=== PATIENT | female | born 1990 | race Caucasian/White ===

== ENCOUNTER → 2019-04-09 | Outpatient (REF) | payer OTHER ==
[~2019-04-09] MED LIST: VITA1CAP25 PO
== END ==
LOC: M SFHCLERA 13:52
PROVIDERS: ATTEND Physician Assistant
DX: L08.9 Local infection of the skin and subcutaneous tissue, unspecified (principal)
CPT/HCPCS: 87070; 87255; G0463

== ENCOUNTER → 2021-08-04 | Outpatient (REF) | LOC: M LAB REF 09:34 | DX: Z36.89 Encounter for other specified antenatal screening (principal) ==

== ENCOUNTER → 2021-08-12 | Outpatient (REF) | LOC: M LAB REF 21:16 | DX: O28.1 Abnormal biochemical finding on antenatal screening of mother (principal) ==

== ENCOUNTER 2021-08-23 18:55 | Inpatient (IN) | payer OTHER ==
[~2021-08-23] VITALS: Ht 154.9 cm; Wt 85.7 kg
[2021-08-23 19:14] VITALS: BP 143/83
[2021-08-23] MEDS ORDERED: MAKE250I IM (19:18)
[2021-08-23 20:13] VITALS: BP 121/79
[2021-08-23 20:30] LABS: HEMATOCRIT 32.9 % (36.0-47.0); HEMOGLOBIN 10.4 g/dl (12.0-15.5); MEAN CORPUSCULAR HGB CONC 31.6 g/dl (32.0-36.5); MEAN CORPUSCULAR VOLUME 82.3 fl (80.0-96.0); PLATELET COUNT, AUTOMATED 291 10^3/uL (150-450); WHITE BLOOD COUNT 15.5 10^3/uL (4.0-10.0)
[2021-08-23] MEDS ORDERED: FAMOTIDINE 20 MG TAB PO ONE (20:30)
[2021-08-23] MEDS: LR 1,000 ML IV SCH (20:40)
--- NOTE | 2021-08-23 20:45 | HPEPDOC ---
Obstetrical History & Physical General Date of Admission History of Present Illness Pt is a 31yo at 35w1d EGA who presents to L&D for rule out labor. She has a history of deliveries in G2 and G3, has been on genesis injections in this . Pt was seen and evaluated in [facility] over the last several days for regular contractions. On sequential evaluations, she was found to be 4cm and did not progress. She was given a course of rescue beta on and Wednesday and discharged home after a dose of procardia. However, pt states that her contractions came back at around 3pm and have persisted so she presented here for evaluation. Chief Complaint: Contractions, pre-term Information Provided By: Patient Age: 31 : 5 Term: 1 Pre-term: 2 Abortions: 1 Livin Care Care: Good Care Dating EGA at Admission: 35 Antepartum Course Diagnos(e)s 1. Threatened labor 2. History of 3. IVF Past Medical History Past Obstetrical History : Past Obstetrical History: Multigravida Type of Delivery: Spontaneous Vaginal Del. HOME CARE CONSULTANT History: No pertinent history Past Medical History Surgical History: Other (tubal ligation) Social History Marital Status: Psychosocial History: No pertinent psych hx * Smoker: non-smoker Alcohol: Denies Drugs: denies Allergies Coded Allergies: No Known Allergies (Unverified , 01/10/19) Medications Miscellaneous Medications Hydroxyprogesterone Caproate (Genesis) 250 Mg/1 Ml Vial, 250 MG IM Physical Examination Physical Examination GENERAL: Alert and oriented times three. BREAST: . ABDOMEN: Gravid and non-tender to touch. FETUS: Is vertex (VTX) HEART RATE: Regular rate and rhythm. LUNGS: Clear to auscultation (CTA). EXTREMITIES: No edema. No clonus. Vital Signs/I&O Vital Signs Date Time Temp Pulse Resp B/P (MAP) Pulse Ox O2 Delivery O2 Flow Rate FiO2 08/23/21 19:14 98.1 114 18 143/83 (103) 97 Room Air Laboratory Data 24H LABS Laboratory Tests 2 08/23/21 20:10: CBC/BMP Pertinent Laboratoy Data Blood Type: A+ RBC Antibody Screen: Negative HIV: Negative Hepatitis B: Negative Hepatitis C: Unknown Rapid Plasma Reagin: Nonreactive Rubella: Immune Chlamydia/Gonorrhea: Negative Group B Streptococcus: Unknown Vaginal Examination Dilation: 4 cm Effacement: 70% Station: -3 Cervical Consistency: Medium Cervical Position: Posterior Assessment Heart Rate (FHR): 160 Variability: Decreased Accelerations: None Decelerations: Prolonged (Prolonged decel in triage, relieved with maternal position changes ) Tocometer Contractions: Yes Frequency: irregular Assessment/Plan Assessment 31-year-old (G)5 para (P)1213 at 35w1d weeks. Presents to Labor and Delivery (L&D) with irregular contractions. Prolonged decel in triage. Plan Admit for prolonged monitoring due to prolonged decel Non-reactive NST, will hydrate w/ IVF Diet: regular diet, transition to clear liquids if pt goes into active labor Group B Streptococcus (GBS) unknown, pt states that she had it collected at [facility]. Labs and intravenous (IV) per unit protocol. Lactated Ringers (LR): Bolus 1000 mL, then at 125 mL/hr. JOSSELYN LOCKETT MD Aug 23, 2021 20:45
[2021-08-23 21:11] VITALS: BP 124/70
[2021-08-23] MEDS ORDERED: ONDANSETRON 4MG/2ML VIAL IV PRN (21:20)
[2021-08-23] MEDS ORDERED: METHYLERGONOVINE MALEATE 0.2 MG/ML VIAL (J2210) IM PRN (21:35)
[2021-08-23] MEDS ORDERED: LR 1,000 ML IV SCH (21:35)
[2021-08-23] MEDS ORDERED: PANTOPRAZOLE 40MG VIAL (C9113 PER 1) IV ONE (21:35)
[2021-08-23] MEDS ORDERED: CALCIUM CARBONATE 500 MG CHEW U/D PO PRN (21:35)
[2021-08-23] MEDS ORDERED: CARBOPROST TROMETHAMINE 250 MCG/ML AMP IM PRN (21:35)
[2021-08-23] MEDS ORDERED: TRANEXAMIC ACID INJection 1,000 MG in NS 100 ML IV PRN (21:35)
--- OUTSIDE RECORDS SUMMARY | 2021-08-23 21:58 | CCD | Continuity of Care Document ---
Author Author Jennifer STARKEY DO Organization Unknown Address [address] [place] [address] Phone [phone] Problems Description No Information Available Social History Type Date Description Comments Sex Unknown Tobacco Use Start: Unknown Never Smoked Cigarettes Tobacco Use Start: Unknown Never Smoked Cigars Tobacco Use Start: Unknown Never Smoked A Pipe Tobacco Use Start: Unknown Never Used Smokeless Tobacco ETOH Use Denies alcohol use Tobacco Use Start: Unknown Patient has never smoked Recreational Drug Use Denies Drug Use Exercise Type/Frequency Exercises regularly Tattoo/Piercing Pierced ears TITA: 09/26/2021 Estimated Date of Delivery Based on Final TITA Allergies and adverse reactions Active Allergies Criticality Reaction | Severity Comments Date NKDA Unable to assess criticality 01/31/2021 NKFA Unable to assess criticality 03/28/2021 Medications Active Medications SIG Qnty Indications Ordering Provide r Date Glucometer Device 1 glucomet er 1units Jerome Stewart M.D. 05/20/2021 Glucose Meter Test Strips Advanced Strips test four times a day dx: gestational diabetes. 120units Jerome Stewart M.D. 05/20/2021 Lancets Ultra Thin 30G Thin 30G Mi sc use 4x daily 100units Jerome Stewart M.D. 05/20/20 21 Alcohol Swabs 70% Pads wipe before doing finger stick 200units Jerome Stewart M.D. 05/20/20 21 Aspirin 81 Low Dose 81mg Chewtabs 1 tab by mouth every day as directed( please start at 16wks) 30units Jerome Stewart M.D. 04/25/2021 [place] 250mg/ml Oil injection intramuscular weekly 250mg 10ml Aury Calhoun. 03/28/2021 Tablets 1 by donald th every day Unknown Medications Administered in Office Medication SIG Qnty Indications Ordering Provider Date Hydroxyprogesterone Caproate 250MG/1ML Injection Issac Starkey, DO 1 Hydroxyprogesterone Caproate 250MG/1ML Injection Issac Starkey, DO Hydroxyprogesterone Caproate 250MG/1ML Injection Jerome Stewart M.D. 07/04 Hydroxyprogesterone Caproate 250MG/1ML Injection Jerome Stewart M.D. 07/03 Hydroxyprogesterone Caproate 250MG/1ML Injection Jerome Stewart M.D. 07/02 Hydroxyprogesterone Caproate 250MG/1ML Injection Issac Starkey, DO Hydroxyprogesterone Caproate 250MG/1ML Injection Jerome Stewart M.D. 12/2020 Hydroxyprogesterone Caproate 250MG/1ML Injection Jerome Stewart M.D. 06/02 Hydroxyprogesterone Caproate 250MG/1ML Injection Jerome Stewart M.D. 06/01 Hydroxyprogesterone Caproate 250MG/1ML Injection Issac Starkey, DO Hydroxyprogesterone Caproate 250MG/1ML Injection Jerome Stewart M.D. 04/2021 Hydroxyprogesterone Caproate 250MG/1ML Injection Jerome Stewart M.D. 05/03 Hydroxyprogesterone Caproate 250MG/1ML Injection Jerome Stewart M.D. 05/01 Hydroxyprogesterone Caproate 250MG/1ML Injection Jerome Stewart M.D. 12/2020 Hydroxyprogesterone Caproate 250MG/1ML Injection Jerome Stewart M.D. 04/02 Immunizations CPT Code Status Date Vaccine Lot # [id number] Given 08/13/2021 Tdap (Boostrix/Adacel) Vacc[place] ne 224cg Vital Signs Date Vital Result Comment 08/20/2021 9:49am BP Systolic 102 mmHg BP Diastolic 70 mmHg Heart Rate 104 /min Body Temperature 98.6 F Respiratory Rate 16 /min O2 % BldC Oximetry 96 % Weight 185.25 lb Weight 84.029 kg Height 61 inches 5'1" BMI (Body Mass Index) 35.0 kg/m2 BSA (Body Surface Area) 1.83 m2 08/13/2021 1:16pm BP Systolic 116 mmHg BP Diastolic 80 mmHg Heart Rate 111 /min O2 % BldC Oximetry 97 % Weight 187.38 lb Weight 84.993 kg Height 61 inches 5'1" BMI (Body Mass Index) 35.4 kg/m2 BSA (Body Surface Area) 1.84 m2 Results Test Acquired Date Facility Test Result H/L Range Note Urinalysis 08/12/2021 [facility] Urinalysis (SEE NOTE) 1, 2 Source R Color yellow Normal: Yellow Clarity clear Normal: Clear Spec [place] 1.020 1.001 - 1.030 pH 6 5 - 9 Glucose NORM Normal: Negative Bilirubin NEG Normal: Negative Ketone NEG Normal: Negative Protein NEG Normal: Negative Nitrite NEG Normal: Negative Blood NEG Normal: Negative Leuk Est NEG Normal: Negative Urobilinogen NOR less than 1.0 mg/dL Microscopic Not Indicate Cuture Urine 08/12/2021 [facility] Culture Urine (SEE NOTE) 3 Laboratory test finding 08/12/2021 [facility] Fibronectin POSITIVE 4 Laboratory test finding 08/04/2021 [facility] Culture GBS Vaginal (SEE NOTE) 5, 6 Laboratory test finding 08/04/2021 [facility] l Fibronectin (SEE NOTE) 7 Laboratory test finding 08/04/2021 [facility] Culture Urine (SEE NOTE) 8, 9 CBC No Diff 07/04/2021 [facility] CBC No Diff (SEE NOTE) 10, 11 WBC 10.1 10^3/uL 4.2 - 11.0 RBC 3.79 10^6/uL Low 4.20 - 5.40 Hemoglobin 10.7 g/dL Low 12.0 - 16.0 Hematocrit 32.6 % Low 37.0 - 47.0 MCV 86.0 fL 81.0 - 101 MCH 28.2 pg 27.0 - 34.0 MCHC 32.8 g/dL 31.0 - 36.0 RDW 13.3 % 11.5 - 14.5 Platelets 258 10^3/uL 150 - 450 MPV 9.4 fL 7.4 - 10.4 BB Type & Screen 03/01/2021 [facility] Abo Group A 12 RH Type POSITIVE AB Screen NEGATIVE Normal: Negative 13 Laboratory test finding 03/01/2021 [facility] Vitamin D 1, 25-Dihydroxy 116.0 pg/mL High 19.9-79.3 Comprehensive Metabolic Panel 03/01/2021 [facility] Comprehensive Metabo (SEE NOTE) 14 Sodium 138 mEq/L 134 - 153 Potassium 3.9 mEq/L 3.6 - 5.0 Chloride 105 mEq/L 98 - 107 Co2 24 mEq/L 22 - 30 Glucose 103 mg/dL High 70 - 99 BUN 11 mg/dL 7 - 21 Creatinine 0.7 mg/dL 0.7 - 1.5 BUN/Creat 16 8 - 27 Total Protein 6.6 g/dL 6.3 - 8.2 Albumin 3.8 g/dL Low 3.9 - 5.0 Globulin 2.8 GM/DL 2.4 - 3.2 A/G Ratio 1.4 0.8 - 2.0 Calcium 9.4 mg/dL 8.4 - 10.2 Total Bili <0.7 mg/dL 0.2 - 1.3 Alkaline Phos 40 U/L 38 - 126 Sgot/Ast 9 U/L 5 - 40 SGPT/Alt 8 U/L 7 - 56 Anion Gap 9.0 mmol/L 8.0 - 16.0 Age 31 yrs Non-Aa GFR >60 mL/min Afr Amer GFR >60 mL/min 15 HIV Panel 03/01/2021 [facility] HIV Screen 4thGeneration wRfx Non Reactive Non Reacti ve Cuture Urine 03/01/2021 [facility] Culture Urine (SEE NOTE) 16 Urinalysis 03/01/2021 [facility] Urinalysis (SEE NOTE) 17 Source R Color yellow Normal: Yellow Clarity clear Normal: Clear Spec [place] 1.025 1.001 - 1.030 pH 6 5 - 9 Glucose NORM Normal: Negative Bilirubin NEG Normal: Negative Ketone NEG Normal: Negative Protein 15 Normal: Negative Nitrite NEG Normal: Negative Blood 150 Abnormal Normal: Negative Leuk Est 100 Abnormal Normal: Negative Urobilinogen NOR less than 1.0 mg/dL Microscopic See Below WBC 1 - 3 Normal: None Seen Epithelial MODERATE Abnormal Normal: None Seen Bacteria 1+ SMALL Normal: None Seen CBC W/Automated Diff 03/01/2021 [facility] CBC W/Automated Diff (SEE NOTE) 18 WBC 8.7 10^3/uL 4.2 - 11.0 RBC 4.41 10^6/uL 4.20 - 5.40 Hemoglobin 13.1 g/dL 12.0 - 16.0 Hematocrit 38.0 % 37.0 - 47.0 MCV 86.2 fL 81.0 - 101 MCH 29.7 pg 27.0 - 34.0 MCHC 34.5 g/dL 31.0 - 36.0 RDW 12.2 % 11.5 - 14.5 Platelets 247 10^3/uL 150 - 450 MPV 9.5 fL 7.4 - 10.4 Neut 73.5 % 37.0 - 80.0 Lymph 21.2 % Low 25.0 - 40.0 [place] 4.0 % 3.0 - 8.0 Eos 0.8 % 0.0 - 7.0 Baso 0.2 % 0.0 - 2.5 %Ig 0.3 % High 0.0 - 0.0 %NRBC 0.0 % 0.0 - 0.0 #Neut 6.35 10^3/uL 2.00 - 6.90 #Lymph 1.83 10^3/uL 0.60 - 3.40 #[place] 0.35 10^3/uL 0.00 - 0.90 #Eos 0.07 10^3/uL 0.00 - 0.70 #Baso 0.02 10^3/uL 0.00 - 0.20 #Ig 0.03 10^3/uL 0.00 - 0.10 #NRBC 0.00 10^3/uL 0.00 - 0.00 Manual Diff NOT INDICATED RBC Morph NOT INDICATED . Panel WWW 03/01/2021 [facility] Hepatitis B Surf Antigen NONREACTIVE Normal:Non React carlitos Rubella Igg Qual 66.860 IU/mL 19 Syphilis NON-REACTIVE Normal:Non Reactive Vitamin D (25-Hydroxy) 28 NG/ML 20 T4 - Free 1.17 ng/dL 0.93 - 1.70 TSH Highly Sensitive 1.29 uIU/mL 0.47 - 5.01 T3 Free 3.4 pg/mL 2.0-4.4 T4 10.5 g/dL 4.5 - 12.5 Thyroid Peroxidase (Tpo) AB <9 IU/mL 0-34 [id number] Plus Core+Ess+Sca 02/28/2021 Patients Ch oice Z#Other Observations <pending> Chlamydia GC/Trich 02/28/2021 [facility] Source: Genital 21 Chlamydia by Jerilyn Negative Negative Gonococcus by Jerilyn Negative Negative Trich vag by Jerilyn Negative Negative 1 {SOURCE: Random Void~NURSE COLLECTED? N 2 URINALYSIS 3 _CULTURE URINE_ ^$564415 ^^749917 $$991359 ^^254492 $$123074 $$957983 $$000340 $$303448 $$830363 $$946345 $$096147 $$319740 $$506310 $$781329 $$659120 $$469654 $$595311 $$641022 $$729395 $$553021 $$196697 $$483385 $$006589 $$507698 $$241456 $$326038 $$038026 ^^122262 $$949634 $$483739 $$254404 -- Continued on next page -- Patient: ESTEFANY Mims Order: [id number] Page 2 Culture: CULTURE URINE Status: Final $$[id number] $$[id number] REPORTED DATE/TIME: 08/15/2021 08:08 Culture: CULTURE URINE Status: Final Urine Culture,Comprehensive: P1 Mixed urogenital keith 25,000-50,000 colony forming units per m L P1 Test performed by: Zhanna ABRAHAM #: [id number] [address] [facility] [phone] [facility] [phone] Television Engineering Teacher : Zaki Taylor MD NPI #: Farmworker Rice : 08/15/21.1432.XMT.SENT REF 4 TEST DONE IN [facility] FIBRONECTIN Any specimen that is cloudy, thick, mucoid, pink, or bloody may cause an invalid or false positive result. 5 CULTURE GBS VAGINAL 6 _B-STREP GROUP B CULTURE_ ^$623763 ^^085721 $$762738 $$[id number] REPORTED DATE/TIME: 08/09/2021 06:06 Culture: CULTURE GBS VAGINAL Status: Final Strep Gp B Culture: P1 Negative Reference Range: Negative Centers for Disease Control and Prevention (CDC) and [place] [employer] of Obstetricians and Gynecologists (ACOG) guidelines for prevention of group B streptococcal (GBS) disease specify co-collection of a vaginal and rectal swab specimen to maximize sensitivity of GBS detection. Per the CDC and ACOG, swabbing both the lower vagina and rectum substantially increases the yield of detection compared with sampling the vagina alone. Penicillin G, ampicillin, or cefazolin are indicated for intrapartum prophylaxis of GBS colonization. Reflex susceptibility testing should be performed prior to use of clindamycin only on GBS isolates from penicillin-allergic women who are considered a high risk for anaphylaxis. Treatment with vancomycin without additional testing is warranted if resistance to clindamycin is noted. P1 Test performed by: Zhanna Mckeon CLIA #: [id number] [address] [facility] [id number] [facility] [address] -- Continued on next page -- Patient: ESTEFANY Mims Order: [id number] Page 2 Culture: CULTURE GBS VAGINAL Status: Final Television Engineering Teacher : Zaki Taylor MD NPI #: Farmworker Rice : 08/09/21.1904.XMT.SENT REF 7 [place] [address] CLIA # [id number] SEE SCANNED REPORT FIBRONECTIN Any specimen that is cloudy, thick, mucoid, pink, or bloody may cause an invalid or false positive result. 8 {SPECIMEN TYPE: RANDOM 9 _CULTURE URINE_ ^$544363 ^^331676 $$466605 ^^856176 $$057259 $$949204 $$046588 $$807025 $$395158 $$840106 $$122854 $$163568 $$731843 $$777823 $$897662 $$721322 $$251488 $$650282 $$377265 $$213948 $$099663 $$074521 $$378265 $$679081 $$737067 $$664941 $$666800 ^^993845 $$814166 $$738555 $$770768 -- Continued on next page -- Patient: ESTEFANY Mims Order: [id number] Page 2 Culture: CULTURE URINE Status: Final $$293076 $$[id number] REPORTED DATE/TIME: 08/06/2021 04:06 Culture: CULTURE URINE Status: Final Urine Culture,Comprehensive: P1 Mixed urogenital keith 25,000-50,000 colony forming units per m L P1 Test performed by: [facility] CLIA #: [id number] [address] [place] [id number] [facility] [address] Television Engineering Teacher : Zaki Taylor MD NPI #: Farmworker Rice : 08/06/21.0701.XMT.SENT REF 10 .~.~Z34.82 11 COMPLETE BLOOD COUNT 12 .~.~<DG1.3.1>Z34.81</DG1.3.1><DG1.3.1>Z34.81</DG1.3.1><DG1.3.1>Z34.81</DG1.3.1>< DG1. {SOURCE: R~.~.~<DG1.3.1>Z34.81</DG1.3.1><DG1.3.1>Z34.81< /DG1.3.1><DG1.3.1>Z34.81</DG1.3.1><DG1. .~.~<DG1.3.1>Z34.81</DG1.3.1><DG1.3.1>Z34.81</DG1.3.1><DG1.3.1>Z34.81</DG1.3.1>< DG1. .~.~<DG1.3.1>Z 34.81</DG1.3.1><DG1.3.1>Z34.81</DG1.3.1><DG1.3.1>Z34.81</DG1.3.1><DG1. .~.~<DG1.3.1>Z34.81</DG1.3.1><DG1.3.1>Z34.81</DG1.3.1><DG1.3.1>Z34.8 1</DG1.3.1><DG1. .~.~<DG1.3.1>Z34.81</DG1.3.1><DG1.3.1>Z34.81</DG1.3.1><DG1.3.1>Z34.81</DG1.3.1>< DG1. .~.~<DG1.3.1>Z34.81</DG1.3.1><DG1.3.1 >Z34.81</DG1.3.1><DG1.3.1>Z34.81</DG1.3.1><DG1. .~.~<DG1.3.1>Z34.81</DG1.3.1><DG1.3.1>Z34.81</DG1.3.1><DG1.3.1>Z34.81</DG1.3.1>< DG1. .~.~&l t;DG1.3.1>Z34.81</DG1.3.1><DG1.3.1>Z34.81</DG1.3.1><DG1.3.1>Z34.81</DG1.3.1><DG1 . Is patient fasting? N~.~.~<DG1.3.1>Z34.81</DG1.3.1><DG1.3.1>Z34.8 1</DG1.3.1><DG1.3.1>Z34.81</DG1 .~.~<DG1.3.1>Z34.81</DG1.3.1><DG1.3.1>Z34.81</DG1.3.1><DG1.3.1>Z34.81</DG1.3.1>< DG1. .~.~<DG1.3.1>Z34.81</D G1.3.1><DG1.3.1>Z34.81</DG1.3.1><DG1.3.1>Z34.81</DG1.3.1><DG1. Reason for Exam: R~.~.~<DG1.3.1>Z34.81</DG1.3.1><DG1.3.1>Z34.81</DG1.3.1><DG1.3.1>Z34.81</DG1.3. .~.~<DG1.3.1>Z34.81</DG1.3.1><DG1.3.1>Z34.81</DG1.3.1><DG1.3.1>Z34.81</DG1.3.1>< DG1. {SPECIMEN TYPE: R~.~.~<DG1.3.1>Z34.81</DG1.3.1 ><DG1.3.1>Z34.81</DG1.3.1><DG1.3.1>Z34.81</DG1.3.1 .~.~<DG1.3.1>Z34.81</DG1.3.1><DG1.3.1>Z34.81</DG1.3.1><DG1.3.1>Z34.81</DG1.3.1>< DG1. .~. ~<DG1.3.1>Z34.81</DG1.3.1><DG1.3.1>Z34.81</DG1.3.1><DG1.3.1>Z34.81</DG1.3.1><DG1 . .~.~<DG1.3.1>Z34.81</DG1.3.1><DG1.3.1>Z34.81</DG1.3.1>&lt ;DG1.3.1>Z34.81</DG1.3.1><DG1. .~.~<DG1.3.1>Z34.81</DG1.3.1><DG1.3.1>Z34.81</DG1.3.1><DG1.3.1>Z34.81</DG1.3.1>< DG1. .~.~<DG1.3.1>Z34.81</DG1.3 .1><DG1.3.1>Z34.81</DG1.3.1><DG1.3.1>Z34.81</DG1.3.1><DG1. .~.~<DG1.3.1>Z34.81</DG1.3.1><DG1.3.1>Z34.81</DG1.3.1><DG1.3.1>Z34.81</DG1.3.1>< DG1. 13 { ABO/RH REENTER A POSITIVE { AB SCREEN RE-ENTER NEGATIVE 14 COMPREHENSIVE METABOLIC PANE L 15 Male GFR Interprentation 20-49 yrs >60 mL/min Normal 50-59 yrs >56 mL/min Normal 60-69 yrs >49 mL/min Normal 70-79yrs >42 mL/min Normal 80 and above >35 mL/min Normal Female GFR Interpretation 20-39 yrs >60 mL/min Normal 40-49 yrs >58 mL/min Normal 50-59 yrs >51 mL/min Normal 60-69 yrs >45 mL/min Normal 70-79 yrs >39 mL/min Normal 80 and above >32 mL/min Normal 16 _CULTURE URINE_ ^$518497 ^^271753 $$206076 ^^247917 $$465477 $$973916 $$732133 $$156956 $$823770 $$769028 $$285025 $$265340 $$110222 $$464750 $$851345 $$204677 $$275455 $$805813 $$841314 $$602395 $$426249 $$911277 $$035058 $$917948 $$811369 $$089365 $$313171 ^^046606 $$653999 $$278075 $$654586 -- Continued on next page -- Patient: ESTEFANY Mims Order: [id number] Page 2 Culture: CULTURE URINE Status: Final $$[id number] $$[id number] REPORTED DATE/TIME: 03/05/2021 10:07 Culture: CULTURE URINE Status: Final Urine Culture,Comprehensive: P1 Mixed urogenital keith 10,000-25,000 colony forming units per m L P1 Test performed by: [facility] #: [id number] [address] [place] [phone] [facility] [phone] Television Engineering Teacher : Zaki Taylor MD NPI #: Farmworker Rice : 03/05/21.1157.XMT.SENT REF 17 URINALYSIS 18 COMPLETE BLOOD COUNT 19 REACTIVE \\BLDo\\Rubella Immunity Interpretation\\BLDx\\ Non-reactive: <10 IU/mL Reactive: greater than or equal to 10 IU/mL A reactive result is presumptive evidence of immunity to Rubella, except when acute infection is suspected. 20 VITAMIN-D(25HYDROXY) Deficiency: <=20 ng/ml Insufficiency: 21-29 ng/ml Preferred level: => 30 ng/ml 21 {SOURCE: Genital Procedures Date Code Description Status 07/31/2021 0960518 Antepartum F/U visit Completed 07/16/2021 1031390 Antepartum F/U visit Completed 06/17/2021 [id number] Antepartum F/U visit Completed 05/20/2021 [id number] Antepartum F/U visit Completed 02/28/2021 [id number] Antepartum F/U visit Completed Medical Devices Description No Information Available Encounters Description No Information Available Assessments Date Code Description Provider 07/31/2021 Z34.83 Encounter for superv ision of other normal , third trimester Jerome Stewart M.D. 07/16/2021 Z34.83 Encounter for superv ision of other normal , third trimester Jerome Stewart M.D. 06/17/2021 Z34.82 Encounter for superv ision of other normal , second trimester Jerome Stewart M.D. 05/30/2021 O09.813 Supervision of pregn karthik resulting from assisted reproductive technology, third trimester Jeorme Stewart M.D. 05/20/2021 Z34.82 Encounter for superv ision of other normal , second trimester Jerome Stewart M.D. 02/28/2021 Z34.83 Encounter for superv ision of other normal , third trimester WWW Intake / Nurse Schedule Plan of Treatment Future Appointment(s):* 08/27/2021 1:45 pm - Issac Starkey DO at [facility] Functional Status Description No Information Available Mental Status Description No Information Available Referrals Refer to Dr Reason for Referral Status Appt [facility] HX PRE TERM LABOR Scheduled 04/01 [address] [place] [address] [phone] [facility] Nutrition Services NUTRITION CONSULT Sent 03/[address] [place] [address] [phone]
--- OUTSIDE RECORDS SUMMARY | 2021-08-23 21:58 | CCD | Continuity of Care Document ---
Author Author Jennifer STARKEY DO Organization Unknown Address [address] [place] [address] Phone [phone] Problems Description No Information Available Social History [...] at 16wks) 30units Jerome Stewart M.D. 04/25/2021 [place] 250mg/ml Oil injection intramuscular weekly 250mg [...] CPT Code Status Date Vaccine Lot # [id number] Given 08/13/2021 Tdap (Boostrix/Adacel) Vacci ne 224cg Vital Signs Date Vital Result Comment 08/13/2021 1:16pm BP Systolic 116 mmHg BP Diastolic 80 mmHg Heart Rate 111 /min O2 % BldC Oximetry 97 % Weight 187.38 lb Weight 84.993 kg Height 61 inches 5'1" BMI (Body Mass Index) 35.4 kg/m2 BSA (Body Surface Area) 1.84 m2 08/07/2021 10:32am BP Systolic 116 mmHg BP Diastolic 72 mmHg Heart Rate 103 /min O2 % BldC Oximetry 98 % Weight 187.00 lb Weight 84.823 kg Height 61 inches 5'1" BMI (Body Mass Index) 35.3 kg/m2 BSA (Body Surface Area) 1.84 m2 Results Test Acquired Date Facility Test Result H/L Range Note Urinalysis 08/12/2021 [facility] Urinalysis (SEE NOTE) 1, 2 Source R Color yellow Normal: Yellow Clarity clear Normal: Clear Spec [place] 1.020 1.001 - 1.030 pH 6 5 - 9 Glucose NORM Normal: Negative Bilirubin NEG Normal: Negative Ketone NEG Normal: Negative Protein NEG Normal: Negative Nitrite NEG Normal: Negative Blood NEG Normal: Negative Leuk Est NEG Normal: Negative Urobilinogen NOR less than 1.0 mg/dL Microscopic Not Indicate Cuture Urine 08/12/2021 [facility] Culture Urine (SEE NOTE) 3 Laboratory test finding 08/12/2021 [facility] l Fibronectin POSITIVE 4 Laboratory test finding 08/04/2021 [facility] Culture GBS Vaginal (SEE NOTE) 5, 6 Laboratory test finding 08/04/2021 [facility] l Fibronectin (SEE NOTE) 7 Laboratory test finding 08/04/2021 [facility] Culture Urine (SEE NOTE) 8, 9 CBC No Diff 07/04/2021 [facility] CBC No Diff (SEE NOTE) 10, [...] - 10.4 BB Type & Screen 03/01/2021 [facility] Abo Group A 12 RH Type POSITIVE AB Screen NEGATIVE Normal: Negative 13 Laboratory test finding 03/01/2021 [facility] Vitamin D 1, 25-Dihydroxy 116.0 pg/mL High 19.9-79.3 Comprehensive Metabolic Panel 03/01/2021 [facility] ospital Comprehensive Metabo (SEE NOTE) [...] GFR >60 mL/min 15 HIV Panel 03/01/2021 [facility] HIV Screen 4thGeneration wRfx Non Reactive Non Reacti ve Cuture Urine 03/01/2021 [facility] Culture Urine (SEE NOTE) 16 Urinalysis 03/01/2021 [facility] Urinalysis (SEE NOTE) 17 Source R Color yellow Normal: Yellow Clarity clear Normal: Clear Spec [place] 1.025 1.001 - 1.030 pH 6 5 [...] Normal: None Seen CBC W/Automated Diff 03/01/2021 [facility] CBC W/Automated Diff (SEE NOTE) 18 [...] Lymph 21.2 % Low 25.0 - 40.0 [place] 4.0 % 3.0 - 8.0 Eos 0.8 % 0.0 - 7.0 Baso 0.2 % 0.0 - 2.5 %Ig 0.3 % High 0.0 - 0.0 %NRBC 0.0 % 0.0 - 0.0 #Neut 6.35 10^3/uL 2.00 - 6.90 #Lymph 1.83 10^3/uL 0.60 - 3.40 #[place] 0.35 10^3/uL 0.00 - 0.90 #Eos 0.07 10^3/uL 0.00 - 0.70 #Baso 0.02 10^3/uL 0.00 - 0.20 #Ig 0.03 10^3/uL 0.00 - 0.10 #NRBC 0.00 10^3/uL 0.00 - 0.00 Manual Diff NOT INDICATED RBC Morph NOT INDICATED . Panel WWW 03/01/2021 [facility] Hepatitis B Surf Antigen NONREACTIVE Normal:Non React carlitos Rubella Igg Qual 66.860 IU/mL 19 Syphilis NON-REACTIVE Normal:Non Reactive Vitamin D (25-Hydroxy) 28 NG/ML 20 T4 - Free 1.17 ng/dL 0.93 - 1.70 TSH Highly Sensitive 1.29 uIU/mL 0.47 - 5.01 T3 Free 3.4 pg/mL 2.0-4.4 T4 10.5 g/dL 4.5 - 12.5 Thyroid Peroxidase (Tpo) AB <9 IU/mL 0-34 [id number] Plus Core+Ess+Sca 02/28/2021 Patients Ch oice Z#Other Observations <pending> Chlamydia GC/Trich 02/28/2021 [facility] Source: Genital 21 Chlamydia by Jerilyn Negative Negative Gonococcus by Jerilyn Negative Negative Trich vag by Jerilyn Negative Negative 1 {SOURCE: Random Void~NURSE COLLECTED? N 2 URINALYSIS 3 _CULTURE URINE_ ^$963118 ^^287805 $$436426 ^^188753 $$858399 $$891727 $$320244 $$231499 $$088918 $$517910 $$358828 $$649803 $$411625 $$141826 $$148848 $$455847 $$266769 $$131696 $$460974 $$855900 $$140867 $$924232 $$244333 $$782020 $$910108 $$064897 $$923658 ^^275177 $$145028 $$560022 $$946121 -- Continued on next page -- Patient: ESTEFANY Mims Order: [id number] Page 2 Culture: CULTURE URINE Status: Final $$[id number] $$[id number] REPORTED DATE/TIME: 08/15/2021 08:08 Culture: CULTURE URINE Status: Final Urine Culture,Comprehensive: P1 Mixed urogenital keith 25,000-50,000 colony forming units per m L P1 Test performed by: Zhanna ABRAHAM #: [id number] [address] [place] [address] [id number] [facility] [address] Quality Systems Engineer : Zaki Taylor MD NPI #: Wafer Polishing Lead Worker : 08/15/21.1432.XMT.SENT REF 4 TEST DONE IN [facility] FIBRONECTIN Any specimen that is cloudy, thick, mucoid, pink, or bloody may cause an invalid or false positive result. 5 CULTURE GBS VAGINAL 6 _B-STREP GROUP B CULTURE_ ^$066675 ^^703936 $$207659 $$233904 REPORTED DATE/TIME: 08/09/2021 06:06 Culture: CULTURE GBS VAGINAL Status: Final Strep Gp B Culture: P1 Negative Reference Range: Negative Centers for Disease Control and Prevention (CDC) and [place] [employer] Obstetricians [employer] Gynecologists (ACOG) guidelines [...] Test performed by: Zhanna Mckeon CLIA #: [id number] [address] [facility] [id number] [facility] [address] -- Continued on next page -- Patient: ESTEFANY Mims Order: [id number] Page 2 Culture: CULTURE GBS VAGINAL Status: Final Quality Systems Engineer : Zaki Taylor MD NPI #: Wafer Polishing Lead Worker : 08/09/21.1904.XMT.SENT REF 7 [place] [address] CLIA # [id number] SEE SCANNED REPORT FIBRONECTIN Any specimen that is cloudy, thick, mucoid, pink, or bloody may cause an invalid or false positive result. 8 {SPECIMEN TYPE: RANDOM 9 _CULTURE URINE_ ^$956164 ^^838784 $$425383 ^^778003 $$308643 $$887452 $$007642 $$007498 $$546746 $$012756 $$820089 $$078277 $$606242 $$144672 $$768592 $$492504 $$551053 $$528797 $$200732 $$110612 $$086628 $$324897 $$904515 $$302296 $$409129 $$252172 $$361745 ^^887451 $$120220 $$260153 $$463932 -- Continued on next page -- Patient: ESTEFANY Mims Order: [id number] Page 2 Culture: CULTURE URINE Status: Final $$[id number] $$[id number] REPORTED DATE/TIME: 08/06/2021 04:06 Culture: CULTURE URINE Status: Final Urine Culture,Comprehensive: P1 Mixed urogenital keith 25,000-50,000 colony forming units per m L P1 Test performed by: [facility] [place] #: [id number] [address] [place] [address] [id number] [facility] [address] Quality Systems Engineer : Zaki Taylor MD NPI #: Wafer Polishing Lead Worker : 08/06/210701.XMT.SENT REF 10 .~.~Z34.82 11 COMPLETE BLOOD COUNT [...] above >32 mL/min Normal 16 _CULTURE URINE_ ^$969580 ^^670814 $$728570 ^^004914 $$584966 $$333533 $$573545 $$850033 $$738051 $$652000 $$335797 $$084336 $$807934 $$394984 $$210369 $$400547 $$794343 $$906704 $$897863 $$063903 $$854297 $$124744 $$539634 $$809082 $$969636 $$266015 $$900053 ^^338528 $$100561 $$110824 $$012236 -- Continued on next page -- Patient: ESTEFANY Mims Order: [id number] Page 2 Culture: CULTURE URINE Status: Final $$[id number] $$[id number] REPORTED DATE/TIME: 03/05/2021 10:07 Culture: CULTURE URINE Status: Final Urine Culture,Comprehensive: P1 Mixed urogenital keith 10,000-25,000 colony forming units per m L P1 Test performed by: [facility] Linda MARBELLA #: [id number] [address] [place] [address] Avenue [id number] [facility] [address] Quality Systems Engineer : Zaki Taylor MD NPI #: Wafer Polishing Lead Worker : 03/05/21.1157.XMT.SENT REF 17 URINALYSIS 18 COMPLETE BLOOD COUNT 19 REACTIVE \\BLDo\\Rubella Immunity Interpretation\\BLDx\\ Non-reactive: <10 IU/mL Reactive: greater than or equal to 10 IU/mL A reactive result is presumptive evidence of immunity to Rubella, except when acute infection is suspected. 20 VITAMIN-D(25HYDROXY) Deficiency: <=20 ng/ml Insufficiency: 21-29 ng/ml Preferred level: => 30 ng/ml 21 {SOURCE: Genital Procedures Date Code Description Status 07/31/2021 8908111 Antepartum F/U visit Completed 07/16/2021 3480164 Antepartum F/U visit Completed 06/17/2021 8084393 Antepartum F/U visit Completed 05/20/2021 1092955 Antepartum F/U visit Completed 02/28/2021 0516361 Antepartum F/U visit Completed Medical Devices Description [...] resulting from assisted reproductive technology, third trimester Jerome Stewart M.D. 05/20/2021 Z34.82 Encounter for superv ision of other normal , second trimester Jerome Stewart M.D. 02/28/2021 Z34.83 Encounter for superv ision of other normal , third trimester WWW Intake / Nurse Schedule Plan of Treatment Future Appointment(s):* 08/27/2021 1:45 pm - Issac Starkey DO at [facility] * 08/20/2021 9:45 am - Issac Starkey DO at [facility] Functional Status Description No Information Available Mental Status Description No Information Available Referrals Refer to Reason for Referral Status Appt [facility] HX PRE TERM LABOR Scheduled 04/01 [address] [place] [address] [phone] [facility] Nutrition Services NUTRITION CONSULT Sent 03/[address] [place] [address] [phone]
--- OUTSIDE RECORDS SUMMARY | 2021-08-23 21:59 | CCD | Continuity of Care Document ---
Author Author Jennifer STARKEY DO Organization Unknown Address [address] [place] [address] Phone [phone] Problems Description No Information Available Social History [...] at 16wks) 30units [place] Stewart M.D. 04/25/2021 [place] 250mg/ml Oil injection intramuscular weekly 250mg 10ml [...] CPT Code Status Date Vaccine Lot # [id number] Given 08/13/2021 Tdap (Boostrix/Adacel) Vacci ne 224cg [...] Test Result H/L Range Note Urinalysis 08/12/2021 [facility] Urinalysis (SEE NOTE) 1, 2 Source R Color yellow Normal: Yellow Clarity clear Normal: Clear Spec [place] 1.020 1.001 - 1.030 pH 6 5 - 9 Glucose NORM Normal: Negative Bilirubin NEG Normal: Negative Ketone NEG Normal: Negative Protein NEG Normal: Negative Nitrite NEG Normal: Negative Blood NEG Normal: Negative Leuk Est NEG Normal: Negative Urobilinogen NOR less than 1.0 mg/dL Microscopic Not Indicate Laboratory test finding 08[facility]12[facility] Fibronectin POSITIVE 3 Laboratory test finding 08/04/2021 [facility] Culture GBS Vaginal (SEE NOTE) 4, 5 Laboratory test finding 08/04/[facility] Fibronectin (SEE NOTE) 6 Laboratory test finding 08/04/[facility] Culture Urine (SEE NOTE) 7, 8 CBC No Diff 07/04/2021 [facility] CBC No Diff (SEE NOTE) 9, 10 WBC 10.1 10^3/uL 4.2 - 11.0 RBC [...] - 10.4 BB Type & Screen 03/01/2021 [facility] Abo Group A 11 RH Type POSITIVE AB Screen NEGATIVE Normal: Negative 12 Laboratory test finding 03/01/2021 [facility] Vitamin D 1, 25-Dihydroxy 116.0 pg/mL High 19.9-79.3 Comprehensive Metabolic Panel 03/01/2021 [facility] ospital Comprehensive Metabo (SEE NOTE) 13 Sodium 138 mEq/L 134 - 153 Potassium [...] >60 mL/min Afr Amer GFR >60 mL/min 14 HIV Panel 03/01/2021 [facility] HIV Screen 4thGeneration wRfx Non Reactive Non Reacti ve Cuture Urine 03/01/2021 [facility] Culture Urine (SEE NOTE) 15 Urinalysis 03/01/2021 [facility] Urinalysis (SEE NOTE) 16 Source R Color yellow Normal: Yellow Clarity clear Normal: Clear Spec [place] 1.025 1.001 - 1.030 pH 6 5 [...] Normal: None Seen CBC W/Automated Diff 03/01/2021 [facility] CBC W/Automated Diff (SEE NOTE) 17 WBC 8.7 10^3/uL 4.2 - 11.0 RBC [...] Lymph 21.2 % Low 25.0 - 40.0 [place] 4.0 % 3.0 - 8.0 Eos 0.8 % 0.0 - 7.0 Baso 0.2 % 0.0 - 2.5 %Ig 0.3 % High 0.0 - 0.0 %NRBC 0.0 % 0.0 - 0.0 #Neut 6.35 10^3/uL 2.00 - 6.90 #Lymph 1.83 10^3/uL 0.60 - 3.40 #[place] 0.35 10^3/uL 0.00 - 0.90 #Eos 0.07 10^3/uL 0.00 - 0.70 #Baso 0.02 10^3/uL 0.00 - 0.20 #Ig 0.03 10^3/uL 0.00 - 0.10 #NRBC 0.00 10^3/uL 0.00 - 0.00 Manual Diff NOT INDICATED RBC Morph NOT INDICATED . Panel WWW 03/01/2021 [facility] Hepatitis B Surf Antigen NONREACTIVE Normal:Non React carlitos Rubella Igg Qual 66.860 IU/mL 18 Syphilis NON-REACTIVE Normal:Non Reactive Vitamin D (25-Hydroxy) 28 NG/ML 19 T4 - Free 1.17 ng/dL 0.93 - 1.70 TSH Highly Sensitive 1.29 uIU/mL 0.47 - 5.01 T3 Free 3.4 pg/mL 2.0-4.4 T4 10.5 g/dL 4.5 - 12.5 Thyroid Peroxidase (Tpo) AB <9 IU/mL 0-34 Syydxjsm34 Plus Core+Ess+Sca 02/28/2021 Patients Ch oice Z#Other Observations <pending> Chlamydia GC/Trich 02/28/2021 [facility] Source: Genital 20 Chlamydia by Jerilyn Negative Negative Gonococcus by Jerilyn Negative Negative Trich vag by Jerilyn Negative Negative 1 {SOURCE: Random Void~NURSE COLLECTED? N 2 URINALYSIS 3 TEST DONE IN [facility] FIBRONECTIN Any specimen that is cloudy, thick, mucoid, pink, or bloody may cause an invalid or false positive result. 4 CULTURE GBS VAGINAL 5 _B-STREP GROUP B CULTURE_ ^$988688 ^^782062 $$777917 $$[id number] REPORTED DATE/TIME: 08/09/2021 06:06 Culture: CULTURE GBS VAGINAL Status: Final Strep Gp B Culture: P1 Negative Reference Range: Negative Centers for Disease Control and Prevention (CDC) and [place] [employer] of Obstetricians and Gynecologists (ACOG) guidelines [...] clindamycin is noted. P1 Test performed by: [facility] Linda ROSAIA #: [id number] [address] [place] [address] Avenue [id number] [facility] [address] -- Continued on next page -- Patient: ESTEFANY Mims Order: [id number] Page 2 Culture: CULTURE GBS VAGINAL Status: Final Salesperson [employer] : Zaki Taylor MD NPI #: Supervisor Wet Pour : 08/09/21.1904.XMT.SENT REF 6 TEST PERFORMED AT [facility] [address] [place] [address] CLIA # [id number] SEE SCANNED REPORT FIBRONECTIN Any specimen that is cloudy, thick, mucoid, pink, or bloody may cause an invalid or false positive result. 7 {SPECIMEN TYPE: RANDOM 8 _CULTURE URINE_ ^$058286 ^^693346 $$181365 ^^676084 $$256960 $$130084 $$174004 $$976550 $$489228 $$271642 $$869734 $$147557 $$698429 $$265842 $$539133 $$557306 $$918155 $$576441 $$901037 $$547872 $$353069 $$358793 $$492665 $$188970 $$662869 $$040916 $$505129 ^^835126 $$108216 $$414463 $$263096 -- Continued on next page -- Patient: ESTEFANY Mims Order: [id number] Page 2 Culture: CULTURE URINE Status: Final $$[id number] $$[id number] REPORTED DATE/TIME: 08/06/2021 04:06 Culture: CULTURE URINE Status: Final Urine Culture,Comprehensive: P1 Mixed urogenital keith 25,000-50,000 colony forming units per m L P1 [facility]: [facility] CLIA #: [id number] [address] [place] [address] [id number] [facility] [address] Salesperson [employer] : Zaki Taylor MD NPI #: Supervisor Wet Pour : 08/06/21.0701.XMT.SENT REF 9 .~.~Z34.82 10 COMPLETE BLOOD COUNT 11 .~.~<DG1.3.1>Z34.81</DG1.3.1><DG1.3.1>Z34.81</DG1.3.1><DG1.3.1>Z34.81</DG1.3.1>< DG1. {SOURCE: R~.~.~<DG1.3.1>Z34.81</DG1.3.1><DG1.3.1>Z34.81< /DG1.3.1><DG1.3.1>Z34.81</DG1.3.1><DG1. .~.~<DG1.3.1>Z34.81</DG1.3.1><DG1.3.1>Z34.81</DG1.3.1><DG1.3.1>Z34.81</DG1.3.1>< DG1. .~.~<DG1.3.1>Z 34.81</DG1.3.1><DG1.3.1>Z34.81</DG1.3.1><DG1.3.1>Z34.81</DG1.3.1><DG1. .~.~<DG1.3.1>Z34.81</DG1.3.1><DG1.3.1>Z34.81</DG1.3.1><DG1.3.1>Z34.8 1</DG1.3.1><DG1. .~.~<DG1.3.1>Z34.81</DG1.3.1><DG1.3.1>Z34.81</DG1.3.1><DG1.3.1>Z34.81</DG1.3.1>< DG1. .~.~<DG1.3.1>Z34.81</DG1.3.1><DG1.3.1 >Z34.81</DG1.3.1><DG1.3.1>Z34.81</DG1.3.1><DG1. .~.~<DG1.3.1>Z34.81</DG1.3.1><DG1.3.1>Z34.81</DG1.3.1><DG1.3.1>Z34.81</DG1.3.1>< DG1. .~.~&l t;DG1.3.1>Z34.81</DG1.3.1><DG1.3.1>Z34.81</DG1.3.1><DG1.3.1>Z34.81</DG1.3.1><DG1 . Is patient fasting? N~.~.~<DG1.3.1>Z34.81</DG1.3.1><DG1.3.1>Z34.8 1</DG1.3.1><DG1.3.1>Z34.81</DG1 .~.~<DG1.3.1>Z34.81</DG1.3.1><DG1.3.1>Z34.81</DG1.3.1><DG1.3.1>Z34.81</DG1.3.1>< DG1. .~.~<DG1.3.1>Z34.81</D G1.3.1><DG1.3.1>Z34.81</DG1.3.1><DG1.3.1>Z34.81</DG1.3.1><DG1. Reason for Exam: R~.~.~<DG1.3.1>Z34.81</DG1.3.1><DG1.3.1>Z34.81</DG1.3.1><DG1.3.1>Z34.81</DG1.3. .~.~<DG1.3.1>Z34.81</DG1.3.1><DG1.3.1>Z34.81</DG1.3.1><DG1.3.1>Z34.81</DG1.3.1>< DG1. {SPECIMEN TYPE: R~.~.~<DG1.3.1>Z34.81</DG1.3.1 ><DG1.3.1>Z34.81</DG1.3.1><DG1.3.1>Z34.81</DG1.3.1 .~.~<DG1.3.1>Z34.81</DG1.3.1><DG1.3.1>Z34.81</DG1.3.1><DG1.3.1>Z34.81</DG1.3.1>< DG1. .~. ~<DG1.3.1>Z34.81</DG1.3.1><DG1.3.1>Z34.81</DG1.3.1><DG1.3.1>Z34.81</DG1.3.1><DG1 . .~.~<DG1.3.1>Z34.81</DG1.3.1><DG1.3.1>Z34.81</DG1.3.1>&lt ;DG1.3.1>Z34.81</DG1.3.1><DG1. .~.~<DG1.3.1>Z34.81</DG1.3.1><DG1.3.1>Z34.81</DG1.3.1><DG1.3.1>Z34.81</DG1.3.1>< DG1. .~.~<DG1.3.1>Z34.81</DG1.3 .1><DG1.3.1>Z34.81</DG1.3.1><DG1.3.1>Z34.81</DG1.3.1><DG1. .~.~<DG1.3.1>Z34.81</DG1.3.1><DG1.3.1>Z34.81</DG1.3.1><DG1.3.1>Z34.81</DG1.3.1>< DG1. 12 { ABO/RH REENTER A POSITIVE { AB SCREEN RE-ENTER NEGATIVE 13 COMPREHENSIVE METABOLIC PANE L 14 Male GFR Interprentation 20-49 yrs >60 mL/min Normal 50-59 yrs >56 mL/min Normal 60-69 yrs >49 mL/min Normal 70-79yrs >42 mL/min Normal 80 and above >35 mL/min Normal Female GFR Interpretation 20-39 yrs >60 mL/min Normal 40-49 yrs >58 mL/min Normal 50-59 yrs >51 mL/min Normal 60-69 yrs >45 mL/min Normal 70-79 yrs >39 mL/min Normal 80 and above >32 mL/min Normal 15 _CULTURE URINE_ ^$777945 ^^571637 $$017614 ^^611030 $$979933 $$100412 $$818065 $$166728 $$218399 $$589280 $$241992 $$161023 $$456110 $$233941 $$313463 $$162235 $$302179 $$196972 $$305916 $$869880 $$856840 $$587884 $$253980 $$516370 $$151204 $$255471 $$342138 ^^086771 $$345419 $$932974 $$121700 -- Continued on next page -- Patient: ESTEFANY Mims Order: [id number] Page 2 Culture: CULTURE URINE Status: Final $$[id number] $$[id number] REPORTED DATE/TIME: 03/05/2021 10:07 Culture: CULTURE URINE Status: Final Urine Culture,Comprehensive: P1 Mixed urogenital keith 10,000-25,000 colony forming units per m L P1 [facility]: [facility] CLIA #: [id number] [address] [phone] [facility] [address] Salesperson [employer] : Zaki Taylor MD NPI #: Supervisor Wet Pour : 03/05/21.1157.XMT.SENT REF 16 URINALYSIS 17 COMPLETE BLOOD COUNT 18 REACTIVE \\BLDo\\Rubella Immunity Interpretation\\BLDx\\ Non-reactive: <10 IU/mL Reactive: greater than or equal to 10 IU/mL A reactive result is presumptive evidence of immunity to Rubella, except when acute infection is suspected. 19 VITAMIN-D(25HYDROXY) Deficiency: <=20 ng/ml Insufficiency: 21-29 ng/ml Preferred level: => 30 ng/ml 20 {SOURCE: Genital Procedures Date Code Description Status 07/31/2021 [id number] Antepartum F/U visit Completed 07/16/2021 7071312 Antepartum F/U visit Completed 06/17/2021 5169269 Antepartum F/U visit Completed 05/20/2021 5599916 Antepartum F/U visit Completed 02/28/2021 5496149 Antepartum F/U visit Completed Medical Devices Description [...] Refer to Reason for Referral Status Appt Date [facility] HX PRE TERM LABOR Scheduled 04/01 [address] [place], [place] [id number] [phone] [facility] Nutrition Services NUTRITION CONSULT Sent 03/[address] [place] [address] [phone]
--- OUTSIDE RECORDS SUMMARY | 2021-08-23 21:59 | CCD | Continuity of Care Document ---
Author Author Jennifer GARCIA M.D. Organization Unknown Address [address] [place] [address] Phone [phone] Problems Description No Information Available Social History [...] Date of Delivery Based on Final TITA Allergies, Adverse Reactions, Alerts Active Allergies Criticality Reaction | Severity Comments Date NKDA Unable to assess criticality 01/31/2021 NKFA Unable to assess criticality 03/28/2021 Medications Active Medications SIG Qnty Indications Ordering Provide r Date Glucometer Device 1 glucomet er 1units Jerome Garcia M.D. 05/20/2021 Glucose Meter Test Strips Advanced Strips test four times a day dx: gestational diabetes. 120units Jerome Garcia M.D. 05/20/2021 Lancets Ultra Thin 30G Thin 30G Mi sc use 4x daily 100units Jerome Garcia M.D. 05/20/20 21 Alcohol Swabs 70% Pads wipe before doing finger stick 200units Jerome Garcia M.D. 05/20/20 21 Aspirin 81 Low Dose 81mg Chewtabs 1 tab by mouth every day as directed( please start at 16wks) 30units Jerome Garcia M.D. 04/25/2021 Tanya 250mg/ml Oil injection intramuscular weekly 250mg 10ml Aury Calhoun 03/28/2021 Tablets 1 by donald th every day Unknown Medications Administered in Office Medication SIG Qnty Indications Ordering Provider Date Hydroxyprogesterone Caproate 250MG/1ML Injection Jerome Garcia M.D. 07/02 Hydroxyprogesterone Caproate 250MG/1ML Injection Issac Starkey, DO Hydroxyprogesterone Caproate 250MG/1ML Injection Jerome Garcia M.D. 12/2020 Hydroxyprogesterone Caproate 250MG/1ML Injection Jerome Garcia M.D. 06/02 Hydroxyprogesterone Caproate 250MG/1ML Injection Jerome Garcia M.D. 06/01 Hydroxyprogesterone Caproate 250MG/1ML Injection Issac Starkey, DO Hydroxyprogesterone Caproate 250MG/1ML Injection Jerome Garcia M.D. 04/2021 Hydroxyprogesterone Caproate 250MG/1ML Injection Jerome Garcia M.D. 05/03 Hydroxyprogesterone Caproate 250MG/1ML Injection Jerome Garcia M.D. 05/01 Hydroxyprogesterone Caproate 250MG/1ML Injection Jerome Garcia M.D. 12/2020 Hydroxyprogesterone Caproate 250MG/1ML Injection Jerome Garcia M.D. 04/02 Immunizations Description No Information Available Vital Signs Date Vital Result Comment 07/16/2021 11:06am BP Systolic 124 mmHg BP Diastolic 86 mmHg Heart Rate 103 /min Body Temperature 98.4 F Weight 186.00 lb Weight 84.370 kg Height 61 inches 5'1" BMI (Body Mass Index) 35.1 kg/m2 BSA (Body Surface Area) 1.83 m2 07/14/2021 11:01am BP Systolic 116 mmHg BP Diastolic 66 mmHg Heart Rate 86 /min Body Temperature 98.2 F Respiratory Rate 18 /min O2 % BldC Oximetry 96 % Weight 184.25 lb Weight 83.576 kg Height 61 inches 5'1" BMI (Body Mass Index) 34.8 kg/m2 BSA (Body Surface Area) 1.82 m2 Results Test Acquired Date Facility Test Result H/L Range Note CBC No Diff 07/04/2021 [facility] CBC No Diff (SEE NOTE) 1, 2 WBC 10.1 10^3/uL 4.2 - 11.0 RBC 3.79 10^6/uL Low 4.20 - 5.40 Hemoglobin 10.7 g/dL Low 12.0 - 16.0 Hematocrit 32.6 % Low 37.0 - 47.0 MCV 86.0 fL 81.0 - 101 MCH 28.2 pg 27.0 - 34.0 MCHC 32.8 g/dL 31.0 - 36.0 RDW 13.3 % 11.5 - 14.5 Platelets 258 10^3/uL 150 - 450 MPV 9.4 fL 7.4 - 10.4 . Panel WWW 03/01/2021 [facility] Hepatitis B Surf Antigen NONREACTIVE Normal:Non React carlitos 3 Rubella Igg Qual 66.860 IU/mL 4 Syphilis NON-REACTIVE Normal:Non Reactive Vitamin D (25-Hydroxy) 28 NG/ML 5 T4 - Free 1.17 ng/dL 0.93 - 1.70 TSH Highly Sensitive 1.29 uIU/mL 0.47 - 5.01 T3 Free 3.4 pg/mL 2.0-4.4 T4 10.5 g/dL 4.5 - 12.5 Thyroid Peroxidase (Tpo) AB <9 IU/mL 0-34 CBC W/Automated Diff 03/01/2021 [facility] CBC W/Automated Diff (SEE NOTE) 6 WBC 8.7 10^3/uL 4.2 - 11.0 RBC [...] Lymph 21.2 % Low 25.0 - 40.0 [place] 4.0 % 3.0 - 8.0 Eos 0.8 % 0.0 - 7.0 Baso 0.2 % 0.0 - 2.5 %Ig 0.3 % High 0.0 - 0.0 %NRBC 0.0 % 0.0 - 0.0 #Neut 6.35 10^3/uL 2.00 - 6.90 #Lymph 1.83 10^3/uL 0.60 - 3.40 #[place] 0.35 10^3/uL 0.00 - 0.90 #Eos 0.07 10^3/uL 0.00 - 0.70 #Baso 0.02 10^3/uL 0.00 - 0.20 #Ig 0.03 10^3/uL 0.00 - 0.10 #NRBC 0.00 10^3/uL 0.00 - 0.00 Manual Diff NOT INDICATED RBC Morph NOT INDICATED BB Type & Screen 03/01/2021 [facility] Abo Group A RH Type POSITIVE AB Screen NEGATIVE Normal: Negative 7 Urinalysis 03/01/2021 [facility] Urinalysis (SEE NOTE) 8 Source R Color yellow Normal: Yellow Clarity clear Normal: Clear Spec [place] 1.025 1.001 - 1.030 pH 6 5 [...] Seen Bacteria 1+ SMALL Normal: None Seen Cuture Urine 03/01/2021 [facility] Culture Urine (SEE NOTE) 9 HIV Panel 03/01/2021 [facility] HIV Screen 4thGeneration wRfx Non Reactive Non Reacti ve Comprehensive Metabolic Panel 03/01/2021 [facility] ospital Comprehensive Metabo (SEE NOTE) 10 Sodium 138 mEq/L 134 - 153 Potassium [...] >60 mL/min Afr Amer GFR >60 mL/min 11 Laboratory test finding 03/01/2021 [facility] Vitamin D 1, 25-Dihydroxy 116.0 pg/mL High 19.9-79.3 [id number] Plus Core+Ess+Sca 02/28/2021 Patients Ch oice Z#Other Observations <pending> Chlamydia GC/Trich 02/28/2021 [facility] Source: Genital 12 Chlamydia by Jerilyn Negative Negative Gonococcus by Jerilyn Negative Negative Trich vag by Jerilyn Negative Negative 1 .~.~Z34.82 2 COMPLETE BLOOD COUNT 3 .~.~<DG1.3.1>Z34.81</DG1.3.1><DG1.3.1>Z34.81</DG1.3.1><DG1.3.1>Z34.81</DG1.3.1>< DG1. {SOURCE: R~.~.~<DG1.3.1>Z34.81</DG1.3.1><DG1.3.1>Z34.81< /DG1.3.1><DG1.3.1>Z34.81</DG1.3.1><DG1. .~.~<DG1.3.1>Z34.81</DG1.3.1><DG1.3.1>Z34.81</DG1.3.1><DG1.3.1>Z34.81</DG1.3.1>< DG1. .~.~<DG1.3.1>Z 34.81</DG1.3.1><DG1.3.1>Z34.81</DG1.3.1><DG1.3.1>Z34.81</DG1.3.1><DG1. .~.~<DG1.3.1>Z34.81</DG1.3.1><DG1.3.1>Z34.81</DG1.3.1><DG1.3.1>Z34.8 1</DG1.3.1><DG1. .~.~<DG1.3.1>Z34.81</DG1.3.1><DG1.3.1>Z34.81</DG1.3.1><DG1.3.1>Z34.81</DG1.3.1>< DG1. .~.~<DG1.3.1>Z34.81</DG1.3.1><DG1.3.1 >Z34.81</DG1.3.1><DG1.3.1>Z34.81</DG1.3.1><DG1. .~.~<DG1.3.1>Z34.81</DG1.3.1><DG1.3.1>Z34.81</DG1.3.1><DG1.3.1>Z34.81</DG1.3.1>< DG1. .~.~&l t;DG1.3.1>Z34.81</DG1.3.1><DG1.3.1>Z34.81</DG1.3.1><DG1.3.1>Z34.81</DG1.3.1><DG1 . Is patient fasting? N~.~.~<DG1.3.1>Z34.81</DG1.3.1><DG1.3.1>Z34.8 1</DG1.3.1><DG1.3.1>Z34.81</DG1 .~.~<DG1.3.1>Z34.81</DG1.3.1><DG1.3.1>Z34.81</DG1.3.1><DG1.3.1>Z34.81</DG1.3.1>< DG1. .~.~<DG1.3.1>Z34.81</D G1.3.1><DG1.3.1>Z34.81</DG1.3.1><DG1.3.1>Z34.81</DG1.3.1><DG1. Reason for Exam: R~.~.~<DG1.3.1>Z34.81</DG1.3.1><DG1.3.1>Z34.81</DG1.3.1><DG1.3.1>Z34.81</DG1.3. .~.~<DG1.3.1>Z34.81</DG1.3.1><DG1.3.1>Z34.81</DG1.3.1><DG1.3.1>Z34.81</DG1.3.1>< DG1. {SPECIMEN TYPE: R~.~.~<DG1.3.1>Z34.81</DG1.3.1 ><DG1.3.1>Z34.81</DG1.3.1><DG1.3.1>Z34.81</DG1.3.1 .~.~<DG1.3.1>Z34.81</DG1.3.1><DG1.3.1>Z34.81</DG1.3.1><DG1.3.1>Z34.81</DG1.3.1>< DG1. .~. ~<DG1.3.1>Z34.81</DG1.3.1><DG1.3.1>Z34.81</DG1.3.1><DG1.3.1>Z34.81</DG1.3.1><DG1 . .~.~<DG1.3.1>Z34.81</DG1.3.1><DG1.3.1>Z34.81</DG1.3.1>&lt ;DG1.3.1>Z34.81</DG1.3.1><DG1. .~.~<DG1.3.1>Z34.81</DG1.3.1><DG1.3.1>Z34.81</DG1.3.1><DG1.3.1>Z34.81</DG1.3.1>< DG1. .~.~<DG1.3.1>Z34.81</DG1.3 .1><DG1.3.1>Z34.81</DG1.3.1><DG1.3.1>Z34.81</DG1.3.1><DG1. .~.~<DG1.3.1>Z34.81</DG1.3.1><DG1.3.1>Z34.81</DG1.3.1><DG1.3.1>Z34.81</DG1.3.1>< DG1. 4 REACTIVE \\BLDo\\Rubella Immunity Interpretation\\BLDx\\ Non-reactive: <10 IU/mL Reactive: greater than or equal to 10 IU/mL A reactive result is presumptive evidence of immunity to Rubella, except when acute infection is suspected. 5 VITAMIN-D(25HYDROXY) Deficiency: <=20 ng/ml Insufficiency: 21-29 ng/ml Preferred level: => 30 ng/ml 6 COMPLETE BLOOD COUNT 7 { ABO/RH REENTER A POSITIVE { AB SCREEN RE-ENTER NEGATIVE 8 URINALYSIS 9 _CULTURE URINE_ ^$763146 ^^400673 $$164766 ^^617006 $$008693 $$578501 $$362148 $$790489 $$817062 $$706059 $$587026 $$775853 $$500985 $$676336 $$951736 $$478917 $$655551 $$166644 $$714299 $$201895 $$296543 $$364392 $$117739 $$483665 $$177695 $$999805 $$776739 ^^659254 $$272404 $$177249 $$583027 -- Continued on next page -- Patient: ESTEFANY Mims Order: [id number] Page 2 Culture: CULTURE URINE Status: Final $$[id number] $$[id number] REPORTED DATE/TIME: 03/05/2021 10:07 Culture: CULTURE URINE Status: Final Urine Culture,Comprehensive: P1 Mixed urogenital keith 10,000-25,000 colony forming units per m L P1 Test performed by: [facility] #: [id number] [address] [place] [address] [phone] [facility] [address] Pulp Refiner Operator : Zaki Taylor MD NPI #: Kiln Burner : 03/05/21.1157.XMT.SENT REF 10 COMPREHENSIVE METABOLIC PANE L 11 Male GFR Interprentation 20-49 yrs >60 mL/min Normal 50-59 yrs >56 mL/min Normal 60-69 yrs >49 mL/min Normal 70-79yrs >42 mL/min Normal 80 and above >35 mL/min Normal Female GFR Interpretation 20-39 yrs >60 mL/min Normal 40-49 yrs >58 mL/min Normal 50-59 yrs >51 mL/min Normal 60-69 yrs >45 mL/min Normal 70-79 yrs >39 mL/min Normal 80 and above >32 mL/min Normal 12 {SOURCE: Genital Procedures Date Code Description Status 07/16/2021 [id number] Antepartum F/U visit Completed 06/17/2021 [id number] Antepartum F/U visit Completed 05/20/2021 5555051 Antepartum F/U visit Completed 02/28/2021 [id number] Antepartum F/U visit Completed Medical Devices Description No Information Available Encounters Description No Information Available Assessments Date Code Description Provider 07/16/2021 Z34.83 Encounter for superv ision of other normal , third trimester Jerome Garcia M.D. 06/17/2021 Z34.82 Encounter for superv ision of other normal , second trimester Jerome Garcia M.D. 05/30/2021 O09.813 Supervision of pregn karthik resulting from assisted reproductive technology, third trimester Jerome Garcia M.D. 05/20/2021 Z34.82 Encounter for superv ision of other normal , second trimester Jerome Garcia M.D. 02/28/2021 Z34.83 Encounter for superv ision of other normal , third trimester WWW Intake / Nurse Schedule Plan of Treatment Future Appointment(s):* 07/30/2021 10:45 am - Jerome Garcia M.D. [facility] * 07/24/2021 2:00 pm - Jerome Garcia M.D. at [facility] Functional Status Description No Information Available Mental Status Description No Information Available Referrals Refer to Reason for Referral Status Appt Date [facility] HX PRE TERM LABOR Scheduled 04/[address] [place] [address] [phone] [facility] Nutrition Services NUTRITION CONSULT Sent 03/[address] [place] [address] [phone]
--- OUTSIDE RECORDS SUMMARY | 2021-08-23 21:59 | CCD | Continuity of Care Document ---
Author Author Jennifer STARKEY DO Organization Unknown Address [address] [place] [address] Phone [phone] Problems Description No Information Available Social History [...] at 16wks) 30units Jerome Stewart M.D. 04/25/2021 Tanya 250mg/ml Oil injection intramuscular weekly 250mg 10ml Aury Calhoun 03/28/2021 Tablets 1 by donald th every day Unknown Medications Administered in Office Medication SIG Qnty Indications Ordering Provider Date Hydroxyprogesterone Caproate 250MG/1ML Injection Issac Starkey, Hydroxyprogesterone Caproate 250MG/1ML Injection Jerome Stewart M.D. 07/04 Hydroxyprogesterone Caproate 250MG/1ML Injection Jerome Stewart M.D. 07/03 Hydroxyprogesterone Caproate 250MG/1ML Injection Jerome Stewart M.D. 07/02 Hydroxyprogesterone Caproate 250MG/1ML Injection Issac Starkey, Hydroxyprogesterone Caproate 250MG/1ML Injection Jerome Stewart M.D. 12/2020 Hydroxyprogesterone Caproate 250MG/1ML Injection Jerome Stewart M.D. 06/02 Hydroxyprogesterone Caproate 250MG/1ML Injection Jerome Stewart M.D. 06/01 Hydroxyprogesterone Caproate 250MG/1ML Injection Issac Starkey, Hydroxyprogesterone Caproate 250MG/1ML Injection Jerome Stewart M.D. 04/2021 Hydroxyprogesterone Caproate 250MG/1ML Injection Jerome Stewart M.D. 05/03 Hydroxyprogesterone Caproate 250MG/1ML Injection Jerome Stewart M.D. 05/01 Hydroxyprogesterone Caproate 250MG/1ML Injection Jerome Stewart M.D. 12/2020 Hydroxyprogesterone Caproate 250MG/1ML Injection Jerome Stewart M.D. 04/02 Immunizations Description No Information Available Vital Signs Date Vital Result Comment 08/07/2021 10:32am BP Systolic 116 mmHg BP Diastolic 72 mmHg Heart Rate 103 /min O2 % BldC Oximetry 98 % Weight 187.00 lb Weight 84.823 kg Height 61 inches 5'1" BMI (Body Mass Index) 35.3 kg/m2 BSA (Body Surface Area) 1.84 m2 07/31/2021 2:30pm BP Systolic 120 mmHg BP Diastolic 76 mmHg Heart Rate 100 /min O2 % BldC Oximetry 100 % Weight 186.38 lb Weight 84.540 kg Height 61 inches 5'1" BMI (Body Mass Index) 35.2 kg/m2 BSA (Body Surface Area) 1.83 m2 Results Test Acquired Date Facility Test Result H/L Range Note Laboratory test finding 08/04/2021 [facility] l Fibronectin (SEE NOTE) 1 Laboratory test finding 08/04/2021 [facility] l Culture Urine (SEE NOTE) 2, 3 CBC No Diff 07/04/2021 [facility] CBC No Diff (SEE NOTE) 4, 5 WBC 10.1 10^3/uL 4.2 - 11.0 RBC [...] 7.4 - 10.4 . Panel WWW 03/01/2021 [facility] Hepatitis B Surf Antigen NONREACTIVE Normal:Non React carlitos 6 Rubella Igg Qual 66.860 IU/mL 7 Syphilis NON-REACTIVE Normal:Non Reactive Vitamin D (25-Hydroxy) 28 NG/ML 8 T4 - Free 1.17 ng/dL 0.93 - 1.70 TSH Highly Sensitive 1.29 uIU/mL 0.47 - 5.01 T3 Free 3.4 pg/mL 2.0-4.4 T4 10.5 g/dL 4.5 - 12.5 Thyroid Peroxidase (Tpo) AB <9 IU/mL 0-34 CBC W/Automated Diff 03/01/2021 [facility] CBC W/Automated Diff (SEE NOTE) 9 WBC 8.7 10^3/uL 4.2 - 11.0 RBC [...] Lymph 21.2 % Low 25.0 - 40.0 [place] 4.0 % 3.0 - 8.0 Eos 0.8 % 0.0 - 7.0 Baso 0.2 % 0.0 - 2.5 %Ig 0.3 % High 0.0 - 0.0 %NRBC 0.0 % 0.0 - 0.0 #Neut 6.35 10^3/uL 2.00 - 6.90 #Lymph 1.83 10^3/uL 0.60 - 3.40 #[place] 0.35 10^3/uL 0.00 - 0.90 #Eos 0.07 10^3/uL 0.00 - 0.70 #Baso 0.02 10^3/uL 0.00 - 0.20 #Ig 0.03 10^3/uL 0.00 - 0.10 #NRBC 0.00 10^3/uL 0.00 - 0.00 Manual Diff NOT INDICATED RBC Morph NOT INDICATED BB Type & Screen 03/01/2021 [facility] Abo Group A RH Type POSITIVE AB Screen NEGATIVE Normal: Negative 10 Urinalysis 03/01/2021 [facility] Urinalysis (SEE NOTE) 11 Source R Color yellow Normal: Yellow Clarity clear Normal: Clear Spec [place] 1.025 1.001 - 1.030 pH 6 5 [...] SMALL Normal: None Seen Cuture Urine 03/01/2021 [facility] Culture Urine (SEE NOTE) 12 HIV Panel 03/01/2021 [facility] HIV Screen 4thGeneration wRfx Non Reactive Non Reacti ve Comprehensive Metabolic Panel 03/01/2021 [facility] ospital Comprehensive Metabo (SEE NOTE) 13 [...] mL/min Afr Amer GFR >60 mL/min 14 Laboratory test finding 03/01/2021 [facility] l Vitamin D 1, 25-Dihydroxy 116.0 pg/mL High 19.9-79.3 [id number] Plus Core+Ess+Sca 02/28/2021 Patients Ch oice Z#Other Observations <pending> Chlamydia GC/Trich 02/28/2021 [facility] Source: Genital 15 Chlamydia by Jerilyn Negative Negative Gonococcus by Jerilyn Negative Negative Trich vag by Jerilyn Negative Negative 1 [place] [address] CLIA # [id number] SEE SCANNED REPORT FIBRONECTIN Any specimen that is cloudy, thick, mucoid, pink, or bloody may cause an invalid or false positive result. 2 {SPECIMEN TYPE: RANDOM 3 _CULTURE URINE_ ^$087533 ^^857064 $$164741 ^^100698 $$512088 $$537996 $$708975 $$289274 $$788181 $$663684 $$551295 $$824332 $$708595 $$822077 $$290179 $$363866 $$729645 $$529817 $$108033 $$174998 $$076654 $$795589 $$163945 $$139248 $$599286 $$927605 $$231700 ^^580909 $$888337 $$089416 $$120681 -- Continued on next page -- Patient: ESTEFANY Mims Order: [id number] Page 2 Culture: CULTURE URINE Status: Final $$[id number] $$[id number] REPORTED DATE/TIME: 08/06/2021 04:06 Culture: CULTURE URINE Status: Final Urine Culture,Comprehensive: P1 Mixed urogenital keith 25,000-50,000 colony forming units per m L P1 Test performed by: [facility] #: [id number] [address] [place] [address] [phone] [facility] [address] Hospital Superintendent : Zaki Taylor MD NPI #: Pretzel Twisting Machine Operator : 08/06/21.0701.XMT.SENT REF 4 .~.~Z34.82 5 COMPLETE BLOOD COUNT 6 .~.~<DG1.3.1>Z34.81</DG1.3.1><DG1.3.1>Z34.81</DG1.3.1><DG1.3.1>Z34.81</DG1.3.1>< DG1. {SOURCE: R~.~.~<DG1.3.1>Z34.81</DG1.3.1><DG1.3.1>Z34.81< /DG1.3.1><DG1.3.1>Z34.81</DG1.3.1><DG1. .~.~<DG1.3.1>Z34.81</DG1.3.1><DG1.3.1>Z34.81</DG1.3.1><DG1.3.1>Z34.81</DG1.3.1>< DG1. .~.~<DG1.3.1>Z 34.81</DG1.3.1><DG1.3.1>Z34.81</DG1.3.1><DG1.3.1>Z34.81</DG1.3.1><DG1. .~.~<DG1.3.1>Z34.81</DG1.3.1><DG1.3.1>Z34.81</DG1.3.1><DG1.3.1>Z34.8 1</DG1.3.1><DG1. .~.~<DG1.3.1>Z34.81</DG1.3.1><DG1.3.1>Z34.81</DG1.3.1><DG1.3.1>Z34.81</DG1.3.1>< DG1. .~.~<DG1.3.1>Z34.81</DG1.3.1><DG1.3.1 >Z34.81</DG1.3.1><DG1.3.1>Z34.81</DG1.3.1><DG1. .~.~<DG1.3.1>Z34.81</DG1.3.1><DG1.3.1>Z34.81</DG1.3.1><DG1.3.1>Z34.81</DG1.3.1>< DG1. .~.~&l t;DG1.3.1>Z34.81</DG1.3.1><DG1.3.1>Z34.81</DG1.3.1><DG1.3.1>Z34.81</DG1.3.1><DG1 . Is patient fasting? N~.~.~<DG1.3.1>Z34.81</DG1.3.1><DG1.3.1>Z34.8 1</DG1.3.1><DG1.3.1>Z34.81</DG1 .~.~<DG1.3.1>Z34.81</DG1.3.1><DG1.3.1>Z34.81</DG1.3.1><DG1.3.1>Z34.81</DG1.3.1>< DG1. .~.~<DG1.3.1>Z34.81</D G1.3.1><DG1.3.1>Z34.81</DG1.3.1><DG1.3.1>Z34.81</DG1.3.1><DG1. Reason for Exam: R~.~.~<DG1.3.1>Z34.81</DG1.3.1><DG1.3.1>Z34.81</DG1.3.1><DG1.3.1>Z34.81</DG1.3. .~.~<DG1.3.1>Z34.81</DG1.3.1><DG1.3.1>Z34.81</DG1.3.1><DG1.3.1>Z34.81</DG1.3.1>< DG1. {SPECIMEN TYPE: R~.~.~<DG1.3.1>Z34.81</DG1.3.1 ><DG1.3.1>Z34.81</DG1.3.1><DG1.3.1>Z34.81</DG1.3.1 .~.~<DG1.3.1>Z34.81</DG1.3.1><DG1.3.1>Z34.81</DG1.3.1><DG1.3.1>Z34.81</DG1.3.1>< DG1. .~. ~<DG1.3.1>Z34.81</DG1.3.1><DG1.3.1>Z34.81</DG1.3.1><DG1.3.1>Z34.81</DG1.3.1><DG1 . .~.~<DG1.3.1>Z34.81</DG1.3.1><DG1.3.1>Z34.81</DG1.3.1>&lt ;DG1.3.1>Z34.81</DG1.3.1><DG1. .~.~<DG1.3.1>Z34.81</DG1.3.1><DG1.3.1>Z34.81</DG1.3.1><DG1.3.1>Z34.81</DG1.3.1>< DG1. .~.~<DG1.3.1>Z34.81</DG1.3 .1><DG1.3.1>Z34.81</DG1.3.1><DG1.3.1>Z34.81</DG1.3.1><DG1. .~.~<DG1.3.1>Z34.81</DG1.3.1><DG1.3.1>Z34.81</DG1.3.1><DG1.3.1>Z34.81</DG1.3.1>< DG1. 7 REACTIVE \\BLDo\\Rubella Immunity Interpretation\\BLDx\\ Non-reactive: <10 IU/mL Reactive: greater than or equal to 10 IU/mL A reactive result is presumptive evidence of immunity to Rubella, except when acute infection is suspected. 8 VITAMIN-D(25HYDROXY) Deficiency: <=20 ng/ml Insufficiency: 21-29 ng/ml Preferred level: => 30 ng/ml 9 COMPLETE BLOOD COUNT 10 { ABO/RH REENTER A POSITIVE { AB SCREEN RE-ENTER NEGATIVE 11 URINALYSIS 12 _CULTURE URINE_ ^$646985 ^^661766 $$965443 ^^815591 $$654235 $$387415 $$059969 $$837276 $$471128 $$100441 $$235950 $$056594 $$581291 $$380000 $$168184 $$457541 $$311924 $$640108 $$462856 $$152205 $$931312 $$107492 $$626198 $$284957 $$678090 $$414031 $$447685 ^^402756 $$830878 $$454073 $$598376 -- Continued on next page -- Patient: ESTEFANY Mims Order: [id number] Page 2 Culture: CULTURE URINE Status: Final $$[id number] $$[id number] REPORTED DATE/TIME: 03/05/2021 10:07 Culture: CULTURE URINE Status: Final Urine Culture,Comprehensive: P1 Mixed urogenital keith 10,000-25,000 colony forming units per m L P1 Test performed by: [facility] #: [id number] [address] [place] [address] [phone] [facility] [address] Hospital Superintendent : Zaki Taylor MD NPI #: Pretzel Twisting Machine Operator : 03/05/21.1157.XMT.SENT REF 13 COMPREHENSIVE METABOLIC PANE L 14 Male [...] 80 and above >32 mL/min Normal 15 {SOURCE: Genital Procedures Date Code Description Status 07/31/2021 [id number] Antepartum F/U visit Completed 07/16/2021 [id number] Antepartum F/U visit Completed 06/17/2021 8699731 Antepartum F/U visit Completed 05/20/2021 [id number] Antepartum F/U visit Completed 02/28/2021 [id number] Antepartum F/U visit Completed Medical Devices Description [...] Nurse Schedule Plan of Treatment Future Appointment(s):* 08/13/2021 1:15 pm - Issac Starkey DO at [facility] Functional Status Description No Information Available Mental Status Description No Information Available Referrals Refer to Reason for Referral Status Appt [facility] HX PRE TERM LABOR Scheduled 04/01 [address] [place] [address] [phone] [facility] Nutrition Services NUTRITION CONSULT Sent 03/[address] [place] [address] [phone]
--- OUTSIDE RECORDS SUMMARY | 2021-08-23 21:59 | CCD | Continuity of Care Document ---
Author Author Jennifer GARCIA M.D. Organization Unknown Address [address] [place] [address] Phone [phone] Problems Description No Information Available Social History [...] H/L Range Note CBC No Diff 07/04/2021 [facility] CBC No Diff (SEE NOTE) 1, [...] 7.4 - 10.4 . Panel WWW 03/01/2021 [facility] Hepatitis B Surf Antigen NONREACTIVE Normal:Non [...] <9 IU/mL 0-34 CBC W/Automated Diff 03/01/2021 [facility] CBC W/Automated Diff (SEE NOTE) 6 [...] Lymph 21.2 % Low 25.0 - 40.0 [place] 4.0 % 3.0 - 8.0 Eos 0.8 % 0.0 - 7.0 Baso 0.2 % 0.0 - 2.5 %Ig 0.3 % High 0.0 - 0.0 %NRBC 0.0 % 0.0 - 0.0 #Neut 6.35 10^3/uL 2.00 - 6.90 #Lymph 1.83 10^3/uL 0.60 - 3.40 #[place] 0.35 10^3/uL 0.00 - 0.90 #Eos 0.07 10^3/uL 0.00 - 0.70 #Baso 0.02 10^3/uL 0.00 - 0.20 #Ig 0.03 10^3/uL 0.00 - 0.10 #NRBC 0.00 10^3/uL 0.00 - 0.00 Manual Diff NOT INDICATED RBC Morph NOT INDICATED BB Type & Screen 03/01/2021 [facility] Abo Group A RH Type POSITIVE AB Screen NEGATIVE Normal: Negative 7 Urinalysis 03/01/2021 [facility] Urinalysis (SEE NOTE) 8 Source R Color yellow Normal: Yellow Clarity clear Normal: Clear Spec [place] 1.025 1.001 - 1.030 pH 6 5 [...] SMALL Normal: None Seen Cuture Urine 03/01/2021 [facility] Culture Urine (SEE NOTE) 9 HIV Panel 03/01/2021 [facility] HIV Screen 4thGeneration wRfx Non Reactive Non Reacti ve Comprehensive Metabolic Panel 03/01/2021 [facility] ospital Comprehensive Metabo (SEE NOTE) 10 [...] >60 mL/min 11 Laboratory test finding 03/01/2021 [facility] Vitamin D 1, 25-Dihydroxy 116.0 pg/mL High 19.9-79.3 Zscoezge33 Plus Core+Ess+Sca 02/28/2021 Patients Ch oice Z#Other Observations <pending> Chlamydia GC/Trich 02/28/2021 [facility] Source: Genital 12 Chlamydia by Jerilyn [...] RE-ENTER NEGATIVE 8 URINALYSIS 9 _CULTURE URINE_ ^$[id number] ^^[id number] $$496153 ^^324861 $$392089 $$820793 $$956353 $$463443 $$527945 $$408195 $$711348 $$722396 $$752908 $$912650 $$249228 $$932163 $$552174 $$786069 $$370990 $$441450 $$193549 $$735866 $$765565 $$462218 $$784892 $$251769 $$747169 ^^724710 $$617009 $$475343 $$070398 -- Continued on next page -- Patient: ESTEFANY Mims Order: [id number] Page 2 Culture: CULTURE URINE Status: Final $$[id number] $$[id number] REPORTED DATE/TIME: 03/05/2021 10:07 Culture: CULTURE URINE Status: Final Urine Culture,Comprehensive: P1 Mixed urogenital keith 10,000-25,000 colony forming units per m L P1 Test performed by: [facility] #: [id number] [address] [place] [address] [phone] [facility] [phone] Customer Service Advocate : Zaki Taylor MD NPI #: Roller Engraver : 03/05/21.1157.[id number].[email or web address] REF 10 COMPREHENSIVE METABOLIC PANE [...] Genital Procedures Date Code Description Status 07/16/2021 [id number] Antepartum F/U visit Completed 06/17/2021 [id number] Antepartum F/U visit Completed 05/20/2021 [id number] Antepartum F/U visit Completed 02/28/2021 [id number] Antepartum F/U visit Completed Medical Devices Description [...] Jerome Garcia M.D. at [facility] Functional Status Description No Information Available Mental Status Description No Information Available Referrals Refer to Dr Reason for Referral Status Appt Date [facility] HX PRE TERM LABOR Scheduled 04/01 [address] [place] [address] [phone] [facility] Nutrition Services NUTRITION CONSULT Sent 03/[address] [place] [phone]
--- OUTSIDE RECORDS SUMMARY | 2021-08-23 21:59 | CCD | Continuity of Care Document ---
Author Author Jennifer STARKEY DO Organization Unknown Address [address] [place] [address] Phone [phone] Problems Description No Information Available Social History [...] H/L Range Note Laboratory test finding 08/04/2021 [facility] Fibronectin (SEE NOTE) 1 Laboratory test finding 08/04/2021 [facility] Culture Urine (SEE NOTE) 2, 3 CBC No Diff 07/04/2021 [facility] CBC No Diff (SEE NOTE) 4, 5 [...] 7.4 - 10.4 . Panel WWW 03/01/2021 [facility] Hepatitis B Surf Antigen NONREACTIVE Normal:Non React carlitos 6 Rubella Igg Qual 66.860 IU/mL 7 Syphilis NON-REACTIVE Normal:Non Reactive Vitamin D (25-Hydroxy) 28 NG/ML 8 T4 - Free 1.17 ng/dL 0.93 - 1.70 TSH Highly Sensitive 1.29 uIU/mL 0.47 - 5.01 T3 Free 3.4 pg/mL 2.0-4.4 T4 10.5 g/dL 4.5 - 12.5 Thyroid Peroxidase (Tpo) AB <9 IU/mL 0-34 CBC W/Automated Diff 03/01/2021 [facility] CBC W/Automated Diff (SEE NOTE) 9 WBC [...] Lymph 21.2 % Low 25.0 - 40.0 [place] 4.0 % 3.0 - 8.0 Eos 0.8 % 0.0 - 7.0 Baso 0.2 % 0.0 - 2.5 %Ig 0.3 % High 0.0 - 0.0 %NRBC 0.0 % 0.0 - 0.0 #Neut 6.35 10^3/uL 2.00 - 6.90 #Lymph 1.83 10^3/uL 0.60 - 3.40 #[place] 0.35 10^3/uL 0.00 - 0.90 #Eos 0.07 10^3/uL 0.00 - 0.70 #Baso 0.02 10^3/uL 0.00 - 0.20 #Ig 0.03 10^3/uL 0.00 - 0.10 #NRBC 0.00 10^3/uL 0.00 - 0.00 Manual Diff NOT INDICATED RBC Morph NOT INDICATED BB Type & Screen 03/01/2021 [facility] Abo Group A RH Type POSITIVE AB Screen NEGATIVE Normal: Negative 10 Urinalysis 03/01/2021 [facility] Urinalysis (SEE NOTE) 11 Source R Color yellow Normal: Yellow Clarity clear Normal: Clear Spec [place] 1.025 1.001 - 1.030 pH 6 5 [...] SMALL Normal: None Seen Cuture Urine 03/01/2021 [facility] Culture Urine (SEE NOTE) 12 HIV Panel 03/01/2021 [facility] HIV Screen 4thGeneration wRfx Non Reactive Non Reacti ve Comprehensive Metabolic Panel 03/01/2021 [facility] ospital Comprehensive Metabo (SEE NOTE) 13 [...] >60 mL/min 14 Laboratory test finding 03/01/2021 [facility] l Vitamin D 1, 25-Dihydroxy 116.0 pg/mL High 19.9-79.3 [id number] Plus Core+Ess+Sca 02/28/2021 Patients Ch oice Z#Other Observations <pending> Chlamydia GC/Trich 02/28/2021 [facility] Source: Genital 15 Chlamydia by Jerilyn Negative Negative Gonococcus by Jerilyn Negative Negative Trich vag by Jerilyn Negative Negative 1 [place] [address] CLIA # [id number] SEE SCANNED REPORT FIBRONECTIN Any specimen that is cloudy, thick, mucoid, pink, or bloody may cause an invalid or false positive result. 2 {SPECIMEN TYPE: RANDOM 3 _CULTURE URINE_ ^$149795 ^^272588 $$114482 ^^494617 $$932341 $$799362 $$564271 $$728818 $$439845 $$470487 $$493681 $$065770 $$903054 $$486579 $$821021 $$557126 $$988944 $$663229 $$663616 $$464782 $$187965 $$562878 $$502895 $$457472 $$618277 $$573856 $$541331 ^^478322 $$231004 $$429693 $$819516 -- Continued on next page -- Patient: ESTEFANY Mmis Order: [id number] Page 2 Culture: CULTURE URINE Status: Final $$[id number] $$[id number] REPORTED DATE/TIME: 08/06/2021 04:06 Culture: CULTURE URINE Status: Final Urine Culture,Comprehensive: P1 Mixed urogenital keith 25,000-50,000 colony forming units per m L P1 Test performed by: [facility] #: [id number] [address] [place] [address] [phone] [facility] [address] Warehouse Selector : Zaki Taylor MD NPI #: Television Anchor : 08/06/21.0701.XMT.SENT REF 4 .~.~Z34.82 5 COMPLETE [...] RE-ENTER NEGATIVE 11 URINALYSIS 12 _CULTURE URINE_ ^$614123 ^^227085 $$783936 ^^854558 $$319705 $$987423 $$275476 $$965422 $$521455 $$290771 $$116229 $$287682 $$208326 $$662898 $$465231 $$801277 $$777153 $$886449 $$342548 $$077305 $$895306 $$158265 $$001771 $$759857 $$518718 $$673626 $$185547 ^^925719 $$254226 $$326912 $$314925 -- Continued on next page -- Patient: ESTEFANY Mims Order: [id number] Page 2 Culture: CULTURE URINE Status: Final $$002565 $$[id number] REPORTED DATE/TIME: 03/05/2021 10:07 Culture: CULTURE URINE Status: Final Urine Culture,Comprehensive: P1 Mixed urogenital keith 10,000-25,000 colony forming units per m L P1 Test performed by: [facility] #: [id number] [address] [place] [address] [phone] [facility] [address] Warehouse Selector : Zaki Taylor MD NPI #: Television Anchor : 03/05/21.1157.XMT.SENT REF 13 COMPREHENSIVE METABOLIC PANE [...] Genital Procedures Date Code Description Status 07/31/2021 [id number] Antepartum F/U visit Completed 07/16/2021 3845009 Antepartum F/U visit Completed 06/17/2021 7442921 Antepartum F/U visit Completed 05/20/2021 3971852 Antepartum F/U visit Completed 02/28/2021 [id number] Antepartum F/U visit Completed Medical Devices Description [...] Refer to Reason for Referral Status Appt [facility] HX PRE TERM LABOR Scheduled 04/01 [address] [place] [address] [phone] [facility] Nutrition Services NUTRITION CONSULT Sent 03/[address] [place] [address] [phone]
--- OUTSIDE RECORDS SUMMARY | 2021-08-23 21:59 | CCD | Continuity of Care Document ---
Author Author Jennifer STARKEY DO Organization Unknown Address [address] [place] [address] Phone [phone] Problems Description No Information Available Social History [...] at 16wks) 30units Jerome Stewart M.D. 04/25/2021 [place] 250mg/ml Oil injection intramuscular weekly 250mg 10ml [...] CPT Code Status Date Vaccine Lot # [id number] Given 08/13/2021 Tdap (Boostrix/Adacel) Vacci ne 224cg [...] Test Result H/L Range Note Urinalysis 08/12/2021 [facility] Urinalysis (SEE NOTE) 1, 2 Source R Color yellow Normal: Yellow Clarity clear Normal: Clear Spec [place] 1.020 1.001 - 1.030 pH 6 5 - 9 Glucose NORM Normal: Negative Bilirubin NEG Normal: Negative Ketone NEG Normal: Negative Protein NEG Normal: Negative Nitrite NEG Normal: Negative Blood NEG Normal: Negative Leuk Est NEG Normal: Negative Urobilinogen NOR less than 1.0 mg/dL Microscopic Not Indicate Laboratory test finding 08[facility]12/[facility] Fibronectin POSITIVE 3 Laboratory test finding 08/04/2021 [facility] Culture GBS Vaginal (SEE NOTE) 4, 5 Laboratory test finding 08/04/2021 [facility] Fibronectin (SEE NOTE) 6 Laboratory test finding 08/04/20[facility] Culture Urine (SEE NOTE) 7, 8 CBC No Diff 07/04/2021 [facility] CBC No Diff (SEE NOTE) 9, 10 [...] - 10.4 BB Type & Screen 03/01/2021 [facility] Abo Group A 11 RH Type POSITIVE AB Screen NEGATIVE Normal: Negative 12 Laboratory test finding 03/01/2021 [facility] Vitamin D 1, 25-Dihydroxy 116.0 pg/mL High 19.9-79.3 Comprehensive Metabolic Panel 03/01/2021 [facility] ospital Comprehensive Metabo (SEE NOTE) 13 [...] GFR >60 mL/min 14 HIV Panel 03/01/2021 [facility] HIV Screen 4thGeneration wRfx Non Reactive Non Reacti ve Cuture Urine 03/01/2021 [facility] Culture Urine (SEE NOTE) 15 Urinalysis 03/01/2021 [facility] Urinalysis (SEE NOTE) 16 Source R Color yellow Normal: Yellow Clarity clear Normal: Clear Spec [place] 1.025 1.001 - 1.030 pH 6 5 [...] Normal: None Seen CBC W/Automated Diff 03/01/2021 [facility] CBC W/Automated Diff (SEE NOTE) 17 WBC [...] Lymph 21.2 % Low 25.0 - 40.0 [place] 4.0 % 3.0 - 8.0 Eos 0.8 % 0.0 - 7.0 Baso 0.2 % 0.0 - 2.5 %Ig 0.3 % High 0.0 - 0.0 %NRBC 0.0 % 0.0 - 0.0 #Neut 6.35 10^3/uL 2.00 - 6.90 #Lymph 1.83 10^3/uL 0.60 - 3.40 #[place] 0.35 10^3/uL 0.00 - 0.90 #Eos 0.07 10^3/uL 0.00 - 0.70 #Baso 0.02 10^3/uL 0.00 - 0.20 #Ig 0.03 10^3/uL 0.00 - 0.10 #NRBC 0.00 10^3/uL 0.00 - 0.00 Manual Diff NOT INDICATED RBC Morph NOT INDICATED . Panel WWW 03/01/2021 [facility] Hepatitis B Surf Antigen NONREACTIVE Normal:Non React carlitos Rubella Igg Qual 66.860 IU/mL 18 Syphilis NON-REACTIVE Normal:Non Reactive Vitamin D (25-Hydroxy) 28 NG/ML 19 T4 - Free 1.17 ng/dL 0.93 - 1.70 TSH Highly Sensitive 1.29 uIU/mL 0.47 - 5.01 T3 Free 3.4 pg/mL 2.0-4.4 T4 10.5 g/dL 4.5 - 12.5 Thyroid Peroxidase (Tpo) AB <9 IU/mL 0-34 [id number] Plus Core+Ess+Sca 02/28/2021 Patients Ch oice Z#Other Observations <pending> Chlamydia GC/Trich 02/28/2021 [facility] Source: Genital 20 Chlamydia by Jerilyn Negative Negative Gonococcus by Jerilyn Negative Negative Trich vag by Jerilyn Negative Negative 1 {SOURCE: Random Void~NURSE COLLECTED? N 2 URINALYSIS 3 TEST DONE IN [facility] FIBRONECTIN Any specimen that is cloudy, thick, mucoid, pink, or bloody may cause an invalid or false positive result. 4 CULTURE GBS VAGINAL 5 _B-STREP GROUP B CULTURE_ ^$071116 ^^487990 $$955722 $$638576 REPORTED DATE/TIME: 08/09/2021 06:06 Culture: CULTURE GBS VAGINAL Status: Final Strep Gp B Culture: P1 Negative Reference Range: Negative Centers for Disease Control and Prevention (CDC) and [place] [employer] Gynec[employer] (ACOG) guidelines [...] clindamycin is noted. P1 Test performed by: [facility] ROSAIA #: [id number] [address] [place] [address] Avenue [phone] [facility] [address] -- Continued on next page -- Patient: ESTEFANY Mims Order: [id number] Page 2 Culture: CULTURE GBS VAGINAL Status: Final Chief Of Safety And Protection : Zaki Taylor MD NPI #: Steam Train Driver : 08/09/21.1904.XMT.SENT REF 6 TEST PERFORMED AT [facility] [address] [place] [address] CLIA # [id number] SEE SCANNED REPORT FIBRONECTIN Any specimen that is cloudy, thick, mucoid, pink, or bloody may cause an invalid or false positive result. 7 {SPECIMEN TYPE: RANDOM 8 _CULTURE URINE_ ^$995035 ^^686306 $$580199 ^^736420 $$151329 $$763585 $$445205 $$886162 $$960342 $$883498 $$413232 $$014195 $$180870 $$389684 $$556702 $$003181 $$698743 $$738269 $$874350 $$573293 $$471729 $$780556 $$097982 $$457621 $$466042 $$391952 $$179506 ^^334379 $$099540 $$863441 $$717207 -- Continued on next page -- Patient: ESTEFANY Mims Order: [id number] Page 2 Culture: CULTURE URINE Status: Final $$[id number] $$[id number] REPORTED DATE/TIME: 08/06/2021 04:06 Culture: CULTURE URINE Status: Final Urine Culture,Comprehensive: P1 Mixed urogenital keith 25,000-50,000 colony forming units per m L P1 [facility] CLIA #: [id number] [address] [place] [address] [phone] [facility] [address] Chief Of Safety And Protection : Zaki Taylor MD NPI #: Steam Train Driver : 08/06/21.0701.XMT.SENT REF 9 .~.~Z34.82 10 COMPLETE [...] above >32 mL/min Normal 15 _CULTURE URINE_ ^$886975 ^^830873 $$632835 ^^412354 $$553397 $$382483 $$207545 $$469477 $$946056 $$637595 $$379039 $$146876 $$059149 $$689517 $$003970 $$109569 $$177071 $$178502 $$975733 $$810822 $$579530 $$416106 $$451886 $$524186 $$283170 $$053119 $$879759 ^^787282 $$032592 $$167421 $$562335 -- Continued on next page -- Patient: ESTEFANY Mims Order: [id number] Page 2 Culture: CULTURE URINE Status: Final $$003212 $$[id number] REPORTED DATE/TIME: 03/05/2021 10:07 Culture: CULTURE URINE Status: Final Urine Culture,Comprehensive: P1 Mixed urogenital keith 10,000-25,000 colony forming units per m L P1 [facility] CLIA #: [id number] [address] [phone] [facility] [address] Chief Of Safety And Protection : Zaki Taylor MD NPI #: Steam Train Driver : 03/05/21.1157.XMT.SENT REF 16 URINALYSIS 17 COMPLETE BLOOD COUNT 18 REACTIVE \\BLDo\\Rubella Immunity Interpretation\\BLDx\\ Non-reactive: <10 IU/mL Reactive: greater than or equal to 10 IU/mL A reactive result is presumptive evidence of immunity to Rubella, except when acute infection is suspected. 19 VITAMIN-D(25HYDROXY) Deficiency: <=20 ng/ml Insufficiency: 21-29 ng/ml Preferred level: => 30 ng/ml 20 {SOURCE: Genital Procedures Date Code Description Status 07/31/2021 [id number] Antepartum F/U visit Completed 07/16/2021 8072416 Antepartum F/U visit Completed 06/17/2021 [id number] Antepartum F/U visit Completed 05/20/2021 8939721 Antepartum F/U visit Completed 02/28/2021 [id number] Antepartum F/U visit Completed Medical Devices Description [...] to Reason for Referral Status Appt Date [facility] HX PRE TERM LABOR Scheduled 04/01 [address] [place], [place] [id number] [phone] [facility] Nutrition Services NUTRITION CONSULT Sent 03/[address] [place] [phone]
--- OUTSIDE RECORDS SUMMARY | 2021-08-23 21:59 | CCD | Continuity of Care Document ---
Author Author Jennifer GARCIA M.D. Organization Unknown Address [address] [place] [address] Phone [phone] Problems Description No Information Available Social History [...] Oil injection intramuscular weekly 250mg 10ml Aury Clahoun 03/28/2021 Tablets 1 by donald th every day Unknown Medications Administered in Office Medication SIG Qnty Indications Ordering Provider Date Hydroxyprogesterone Caproate 250MG/1ML Injection Jerome Garcia M.D. 07/04 Hydroxyprogesterone Caproate 250MG/1ML Injection Jerome Garcia M.D. 07/03 Hydroxyprogesterone Caproate 250MG/1ML Injection Jerome Garcia M.D. 07/02 Hydroxyprogesterone Caproate 250MG/1ML Injection Issac Starkey, Hydroxyprogesterone Caproate 250MG/1ML Injection Jerome Garcia M.D. 12/2020 Hydroxyprogesterone Caproate 250MG/1ML Injection Jerome Garcia M.D. 06/02 Hydroxyprogesterone Caproate 250MG/1ML Injection Jerome Garcia M.D. 06/01 Hydroxyprogesterone Caproate 250MG/1ML Injection Issac Starkey, Hydroxyprogesterone Caproate 250MG/1ML Injection Jerome Garcia M.D. 04/2021 Hydroxyprogesterone Caproate 250MG/1ML Injection Jerome Garcia M.D. 05/03 Hydroxyprogesterone Caproate 250MG/1ML Injection Jerome Garcia M.D. 05/01 Hydroxyprogesterone Caproate 250MG/1ML Injection Jerome Garcia M.D. 12/2020 Hydroxyprogesterone Caproate 250MG/1ML Injection Jerome Garcia M.D. 04/02 Immunizations Description No Information Available Vital Signs Date Vital Result Comment 07/31/2021 2:30pm BP Systolic 120 mmHg BP Diastolic 76 mmHg Heart Rate 100 /min O2 % BldC Oximetry 100 % Weight 186.38 lb Weight 84.540 kg Height 61 inches 5'1" BMI (Body Mass Index) 35.2 kg/m2 BSA (Body Surface Area) 1.83 m2 07/24/2021 2:09pm BP Systolic 104 mmHg BP Diastolic 60 mmHg Heart Rate 100 /min Body Temperature 97.1 F Weight 184.00 lb Weight 83.462 kg Height 61 inches 5'1" BMI (Body Mass Index) 34.8 kg/m2 BSA (Body Surface Area) 1.82 m2 Results Test Acquired Date Facility Test Result H/L Range Note CBC No Diff 07/04/2021 [facility] CBC No Diff (SEE NOTE) 1, [...] 7.4 - 10.4 . Panel WWW 03/01/2021 [facility] Hepatitis B Surf Antigen NONREACTIVE Normal:Non [...] <9 IU/mL 0-34 CBC W/Automated Diff 03/01/2021 [facility] CBC W/Automated Diff (SEE NOTE) 6 [...] Lymph 21.2 % Low 25.0 - 40.0 [place] 4.0 % 3.0 - 8.0 Eos 0.8 % 0.0 - 7.0 Baso 0.2 % 0.0 - 2.5 %Ig 0.3 % High 0.0 - 0.0 %NRBC 0.0 % 0.0 - 0.0 #Neut 6.35 10^3/uL 2.00 - 6.90 #Lymph 1.83 10^3/uL 0.60 - 3.40 #[place] 0.35 10^3/uL 0.00 - 0.90 #Eos 0.07 10^3/uL 0.00 - 0.70 #Baso 0.02 10^3/uL 0.00 - 0.20 #Ig 0.03 10^3/uL 0.00 - 0.10 #NRBC 0.00 10^3/uL 0.00 - 0.00 Manual Diff NOT INDICATED RBC Morph NOT INDICATED BB Type & Screen 03/01/2021 [facility] Abo Group A RH Type POSITIVE AB Screen NEGATIVE Normal: Negative 7 Urinalysis 03/01/2021 [facility] Urinalysis (SEE NOTE) 8 Source R Color yellow Normal: Yellow Clarity clear Normal: Clear Spec [place] 1.025 1.001 - 1.030 pH 6 5 [...] SMALL Normal: None Seen Cuture Urine 03/01/2021 [facility] Culture Urine (SEE NOTE) 9 HIV Panel 03/01/2021 [facility] HIV Screen 4thGeneration wRfx Non Reactive Non Reacti ve Comprehensive Metabolic Panel 03/01/2021 [facility] ospital Comprehensive Metabo (SEE NOTE) 10 Sodium [...] >60 mL/min 11 Laboratory test finding 03/01/2021 [facility] Vitamin D 1, 25-Dihydroxy 116.0 pg/mL High 19.9-79.3 [id number] Plus Core+Ess+Sca 02/28/2021 Patients Ch oice Z#Other Observations <pending> Chlamydia GC/Trich 02/28/2021 [facility] Source: Genital 12 Chlamydia by Jerilyn [...] RE-ENTER NEGATIVE 8 URINALYSIS 9 _CULTURE URINE_ ^$886505 ^^024417 $$617355 ^^274095 $$602263 $$068450 $$333363 $$807888 $$220066 $$306868 $$394367 $$743342 $$937363 $$232015 $$530812 $$046101 $$498671 $$424538 $$039153 $$599618 $$990470 $$486591 $$069439 $$936773 $$812342 $$431453 $$387562 ^^661158 $$794923 $$960699 $$051825 -- Continued on next page -- Patient: ESTEFANY Mims Order: [id number] Page 2 Culture: CULTURE URINE Status: Final $$[id number] $$[id number] REPORTED DATE/TIME: 03/05/2021 10:07 Culture: CULTURE URINE Status: Final Urine Culture,Comprehensive: P1 Mixed urogenital keith 10,000-25,000 colony forming units per m L P1 Test performed by: [facility] #: [id number] [address] [place] [address] [phone] [facility] [id number] Liaison Inspection Laboratory Assistant : Zaki Taylor MD NPI #: Stem Lead Former : 03/05/21.1157.XMT.SENT REF 10 COMPREHENSIVE METABOLIC PANE [...] Genital Procedures Date Code Description Status 07/31/2021 [id number] Antepartum F/U visit Completed 07/16/2021 0885946 Antepartum F/U visit Completed 06/17/2021 3778451 Antepartum F/U visit Completed 05/20/2021 7537708 Antepartum F/U visit Completed 02/28/2021 3366671 Antepartum F/U visit Completed Medical Devices Description No Information Available Encounters Description No Information Available Assessments Date Code Description Provider 07/31/2021 Z34.83 Encounter for superv ision of other normal , third trimester Jerome Garcia M.D. 07/16/2021 Z34.83 Encounter for superv ision [...] DO at [facility] * 08/07/2021 10:30 am - Issac Starkey DO at [facility] Functional Status Description No Information Available Mental Status Description No Information Available Referrals Refer to Dr Reason for Referral Status Appt [facility] HX PRE TERM LABOR Scheduled 04/01 [address] [place], [place] [id number] [phone] [facility] Nutrition Services NUTRITION CONSULT Sent 03/[address] [place] [address] [phone]
--- OUTSIDE RECORDS SUMMARY | 2021-08-23 21:59 | CCD | Continuity of Care Document ---
Author Author Jennifer STARKEY DO Organization Unknown Address [address] [place] [address] Phone [phone] Problems Description No Information Available Social History [...] at 16wks) 30units Jerome Stewart M.D. 04/25/2021 [place] 250mg/ml Oil injection intramuscular weekly 250mg 10ml [...] CPT Code Status Date Vaccine Lot # [id number] Given 08/13/2021 Tdap (Boostrix/Adacel) Vacci ne 224cg [...] Test Result H/L Range Note Urinalysis 08/12/2021 [facility] Urinalysis (SEE NOTE) 1, 2 Source R Color yellow Normal: Yellow Clarity clear Normal: Clear Spec [place] 1.020 1.001 - 1.030 pH 6 5 - 9 Glucose NORM Normal: Negative Bilirubin NEG Normal: Negative Ketone NEG Normal: Negative Protein NEG Normal: Negative Nitrite NEG Normal: Negative Blood NEG Normal: Negative Leuk Est NEG Normal: Negative Urobilinogen NOR less than 1.0 mg/dL Microscopic Not Indicate Laboratory test finding [facility] Fibronectin POSITIVE 3 Laboratory test finding 08/04/2021 [facility] Culture GBS Vaginal (SEE NOTE) 4, 5 Laboratory test finding 08/04/2021 [facility] Fibronectin (SEE NOTE) 6 Laboratory test finding 08/04/20[facility] Culture Urine (SEE NOTE) 7, 8 CBC No Diff 07/04/2021 [facility] CBC No Diff (SEE NOTE) 9, [...] - 10.4 BB Type & Screen 03/01/2021 [facility] Abo Group A 11 RH Type POSITIVE AB Screen NEGATIVE Normal: Negative 12 Laboratory test finding 03/01/2021 [facility] Vitamin D 1, 25-Dihydroxy 116.0 pg/mL High 19.9-79.3 Comprehensive Metabolic Panel 03/01/2021 [facility] ospital Comprehensive Metabo (SEE NOTE) 13 [...] GFR >60 mL/min 14 HIV Panel 03/01/2021 [facility] HIV Screen 4thGeneration wRfx Non Reactive Non Reacti ve Cuture Urine 03/01/2021 [facility] Culture Urine (SEE NOTE) 15 Urinalysis 03/01/2021 [facility] Urinalysis (SEE NOTE) 16 Source R Color yellow Normal: Yellow Clarity clear Normal: Clear Spec [place] 1.025 1.001 - 1.030 pH 6 5 [...] Normal: None Seen CBC W/Automated Diff 03/01/2021 [facility] CBC W/Automated Diff (SEE NOTE) 17 [...] Lymph 21.2 % Low 25.0 - 40.0 [place] 4.0 % 3.0 - 8.0 Eos 0.8 % 0.0 - 7.0 Baso 0.2 % 0.0 - 2.5 %Ig 0.3 % High 0.0 - 0.0 %NRBC 0.0 % 0.0 - 0.0 #Neut 6.35 10^3/uL 2.00 - 6.90 #Lymph 1.83 10^3/uL 0.60 - 3.40 #[place] 0.35 10^3/uL 0.00 - 0.90 #Eos 0.07 10^3/uL 0.00 - 0.70 #Baso 0.02 10^3/uL 0.00 - 0.20 #Ig 0.03 10^3/uL 0.00 - 0.10 #NRBC 0.00 10^3/uL 0.00 - 0.00 Manual Diff NOT INDICATED RBC Morph NOT INDICATED . Panel WWW 03/01/2021 [facility] Hepatitis B Surf Antigen NONREACTIVE Normal:Non React carlitos Rubella Igg Qual 66.860 IU/mL 18 Syphilis NON-REACTIVE Normal:Non Reactive Vitamin D (25-Hydroxy) 28 NG/ML 19 T4 - Free 1.17 ng/dL 0.93 - 1.70 TSH Highly Sensitive 1.29 uIU/mL 0.47 - 5.01 T3 Free 3.4 pg/mL 2.0-4.4 T4 10.5 g/dL 4.5 - 12.5 Thyroid Peroxidase (Tpo) AB <9 IU/mL 0-34 [id number] Plus Core+Ess+Sca 02/28/2021 Patients Ch oice Z#Other Observations <pending> Chlamydia GC/Trich 02/28/2021 [facility] Source: Genital 20 Chlamydia by Jerilyn Negative Negative Gonococcus by Jerilyn Negative Negative Trich vag by Jerilyn Negative Negative 1 {SOURCE: Random Void~NURSE COLLECTED? N 2 URINALYSIS 3 TEST DONE IN [facility] FIBRONECTIN Any specimen that is cloudy, thick, mucoid, pink, or bloody may cause an invalid or false positive result. 4 CULTURE GBS VAGINAL 5 _B-STREP GROUP B CULTURE_ ^$799739 ^^428646 $$[id number] $$[id number] REPORTED DATE/TIME: 08/09/2021 06:06 Culture: CULTURE GBS VAGINAL Status: Final Strep Gp B Culture: P1 Negative Reference Range: Negative Centers for Disease Control and Prevention (CDC) and [place] [employer] of Obstetricians and Gynecologists (ACOG) guidelines [...] clindamycin is noted. P1 Test performed by: [facility] Linda ROSAIA #: [id number] [address] [place] [address] Avenue [id number] [facility] [address] -- Continued on next page -- Patient: ESTEFANY Mims Order: [id number] Page 2 Culture: CULTURE GBS VAGINAL Status: Final Neon Sign Servicer : Zaki Taylor MD NPI #: Advertising Editor : 08/09/21.1904.XMT.SENT REF 6 TEST PERFORMED AT [facility] [address] [place] [address] CLIA # [id number] SEE SCANNED REPORT FIBRONECTIN Any specimen that is cloudy, thick, mucoid, pink, or bloody may cause an invalid or false positive result. 7 {SPECIMEN TYPE: RANDOM 8 _CULTURE URINE_ ^$657402 ^^382256 $$783370 ^^682174 $$639997 $$414973 $$115110 $$032712 $$082239 $$690130 $$329338 $$067039 $$714001 $$227907 $$164824 $$934139 $$712628 $$406697 $$770080 $$966024 $$454062 $$362326 $$379200 $$362029 $$605342 $$343169 $$363391 ^^634789 $$858751 $$345595 $$584428 -- Continued on next page -- Patient: ESTEFANY Mims Order: [id number] Page 2 Culture: CULTURE URINE Status: Final $$[id number] $$[id number] REPORTED DATE/TIME: 08/06/2021 04:06 Culture: CULTURE URINE Status: Final Urine Culture,Comprehensive: P1 Mixed urogenital keith 25,000-50,000 colony forming units per m L P1 [facility]: [facility] CLIA #: [id number] [address] [place] [address] [id number] [facility] [address] Neon Sign Servicer : Zaki Taylor MD NPI #: Advertising Editor : 08/06/21.0701.XMT.SENT REF 9 .~.~Z34.82 10 COMPLETE [...] above >32 mL/min Normal 15 _CULTURE URINE_ ^$846056 ^^719811 $$174198 ^^719266 $$853761 $$189000 $$640865 $$795208 $$154664 $$326515 $$194375 $$882133 $$026381 $$987578 $$943787 $$522323 $$812194 $$228544 $$168699 $$489766 $$907380 $$160304 $$498120 $$451747 $$897889 $$026395 $$318453 ^^984295 $$909838 $$497191 $$560270 -- Continued on next page -- Patient: ESTEFANY Mims Order: [id number] Page 2 Culture: CULTURE URINE Status: Final $$[id number] $$[id number] REPORTED DATE/TIME: 03/05/2021 10:07 Culture: CULTURE URINE Status: Final Urine Culture,Comprehensive: P1 Mixed urogenital keith 10,000-25,000 colony forming units per m L P1 [facility] #: [id number] [address] [id number] [facility] [address] Neon Sign Servicer : Zaki Taylor MD NPI #: Advertising Editor : 03/05/21.1157.XMT.SENT REF 16 URINALYSIS 17 COMPLETE BLOOD COUNT 18 REACTIVE \\BLDo\\Rubella Immunity Interpretation\\BLDx\\ Non-reactive: <10 IU/mL Reactive: greater than or equal to 10 IU/mL A reactive result is presumptive evidence of immunity to Rubella, except when acute infection is suspected. 19 VITAMIN-D(25HYDROXY) Deficiency: <=20 ng/ml Insufficiency: 21-29 ng/ml Preferred level: => 30 ng/ml 20 {SOURCE: Genital Procedures Date Code Description Status 07/31/2021 [id number] Antepartum F/U visit Completed 07/16/2021 [id number] Antepartum F/U visit Completed 06/17/2021 [id number] Antepartum F/U visit Completed 05/20/2021 [id number] Antepartum F/U visit Completed 02/28/2021 [id number] Antepartum F/U visit Completed Medical Devices Description [...] to Reason for Referral Status Appt Date [facility] HX PRE TERM LABOR Scheduled 04/01 [address] [place], [place] [id number] [phone] [facility] Nutrition Services NUTRITION CONSULT Sent 03/[address] [place] [address] [phone]
--- OUTSIDE RECORDS SUMMARY | 2021-08-23 21:59 | CCD | Continuity of Care Document ---
Author Author Jennifer STARKEY DO Organization Unknown Address [address] [place] [address] Phone [phone] Problems Description No Information Available Social History [...] Issac Starkey, Hydroxyprogesterone Caproate 250MG/1ML Injection Jerome Stweart M.D. 12/2020 Hydroxyprogesterone Caproate 250MG/1ML Injection Jerome [...] H/L Range Note Laboratory test finding 08/04/2021 [facility] Fibronectin (SEE NOTE) 1 Laboratory test finding 08/04/2021 [facility] Culture Urine (SEE NOTE) 2, 3 CBC No Diff 07/04/2021 [facility] CBC No Diff (SEE NOTE) 4, [...] 7.4 - 10.4 . Panel WWW 03/01/2021 [facility] Hepatitis B Surf Antigen NONREACTIVE Normal:Non [...] <9 IU/mL 0-34 CBC W/Automated Diff 03/01/2021 [facility] CBC W/Automated Diff (SEE NOTE) 9 [...] Lymph 21.2 % Low 25.0 - 40.0 [place] 4.0 % 3.0 - 8.0 Eos 0.8 % 0.0 - 7.0 Baso 0.2 % 0.0 - 2.5 %Ig 0.3 % High 0.0 - 0.0 %NRBC 0.0 % 0.0 - 0.0 #Neut 6.35 10^3/uL 2.00 - 6.90 #Lymph 1.83 10^3/uL 0.60 - 3.40 #[place] 0.35 10^3/uL 0.00 - 0.90 #Eos 0.07 10^3/uL 0.00 - 0.70 #Baso 0.02 10^3/uL 0.00 - 0.20 #Ig 0.03 10^3/uL 0.00 - 0.10 #NRBC 0.00 10^3/uL 0.00 - 0.00 Manual Diff NOT INDICATED RBC Morph NOT INDICATED BB Type & Screen 03/01/2021 [facility] Abo Group A RH Type POSITIVE AB Screen NEGATIVE Normal: Negative 10 Urinalysis 03/01/2021 [facility] Urinalysis (SEE NOTE) 11 Source R Color yellow Normal: Yellow Clarity clear Normal: Clear Spec [place] 1.025 1.001 - 1.030 pH 6 5 [...] SMALL Normal: None Seen Cuture Urine 03/01/2021 [facility] Culture Urine (SEE NOTE) 12 HIV Panel 03/01/2021 [facility] HIV Screen 4thGeneration wRfx Non Reactive Non Reacti ve Comprehensive Metabolic Panel 03/01/2021 [facility] ospital Comprehensive Metabo (SEE NOTE) 13 [...] >60 mL/min 14 Laboratory test finding 03/01/2021 [facility] Vitamin D 1, 25-Dihydroxy 116.0 pg/mL High 19.9-79.3 Fegvjpfj87 Plus Core+Ess+Sca 02/28/2021 Patients Ch oice Z#Other Observations <pending> Chlamydia GC/Trich 02/28/2021 [facility] Source: Genital 15 Chlamydia by Jerilyn Negative Negative Gonococcus by Jerilyn Negative Negative Trich vag by Jerilyn Negative Negative 1 TEST [place] [address] CLIA # [id number] SEE SCANNED REPORT FIBRONECTIN Any specimen that is cloudy, thick, mucoid, pink, or bloody may cause an invalid or false positive result. 2 {SPECIMEN TYPE: RANDOM 3 _CULTURE URINE_ ^$839767 ^^782730 $$666588 ^^291183 $$165863 $$103066 $$056696 $$682361 $$656100 $$564042 $$787017 $$301838 $$231117 $$107290 $$096754 $$230642 $$631722 $$158572 $$148605 $$424125 $$106204 $$694909 $$086226 $$697017 $$725143 $$346249 $$496578 ^^966470 $$510786 $$726148 $$172132 -- Continued on next page -- Patient: ESTEFANY Mims Order: [id number] Page 2 Culture: CULTURE URINE Status: Final $$[id number] $$[id number] REPORTED DATE/TIME: 08/06/2021 04:06 Culture: CULTURE URINE Status: Final Urine Culture,Comprehensive: P1 Mixed urogenital keith 25,000-50,000 colony forming units per m L P1 Test performed by: [facility] #: [id number] [address] [place] [address] [id number] [facility] [address] Funeral Home Makeup Artist : Zaki Taylor MD NPI #: Online Activist : 08/06/21.0701.XMT.SENT REF 4 .~.~Z34.82 5 COMPLETE [...] RE-ENTER NEGATIVE 11 URINALYSIS 12 _CULTURE URINE_ ^$773529 ^^779170 $$929443 ^^590901 $$652475 $$900205 $$888891 $$985367 $$087446 $$341858 $$988493 $$750811 $$857228 $$318952 $$892636 $$727778 $$148011 $$725084 $$982222 $$993183 $$470536 $$945312 $$607036 $$637278 $$559089 $$218121 $$011962 ^^004387 $$456013 $$083228 $$095947 -- Continued on next page -- Patient: ESTEFANY Mims Order: [id number] Page 2 Culture: CULTURE URINE Status: Final $$[id number] $$[id number] REPORTED DATE/TIME: 03/05/2021 10:07 Culture: CULTURE URINE Status: Final Urine Culture,Comprehensive: P1 Mixed urogenital keith 10,000-25,000 colony forming units per m L P1 Test performed by: [facility] #: [id number] [address] [place] [address] [phone] [facility] [address] Funeral Home Makeup Artist : Zaki Taylor MD NPI #: Online Activist : 03/05/21.1157.XMT.SENT REF 13 COMPREHENSIVE METABOLIC PANE [...] Genital Procedures Date Code Description Status 07/31/2021 [id number] Antepartum F/U visit Completed 07/16/2021 [id number] Antepartum F/U visit Completed 06/17/2021 [id number] Antepartum F/U visit Completed 05/20/2021 [id number] Antepartum F/U visit Completed 02/28/2021 [id number] Antepartum F/U visit Completed Medical Devices Description [...] Refer to Reason for Referral Status Appt [facility] HX PRE TERM LABOR Scheduled 04/01 [address] [place] [address] [phone] [facility] Nutrition Services NUTRITION CONSULT Sent 03/[address] [place] [address] [phone]
--- OUTSIDE RECORDS SUMMARY | 2021-08-23 21:59 | CCD | Continuity of Care Document ---
Author Author Jennifer STARKEY DO Organization Unknown Address [address] [place] [address] Phone [phone] Problems Description No Information Available Social History [...] at 16wks) 30units Jerome Stewart M.D. 04/25/2021 [place] 250mg/ml Oil injection intramuscular weekly 250mg 10ml [...] CPT Code Status Date Vaccine Lot # [id number] Given 08/13/2021 Tdap (Boostrix/Adacel) Vacci ne 224cg [...] Test Result H/L Range Note Urinalysis 08/12/2021 [facility] Urinalysis (SEE NOTE) 1, 2 Source R Color yellow Normal: Yellow Clarity clear Normal: Clear Spec [place] 1.020 1.001 - 1.030 pH 6 5 - 9 Glucose NORM Normal: Negative Bilirubin NEG Normal: Negative Ketone NEG Normal: Negative Protein NEG Normal: Negative Nitrite NEG Normal: Negative Blood NEG Normal: Negative Leuk Est NEG Normal: Negative Urobilinogen NOR less than 1.0 mg/dL Microscopic Not Indicate Laboratory test finding [facility]20[facility] Fibronectin POSITIVE 3 Laboratory test finding 08/04/2021 [facility] Culture GBS Vaginal (SEE NOTE) 4, 5 Laboratory test finding 08/04/2021 [facility] Fibronectin (SEE NOTE) 6 Laboratory test finding 08/04/2021 [facility] Culture Urine (SEE NOTE) 7, 8 CBC No Diff 07/04/2021 [facility] CBC No Diff (SEE NOTE) 9, 10 [...] - 10.4 BB Type & Screen 03/01/2021 [facility] Abo Group A 11 RH Type POSITIVE AB Screen NEGATIVE Normal: Negative 12 Laboratory test finding 03/01/2021 [facility] Vitamin D 1, 25-Dihydroxy 116.0 pg/mL High 19.9-79.3 Comprehensive Metabolic Panel 03/01/2021 [facility] [...] GFR >60 mL/min 14 HIV Panel 03/01/2021 [facility] HIV Screen 4thGeneration wRfx Non Reactive Non Reacti ve Cuture Urine 03/01/2021 [facility] Culture Urine (SEE NOTE) 15 Urinalysis 03/01/2021 [facility] Urinalysis (SEE NOTE) 16 Source R Color yellow Normal: Yellow Clarity clear Normal: Clear Spec [place] 1.025 1.001 - 1.030 pH 6 5 [...] Normal: None Seen CBC W/Automated Diff 03/01/2021 [facility] CBC W/Automated Diff (SEE NOTE) 17 WBC [...] Lymph 21.2 % Low 25.0 - 40.0 [place] 4.0 % 3.0 - 8.0 Eos 0.8 % 0.0 - 7.0 Baso 0.2 % 0.0 - 2.5 %Ig 0.3 % High 0.0 - 0.0 %NRBC 0.0 % 0.0 - 0.0 #Neut 6.35 10^3/uL 2.00 - 6.90 #Lymph 1.83 10^3/uL 0.60 - 3.40 #[place] 0.35 10^3/uL 0.00 - 0.90 #Eos 0.07 10^3/uL 0.00 - 0.70 #Baso 0.02 10^3/uL 0.00 - 0.20 #Ig 0.03 10^3/uL 0.00 - 0.10 #NRBC 0.00 10^3/uL 0.00 - 0.00 Manual Diff NOT INDICATED RBC Morph NOT INDICATED . Panel WWW 03/01/2021 [facility] Hepatitis B Surf Antigen NONREACTIVE Normal:Non React carlitos Rubella Igg Qual 66.860 IU/mL 18 Syphilis NON-REACTIVE Normal:Non Reactive Vitamin D (25-Hydroxy) 28 NG/ML 19 T4 - Free 1.17 ng/dL 0.93 - 1.70 TSH Highly Sensitive 1.29 uIU/mL 0.47 - 5.01 T3 Free 3.4 pg/mL 2.0-4.4 T4 10.5 g/dL 4.5 - 12.5 Thyroid Peroxidase (Tpo) AB <9 IU/mL 0-34 Wczjvqon50 Plus Core+Ess+Sca 02/28/2021 Patients Ch oice Z#Other Observations <pending> Chlamydia GC/Trich 02/28/2021 [facility] Source: Genital 20 Chlamydia by Jerilyn Negative Negative Gonococcus by Jerilyn Negative Negative Trich vag by Jerilyn Negative Negative 1 {SOURCE: Random Void~NURSE COLLECTED? N 2 URINALYSIS 3 TEST DONE IN [facility] FIBRONECTIN Any specimen that is cloudy, thick, mucoid, pink, or bloody may cause an invalid or false positive result. 4 CULTURE GBS VAGINAL 5 _B-STREP GROUP B CULTURE_ ^$763961 ^^067385 $$522952 $$950503 REPORTED DATE/TIME: 08/09/2021 06:06 Culture: CULTURE GBS VAGINAL Status: Final Strep Gp B Culture: P1 Negative Reference Range: Negative Centers for Disease Control and Prevention (CDC) and [place] [employer] of Obstetricians and Gynecologists (ACOG) guidelines [...] clindamycin is noted. P1 Test performed by: [facility] Linda ROSAIA #: [id number] [address] [place] [address] Avenue [id number] [facility] [address] -- Continued on next page -- Patient: ESTEFANY Mims Order: [id number] Page 2 Culture: CULTURE GBS VAGINAL Status: Final College Teacher : Zaki Taylor MD NPI #: Inner Diameter Grinder Tool : 08/09/21.1904.XMT.SENT REF 6 TEST PERFORMED AT [facility] [address] [place] [address] CLIA # [id number] SEE SCANNED REPORT FIBRONECTIN Any specimen that is cloudy, thick, mucoid, pink, or bloody may cause an invalid or false positive result. 7 {SPECIMEN TYPE: RANDOM 8 _CULTURE URINE_ ^$444047 ^^760947 $$299985 ^^741796 $$853039 $$981714 $$750772 $$729743 $$597127 $$251531 $$661585 $$996395 $$210775 $$589982 $$137169 $$605039 $$783711 $$918926 $$404562 $$740060 $$130134 $$954748 $$346342 $$109582 $$705883 $$580367 $$720486 ^^249517 $$622477 $$747327 $$263010 -- Continued on next page -- Patient: ESTEFANY Mims Order: [id number] Page 2 Culture: CULTURE URINE Status: Final $$[id number] $$[id number] REPORTED DATE/TIME: 08/06/2021 04:06 Culture: CULTURE URINE Status: Final Urine Culture,Comprehensive: P1 Mixed urogenital keith 25,000-50,000 colony forming units per m L P1 [facility]: [facility] CLIA #: [id number] [address] [place] [address] [id number] [facility] [address] College Teacher : Zaki Taylor MD NPI #: Inner Diameter Grinder Tool : 08/06/21.0701.XMT.SENT REF 9 .~.~Z34.82 10 COMPLETE [...] above >32 mL/min Normal 15 _CULTURE URINE_ ^$943989 ^^782184 $$855166 ^^325440 $$124041 $$170884 $$044177 $$632125 $$179085 $$828682 $$664513 $$098689 $$985963 $$201650 $$106501 $$618949 $$755036 $$239178 $$476341 $$200640 $$982963 $$914533 $$416894 $$560873 $$986500 $$986130 $$201326 ^^443690 $$204378 $$799283 $$087328 -- Continued on next page -- Patient: ESTEFANY Mims Order: [id number] Page 2 Culture: CULTURE URINE Status: Final $$[id number] $$[id number] REPORTED DATE/TIME: 03/05/2021 10:07 Culture: CULTURE URINE Status: Final Urine Culture,Comprehensive: P1 Mixed urogenital keith 10,000-25,000 colony forming units per m L P1 [facility] CLIA #: [id number] [address] [phone] [facility] [address] College Teacher : Zaki Taylor MD NPI #: Inner Diameter Grinder Tool : 03/05/21.1157.XMT.SENT REF 16 URINALYSIS 17 COMPLETE BLOOD COUNT 18 REACTIVE \\BLDo\\Rubella Immunity Interpretation\\BLDx\\ Non-reactive: <10 IU/mL Reactive: greater than or equal to 10 IU/mL A reactive result is presumptive evidence of immunity to Rubella, except when acute infection is suspected. 19 VITAMIN-D(25HYDROXY) Deficiency: <=20 ng/ml Insufficiency: 21-29 ng/ml Preferred level: => 30 ng/ml 20 {SOURCE: Genital Procedures Date Code Description Status 07/31/2021 [id number] Antepartum F/U visit Completed 07/16/2021 8497717 Antepartum F/U visit Completed 06/17/2021 8851443 Antepartum F/U visit Completed 05/20/2021 [id number] Antepartum F/U visit Completed 02/28/2021 [id number] Antepartum F/U visit Completed Medical Devices Description [...] Reason for Referral Status Appt Date [facility] HX PRE TERM LABOR Scheduled 04/01 [address] [place], [place] [id number] [phone] [facility] Nutrition Services NUTRITION CONSULT Sent 03/[address] [place] [address] [phone]
--- OUTSIDE RECORDS SUMMARY | 2021-08-23 22:00 | CCD | Continuity of Care Document ---
Author Author Jennifer STARKEY DO Organization Unknown Address [address] [place] [address] Phone [phone] Problems Description No Information Available Social History [...] Available Vital Signs Date Vital Result Comment 07/14/2021 11:01am BP Systolic 116 mmHg BP Diastolic 66 mmHg Heart Rate 86 /min Body Temperature 98.2 F Respiratory Rate 18 /min O2 % BldC Oximetry 96 % Weight 184.25 lb Weight 83.576 kg Height 61 inches 5'1" BMI (Body Mass Index) 34.8 kg/m2 BSA (Body Surface Area) 1.82 m2 07/10/2021 1:02pm BP Systolic 122 mmHg BP Diastolic 78 mmHg Heart Rate 104 /min Body Temperature 97.3 F Respiratory Rate 16 /min O2 % BldC Oximetry 96 % Weight 185.38 lb Weight 84.086 kg Height 61 inches 5'1" BMI (Body Mass Index) 35.0 kg/m2 BSA (Body Surface Area) 1.83 m2 Results Test Acquired Date Facility Test Result H/L Range Note CBC No Diff 07/04/2021 [facility] CBC No Diff (SEE NOTE) 1, [...] - 10.4 . Panel WWW 03/01/2021 [facility] Hepatitis B Surf Antigen NONREACTIVE Normal:Non [...] IU/mL 0-34 CBC W/Automated Diff 03/01/2021 [facility] CBC W/Automated Diff (SEE NOTE) 6 [...] Lymph 21.2 % Low 25.0 - 40.0 [place] 4.0 % 3.0 - 8.0 Eos 0.8 % 0.0 - 7.0 Baso 0.2 % 0.0 - 2.5 %Ig 0.3 % High 0.0 - 0.0 %NRBC 0.0 % 0.0 - 0.0 #Neut 6.35 10^3/uL 2.00 - 6.90 #Lymph 1.83 10^3/uL 0.60 - 3.40 #[place]ler 0.35 10^3/uL 0.00 - 0.90 #Eos 0.07 10^3/uL 0.00 - 0.70 #Baso 0.02 10^3/uL 0.00 - 0.20 #Ig 0.03 10^3/uL 0.00 - 0.10 #NRBC 0.00 10^3/uL 0.00 - 0.00 Manual Diff NOT INDICATED RBC Morph NOT INDICATED BB Type & Screen 03/01/2021 [facility] Abo Group A RH Type POSITIVE AB Screen NEGATIVE Normal: Negative 7 Urinalysis 03/01/2021 [facility] Urinalysis (SEE NOTE) 8 Source R Color yellow Normal: Yellow Clarity clear Normal: Clear Spec [place] 1.025 1.001 - 1.030 pH 6 5 [...] Normal: None Seen Cuture Urine 03/01/2021 [facility] Culture Urine (SEE NOTE) 9 HIV Panel 03/01/2021 [facility] HIV Screen 4thGeneration wRfx Non Reactive Non Reacti ve Comprehensive Metabolic Panel 03/01/2021 [facility] ospital Comprehensive Metabo (SEE NOTE) 10 [...] >60 mL/min 11 Laboratory test finding 03/01/2021 [facility] Vitamin D 1, 25-Dihydroxy 116.0 pg/mL High 19.9-79.3 [id number] Plus Core+Ess+Sca 02/28/2021 Patients Ch oice Z#Other Observations <pending> Chlamydia GC/Trich 02/28/2021 [facility] Source: Genital 12 Chlamydia by Jerilyn [...] RE-ENTER NEGATIVE 8 URINALYSIS 9 _CULTURE URINE_ ^$[id number] ^^[id number] $$860134 ^^861502 $$863152 $$457363 $$083114 $$246976 $$783833 $$811692 $$912033 $$247291 $$402020 $$633019 $$961198 $$862385 $$050684 $$013066 $$146223 $$575730 $$984646 $$663440 $$381001 $$522430 $$932884 $$542296 $$077655 ^^837579 $$029093 $$017226 $$125425 -- Continued on next page -- Patient: ESTEFANY Mims Order: [id number] Page 2 Culture: CULTURE URINE Status: Final $$[id number] $$[id number] REPORTED DATE/TIME: 03/05/2021 10:07 Culture: CULTURE URINE Status: Final Urine Culture,Comprehensive: P1 Mixed urogenital keith 10,000-25,000 colony forming units per m L P1 Test performed by: [facility] #: [id number] [address] [place] [address] [id number] [facility] [address] Otr Driver : Zaki Taylor MD NPI #: Wheel Shop Supervisor : 03/05/21.1157.XMT.SENT REF 10 COMPREHENSIVE METABOLIC PANE [...] {SOURCE: Genital Procedures Date Code Description Status 06/17/2021 0421080 Antepartum F/U visit Completed 05/20/2021 [id number] Antepartum F/U visit Completed 02/28/2021 8622457 Antepartum F/U visit Completed Medical Devices Description No Information Available Encounters Description No Information Available Assessments Date Code Description Provider 06/17/2021 Z34.82 Encounter for superv ision of other normal , second trimester Jerome Stewart M.D. 05/30/2021 O09.813 Supervision of pregn karthik resulting from assisted reproductive technology, third trimester Jerome Stewart M.D. 05/20/2021 Z34.82 Encounter for superv ision of other normal , second trimester Jerome Stewart M.D. 02/28/2021 Z34.82 Encounter for superv ision of other normal , second trimester WWW Intake / Nurse Schedule Plan of Treatment Future Appointment(s):* 07/16/2021 11:00 am - Jerome Stewart M.D. [facility] Functional Status Description No Information Available Mental Status Description No Information Available Referrals Refer to Reason for Referral Status Appt Date [facility] HX PRE TERM LABOR Scheduled 04/[address] [place] [address] [phone] [facility] Nutrition Services NUTRITION CONSULT Sent 03/[address] [place] [address] [phone]
--- OUTSIDE RECORDS SUMMARY | 2021-08-23 22:00 | CCD | Continuity of Care Document ---
Author Author Jennifer GARCIA M.D. Organization Unknown Address [address] [place] [address] Phone [phone] Problems Description No Information Available Social History [...] H/L Range Note CBC No Diff 07/04/2021 [facility] CBC No Diff (SEE NOTE) 1, 2 [...] 7.4 - 10.4 . Panel WWW 03/01/2021 [facility] Hepatitis B Surf Antigen NONREACTIVE [...] <9 IU/mL 0-34 CBC W/Automated Diff 03/01/2021 [facility] CBC W/Automated Diff (SEE NOTE) 6 WBC [...] Lymph 21.2 % Low 25.0 - 40.0 [place] 4.0 % 3.0 - 8.0 Eos 0.8 % 0.0 - 7.0 Baso 0.2 % 0.0 - 2.5 %Ig 0.3 % High 0.0 - 0.0 %NRBC 0.0 % 0.0 - 0.0 #Neut 6.35 10^3/uL 2.00 - 6.90 #Lymph 1.83 10^3/uL 0.60 - 3.40 #[place] 0.35 10^3/uL 0.00 - 0.90 #Eos 0.07 10^3/uL 0.00 - 0.70 #Baso 0.02 10^3/uL 0.00 - 0.20 #Ig 0.03 10^3/uL 0.00 - 0.10 #NRBC 0.00 10^3/uL 0.00 - 0.00 Manual Diff NOT INDICATED RBC Morph NOT INDICATED BB Type & Screen 03/01/2021 [facility] Abo Group A RH Type POSITIVE AB Screen NEGATIVE Normal: Negative 7 Urinalysis 03/01/2021 [facility] Urinalysis (SEE NOTE) 8 Source R Color yellow Normal: Yellow Clarity clear Normal: Clear Spec [place] 1.025 1.001 - 1.030 pH 6 5 [...] SMALL Normal: None Seen Cuture Urine 03/01/2021 [facility] Culture Urine (SEE NOTE) 9 HIV Panel 03/01/2021 [facility] HIV Screen 4thGeneration wRfx Non Reactive Non Reacti ve Comprehensive Metabolic Panel 03/01/2021 [facility] ospital Comprehensive Metabo (SEE NOTE) [...] >60 mL/min 11 Laboratory test finding 03/01/2021 [facility] Vitamin D 1, 25-Dihydroxy 116.0 pg/mL High 19.9-79.3 Apiufavz15 Plus Core+Ess+Sca 02/28/2021 Patients Ch oice Z#Other Observations <pending> Chlamydia GC/Trich 02/28/2021 [facility] Source: Genital 12 Chlamydia by Jerilyn Negative [...] RE-ENTER NEGATIVE 8 URINALYSIS 9 _CULTURE URINE_ ^$238704 ^^978542 $$177448 ^^057676 $$381924 $$601138 $$856825 $$423972 $$495143 $$201587 $$917822 $$895910 $$371581 $$450919 $$589122 $$510658 $$371179 $$822582 $$145626 $$963340 $$846035 $$774913 $$992610 $$561084 $$772685 $$589953 $$710973 ^^445280 $$004564 $$380615 $$075546 -- Continued on next page -- Patient: ESTEFANY Mims Order: [id number] Page 2 Culture: CULTURE URINE Status: Final $$[id number] $$[id number] REPORTED DATE/TIME: 03/05/2021 10:07 Culture: CULTURE URINE Status: Final Urine Culture,Comprehensive: P1 Mixed urogenital keith 10,000-25,000 colony forming units per m L P1 Test performed by: [facility] #: [id number] [address] [place] [address] [id number] [facility] [address] Wharf Labourer : Zaki Taylor MD NPI #: Weaving Professor : 03/05/21.1157.XMT.SENT REF 10 COMPREHENSIVE METABOLIC PANE [...] Genital Procedures Date Code Description Status 07/16/2021 [id number] Antepartum F/U visit Completed 06/17/2021 [id number] Antepartum F/U visit Completed 05/20/2021 [id number] Antepartum F/U visit Completed 02/28/2021 [id number] Antepartum F/U visit Completed Medical Devices Description [...] Jerome Garcia M.D. at [facility] * 07/24/2021 2:00 pm - Jerome Garcia M.D. at [facility] [place] [facility]'s [facility] Functional Status Description No Information Available Mental Status Description No Information Available Referrals Refer to Reason for Referral Status Appt Date [facility] HX PRE TERM LABOR Scheduled 04/[address] [place] [address] [phone] [facility] Nutrition Services NUTRITION CONSULT Sent 03/[address] [place] [address] [phone]
--- OUTSIDE RECORDS SUMMARY | 2021-08-23 22:00 | CCD | Continuity of Care Document ---
Author Author Jennifer GARCIA M.D. Organization Unknown Address [address] [place] [address] Phone [phone] Problems Description No Information Available Social History [...] H/L Range Note CBC No Diff 07/04/2021 [facility] CBC No Diff (SEE NOTE) 1, [...] 7.4 - 10.4 . Panel WWW 03/01/2021 [facility] Hepatitis B Surf Antigen NONREACTIVE Normal:Non [...] <9 IU/mL 0-34 CBC W/Automated Diff 03/01/2021 [facility] CBC W/Automated Diff (SEE NOTE) 6 [...] Lymph 21.2 % Low 25.0 - 40.0 [place] 4.0 % 3.0 - 8.0 Eos 0.8 % 0.0 - 7.0 Baso 0.2 % 0.0 - 2.5 %Ig 0.3 % High 0.0 - 0.0 %NRBC 0.0 % 0.0 - 0.0 #Neut 6.35 10^3/uL 2.00 - 6.90 #Lymph 1.83 10^3/uL 0.60 - 3.40 #[place] 0.35 10^3/uL 0.00 - 0.90 #Eos 0.07 10^3/uL 0.00 - 0.70 #Baso 0.02 10^3/uL 0.00 - 0.20 #Ig 0.03 10^3/uL 0.00 - 0.10 #NRBC 0.00 10^3/uL 0.00 - 0.00 Manual Diff NOT INDICATED RBC Morph NOT INDICATED BB Type & Screen 03/01/2021 [facility] Abo Group A RH Type POSITIVE AB Screen NEGATIVE Normal: Negative 7 Urinalysis 03/01/2021 [facility] Urinalysis (SEE NOTE) 8 Source R Color yellow Normal: Yellow Clarity clear Normal: Clear Spec [place] 1.025 1.001 - 1.030 pH 6 5 [...] SMALL Normal: None Seen Cuture Urine 03/01/2021 [facility] Culture Urine (SEE NOTE) 9 HIV Panel 03/01/2021 [facility] HIV Screen 4thGeneration wRfx Non Reactive Non Reacti ve Comprehensive Metabolic Panel 03/01/2021 [facility] ospital Comprehensive Metabo (SEE NOTE) 10 [...] >60 mL/min 11 Laboratory test finding 03/01/2021 [facility] Vitamin D 1, 25-Dihydroxy 116.0 pg/mL High 19.9-79.3 Uetdrzbv16 Plus Core+Ess+Sca 02/28/2021 Patients Ch oice Z#Other Observations <pending> Chlamydia GC/Trich 02/28/2021 [facility] Source: Genital 12 Chlamydia by Jerilyn [...] RE-ENTER NEGATIVE 8 URINALYSIS 9 _CULTURE URINE_ ^$047364 ^^545642 $$667479 ^^992546 $$125818 $$852567 $$009700 $$602061 $$268764 $$394617 $$665837 $$787646 $$401477 $$708942 $$534242 $$177995 $$408754 $$168432 $$101498 $$964871 $$729135 $$355999 $$294353 $$104482 $$870482 $$206872 $$852756 ^^307107 $$395061 $$662713 $$428950 -- Continued on next page -- Patient: ESTEFANY Mims Order: [id number] Page 2 Culture: CULTURE URINE Status: Final $$[id number] $$[id number] REPORTED DATE/TIME: 03/05/2021 10:07 Culture: CULTURE URINE Status: Final Urine Culture,Comprehensive: P1 Mixed urogenital keith 10,000-25,000 colony forming units per m L P1 Test performed by: [facility] #: [id number] [address] [place] [address] [id number] [facility] [address] [employer] Warrant Officer : Zaki Taylor MD NPI #: Gate Watch : 03/05/21.1157.XMT.SENT REF 10 COMPREHENSIVE METABOLIC PANE [...] Genital Procedures Date Code Description Status 07/16/2021 [id number] Antepartum F/U visit Completed 06/17/2021 [id number] Antepartum F/U visit Completed 05/20/2021 1311511 Antepartum F/U visit Completed 02/28/2021 [id number] Antepartum F/U visit Completed Medical Devices Description [...] Jerome Garcia M.D. [facility] * 07/24/2021 2:00 pm - Jerome Garcia M.D. at [facility] Functional Status Description No Information Available Mental Status Description No Information Available Referrals Refer to Reason for Referral Status Appt Date [facility] HX PRE TERM LABOR Scheduled 04/[address] [place] [address] [phone] [facility] Nutrition Services NUTRITION CONSULT Sent 03/[address] [place] [address] [phone]
--- OUTSIDE RECORDS SUMMARY | 2021-08-23 22:00 | CCD | Continuity of Care Document ---
Author Author Jennifer STARKEY DO Organization Unknown Address [address] [place] [address] Phone [phone] Problems Description No Information Available Social History [...] Aury Calhoun 03/28/2021 Tablets 1 by donald every day Unknown Medications Administered in Office Medication SIG Qnty Indications Ordering Provider Date Hydroxyprogesterone Caproate 250MG/1ML Injection Jerome Stewart M.D. 12/2020 Hydroxyprogesterone Caproate 250MG/1ML Injection Jerome Stewart M.D. 06/02 Hydroxyprogesterone Caproate 250MG/1ML Injection Jerome Stewart M.D. 06/01 Hydroxyprogesterone Caproate 250MG/1ML Injection Issac Starkey DO Hydroxyprogesterone Caproate 250MG/1ML Injection Jerome Stewart M.D. 04/2021 Hydroxyprogesterone Caproate 250MG/1ML Injection Jerome Stewart M.D. 05/03 Hydroxyprogesterone Caproate 250MG/1ML Injection Jerome Stewart M.D. 05/01 Hydroxyprogesterone Caproate 250MG/1ML Injection Jerome Stewart M.D. 12/2020 Hydroxyprogesterone Caproate 250MG/1ML Injection Jerome Stewart M.D. 04/02 Immunizations Description No Information Available Vital Signs Date Vital Result Comment 07/10/2021 1:02pm BP Systolic 122 mmHg BP Diastolic 78 mmHg Heart Rate 104 /min Body Temperature 97.3 F Respiratory Rate 16 /min O2 % BldC Oximetry 96 % Weight 185.38 lb Weight 84.086 kg Height 61 inches 5'1" BMI (Body Mass Index) 35.0 kg/m2 BSA (Body Surface Area) 1.83 m2 07/04/2021 2:33pm BP Systolic 122 mmHg BP Diastolic 68 mmHg Heart Rate 96 /min Body Temperature 98.8 F Weight 186.00 lb Weight 84.370 kg Height 61 inches 5'1" BMI (Body Mass Index) 35.1 kg/m2 BSA (Body Surface Area) 1.83 m2 Results Test Acquired Date Facility Test Result H/L Range Note CBC No Diff 07/04/2021 [facility] CBC No Diff (SEE NOTE) 1, [...] 7.4 - 10.4 . Panel WWW 03/01/2021 [facility] Hepatitis B Surf Antigen NONREACTIVE Normal:Non [...] <9 IU/mL 0-34 CBC W/Automated Diff 03/01/2021 [facility] CBC W/Automated Diff (SEE NOTE) 6 [...] Lymph 21.2 % Low 25.0 - 40.0 [place] 4.0 % 3.0 - 8.0 Eos 0.8 % 0.0 - 7.0 Baso 0.2 % 0.0 - 2.5 %Ig 0.3 % High 0.0 - 0.0 %NRBC 0.0 % 0.0 - 0.0 #Neut 6.35 10^3/uL 2.00 - 6.90 #Lymph 1.83 10^3/uL 0.60 - 3.40 #[place] 0.35 10^3/uL 0.00 - 0.90 #Eos 0.07 10^3/uL 0.00 - 0.70 #Baso 0.02 10^3/uL 0.00 - 0.20 #Ig 0.03 10^3/uL 0.00 - 0.10 #NRBC 0.00 10^3/uL 0.00 - 0.00 Manual Diff NOT INDICATED RBC Morph NOT INDICATED BB Type & Screen 03/01/2021 [facility] Abo Group A RH Type POSITIVE AB Screen NEGATIVE Normal: Negative 7 Urinalysis 03/01/2021 [facility] Urinalysis (SEE NOTE) 8 Source R Color yellow Normal: Yellow Clarity clear Normal: Clear Spec [place] 1.025 1.001 - 1.030 pH 6 5 [...] SMALL Normal: None Seen Cuture Urine 03/01/2021 [facility] Culture Urine (SEE NOTE) 9 HIV Panel 03/01/2021 [facility] HIV Screen 4thGeneration wRfx Non Reactive Non Reacti ve Comprehensive Metabolic Panel 03/01/2021 [facility] ospital Comprehensive Metabo (SEE NOTE) 10 [...] >60 mL/min 11 Laboratory test finding 03/01/2021 [facility] Vitamin D 1, 25-Dihydroxy 116.0 pg/mL High 19.9-79.3 Riuqhwpt79 Plus Core+Ess+Sca 02/28/2021 Patients Ch oice Z#Other Observations <pending> Chlamydia GC/Trich 02/28/2021 [facility] Source: Genital 12 Chlamydia by Jerilyn [...] RE-ENTER NEGATIVE 8 URINALYSIS 9 _CULTURE URINE_ ^$646011 ^^673844 $$748030 ^^488184 $$375159 $$643784 $$874330 $$217855 $$338912 $$169480 $$360260 $$032481 $$944073 $$113489 $$948700 $$158152 $$993366 $$718076 $$867433 $$065989 $$220448 $$129004 $$205342 $$052562 $$405194 $$101934 $$449687 ^^458771 $$632535 $$624991 $$046680 -- Continued on next page -- Patient: ESTEFANY Mims Order: [id number] Page 2 Culture: CULTURE URINE Status: Final $$[id number] $$[id number] REPORTED DATE/TIME: 03/05/2021 10:07 Culture: CULTURE URINE Status: Final Urine Culture,Comprehensive: P1 Mixed urogenital keith 10,000-25,000 colony forming units per m L P1 Test performed by: [facility] #: [id number] [address] [place] [address] [phone] [facility] [address] Model Making Supervisor : Zaki Taylor MD NPI #: Bench Assembler Operator : 03/05/21.1157.XMT.SENT REF 10 COMPREHENSIVE METABOLIC PANE [...] Genital Procedures Date Code Description Status 06/17/2021 [id number] Antepartum F/U visit Completed 05/20/2021 2221136 Antepartum F/U visit Completed 02/28/2021 6607687 Antepartum F/U visit Completed Medical Devices Description [...] Jerome Stewart M.D. at [facility] Functional Status Description No Information Available Mental Status Description No Information Available Referrals Refer to Reason for Referral Status Appt [facility] HX PRE TERM LABOR Scheduled 04/[address] [place] [address] [phone] [facility] Nutrition Services NUTRITION CONSULT Sent 03/[address] [place] [address] [phone]
--- OUTSIDE RECORDS SUMMARY | 2021-08-23 22:00 | CCD | Continuity of Care Document ---
Author Author Jennifer GARCIA M.D. Organization Unknown Address [address] [place] [address] Phone [phone] Problems Description No Information Available Social History [...] Starkey DO Hydroxyprogesterone Caproate 250MG/1ML Injection Jerome Garcia M.D. 04/2021 Hydroxyprogesterone Caproate 250MG/1ML Injection Jerome Garcia M.D. 05/03 Hydroxyprogesterone Caproate 250MG/1ML Injection Jerome Garcia M.D. 05/01 Hydroxyprogesterone Caproate 250MG/1ML Injection Jerome Garcia M.D. 12/2020 Hydroxyprogesterone Caproate 250MG/1ML Injection Jerome Garcia M.D. 04/02 Immunizations Description No Information Available Vital Signs Date Vital Result Comment 06/27/2021 2:17pm BP Systolic 120 mmHg BP Diastolic 60 mmHg Heart Rate 100 /min Body Temperature 97.8 F Weight 184.00 lb Weight 83.462 kg Height 61 inches 5'1" BMI (Body Mass Index) 34.8 kg/m2 BSA (Body Surface Area) 1.82 m2 06/17/2021 3:19pm BP Systolic 122 mmHg BP Diastolic 64 mmHg Heart Rate 90 /min Body Temperature 98.0 F Weight 185.00 lb Weight 83.916 kg Height 61 inches 5'1" BMI (Body Mass Index) 35.0 kg/m2 BSA (Body Surface Area) 1.83 m2 Results Test Acquired Date Facility Test Result H/L Range Note . Panel WWW 03/01/2021 [facility] Hepatitis B Surf Antigen NONREACTIVE Normal:Non React carlitos 1 Rubella Igg Qual 66.860 IU/mL 2 Syphilis NON-REACTIVE Normal:Non Reactive Vitamin D (25-Hydroxy) 28 NG/ML 3 T4 - Free 1.17 ng/dL 0.93 - 1.70 TSH Highly Sensitive 1.29 uIU/mL 0.47 - 5.01 T3 Free 3.4 pg/mL 2.0-4.4 T4 10.5 g/dL 4.5 - 12.5 Thyroid Peroxidase (Tpo) AB <9 IU/mL 0-34 CBC W/Automated Diff 03/01/2021 [facility] CBC W/Automated Diff (SEE NOTE) 4 WBC 8.7 10^3/uL 4.2 - 11.0 RBC [...] Lymph 21.2 % Low 25.0 - 40.0 [place] 4.0 % 3.0 - 8.0 Eos 0.8 % 0.0 - 7.0 Baso 0.2 % 0.0 - 2.5 %Ig 0.3 % High 0.0 - 0.0 %NRBC 0.0 % 0.0 - 0.0 #Neut 6.35 10^3/uL 2.00 - 6.90 #Lymph 1.83 10^3/uL 0.60 - 3.40 #[place] 0.35 10^3/uL 0.00 - 0.90 #Eos 0.07 10^3/uL 0.00 - 0.70 #Baso 0.02 10^3/uL 0.00 - 0.20 #Ig 0.03 10^3/uL 0.00 - 0.10 #NRBC 0.00 10^3/uL 0.00 - 0.00 Manual Diff NOT INDICATED RBC Morph NOT INDICATED BB Type & Screen 03/01/2021 [facility] Abo Group A RH Type POSITIVE AB Screen NEGATIVE Normal: Negative 5 Urinalysis 03/01/2021 [facility] Urinalysis (SEE NOTE) 6 Source R Color yellow Normal: Yellow Clarity clear Normal: Clear Spec [place] 1.025 1.001 - 1.030 pH 6 5 [...] SMALL Normal: None Seen Cuture Urine 03/01/2021 [facility] Culture Urine (SEE NOTE) 7 HIV Panel 03/01/2021 [facility] HIV Screen 4thGeneration wRfx Non Reactive Non Reacti ve Comprehensive Metabolic Panel 03/01/2021 [facility] ospital Comprehensive Metabo (SEE NOTE) 8 Sodium 138 mEq/L 134 - 153 Potassium [...] >60 mL/min Afr Amer GFR >60 mL/min 9 [facility] test [facility] D 1, 25-Dihydroxy 116.0 pg/mL High 19.9-79.3 [id number] Plus Core+Ess+Sca 02/28/2021 Patients Ch oice Z#Other Observations <pending> Chlamydia GC/Trich 02/28/2021 [facility] Source: Genital 10 Chlamydia by Jerilyn Negative Negative Gonococcus by Jerilyn Negative Negative Trich vag by Jerilyn Negative Negative 1 .~.~<DG1.3.1>Z34.81</DG1.3.1><DG1.3.1>Z34.81</DG1.3.1><DG1.3.1>Z34.81</DG1.3.1>< DG1. {SOURCE: R~.~.~<DG1.3.1>Z34.81</DG1.3.1><DG1.3.1>Z34.81< /DG1.3.1><DG1.3.1>Z34.81</DG1.3.1><DG1. .~.~<DG1.3.1>Z34.81</DG1.3.1><DG1.3.1>Z34.81</DG1.3.1><DG1.3.1>Z34.81</DG1.3.1>< DG1. .~.~<DG1.3.1>Z 34.81</DG1.3.1><DG1.3.1>Z34.81</DG1.3.1><DG1.3.1>Z34.81</DG1.3.1><DG1. .~.~<DG1.3.1>Z34.81</DG1.3.1><DG1.3.1>Z34.81</DG1.3.1><DG1.3.1>Z34.8 1</DG1.3.1><DG1. .~.~<DG1.3.1>Z34.81</DG1.3.1><DG1.3.1>Z34.81</DG1.3.1><DG1.3.1>Z34.81</DG1.3.1>< DG1. .~.~<DG1.3.1>Z34.81</DG1.3.1><DG1.3.1 >Z34.81</DG1.3.1><DG1.3.1>Z34.81</DG1.3.1><DG1. .~.~<DG1.3.1>Z34.81</DG1.3.1><DG1.3.1>Z34.81</DG1.3.1><DG1.3.1>Z34.81</DG1.3.1>< DG1. .~.~&l t;DG1.3.1>Z34.81</DG1.3.1><DG1.3.1>Z34.81</DG1.3.1><DG1.3.1>Z34.81</DG1.3.1><DG1 . Is patient fasting? N~.~.~<DG1.3.1>Z34.81</DG1.3.1><DG1.3.1>Z34.8 1</DG1.3.1><DG1.3.1>Z34.81</DG1 .~.~<DG1.3.1>Z34.81</DG1.3.1><DG1.3.1>Z34.81</DG1.3.1><DG1.3.1>Z34.81</DG1.3.1>< DG1. .~.~<DG1.3.1>Z34.81</D G1.3.1><DG1.3.1>Z34.81</DG1.3.1><DG1.3.1>Z34.81</DG1.3.1><DG1. Reason for Exam: R~.~.~<DG1.3.1>Z34.81</DG1.3.1><DG1.3.1>Z34.81</DG1.3.1><DG1.3.1>Z34.81</DG1.3. .~.~<DG1.3.1>Z34.81</DG1.3.1><DG1.3.1>Z34.81</DG1.3.1><DG1.3.1>Z34.81</DG1.3.1>< DG1. {SPECIMEN TYPE: R~.~.~<DG1.3.1>Z34.81</DG1.3.1 ><DG1.3.1>Z34.81</DG1.3.1><DG1.3.1>Z34.81</DG1.3.1 .~.~<DG1.3.1>Z34.81</DG1.3.1><DG1.3.1>Z34.81</DG1.3.1><DG1.3.1>Z34.81</DG1.3.1>< DG1. .~. ~<DG1.3.1>Z34.81</DG1.3.1><DG1.3.1>Z34.81</DG1.3.1><DG1.3.1>Z34.81</DG1.3.1><DG1 . .~.~<DG1.3.1>Z34.81</DG1.3.1><DG1.3.1>Z34.81</DG1.3.1>&lt ;DG1.3.1>Z34.81</DG1.3.1><DG1. .~.~<DG1.3.1>Z34.81</DG1.3.1><DG1.3.1>Z34.81</DG1.3.1><DG1.3.1>Z34.81</DG1.3.1>< DG1. .~.~<DG1.3.1>Z34.81</DG1.3 .1><DG1.3.1>Z34.81</DG1.3.1><DG1.3.1>Z34.81</DG1.3.1><DG1. .~.~<DG1.3.1>Z34.81</DG1.3.1><DG1.3.1>Z34.81</DG1.3.1><DG1.3.1>Z34.81</DG1.3.1>< DG1. 2 REACTIVE \\BLDo\\Rubella Immunity Interpretation\\BLDx\\ Non-reactive: <10 IU/mL Reactive: greater than or equal to 10 IU/mL A reactive result is presumptive evidence of immunity to Rubella, except when acute infection is suspected. 3 VITAMIN-D(25HYDROXY) Deficiency: <=20 ng/ml Insufficiency: 21-29 ng/ml Preferred level: => 30 ng/ml 4 COMPLETE BLOOD COUNT 5 { ABO/RH REENTER A POSITIVE { AB SCREEN RE-ENTER NEGATIVE 6 URINALYSIS 7 _CULTURE URINE_ ^$259794 ^^380051 $$002572 ^^308007 $$686297 $$406373 $$274941 $$530949 $$880238 $$705104 $$917689 $$455762 $$694538 $$785899 $$668228 $$450335 $$544059 $$129802 $$046210 $$038129 $$341115 $$053991 $$004604 $$617824 $$222913 $$830923 $$119537 ^^893156 $$985900 $$692580 $$685493 -- Continued on next page -- Patient: ESTEFANY Mims Order: [id number] Page 2 Culture: CULTURE URINE Status: Final $$[id number] $$[id number] REPORTED DATE/TIME: 03/05/2021 10:07 Culture: CULTURE URINE Status: Final Urine Culture,Comprehensive: P1 Mixed urogenital keith 10,000-25,000 colony forming units per m L P1 Test performed by: [facility] #: [id number] [address] [id number] [facility] [address] Iron Caster : Zaki Taylor MD NPI #: Flute Teacher : 03/05/21.1157.XMT.SENT REF 8 COMPREHENSIVE METABOLIC PANE L 9 Male GFR Interprentation 20-49 yrs >60 mL/min Normal 50-59 yrs >56 mL/min Normal 60-69 yrs >49 mL/min Normal 70-79yrs >42 mL/min Normal 80 and above >35 mL/min Normal Female GFR Interpretation 20-39 yrs >60 mL/min Normal 40-49 yrs >58 mL/min Normal 50-59 yrs >51 mL/min Normal 60-69 yrs >45 mL/min Normal 70-79 yrs >39 mL/min Normal 80 and above >32 mL/min Normal 10 {SOURCE: Genital Procedures Date Code Description Status 06/17/2021 [id number] Antepartum F/U visit Completed 05/20/2021 1685336 Antepartum F/U visit Completed 02/28/2021 [id number] Antepartum F/U visit Completed Medical Devices Description [...] , second trimester Jerome Garcia M.D. 02/28/2021 Z34.82 Encounter for superv ision of other normal , second trimester WWW Intake / Nurse Schedule Plan of Treatment Future Appointment(s):* 07/10/2021 11:15 am - Jerome [facility] * 07/16/2021 11:00 am - Jerome [facility] Functional Status Description No Information Available Mental Status Description No Information Available Referrals Refer to Reason for Referral Status Appt [facility] HX PRE TERM LABOR Scheduled 04/[address] [place] [address] [phone] [facility] Nutrition Services NUTRITION CONSULT Sent 03/[address] [place] [address] [phone]
--- OUTSIDE RECORDS SUMMARY | 2021-08-23 22:00 | CCD | Continuity of Care Document ---
Author Author Jennifer GARCIA M.D. Organization Unknown Address [address] [place] [address] Phone [phone] Problems Description No Information Available Social History [...] H/L Range Note CBC No Diff 07/04/2021 [facility] CBC No Diff (SEE NOTE) [...] 7.4 - 10.4 . Panel WWW 03/01/2021 [facility] Hepatitis B Surf Antigen NONREACTIVE [...] <9 IU/mL 0-34 CBC W/Automated Diff 03/01/2021 [facility] CBC W/Automated Diff (SEE NOTE) [...] Lymph 21.2 % Low 25.0 - 40.0 [place] 4.0 % 3.0 - 8.0 Eos 0.8 % 0.0 - 7.0 Baso 0.2 % 0.0 - 2.5 %Ig 0.3 % High 0.0 - 0.0 %NRBC 0.0 % 0.0 - 0.0 #Neut 6.35 10^3/uL 2.00 - 6.90 #Lymph 1.83 10^3/uL 0.60 - 3.40 #[place] 0.35 10^3/uL 0.00 - 0.90 #Eos 0.07 10^3/uL 0.00 - 0.70 #Baso 0.02 10^3/uL 0.00 - 0.20 #Ig 0.03 10^3/uL 0.00 - 0.10 #NRBC 0.00 10^3/uL 0.00 - 0.00 Manual Diff NOT INDICATED RBC Morph NOT INDICATED BB Type & Screen 03/01/2021 [facility] Abo Group A RH Type POSITIVE AB Screen NEGATIVE Normal: Negative 7 Urinalysis 03/01/2021 [facility] Urinalysis (SEE NOTE) 8 Source R Color yellow Normal: Yellow Clarity clear Normal: Clear Spec [place] 1.025 1.001 - 1.030 pH 6 5 [...] SMALL Normal: None Seen Cuture Urine 03/01/2021 [facility] Culture Urine (SEE NOTE) 9 HIV Panel 03/01/2021 [facility] HIV Screen 4thGeneration wRfx Non Reactive Non Reacti ve Comprehensive Metabolic Panel 03/01/2021 [facility] ospital Comprehensive Metabo (SEE NOTE) 10 Sodium [...] >60 mL/min 11 Laboratory test finding 03/01/2021 [facility] Vitamin D 1, 25-Dihydroxy 116.0 pg/mL High 19.9-79.3 [id number] Plus Core+Ess+Sca 02/28/2021 Patients Ch oice Z#Other Observations <pending> Chlamydia GC/Trich 02/28/2021 [facility] Source: Genital 12 Chlamydia by [...] RE-ENTER NEGATIVE 8 URINALYSIS 9 _CULTURE URINE_ ^$537080 ^^440276 $$946114 ^^336633 $$787404 $$021314 $$200202 $$758528 $$974928 $$488380 $$316849 $$453713 $$675174 $$630651 $$978268 $$907672 $$891479 $$650405 $$015508 $$025839 $$036824 $$943365 $$241171 $$975908 $$498416 $$269006 $$251666 ^^657042 $$688590 $$594137 $$675477 -- Continued on next page -- Patient: ESTEFANY Mims Order: [id number] Page 2 Culture: CULTURE URINE Status: Final $$[id number] $$[id number] REPORTED DATE/TIME: 03/05/2021 10:07 Culture: CULTURE URINE Status: Final Urine Culture,Comprehensive: P1 Mixed urogenital keith 10,000-25,000 colony forming units per m L P1 Test performed by: [facility] #: [id number] [address] [place] [id number] [facility] [address] Library Serials Assistant : Zaki Taylor MD NPI #: Retail Aide : 03/05/21.1157.XMT.SENT REF 10 COMPREHENSIVE METABOLIC PANE [...] Genital Procedures Date Code Description Status 07/16/2021 [id number] Antepartum F/U visit Completed 06/17/2021 5198255 Antepartum F/U visit Completed 05/20/2021 6208165 Antepartum F/U visit Completed 02/28/2021 3816593 Antepartum F/U visit Completed Medical Devices Description [...] from assisted reproductive technology, third trimester Jerome Gacria M.D. 05/20/2021 Z34.82 Encounter for superv ision of other normal , second trimester Jerome Garcia M.D. 02/28/2021 Z34.83 Encounter for superv ision of other normal , third trimester WWW Intake / Nurse Schedule Plan of Treatment Future Appointment(s):* 07/30/2021 10:45 am - Jerome [facility] * 07/24/2021 2:00 pm - Jerome Garcia M.D. at [facility] Functional Status Description No Information Available Mental Status Description No Information Available Referrals Refer to Reason for Referral Status Appt Date [facility] HX PRE TERM LABOR Scheduled 04/[address] [place] [address] [phone] [facility] Nutrition Services NUTRITION CONSULT Sent 03/[address] [place] [address] [phone]
--- OUTSIDE RECORDS SUMMARY | 2021-08-23 22:00 | CCD | Continuity of Care Document ---
Author Author Jennifer GARCIA M.D. Organization Unknown Address [address] [place] [address] Phone [phone] Problems Description No Information Available Social History [...] H/L Range Note CBC No Diff 07/04/2021 [facility] CBC No Diff (SEE NOTE) 1, [...] 7.4 - 10.4 . Panel WWW 03/01/2021 [facility] Hepatitis B Surf Antigen NONREACTIVE Normal:Non [...] <9 IU/mL 0-34 CBC W/Automated Diff 03/01/2021 [facility] CBC W/Automated Diff (SEE NOTE) 6 [...] Lymph 21.2 % Low 25.0 - 40.0 [place] 4.0 % 3.0 - 8.0 Eos 0.8 % 0.0 - 7.0 Baso 0.2 % 0.0 - 2.5 %Ig 0.3 % High 0.0 - 0.0 %NRBC 0.0 % 0.0 - 0.0 #Neut 6.35 10^3/uL 2.00 - 6.90 #Lymph 1.83 10^3/uL 0.60 - 3.40 #[place] 0.35 10^3/uL 0.00 - 0.90 #Eos 0.07 10^3/uL 0.00 - 0.70 #Baso 0.02 10^3/uL 0.00 - 0.20 #Ig 0.03 10^3/uL 0.00 - 0.10 #NRBC 0.00 10^3/uL 0.00 - 0.00 Manual Diff NOT INDICATED RBC Morph NOT INDICATED BB Type & Screen 03/01/2021 [facility] Abo Group A RH Type POSITIVE AB Screen NEGATIVE Normal: Negative 7 Urinalysis 03/01/2021 [facility] Urinalysis (SEE NOTE) 8 Source R Color yellow Normal: Yellow Clarity clear Normal: Clear Spec [place] 1.025 1.001 - 1.030 pH 6 5 [...] SMALL Normal: None Seen Cuture Urine 03/01/2021 [facility] Culture Urine (SEE NOTE) 9 HIV Panel 03/01/2021 [facility] HIV Screen 4thGeneration wRfx Non Reactive Non Reacti ve Comprehensive Metabolic Panel 03/01/2021 [facility] ospital Comprehensive Metabo (SEE NOTE) [...] >60 mL/min 11 Laboratory test finding 03/01/2021 [facility] Vitamin D 1, 25-Dihydroxy 116.0 pg/mL High 19.9-79.3 Kuanhagx71 Plus Core+Ess+Sca 02/28/2021 Patients Ch oice Z#Other Observations <pending> Chlamydia GC/Trich 02/28/2021 [facility] Source: Genital 12 Chlamydia by Jerilyn [...] RE-ENTER NEGATIVE 8 URINALYSIS 9 _CULTURE URINE_ ^$562528 ^^578877 $$364360 ^^632301 $$159578 $$198664 $$124295 $$869365 $$540539 $$215113 $$107654 $$023433 $$205355 $$965703 $$034046 $$908411 $$139195 $$864384 $$254695 $$548121 $$895556 $$974961 $$418895 $$985535 $$384895 $$020506 $$212242 ^^210512 $$000024 $$275605 $$451445 -- Continued on next page -- Patient: ESTEFANY Mims Order: [id number] Page 2 Culture: CULTURE URINE Status: Final $$[id number] $$[id number] REPORTED DATE/TIME: 03/05/2021 10:07 Culture: CULTURE URINE Status: Final Urine Culture,Comprehensive: P1 Mixed urogenital keith 10,000-25,000 colony forming units per m L P1 Test performed by: [facility] #: [id number] [address] [place] [id number] [facility] [address] Work Distributor : Zaki Taylor MD NPI #: Lute Packer Or Applier : 03/05/21.1157.XMT.SENT REF 10 COMPREHENSIVE METABOLIC PANE [...] Genital Procedures Date Code Description Status 07/16/2021 [id number] Antepartum F/U visit Completed 06/17/2021 0399767 Antepartum F/U visit Completed 05/20/2021 2362819 Antepartum F/U visit Completed 02/28/2021 1386199 Antepartum F/U visit Completed Medical Devices Description [...] ision of other normal , second trimester Jeorme Garcia M.D. 02/28/2021 Z34.83 Encounter for superv ision of other normal , third trimester WWW Intake / Nurse Schedule Plan of Treatment Future Appointment(s):* 07/30/2021 10:45 am - Jerome [facility] M.D[facility] * 07/24/2021 2:00 pm - Jerome Garcia M.D. at [facility] Functional Status Description No Information Available Mental Status Description No Information Available Referrals Refer to Reason for Referral Status Appt Date [facility] HX PRE TERM LABOR Scheduled 04/[address] [place] [address] [phone] [facility] Nutrition Services NUTRITION CONSULT Sent 03/[address] [place] [address] [phone]
--- OUTSIDE RECORDS SUMMARY | 2021-08-23 22:00 | CCD | Continuity of Care Document ---
Author Author Jennifer GARCIA M.D. Organization Unknown Address [address] [place] [address] Phone [phone] Problems Description No Information Available Social History [...] H/L Range Note . Panel WWW 03/01/2021 [facility] Hepatitis B Surf Antigen NONREACTIVE [...] <9 IU/mL 0-34 CBC W/Automated Diff 03/01/2021 [facility] CBC W/Automated Diff (SEE NOTE) 4 [...] Lymph 21.2 % Low 25.0 - 40.0 [place] 4.0 % 3.0 - 8.0 Eos 0.8 % 0.0 - 7.0 Baso 0.2 % 0.0 - 2.5 %Ig 0.3 % High 0.0 - 0.0 %NRBC 0.0 % 0.0 - 0.0 #Neut 6.35 10^3/uL 2.00 - 6.90 #Lymph 1.83 10^3/uL 0.60 - 3.40 #[place] 0.35 10^3/uL 0.00 - 0.90 #Eos 0.07 10^3/uL 0.00 - 0.70 #Baso 0.02 10^3/uL 0.00 - 0.20 #Ig 0.03 10^3/uL 0.00 - 0.10 #NRBC 0.00 10^3/uL 0.00 - 0.00 Manual Diff NOT INDICATED RBC Morph NOT INDICATED BB Type & Screen 03/01/2021 [facility] Abo Group A RH Type POSITIVE AB Screen NEGATIVE Normal: Negative 5 Urinalysis 03/01/2021 [facility] Urinalysis (SEE NOTE) 6 Source R Color yellow Normal: Yellow Clarity clear Normal: Clear Spec [place] 1.025 1.001 - 1.030 pH 6 5 [...] SMALL Normal: None Seen Cuture Urine 03/01/2021 [facility] Culture Urine (SEE NOTE) 7 HIV Panel 03/01/2021 [facility] HIV Screen 4thGeneration wRfx Non Reactive Non Reacti ve Comprehensive Metabolic Panel 03/01/2021 [facility] ospital Comprehensive Metabo (SEE NOTE) 8 Sodium [...] >60 mL/min 9 Laboratory test finding 03/01/2021 [facility] Vitamin D 1, 25-Dihydroxy 116.0 pg/mL High 19.9-79.3 [id number] Plus Core+Ess+Sca 02/28/2021 Patients Ch oice Z#Other Observations <pending> Chlamydia GC/Trich 02/28/2021 [facility] Source: Genital 10 Chlamydia by Jerilyn [...] RE-ENTER NEGATIVE 6 URINALYSIS 7 _CULTURE URINE_ ^$879622 ^^284463 $$455538 ^^389309 $$433536 $$497060 $$222276 $$689105 $$467687 $$397843 $$452449 $$596759 $$533293 $$426118 $$209955 $$253237 $$936013 $$728144 $$448098 $$682724 $$194204 $$127304 $$023676 $$333275 $$652719 $$100011 $$898452 ^^048883 $$907522 $$640182 $$790402 -- Continued on next page -- Patient: ESTEFANY Mims Order: [id number] Page 2 Culture: CULTURE URINE Status: Final $$[id number] $$[id number] REPORTED DATE/TIME: 03/05/2021 10:07 Culture: CULTURE URINE Status: Final Urine Culture,Comprehensive: P1 Mixed urogenital keith 10,000-25,000 colony forming units per m L P1 [facility] #: [id number] [address] [place] [phone] [facility] [address] Dehydration Unit Operator : Zaki Taylor MD NPI #: Refuse Collector Supervisor : 03/05/21.1157.XMT.SENT REF 8 COMPREHENSIVE METABOLIC PANE [...] Genital Procedures Date Code Description Status 06/17/2021 [id number] Antepartum F/U visit Completed 05/20/2021 1563625 Antepartum F/U visit Completed 02/28/2021 [id number] Antepartum F/U visit Completed Medical Devices Description [...] M.D. at [facility] * 07/04/2021 2:15 pm - Jerome Garcia M.D. at [facility] * 07/16/2021 11:00 am - Jerome [facility] M.D[facility] Functional Status Description No Information Available Mental Status Description No Information Available Referrals Refer to Reason for Referral Status Appt [facility] HX PRE TERM LABOR Scheduled 04/[address] [place] [address] [phone] [facility] Nutrition Services NUTRITION CONSULT Sent 03/[address] [place] [address] [phone]
--- OUTSIDE RECORDS SUMMARY | 2021-08-23 22:01 | CCD ---
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 Unsigned transcriptions are preliminary reports and do not represent a medical or legal document US OB BIOPHYSICAL PROFILE [id number] COMPLETE:08/22/21 12:10 01416 Reason for Exam: R/O placental abruption US OB LIMITED 1OR MORE FETUSE 62916 COMPLETE:08/22/21 12:08 73496 Reason for Exam: R/O placental abruption ULTRASOUND BIOPHYSICAL PROFILE INDICATION: Assess wellbeing. Rule out placental abruption. COMPARISON: 05/14/2021, 08/04/2021 FINDINGS: Estimated gestational age based on earliest prior ultrasound is 35 weeks 0 days. Single intrauterine gestation. heart rate 138 beats per minute. Presentation Vertex. Placenta is located anterior. No evidence of placenta previa or abruption. Biophysical profile was performed and scored as follows: Amniotic fluid 2, respiration 2, movement 2, and tone 2. Total score 8/8. Amniotic fluid is subjectively normal. ANDREA measures 18.9 cm. Normal range is 7.924.9. IMPRESSION: 1. Single live intra uterine gestation 35 weeks 0 days. 2. Normal biophysical profile, 8 out of 8. 3. No placenta previa or abruption. Electronically Reviewed and Signed By Kwame Hardin MD , 08/22/21 14:43, JWS Page 1 of 2 [facility] [address] [place] [address] PHONE: [phone] FAX: [phone] Name .................. : ESTEFANY Mims Acct Number.................. : [id number] ROOM. ................. : 004-1 MR Number ................... : [id number] Stay type ............. : O/P Discharge Date......... ... : Admit Date ......... : 08/21/21 Admit Phys .................... : RADHA GA Date of ....... : 1990 Family Phys ................... : NO PCP Phone .................. : [phone] Age ....................... ......... : 31 Film# .................. .:[id number] Sex ................................. : F Unsigned transcriptions are preliminary reports and do not represent a medical or legal document US OB BIOPHYSICAL PROFILE [id number] COMPLETE:08/22/21 12:10 61871 Reason for Exam: R/O placental abruption US OB LIMITED 1OR MORE FETUSE 11096 COMPLETE:08/22/21 12:08 70192 Reason for Exam: R/O placental abruption Transcribe Initials: SELIN, Transcribe Date: 08/22/21 13:54, Dictation Date: Copy for: 710 MED REC Page 2 of 2 Name Value Range Interpretation Code Description Data Kimberley rce(s) Supporting Document(s) ID Date Data Source [id number] 08/22/2021 04:43:00 PM EDT [facility] Name Value Range Interpretation Code Description Data Kimberley rce(s) Supporting Document(s) DRUG SCREEN URINE [facility] URINE DRUG SCREEN Amphetamine [Presence] in Urine by Screen method NEGATIVE NORMAL: N EGATIVE [facility] BARBITURATES NEGATIVE NORMAL: NEGATIVE [facility] BENZO NEGATIVE NORMAL: NEGATIVE [facility] COCAINE NEGATIVE NORMAL: NEGATIVE [facility] Tetrahydrocannabinol [Presence] in Urine NEGATIVE NORMAL: NEGATIVE [facility] OPIATES NEGATIVE NORMAL: NEGATIVE [facility] Phencyclidine [Presence] in Urine by Screen method NEGATIVE NOR MAL: NEGATIVE [facility] \\BLDo\\URINE DRUG SCR EEN INTERPRETATION\\BLDx\\ THE CUTOFFF LEVELS FOR DETECTION ARE FOLLOWS: AMPHETAMINES 1000 ng/ml BARBITUARATES 200 ng/ml BENZODIAZEPINES 100 ng/ml THC 50 ng/ml PHENCYCLIDINE 25 ng/ml OPIATES 300 ng/ml COCAINE 300 ng/ml ALL POSITIVES ARE CONSIDERED PRESUMPTIVE POSITIVE CONFIRMATION WILL BE PERFORMED AT PHYSICIAN REQUEST. ID Date Data Source [id number] 08/22/2021 02:15:00 PM EDT [facility] NOT DETECTEDNOT DETECTED PROCE DURAL CONTROL VALID KIT LOT # _[id number] 08/22/21.1415.MRW. KIT EXP DATE _03.06.22 08/22/21.MRW. NORMAL RANGE IS NOT DETECTEDThe COVID-19 assay is a rapid molecular in vitro diagnostic testutilizing an isothermal nucleic acid amplification technology for thequalitative detection of nucleic acid from the SARS-CoV-2 viral RNA in directnasal or nasopharyngeal swabs. Testing should be performed within the f irst 7days of the onset of symptoms.NEGATIVE RESULTS SHOULD BE TREATED PRESUMPTIVE AND, IF INCONSISTENT WITHCLINICAL SIGNS AND SYMPTOMS OR NECESSARY FOR PATIENT MANAGEMENT, SHOULD BETESTED WITH DIFFERENT AUTHORIZED OR CLEARED MOLECULAR TESTS. NEGATIVE RESULTSDO NOT PRECLUDE SARS-CoV-2 INFECTION AND SHOULD NOT BE USED THE SOLE BASISFOR PATIENT MANAGEMENT DECISIONS. Name Value Range Interpretation Code Description Data Kimberley rce(s) Supporting Document(s) ID Date Data Source [id number] 08/21/2021 09:05:00 PM EDT [facility] Name Value Range Interpretation Code Description Data Kimberley rce(s) Supporting Document(s) ABO group [Type] in Blood A [facility] Rh [Type] in Blood POSITIVE [facility] AB SCREEN NEGATIVE NORMAL: NEGATIVE [facility] { ABO/RH REENTER A POSITIVE{ AB SCREEN RE-ENTER NEGATIVE ID Date Data Source [id number] 08/21/2021 08:41:00 PM EDT [facility] Name Value Range Interpretation Code Description Data Kimberley rce(s) Supporting Document(s) BNP 16 PG/ML 0 - 125 [facility] al ID Date Data Source [id number] 08/21/2021 08:17:00 PM EDT [facility] Name Value Range Interpretation Code Description Data Kimberley rce(s) Supporting Document(s) Prothrombin time (PT) 12.3 SECONDS 11.0 - 15.5 [facility] INR in Platelet poor plasma by Coagulation assay 0.91 0.93 - 1. 23 L [facility] aPTT in Blood by Coagulation assay 27.2 SECONDS 24.8 - 36.7 [facility] \\BLDo\\INR INTERPRETATION\\BLDx\\ Therapeutic range for Coumadin and related oral anticoagulants. - International Normalized Ratio (INR): 2.0 - 3.0 for Venous Thrombosis, Pulmonary Embolus, Tissue heart valves, Acute [place] Atrial Fibrillation, Valvular heart disease and recurrent Systemic Embolism. - International Normalized Ratio (INR): 2.5 - 3.5 for Mechanical Prosthetic valve. ID Date Data Source [id number] 08/21/2021 08:09:00 PM EDT [facility] Name Value Range Interpretation Code Description Data Kimberley rce(s) Supporting Document(s) [facility] COL[facility] yellow NORMAL: Yellow [facility]spital CLARITY clear NORMAL: Clear [facility] Ho spital Specific gravity of Urine by Test strip 1.025 1.001 - 1.030 [facility] pH 6 5 - 9 [facility] al Glucose [Mass/volume] in Urine by Test strip NORM NORMAL: Negat carlitos [facility] Bilirubin.total [Presence] in Urine by Test strip NEG NORMAL: Negative [facility] Ketones [Presence] in Urine by Test strip NEG NORMAL: Negative [facility] Protein [Mass/volume] in Urine by Test strip NEG NORMAL: Negat carlitos [facility] Nitrite [Presence] in Urine by Test strip NEG NORMAL: Negative [facility] BLOOD NEG NORMAL: Negative [facility] LEUK EST NEG NORMAL: Negative [facility] Urobilinogen [Mass/volume] in Urine by Test strip NOR less kayla n 1.0 mg/dL [facility] MICROSCOPIC Not Indicate [facility] ospital ID Date Data Source [id number] 08/21/2021 08:09:00 PM EDT [facility] Name Value Range Interpretation Code Description Data Kimberley rce(s) Supporting Document(s) CBC W/AUTOMATED DIFF [facility] COMPLETE BLOOD COUNT Leukocytes [#/volume] in Blood by Automated count 11.9 10^3/uL 4.2 - 11.0 H [facility] Erythrocytes [#/volume] in Blood by Automated count 4.18 10^6/uL 4. 20 - 5.40 L [facility] Hemoglobin [Mass/volume] in Blood 10.8 g/dL 12.0 - 16.0 L [facility] Hematocrit [Volume Fraction] of Blood by Automated count 33.1 % 3 7.0 - 47.0 L [facility] Erythrocyte mean corpuscular volume [Entitic volume] by Auto mated count 79.2 fL 81.0 - 101 L [facility] Erythrocyte mean corpuscular hemoglobin [Entitic mass] by Automated count 25.8 pg 27.0 - 34.0 L [facility] Erythrocyte mean corpuscular hemoglobin concentration [Mass/volume] by Automated count 32.6 g/dL 31.0 - 36.0 [facility] Erythrocyte distribution width [Ratio] by Automated count 14.2 % 11.5 - 14.5 [facility] Platelets [#/volume] in Blood by Automated count 258 10^3/uL 150 - 45 0 [facility] Platelet mean volume [Entitic volume] in Blood by Automated count 9.7 fL 7.4 - 10.4 [facility] Neutrophils/100 leukocytes in Blood by Automated count 71.5 % 37. 0 - 80.0 [facility] Lymphocytes/100 leukocytes in Blood by Manual count 20.8 % 25.0 - 40.0 L [facility] Monocytes/100 leukocytes in Blood by Automated count 6.0 % 3.0 - 8.0 [facility] Eosinophils/100 leukocytes in Blood by Automated count 0.7 % 0.0 - 7.0 [facility] Basophils/100 leukocytes in Blood by Automated count 0.2 % 0.0 - 2.5 [facility] %IG 0.8 % 0.0 - 0.0 [facility] %NRBC 0.0 % 0.0 - 0.0 [facility] al Neutrophils [#/volume] in Blood by Automated count 8.52 10^3/uL 2.00 - 6.90 H [facility] Lymphocytes [#/volume] in Blood by Automated count 2.47 10^3/uL 0.60 - 3.40 [facility] Monocytes [#/volume] in Blood by Automated count 0.71 10^3/uL 0.00 - 0.90 [facility] Eosinophils [#/volume] in Blood by Automated count 0.08 10^3/uL 0.00 - 0.70 [facility] Basophils [#/volume] in Blood by Automated count 0.02 10^3/uL 0.00 - 0.20 [facility] #IG 0.09 10^3/uL 0.00 - 0.10 [facility] ospital #NRBC 0.00 10^3/uL 0.00 - 0.00 [facility] ospital MANUAL DIFF NOT INDICATED [facility] RBC MORPH NOT INDICATED [facility] spital ID Date Data Source [id number] 08/12/2021 06:45:00 PM EDT [facility] ([facility]) Name Value Range Interpretation Code Description Data Kimberley rce(s) Supporting Document(s) Fibronectin. [Mass/volume] in Vaginal fluid [facility] FIBRONECTIN Any specimen that is cloudy, thick, mucoid, pink, or bloody may cause an invalid or false positive result. ID Date Data Source [id number] 08/12/2021 10:46:00 PM EDT [facility] Name Value Range Interpretation Code Description Data Kimberley rce(s) Supporting Document(s) SCREEN POSITIVE [facility] FIBRONECTINAny specimen that is cloudy, thick, mucoid, pink, or bloodymay cause an invalid or false positive result. ID Date Data Source [id number] 08/12/2021 04:40:00 PM EDT [facility] ([facility]) Name Value Range Interpretation Code Description Data Kimberley rce(s) Supporting Document(s) Culture Urine Laboratory test result [facility] ([facility]) {SOURCE: Random Void~NURSE COLLECTED? N ID Date Data Source [id number] 08/12/2021 04:40:00 PM EDT [facility] ([facility]) Name Value Range Interpretation Code Description Data Kimberley rce(s) Supporting Document(s) Urinalysis Laboratory test result [facility] ([facility]) {SOURCE: Random Void~NURSE COLLECTED? N Source Laboratory test result [facility] ([facility]) {SOURCE: Random Void~NURSE COLLECTED? N Color Laboratory test result [facility] ([facility]) {SOURCE: Random Void~NURSE COLLECTED? N Spec [place] 1.020 1.001-1.030 [facility] ([facility]) {SOURCE: Random Void~NURSE COLLECTED? N Clarity Laboratory test result [facility] ([facility]) {SOURCE: Random Void~NURSE COLLECTED? N Glucose Laboratory test result [facility] ([facility]) {SOURCE: Random Void~NURSE COLLECTED? N pH 6 5-9 [facility] ([facility]) {SOURCE: Random Void~NURSE COLLECTED? N Ketone Laboratory test result [facility] ([facility]) {SOURCE: Random Void~NURSE COLLECTED? N Bilirubin Laboratory test result [facility] ([facility]) {SOURCE: Random Void~NURSE COLLECTED? N Nitrite Laboratory test result [facility] ([facility]) {SOURCE: Random Void~NURSE COLLECTED? N Protein Laboratory test result [facility] ([facility]) {SOURCE: Random Void~NURSE COLLECTED? N Blood Laboratory test result [facility] ([facility]) {SOURCE: Random Void~NURSE COLLECTED? N Leuk Est Laboratory test result [facility] ([facility]) {SOURCE: Random Void~NURSE COLLECTED? N Urobilinogen Laboratory test result [facility] ([facility]) {SOURCE: Random Void~NURSE COLLECTED? N Microscopic Laboratory test result [facility] ([facility]) {SOURCE: Random Void~NURSE COLLECTED? N ID Date Data Source [id number] 08/12/2021 05:11:00 PM EDT [facility] Name Value Range Interpretation Code Description Data Kimberley rce(s) Supporting Document(s) URINALYSIS [facility] yellow NORMAL: Yellow [facility] ospital CLARITY clear NORMAL: Clear [facility] Ho spital Specific gravity of Urine by Test strip 1.020 1.001 - 1.030 [facility] pH 6 5 - 9 [facility] al Glucose [Mass/volume] in Urine by Test strip [facility] Bil[facility].total [Presence] in Urine by Test strip NEG NORMAL: Negative [facility] Ketones [Presence] in Urine by Test strip NEG NORMAL: Negative [facility] Protein [Mass/volume] in Urine by Test strip NEG NORMAL: [facility] Nitrite [Presence] in Urine by Test strip NEG NORMAL: Negative [facility] BLOOD NEG NORMAL: Negative [facility] LEUK EST NEG NORMAL: Negative [facility] Urobilinogen [Mass/volume] in Urine by Test strip NOR less kayla n 1.0 mg/dL [facility] MICROSCOPIC Not Indicate [facility] ID Date Data Source [id number] 08/15/2021 02:32:00 PM EDT [facility] Name Value Range Interpretation Code Description Data Kimberley rce(s) Supporting Document(s) CULTURE URINE [facility] Ho spital _CULTURE URINE_$$[id number]$$[id number]$$[id number]$$[id number]$$[id number]$$358051$$[id number]$$627892$$107724$$ 592775$$655146$$868133$$529754$$021380$$053058$$197600$$062540$$566065$$421123$$ 375189$$274003$$394283$$122599$$292831$$116177$$933324$$588224 -- Continued on next page --Patient: ESTEFANY Mims Order: [id number] Page 2Culture: CULTURE URINE Status: Final ====$$[id number]$$[id number] DATE/TIME: 08/15/2021 08:08Culture: CULTURE URINE Status: FinalUrine Culture,Comprehensive: [id number] urogenital flora25,000-50,000 colony forming units per mLP1 Test performed by: [facility] #: [id number] [address] [place] [address] [id number] [facility] [id number] Director : Zaki Taylor MD NPI #:Professor Of Poultry Science : 08/15/21.1432.XMT.SENT REF ID Date Data Source [id number] 08/04/2021 01:45:00 PM EDT [facility] ([facility]) Name Value Range Interpretation Code Description Data Kimberley rce(s) Supporting Document(s) Streptococcus agalactiae [Presence] in V aginal fluid by Organism specific culture Laboratory test result [facility] ([facility]) CULTURE GBS VAGINAL ID Date Data Source [id number] 08/09/2021 07:04:00 PM EDT [facility] Name Value Range Interpretation Code Description Data Kimberley rce(s) Supporting Document(s) CULTURE GBS VAGINAL [facility] _B-STREP GROUP B CULTURE_$$[id number]$$ [id number] DATE/TIME: 08/09/2021 06:06Culture: CULTURE GBS VAGINAL Status: FinalStrep Gp B Culture: [id number] Range: NegativeCenters for Disease Control and Prevention (CDC) and [place] Congressof Obstetricians and Gynecologists (ACOG) guidelines for prevention ofperinatal group B streptococcal (GBS) disease specify co- collection ofa vaginal and rectal swab specimen to maximize sensitivity of GBSdetection. Per the CDC and ACOG, swabbing both the lower vagina andrectum substantially increases the yield of detection compared withsampling the vagina alone.Penicillin G, ampicillin, or cefazolin are indicated for intrapartumprophylaxis of GBS colonization. Reflex susceptibilitytesting should be performed prior to use of clindamycin only on GBSisolates from penicillin-allergic women who are considered a high riskfor anaphylaxis. Treatment with vancomycin without additional testingis warranted if resistance to clindamycin is noted.P1 Test performed by: [facility] #: [id number] [address] [place] [address] [phone] [facility] [id number] -- Continued on next page --Patient: ESTEFANY Mims Order: [id number] Page 2Culture: CULTURE GBS VAGINAL Status: Final ====Occupational Health Specialist : Zaki Taylor MD NPI #:Professor Of Poultry Science : 08/09/21.1904.XMT.SENT REF ID Date Data Source [id number] 08/04/2021 11:17:00 [place] [address] PHONE: [phone] FAX: [phone] Name .................. : ESTEFANY Mims Acct Number.................. : [id number] ROOM. ................. : 004-1 MR Number ................... : [id number] Stay type ............. : O/P Discharge Date......... ... : Admit Date ......... : 08/04/21 Admit Phys .................... : RICHARDSON BRID Date of ....... : 1990 Family Phys ................... : NO PCP Phone .................. : [phone] Age ................................ : 31 Film# .................. .:[id number] Sex ................................. : F Unsigned transcriptions are preliminary reports and do not represent a medical or legal document OB LIMITED 1OR MORE FETUSE [id number] COMPLETE:08/04/21 09:05 73684 (REASON FOR OBS: 32 weeks hilton, please obtain cervical length OB ULTRASOUND LIMITED FOR CERVICAL LENGTH. HISTORY: 32 weeks hilton. COMPARISON: Most recent prior 05/14/21. FINDINGS: Single gestation breech presentation. Anterior placenta with no previa or abruption. Subjectively normal amniotic fluid volume. ANDREA 17.3 cm is within normal range. cardiac activity 135 bpm. Cervix not optimally visualized. Length approximately 3.5 cm. No cervical dilatation is identified. IMPRESSION: Cervix partially obscured but no indication of cervical shortening or dilatation. Electronically Reviewed and Signed By Richard Cody MD , 08/04/21 11:17, SCB Transcribe Initials: TRA , Transcribe Date: 10/04/21 10:11, Dictation Date: Copy for: RICHARDSON Caro via fax Copy for: ABENA BEAVER JOYA via fax Copy for: [address] [place] [address] Page 1 of 1 Name Value Range Interpretation Code Description Data Kimberley rce(s) Supporting Document(s) ID Date Data Source [id number] 08/04/2021 08:30:00 AM EDT [facility] ([facility]) Name Value Range Interpretation Code Description Data Kimberley rce(s) Supporting Document(s) Fibronectin. [Mass/volume] in Vaginal fluid Laboratory test resu lt [facility] ([facility]) TEST PERFORMED AT [facility] [address] [place] [address] CLIA # [id number] SEE SCANNED REPORT FIBRONECTIN Any specimen that is cloudy, thick, mucoid, pink, or bloody may cause an invalid or false positive result. ID Date Data Source [id number] 08/06/2021 10:39:00 AM T [facility] Name Value Range Interpretation Code Description Data Kimberley rce(s) Supporting Document(s) FIBRONECTIN [facility] TEST PERFORMED AT [facility] [address] [place] [address] CLIA # [id number] SEE SCANNED REPORTFETAL FIBRONECTINAny specimen that is cloudy, thick, mucoid, pink, or bloodymay cause an invalid or false positive result. ID Date Data Source [id number] 08/04/2021 06:20:00 AM EDT [facility] ([facility]) Name Value Range Interpretation Code Description Data Kimberley rce(s) Supporting Document(s) Bacteria identified in Urine by Culture Laboratory test result [facility] ([facility]) {SPECIMEN TYPE: RANDOM ID Date Data Source [id number] 08/06/2021 07:01:00 AM [facility] Name Value Range Interpretation Code Description Data Kimberley rce(s) Supporting Document(s) CULTURE URINE [facility] _CULTURE URINE_$$[id number]$$[id number]$$[id number]$$572360$$[id number]$$920598$$327071$$541518$$764003$$ 642113$$029495$$221279$$748354$$952377$$289018$$969679$$925309$$536299$$867155$$ 407412$$420567$$353670$$027259$$953400$$311499$$127439$$759084 -- Continued on next page --Patient: ESTEFANY Mims Order: [id number] Page 2Culture: CULTURE URINE Status: Final ====$$[id number]$$[id number] DATE/TIME: 08/06/2021 04:06Culture: CULTURE URINE Status: FinalUrine Culture,Comprehensive: [id number] urogenital flora25,000-50,000 colony forming units per mLP1 Test performed by: [facility] #: [id number] [address] [place] [address] [id number] [facility] [id number] Director : Zaki Taylor MD NPI #:Professor Of Poultry Science : 08/06/21.0701.XMT.SENT REF ID Date Data Source [id number] 08/04/2021 07:29:00 AM EDT [facility] Name Value Range Interpretation Code Description Data Kimberley rce(s) Supporting Document(s) [facility] URINALYS[facility] SOURCE R [facility] COLOR yellow NORMAL: Yellow [facility] CLARITY clear NORMAL: Clear [facility] Specific gravity of Urine by Test strip 1.010 1.001 - 1.030 [facility] pH 7 5 - 9 [facility] Glucose [Mass/volume] in Urine by Test strip NORM NORMAL: Negat carlitos [facility] Bilirubin.total [Presence] in Urine by Test strip NEG NORMAL: Negative [facility] Ketones [Presence] in Urine by Test strip NEG NORMAL: Negative [facility] Protein [Mass/volume] in Urine by Test strip NEG NORMAL: Negat carlitos [facility] Nitrite [Presence] in Urine by Test strip NEG NORMAL: Negative [facility] BLOOD NEG NORMAL: Negative [facility] LEUK EST NEG NORMAL: Negative [facility] Urobilinogen [Mass/volume] in Urine by Test strip NOR less kayla n 1.0 mg/dL [facility] MICROSCOPIC Not Indicate [facility] ospital ID Date Data Source [id number] 07/04/2021 02:45:00 PM EDT [facility] ([facility]) Name Value Range Interpretation Code Description Data Kimberley rce(s) Supporting Document(s) CBC No Diff Laboratory test result [facility] ([facility]) .~.~Z34.82 RBC 3.79 10^6/uL 4.20-5.40 Below low normal [facility] ([facility]) .~.~Z34.82 WBC 10.1 10^3/uL 4.2-11.0 [facility] ([facility]) .~.~Z34.82 Hemoglobin 10.7 g/dL 12.0-16.0 Below low normal [facility] ( [facility]) .~.~Z34.82 MCH 28.2 pg 27.0-34.0 [facility] ([facility]) .~.~Z34.82 MCV 86.0 fL 81.0-101 [facility] ([facility]) .~.~Z34.82 Hematocrit 32.6 % 37.0-47.0 Below low normal [facility] ( [facility]) .~.~Z34.82 MCHC 32.8 g/dL 31.0-36.0 [facility] ([facility]) .~.~Z34.82 RDW 13.3 % 11.5-14.5 [facility] ([facility]) .~.~Z34.82 Platelets 258 10^3/uL 150-450 [facility] ([facility]) .~.~Z34.82 MPV 9.4 fL 7.4-10.4 [facility] ([facility]) .~.~Z34.82 ID Date Data Source [id number] 07/04/2021 03:17:00 PM EDT [facility] Name Value Range Interpretation Code Description Data Kimberley rce(s) Supporting Document(s) CBC NO DIFF [facility] COMPLETE BLOOD COUNT Leukocytes [#/volume] in Blood by Automated count 10.1 10^3/uL 4.2 - 11.0 [facility] Erythrocytes [#/volume] in Blood by Automated count 3.79 10^6/uL 4. 20 - 5.40 L [facility] Hemoglobin [Mass/volume] in Blood 10.7 g/dL 12.0 - 16.0 L [facility] Hematocrit [Volume Fraction] of Blood by Automated count 32.6 % 3 7.0 - 47.0 L [facility] Erythrocyte mean corpuscular volume [Entitic volume] by Auto mated count 86.0 fL 81.0 - 101 [facility] Erythrocyte mean corpuscular hemoglobin [Entitic mass] by Automated count 28.2 pg 27.0 - 34.0 [facility] Erythrocyte mean corpuscular hemoglobin concentration [Mass/volume] by Automated count 32.8 g/dL 31.0 - 36.0 [facility] Erythrocyte distribution width [Ratio] by Automated count 13.3 % 11.5 - 14.5 [facility] Platelets [#/volume] in Blood by Automated count 258 10^3/uL 150 - 45 0 [facility] Platelet mean volume [Entitic volume] in Blood by Automated count 9.4 fL 7.4 - 10.4 [facility] ID Date Data Source [id number] 05/15/2021 02:34:00 PM EDT [facility] [address] [place] [address] PHONE: [phone] FAX: [phone] Name .................. : ESTEFANY Mims Acct Number.................. : [id number] ROOM. ................. : MR Number ................... : [id number] Stay type ............. : O/P Discharge Date......... ... : 05/14/21 Admit Date ....... .. : 05/14/21 Admit Phys .................... : RADHA GA Date of ....... : 1990 Family Phys ................... : NO PCP Phone .................. : [phone] Age ................................ : 31 Film# .................. .:[id number] Sex ................................. : F Unsigned transcriptions are preliminary reports and do not represent a medical or legal document OB ANATOMY SCAN (ROUTINE A [id number] COMPLETE:05/14/21 09:02 KNB [id number] Reason for Exam: ANATOMY SURVEY OB SONOGRAM, 05/14/21: INDICATION: Anatomic screening. FINDINGS: A single live intrauterine gestation is identified in variable lie. There is an anterior placenta without evidence of previa. Four chamber view of the heart, brain, and cerebellum appear normal. Chest, abdominal, and pelvic contents appear normal. Extremities and facial structures showed no abnormalities. Cervical length measures 49 mm. heart rate 147 beats per minute. PD 49 mm, 20 weeks and 5 days +/- 2 weeks. Head circumference 181 mm, 20 weeks and 4 days +/- 2 weeks. Abdominal circumference 156 mm, 20 weeks 5 days +/- 2 weeks. Femur length 35 mm, 20 weeks and 6 days +/- 2 weeks. Gestational age based on today's examination is 20 weeks and 5 days +/- 2 weeks. EDC 09/26/2021. HC/AC ratio is 1.17. Cephalic index is 0.74. weight is 377 grams, which is in the 47th percentile. IMPRESSION: Unremarkable anatomy screen. Appropriate growth. Examination dictated by PRASANNA Flores. Examination was reviewed with Andreia Galdamez MD, radiologist at the time of this dictation. Electronically Reviewed and Signed By Andreia Galdamez MD , 05/15/21 14:34, KGG Page 1 of 2 [facility] [address] [place] [address] [place] [address] PHONE: [phone] FAX: [phone] Name .................. : ESTEFANY Mims Acct Number.................. : [id number] ROOM. ................. : Number ................... : [id number] Stay type ............. : O/P Discharge Date......... ... : 05/14/21 Admit Date ......... : 05/14/21 Admit Phys .................... : RADHA GA Date of ....... : 1990 Family Phys ................... : NO PCP Phone .................. : [phone] Age ................................ : 31 Film# .................. .:[id number] Sex ................................. : F Unsigned transcriptions are preliminary reports and do not represent a medical or legal document US OB ANATOMY SCAN (ROUTINE A [id number] COMPLETE:05/14/21 09:02 KNB [id number] Reason for Exam: ANATOMY SURVEY Transcribe Initials: SSR, Transcribe Date: 05/14/21 10:03, Dictation Date: Copy for: 710 MED REC Page 2 of 2 Name Value Range Interpretation Code Description Data Kimberley rce(s) Supporting Document(s) ID Date Data Source [id number] 04/28/2021 11:43:07 AM EDT [facility] Name Value Range Interpretation Code Description Data Kimberley rce(s) Supporting Document(s) Progress Note [facility] QGQHXe5kXeOVMwLo40/LVKkpYVUkk0GkOHeeFEo4EJkkSJYeT0WqBBI9wE4mTNX7ZXvDXrEpJfIkGcW7 lbm [file] AgICAgICAgICAgICAgICAgICAgICAgICAgICAgICAg FRXiEANpTATyQKKeWNGiWGOzHJTaTAYoPUAaAQSeCAUrNTNwQNXuJQJzNNSlEZAvIP2NREHrRHWnHIEo ICAgICAgICAgICAgICAgICAgICAgICAgICAgICAgICAgICAgICAgICAgICAgICAgICAgICAgICAgICAg ICAgICAgICAgICAgICAgICAgICAgICAgICAgICAgIA 0KICAgICAgICAgICAgICAgICAgICAgICAgICAgICAgICAgICAgICAgICAgICAgICAgICAgICAgICAgIC KbHDMlSWKcMPDaGTDjUEJcLTKqKTEhZYQdTPSnJNWhKENfPOWfDKFeDW4OPRNaTFIpIBWhHDTxRXTpOF AgICAgICAgICAgICAgICAgICAgICAgICAgICAgICAg LDWqRTPtTAHqGDMxWWPeSWQxBCEzKTXaZTQjPCLdHPXwZMNaCLAbMYNmCPTiZGHpFPNwOB7NKSFrBGNc ICAgICAgICAgICAgICAgICAgICAgICAgICAgICAgICAgICAgICAgICAgICAgICAgICAgICAgICAgICAg ICAgICAgICAgICAgICAgICAgICAgICAgICAgICAgIC IiJC4NJNUeUOFjHDHxCWSlFLZuETEmQXEwUDEjZGZoNIRpBQOkVZVzHATxVOBdIXSjCNEzFORaGFCsHJ SlWLOcSVSsHXLpMFBnCWEuHTLlTRQsIXPcRVSgWBZqNEFrRBRiZKQxJNYaYN7BLHCcSSBdTQHiUJVtST AgICAgICAgICAgICAgICAgICAgICAgICAgICAgICAg PSOoEOIaDQZmVMCpMTPeKNOaLYAkFNCdTBYwHRAvBGSoNVEvHFEdBEUlRTVyFEBpFSCvOQJaCB4SAQYz ICAgICAgICAgICAgICAgICAgICAgICAgICAgICAgICAgICAgICAgICAgICAgICAgICAgICAgICAgICAg ICAgICAgICAgICAgICAgICAgICAgICAgICAgICAgIC BhKXAnUH9UYCVxAYMqKJGpDDPxWPUcCARhQTCxBGBfKRXjEWDuQJYwYBPeARYvBCSnATNnSBKoDCFwTB CqLJOwIXPgGNOxZBClRSKtRATjYKJmHMPhWIZaPRNnDCSlTDMvHJRvFFUgECPeIQ0AJBJzPMBpGMDnDE AgICAgICAgICAgICAgICAgICAgICAgICAgICAgICAg VAPtXWCsQTFbNFWsAFJbOVGgIHGdRJJbMZGqXMRnUKNgTDWbPUWxUSXmYEJoRZXtLWNqCMFbUFUrXO5W XW81cCTgf2S8RGSbWV6qivm/Jk5MMRoqrrRltFPoER2ZQuRfJU2ndj3HWgFiAU3fyi3OJJhBOeBzA9F8 jRVfRTPjNLPGKsLtH14iJZknOa14BTymODRiUgTwOM d1Eu0GApMzD2vfYVJuGyC8XHXlFtQ2ZMVkCyDoHZwtNR3Fb7HzsHYhPRw+Rq9VKZ9mw2MqHAxoMMTcXC 2hqk2WXSgVRcTjT1JpggD4JSWlQBGaZu9TKMWkDNOvyUVmApZhFZAPOsReX9FttA59KDVHEx8+DQplbm ArUldMXlWhNFCdp3ImSBv7YF4UYKImXJr5tEEbRUVy O2Kfl3OsOe57RBJyQgqhRz1jEUO6NWdrE6sqklTtnQQiAEEERCChhFZ5RkO7UtXxXnQzLGQ1DUIgOZ4d CIhbTW6SQPN8MJvwHVIvGWXjH7wLLiNeJOBcPVGdjTeyDZ0NRgPkC5GwgeVywBUsSZFcUUNRGh3+DQpl otJtWdqCPwLgQKJaz8HzFWq6KF5OGGNqFSpeZT8UJV VbkU8lEGsxKX8ENuHjBRBoXHDXArDtN66ohUElRFx4S6WlIvLoIFLoNbtjQPMiJLvvLtBqXXMiXdDrJK ogID4+ID4+KAqkEC4IQJlxqqZlEENfAy1WFMWaAVJbKY3rJWMwKMQgE9T2nZwwRWJIHcCbR9ldtkdiGB 0mSNNqO001gZqculOuOSFcRUScPz3WZZLeONZ7GSWj wIEjGgByWOCNDEswKU7GkCJqWDR2xM8jKDmqCQZaVQImU3vLUwIbhUyiVU18bNvlgtFquLUwFIu+Pg0K TE4ok2XpSGs1rqWbUFhpWEO0JNmlUAEsTHLwVTCjIPM8RSG2KLWKOuZcIXDjOWGlUJssLUUzEQNtzo3P MDAwMDAyMTQxMSAwMDAwMCBuDQowMDAwMDIzMTMwID DqFRFrPA4HAyYnYUAzYCXvYBkqNULmCGFikl6MOFFfNFItCXKyKdKgHNSpXBZwEJisNILyZWX8OQN8MN JpNLAdSN6SMqUqLQFrDVFpDiQjULDkUAGccm8ZVDHnPSTuMeRyOGBeZBEqTPSmZVhdZZKrVUE5Lyr2OM XbWVRmTC4MJzUmYGAbVGf2OHIuCXVdQTUavh3LEKRf XDFqDyc0OGZlTHDeNCBhDYuiKYIzSUK4WcIgCEBvBSGwNY9REoYaSIOqSSx0VmSdEWRiHCDmgs1CEBQg LPHsVGTrSuWnCQLpPUIdQThoEIDsILCnJUa4MGLuVFXnGR2XMnRfERUdBgO9XVJiLLAnRUVxmt2YPVHz MDAyMTAwMyAwMDAwMCBuDQowMDAwMDIxMjQzIDAwMD RrJT5MRgJdXHXjRoFlZCcrAIXvIFKhfq4ITQAvTWWlBCz7ELUyFVKwUIAoELnpKJUwHQQtDaB2WQVxXY KzWR4QNwNyBXQmYfHhGKElLSYiRBMsgj6OLORgQSUgFvG8THWzWCHxLDXyNUi3kgNhcSBgNXk8HF9SN7 SbejJxYqOHGv3Lt619LKSlGKZaJx8DL9mrWb2zJXGn CSDDDr9YMOn2FKOrITUoFCA3PDDcQVX4KDI2RQVeOrJbVGr5XaWoVNA+GHxfBfJ2SzA1GtiaYSJyJAKp KiSwVWWvGEX1GSwpEAQ4Gs6fPCKCHe3+IZvpkSOckHoqGFORRcOlAoGfACmwLLPOWe3P ID Date Data Source [id number] 03/01/2021 11:44:00 AM EDT [facility] ([facility]) Name Value Range Interpretation Code Description Data Kimberley rce(s) Supporting Document(s) Hepatitis B virus surface Ag [Presence] in Serum or Pl asma by Immunoassay Laboratory test result [facility] ([facility]) .~.~<DG1.3.1>Z34.81</DG1.3.1><DG1.3.1>Z34.81</DG1.3.1><DG1.3.1>Z34.81</DG1.3.1>< DG1. {SOURCE: R~.~.~<DG1.3.1>Z34.81</DG1.3.1><DG1.3.1>Z34.81</DG1.3.1><DG1.3.1>Z34.81</DG1.3.1 ><DG1. .~.~<DG1.3.1> Z34.81</DG1.3.1><DG1.3.1>Z34.81</DG1.3.1><DG1.3.1>Z34.81</DG1.3.1><DG1. .~.~<DG1.3.1>Z34.81</DG1.3.1><DG1.3.1>Z34.81</DG1.3.1><DG1.3.1>Z34.81</DG1.3.1>< DG1. .~.~<DG1.3.1>Z34.81</DG1.3.1><DG1.3.1> Z34.81</DG1.3.1><DG1.3.1>Z34.81</DG1.3.1><DG1. .~.~<DG1.3.1>Z34.81</DG1.3.1><DG1.3.1>Z34.81</DG1.3.1><DG1.3.1>Z34.81</DG1.3.1>< DG1. .~.~<DG1.3.1>Z34.81</DG1.3.1><DG1.3.1>Z34.81</DG1.3.1><DG1.3.1> Z34.81</DG1.3.1><DG1. .~.~<DG1.3.1>Z34.81</DG1.3.1><DG1.3.1>Z34.81</DG1.3.1><DG1.3.1>Z34.81</DG1.3.1>< DG1. .~.~<DG1.3.1>Z34.81</DG1.3.1><DG1.3.1>Z34.81</DG1.3.1><DG1.3.1>Z34.81</DG1.3.1> <DG1. Is patient fasting? N~.~.~<DG1.3.1>Z34.81</DG1.3.1><DG1.3.1>Z34.81</DG1.3.1><DG1.3.1>Z34.81</DG1 .~.~<DG1.3.1>Z34.81</DG1.3.1><DG1.3.1>Z34.81</DG1.3.1><DG1.3.1>Z34.81</DG1.3.1> <DG1. .~.~<DG1.3.1>Z34.81</DG1.3.1><DG1.3.1>Z34.81</DG1.3.1><DG1.3.1>Z34.81</DG1.3.1>< DG1. Reason for Exam: R~.~.~<DG1.3.1>Z34.81</DG1.3.1><DG1.3.1>Z34.81</DG1.3.1><DG1.3.1>Z34.81</DG1.3. .~.~<DG1.3.1>Z34.81</DG1.3.1><DG1.3.1>Z34.81</DG1.3.1><DG1.3.1>Z34.81</DG1.3.1>< DG1. {SPECIMEN TYPE: R~.~.~<DG1.3.1>Z34.81</DG1.3.1><DG1.3.1>Z34.81</DG1.3.1><DG1.3.1>Z34.81</DG1.3.1 .~.~<DG1.3.1>Z34.81</DG1.3.1><DG1.3.1>Z34.81</DG1.3.1><DG1.3.1>Z34.81</DG1.3.1>< DG1. .~.~<DG1.3.1>Z34.81</DG1.3.1><DG1.3.1>Z34.81</DG1.3.1><DG1.3.1>Z34.81</DG1.3.1> <DG1. .~.~<DG1.3.1>Z34.81</DG1.3.1><DG1.3.1>Z34.81</DG1.3.1><DG1.3.1>Z34.81</DG1.3.1>< DG1. .~.~<DG1.3.1>Z34.81</DG1.3.1><DG1.3.1>Z34.81</DG1.3.1><DG1.3.1>Z34.81</DG1.3.1>< DG1. .~.~<DG1.3.1> Z34.81</DG1.3.1><DG1.3.1>Z34.81</DG1.3.1><DG1.3.1>Z34.81</DG1.3.1><DG1. .~.~<DG1.3.1>Z34.81</DG1.3.1><DG1.3.1>Z34.81</DG1.3.1><DG1.3.1>Z34.81</DG1.3.1>< DG1. Treponema pallidum Ab [Presence] in Serum Laboratory test result [facility] ([facility]) .~.~<DG1.3.1>Z34.81</DG1.3.1><DG1.3.1>Z34.81</DG1.3.1><DG1.3.1>Z34.81</DG1.3.1>< DG1. {SOURCE: R~.~.~<DG1.3.1>Z34.81</DG1.3.1><DG1.3.1>Z34.81</DG1.3.1><DG1.3.1>Z34.81</DG1.3.1 ><DG1. .~.~<DG1.3.1> Z34.81</DG1.3.1><DG1.3.1>Z34.81</DG1.3.1><DG1.3.1>Z34.81</DG1.3.1><DG1. .~.~<DG1.3.1>Z34.81</DG1.3.1><DG1.3.1>Z34.81</DG1.3.1><DG1.3.1>Z34.81</DG1.3.1>< DG1. .~.~<DG1.3.1>Z34.81</DG1.3.1><DG1.3.1> Z34.81</DG1.3.1><DG1.3.1>Z34.81</DG1.3.1><DG1. .~.~<DG1.3.1>Z34.81</DG1.3.1><DG1.3.1>Z34.81</DG1.3.1><DG1.3.1>Z34.81</DG1.3.1>< DG1. .~.~<DG1.3.1>Z34.81</DG1.3.1><DG1.3.1>Z34.81</DG1.3.1><DG1.3.1> Z34.81</DG1.3.1><DG1. .~.~<DG1.3.1>Z34.81</DG1.3.1><DG1.3.1>Z34.81</DG1.3.1><DG1.3.1>Z34.81</DG1.3.1>< DG1. .~.~<DG1.3.1>Z34.81</DG1.3.1><DG1.3.1>Z34.81</DG1.3.1><DG1.3.1>Z34.81</DG1.3.1> <DG1. Is patient fasting? N~.~.~<DG1.3.1>Z34.81</DG1.3.1><DG1.3.1>Z34.81</DG1.3.1><DG1.3.1>Z34.81</DG1 .~.~<DG1.3.1>Z34.81</DG1.3.1><DG1.3.1>Z34.81</DG1.3.1><DG1.3.1>Z34.81</DG1.3.1> <DG1. .~.~<DG1.3.1>Z34.81</DG1.3.1><DG1.3.1>Z34.81</DG1.3.1><DG1.3.1>Z34.81</DG1.3.1>< DG1. Reason for Exam: R~.~.~<DG1.3.1>Z34.81</DG1.3.1><DG1.3.1>Z34.81</DG1.3.1><DG1.3.1>Z34.81</DG1.3. .~.~<DG1.3.1>Z34.81</DG1.3.1><DG1.3.1>Z34.81</DG1.3.1><DG1.3.1>Z34.81</DG1.3.1>< DG1. {SPECIMEN TYPE: R~.~.~<DG1.3.1>Z34.81</DG1.3.1><DG1.3.1>Z34.81</DG1.3.1><DG1.3.1>Z34.81</DG1.3.1 .~.~<DG1.3.1>Z34.81</DG1.3.1><DG1.3.1>Z34.81</DG1.3.1><DG1.3.1>Z34.81</DG1.3.1>< DG1. .~.~<DG1.3.1>Z34.81</DG1.3.1><DG1.3.1>Z34.81</DG1.3.1><DG1.3.1>Z34.81</DG1.3.1> <DG1. .~.~<DG1.3.1>Z34.81</DG1.3.1><DG1.3.1>Z34.81</DG1.3.1><DG1.3.1>Z34.81</DG1.3.1>< DG1. .~.~<DG1.3.1>Z34.81</DG1.3.1><DG1.3.1>Z34.81</DG1.3.1><DG1.3.1>Z34.81</DG1.3.1>< DG1. .~.~<DG1.3.1> Z34.81</DG1.3.1><DG1.3.1>Z34.81</DG1.3.1><DG1.3.1>Z34.81</DG1.3.1><DG1. .~.~<DG1.3.1>Z34.81</DG1.3.1><DG1.3.1>Z34.81</DG1.3.1><DG1.3.1>Z34.81</DG1.3.1>< DG1. Rubella virus IgG Ab [Units/volume] in Serum 66.860 IU/ml [facility]) .~.~<DG1.3.1>Z34.81</DG1.3.1><DG1.3.1>Z34.81</DG1.3.1><DG1.3.1>Z34.81</DG1.3.1>< DG1. {SOURCE: R~.~.~<DG1.3.1>Z34.81</DG1.3.1><DG1.3.1>Z34.81</DG1.3.1><DG1.3.1>Z34.81</DG1.3.1 ><DG1. .~.~<DG1.3.1> Z34.81</DG1.3.1><DG1.3.1>Z34.81</DG1.3.1><DG1.3.1>Z34.81</DG1.3.1><DG1. .~.~<DG1.3.1>Z34.81</DG1.3.1><DG1.3.1>Z34.81</DG1.3.1><DG1.3.1>Z34.81</DG1.3.1>< DG1. .~.~<DG1.3.1>Z34.81</DG1.3.1><DG1.3.1> Z34.81</DG1.3.1><DG1.3.1>Z34.81</DG1.3.1><DG1. .~.~<DG1.3.1>Z34.81</DG1.3.1><DG1.3.1>Z34.81</DG1.3.1><DG1.3.1>Z34.81</DG1.3.1>< DG1. .~.~<DG1.3.1>Z34.81</DG1.3.1><DG1.3.1>Z34.81</DG1.3.1><DG1.3.1> Z34.81</DG1.3.1><DG1. .~.~<DG1.3.1>Z34.81</DG1.3.1><DG1.3.1>Z34.81</DG1.3.1><DG1.3.1>Z34.81</DG1.3.1>< DG1. .~.~<DG1.3.1>Z34.81</DG1.3.1><DG1.3.1>Z34.81</DG1.3.1><DG1.3.1>Z34.81</DG1.3.1> <DG1. Is patient fasting? N~.~.~<DG1.3.1>Z34.81</DG1.3.1><DG1.3.1>Z34.81</DG1.3.1><DG1.3.1>Z34.81</DG1 .~.~<DG1.3.1>Z34.81</DG1.3.1><DG1.3.1>Z34.81</DG1.3.1><DG1.3.1>Z34.81</DG1.3.1> <DG1. .~.~<DG1.3.1>Z34.81</DG1.3.1><DG1.3.1>Z34.81</DG1.3.1><DG1.3.1>Z34.81</DG1.3.1>< DG1. Reason for Exam: R~.~.~<DG1.3.1>Z34.81</DG1.3.1><DG1.3.1>Z34.81</DG1.3.1><DG1.3.1>Z34.81</DG1.3. .~.~<DG1.3.1>Z34.81</DG1.3.1><DG1.3.1>Z34.81</DG1.3.1><DG1.3.1>Z34.81</DG1.3.1>< DG1. {SPECIMEN TYPE: R~.~.~<DG1.3.1>Z34.81</DG1.3.1><DG1.3.1>Z34.81</DG1.3.1><DG1.3.1>Z34.81</DG1.3.1 .~.~<DG1.3.1>Z34.81</DG1.3.1><DG1.3.1>Z34.81</DG1.3.1><DG1.3.1>Z34.81</DG1.3.1>< DG1. .~.~<DG1.3.1>Z34.81</DG1.3.1><DG1.3.1>Z34.81</DG1.3.1><DG1.3.1>Z34.81</DG1.3.1> <DG1. .~.~<DG1.3.1>Z34.81</DG1.3.1><DG1.3.1>Z34.81</DG1.3.1><DG1.3.1>Z34.81</DG1.3.1>< DG1. .~.~<DG1.3.1>Z34.81</DG1.3.1><DG1.3.1>Z34.81</DG1.3.1><DG1.3.1>Z34.81</DG1.3.1>< DG1. .~.~<DG1.3.1> Z34.81</DG1.3.1><DG1.3.1>Z34.81</DG1.3.1><DG1.3.1>Z34.81</DG1.3.1><DG1. .~.~<DG1.3.1>Z34.81</DG1.3.1><DG1.3.1>Z34.81</DG1.3.1><DG1.3.1>Z34.81</DG1.3.1>< DG1. Calcidiol [Mass/volume] in Serum or Plasma 28 ng/mL [facility]) .~.~<DG1.3.1>Z34.81</DG1.3.1><DG1.3.1>Z34.81</DG1.3.1><DG1.3.1>Z34.81</DG1.3.1>< DG1. {SOURCE: R~.~.~<DG1.3.1>Z34.81</DG1.3.1><DG1.3.1>Z34.81</DG1.3.1><DG1.3.1>Z34.81</DG1.3.1 ><DG1. .~.~<DG1.3.1> Z34.81</DG1.3.1><DG1.3.1>Z34.81</DG1.3.1><DG1.3.1>Z34.81</DG1.3.1><DG1. .~.~<DG1.3.1>Z34.81</DG1.3.1><DG1.3.1>Z34.81</DG1.3.1><DG1.3.1>Z34.81</DG1.3.1>< DG1. .~.~<DG1.3.1>Z34.81</DG1.3.1><DG1.3.1> Z34.81</DG1.3.1><DG1.3.1>Z34.81</DG1.3.1><DG1. .~.~<DG1.3.1>Z34.81</DG1.3.1><DG1.3.1>Z34.81</DG1.3.1><DG1.3.1>Z34.81</DG1.3.1>< DG1. .~.~<DG1.3.1>Z34.81</DG1.3.1><DG1.3.1>Z34.81</DG1.3.1><DG1.3.1> Z34.81</DG1.3.1><DG1. .~.~<DG1.3.1>Z34.81</DG1.3.1><DG1.3.1>Z34.81</DG1.3.1><DG1.3.1>Z34.81</DG1.3.1>< DG1. .~.~<DG1.3.1>Z34.81</DG1.3.1><DG1.3.1>Z34.81</DG1.3.1><DG1.3.1>Z34.81</DG1.3.1> <DG1. Is patient fasting? N~.~.~<DG1.3.1>Z34.81</DG1.3.1><DG1.3.1>Z34.81</DG1.3.1><DG1.3.1>Z34.81</DG1 .~.~<DG1.3.1>Z34.81</DG1.3.1><DG1.3.1>Z34.81</DG1.3.1><DG1.3.1>Z34.81</DG1.3.1> <DG1. .~.~<DG1.3.1>Z34.81</DG1.3.1><DG1.3.1>Z34.81</DG1.3.1><DG1.3.1>Z34.81</DG1.3.1>< DG1. Reason for Exam: R~.~.~<DG1.3.1>Z34.81</DG1.3.1><DG1.3.1>Z34.81</DG1.3.1><DG1.3.1>Z34.81</DG1.3. .~.~<DG1.3.1>Z34.81</DG1.3.1><DG1.3.1>Z34.81</DG1.3.1><DG1.3.1>Z34.81</DG1.3.1>< DG1. {SPECIMEN TYPE: R~.~.~<DG1.3.1>Z34.81</DG1.3.1><DG1.3.1>Z34.81</DG1.3.1><DG1.3.1>Z34.81</DG1.3.1 .~.~<DG1.3.1>Z34.81</DG1.3.1><DG1.3.1>Z34.81</DG1.3.1><DG1.3.1>Z34.81</DG1.3.1>< DG1. .~.~<DG1.3.1>Z34.81</DG1.3.1><DG1.3.1>Z34.81</DG1.3.1><DG1.3.1>Z34.81</DG1.3.1> <DG1. .~.~<DG1.3.1>Z34.81</DG1.3.1><DG1.3.1>Z34.81</DG1.3.1><DG1.3.1>Z34.81</DG1.3.1>< DG1. .~.~<DG1.3.1>Z34.81</DG1.3.1><DG1.3.1>Z34.81</DG1.3.1><DG1.3.1>Z34.81</DG1.3.1>< DG1. .~.~<DG1.3.1> Z34.81</DG1.3.1><DG1.3.1>Z34.81</DG1.3.1><DG1.3.1>Z34.81</DG1.3.1><DG1. .~.~<DG1.3.1>Z34.81</DG1.3.1><DG1.3.1>Z34.81</DG1.3.1><DG1.3.1>Z34.81</DG1.3.1>< DG1. Thyroxine (T4) free [Mass/volume] in Serum or Plasma 1.17 ng/dL 0.93- 1.70 [facility]) .~.~<DG1.3.1>Z34.81</DG1.3.1><DG1.3.1>Z34.81</DG1.3.1><DG1.3.1>Z34.81</DG1.3.1>< DG1. {SOURCE: R~.~.~<DG1.3.1>Z34.81</DG1.3.1><DG1.3.1>Z34.81</DG1.3.1><DG1.3.1>Z34.81</DG1.3.1 ><DG1. .~.~<DG1.3.1> Z34.81</DG1.3.1><DG1.3.1>Z34.81</DG1.3.1><DG1.3.1>Z34.81</DG1.3.1><DG1. .~.~<DG1.3.1>Z34.81</DG1.3.1><DG1.3.1>Z34.81</DG1.3.1><DG1.3.1>Z34.81</DG1.3.1>< DG1. .~.~<DG1.3.1>Z34.81</DG1.3.1><DG1.3.1> Z34.81</DG1.3.1><DG1.3.1>Z34.81</DG1.3.1><DG1. .~.~<DG1.3.1>Z34.81</DG1.3.1><DG1.3.1>Z34.81</DG1.3.1><DG1.3.1>Z34.81</DG1.3.1>< DG1. .~.~<DG1.3.1>Z34.81</DG1.3.1><DG1.3.1>Z34.81</DG1.3.1><DG1.3.1> Z34.81</DG1.3.1><DG1. .~.~<DG1.3.1>Z34.81</DG1.3.1><DG1.3.1>Z34.81</DG1.3.1><DG1.3.1>Z34.81</DG1.3.1>< DG1. .~.~<DG1.3.1>Z34.81</DG1.3.1><DG1.3.1>Z34.81</DG1.3.1><DG1.3.1>Z34.81</DG1.3.1> <DG1. Is patient fasting? N~.~.~<DG1.3.1>Z34.81</DG1.3.1><DG1.3.1>Z34.81</DG1.3.1><DG1.3.1>Z34.81</DG1 .~.~<DG1.3.1>Z34.81</DG1.3.1><DG1.3.1>Z34.81</DG1.3.1><DG1.3.1>Z34.81</DG1.3.1> <DG1. .~.~<DG1.3.1>Z34.81</DG1.3.1><DG1.3.1>Z34.81</DG1.3.1><DG1.3.1>Z34.81</DG1.3.1>< DG1. Reason for Exam: R~.~.~<DG1.3.1>Z34.81</DG1.3.1><DG1.3.1>Z34.81</DG1.3.1><DG1.3.1>Z34.81</DG1.3. .~.~<DG1.3.1>Z34.81</DG1.3.1><DG1.3.1>Z34.81</DG1.3.1><DG1.3.1>Z34.81</DG1.3.1>< DG1. {SPECIMEN TYPE: R~.~.~<DG1.3.1>Z34.81</DG1.3.1><DG1.3.1>Z34.81</DG1.3.1><DG1.3.1>Z34.81</DG1.3.1 .~.~<DG1.3.1>Z34.81</DG1.3.1><DG1.3.1>Z34.81</DG1.3.1><DG1.3.1>Z34.81</DG1.3.1>< DG1. .~.~<DG1.3.1>Z34.81</DG1.3.1><DG1.3.1>Z34.81</DG1.3.1><DG1.3.1>Z34.81</DG1.3.1> <DG1. .~.~<DG1.3.1>Z34.81</DG1.3.1><DG1.3.1>Z34.81</DG1.3.1><DG1.3.1>Z34.81</DG1.3.1>< DG1. .~.~<DG1.3.1>Z34.81</DG1.3.1><DG1.3.1>Z34.81</DG1.3.1><DG1.3.1>Z34.81</DG1.3.1>< DG1. .~.~<DG1.3.1> Z34.81</DG1.3.1><DG1.3.1>Z34.81</DG1.3.1><DG1.3.1>Z34.81</DG1.3.1><DG1. .~.~<DG1.3.1>Z34.81</DG1.3.1><DG1.3.1>Z34.81</DG1.3.1><DG1.3.1>Z34.81</DG1.3.1>< DG1. Thyrotropin [Units/volume] in Serum or Plasma 1.29 uIU/mL 0.47-5.01 [facility] .~.~<DG1.3.1>Z34.81</DG1.3.1><DG1.3.1>Z34.81</DG1.3.1><DG1.3.1>Z34.81</DG1.3.1>< DG1. {SOURCE: R~.~.~<DG1.3.1>Z34.81</DG1.3.1><DG1.3.1>Z34.81</DG1.3.1><DG1.3.1>Z34.81</DG1.3.1 ><DG1. .~.~<DG1.3.1> Z34.81</DG1.3.1><DG1.3.1>Z34.81</DG1.3.1><DG1.3.1>Z34.81</DG1.3.1><DG1. .~.~<DG1.3.1>Z34.81</DG1.3.1><DG1.3.1>Z34.81</DG1.3.1><DG1.3.1>Z34.81</DG1.3.1>< DG1. .~.~<DG1.3.1>Z34.81</DG1.3.1><DG1.3.1> Z34.81</DG1.3.1><DG1.3.1>Z34.81</DG1.3.1><DG1. .~.~<DG1.3.1>Z34.81</DG1.3.1><DG1.3.1>Z34.81</DG1.3.1><DG1.3.1>Z34.81</DG1.3.1>< DG1. .~.~<DG1.3.1>Z34.81</DG1.3.1><DG1.3.1>Z34.81</DG1.3.1><DG1.3.1> Z34.81</DG1.3.1><DG1. .~.~<DG1.3.1>Z34.81</DG1.3.1><DG1.3.1>Z34.81</DG1.3.1><DG1.3.1>Z34.81</DG1.3.1>< DG1. .~.~<DG1.3.1>Z34.81</DG1.3.1><DG1.3.1>Z34.81</DG1.3.1><DG1.3.1>Z34.81</DG1.3.1> <DG1. Is patient fasting? N~.~.~<DG1.3.1>Z34.81</DG1.3.1><DG1.3.1>Z34.81</DG1.3.1><DG1.3.1>Z34.81</DG1 .~.~<DG1.3.1>Z34.81</DG1.3.1><DG1.3.1>Z34.81</DG1.3.1><DG1.3.1>Z34.81</DG1.3.1> <DG1. .~.~<DG1.3.1>Z34.81</DG1.3.1><DG1.3.1>Z34.81</DG1.3.1><DG1.3.1>Z34.81</DG1.3.1>< DG1. Reason for Exam: R~.~.~<DG1.3.1>Z34.81</DG1.3.1><DG1.3.1>Z34.81</DG1.3.1><DG1.3.1>Z34.81</DG1.3. .~.~<DG1.3.1>Z34.81</DG1.3.1><DG1.3.1>Z34.81</DG1.3.1><DG1.3.1>Z34.81</DG1.3.1>< DG1. {SPECIMEN TYPE: R~.~.~<DG1.3.1>Z34.81</DG1.3.1><DG1.3.1>Z34.81</DG1.3.1><DG1.3.1>Z34.81</DG1.3.1 .~.~<DG1.3.1>Z34.81</DG1.3.1><DG1.3.1>Z34.81</DG1.3.1><DG1.3.1>Z34.81</DG1.3.1>< DG1. .~.~<DG1.3.1>Z34.81</DG1.3.1><DG1.3.1>Z34.81</DG1.3.1><DG1.3.1>Z34.81</DG1.3.1> <DG1. .~.~<DG1.3.1>Z34.81</DG1.3.1><DG1.3.1>Z34.81</DG1.3.1><DG1.3.1>Z34.81</DG1.3.1>< DG1. .~.~<DG1.3.1>Z34.81</DG1.3.1><DG1.3.1>Z34.81</DG1.3.1><DG1.3.1>Z34.81</DG1.3.1>< DG1. .~.~<DG1.3.1> Z34.81</DG1.3.1><DG1.3.1>Z34.81</DG1.3.1><DG1.3.1>Z34.81</DG1.3.1><DG1. .~.~<DG1.3.1>Z34.81</DG1.3.1><DG1.3.1>Z34.81</DG1.3.1><DG1.3.1>Z34.81</DG1.3.1>< DG1. Thyroxine (T4) [Mass/volume] in Serum or Plasma 10.5 ug/dL 4.5-12.5 [facility] .~.~<DG1.3.1>Z34.81</DG1.3.1><DG1.3.1>Z34.81</DG1.3.1><DG1.3.1>Z34.81</DG1.3.1>< DG1. {SOURCE: R~.~.~<DG1.3.1>Z34.81</DG1.3.1><DG1.3.1>Z34.81</DG1.3.1><DG1.3.1>Z34.81</DG1.3.1 ><DG1. .~.~<DG1.3.1> Z34.81</DG1.3.1><DG1.3.1>Z34.81</DG1.3.1><DG1.3.1>Z34.81</DG1.3.1><DG1. .~.~<DG1.3.1>Z34.81</DG1.3.1><DG1.3.1>Z34.81</DG1.3.1><DG1.3.1>Z34.81</DG1.3.1>< DG1. .~.~<DG1.3.1>Z34.81</DG1.3.1><DG1.3.1> Z34.81</DG1.3.1><DG1.3.1>Z34.81</DG1.3.1><DG1. .~.~<DG1.3.1>Z34.81</DG1.3.1><DG1.3.1>Z34.81</DG1.3.1><DG1.3.1>Z34.81</DG1.3.1>< DG1. .~.~<DG1.3.1>Z34.81</DG1.3.1><DG1.3.1>Z34.81</DG1.3.1><DG1.3.1> Z34.81</DG1.3.1><DG1. .~.~<DG1.3.1>Z34.81</DG1.3.1><DG1.3.1>Z34.81</DG1.3.1><DG1.3.1>Z34.81</DG1.3.1>< DG1. .~.~<DG1.3.1>Z34.81</DG1.3.1><DG1.3.1>Z34.81</DG1.3.1><DG1.3.1>Z34.81</DG1.3.1> <DG1. Is patient fasting? N~.~.~<DG1.3.1>Z34.81</DG1.3.1><DG1.3.1>Z34.81</DG1.3.1><DG1.3.1>Z34.81</DG1 .~.~<DG1.3.1>Z34.81</DG1.3.1><DG1.3.1>Z34.81</DG1.3.1><DG1.3.1>Z34.81</DG1.3.1> <DG1. .~.~<DG1.3.1>Z34.81</DG1.3.1><DG1.3.1>Z34.81</DG1.3.1><DG1.3.1>Z34.81</DG1.3.1>< DG1. Reason for Exam: R~.~.~<DG1.3.1>Z34.81</DG1.3.1><DG1.3.1>Z34.81</DG1.3.1><DG1.3.1>Z34.81</DG1.3. .~.~<DG1.3.1>Z34.81</DG1.3.1><DG1.3.1>Z34.81</DG1.3.1><DG1.3.1>Z34.81</DG1.3.1>< DG1. {SPECIMEN TYPE: R~.~.~<DG1.3.1>Z34.81</DG1.3.1><DG1.3.1>Z34.81</DG1.3.1><DG1.3.1>Z34.81</DG1.3.1 .~.~<DG1.3.1>Z34.81</DG1.3.1><DG1.3.1>Z34.81</DG1.3.1><DG1.3.1>Z34.81</DG1.3.1>< DG1. .~.~<DG1.3.1>Z34.81</DG1.3.1><DG1.3.1>Z34.81</DG1.3.1><DG1.3.1>Z34.81</DG1.3.1> <DG1. .~.~<DG1.3.1>Z34.81</DG1.3.1><DG1.3.1>Z34.81</DG1.3.1><DG1.3.1>Z34.81</DG1.3.1>< DG1. .~.~<DG1.3.1>Z34.81</DG1.3.1><DG1.3.1>Z34.81</DG1.3.1><DG1.3.1>Z34.81</DG1.3.1>< DG1. .~.~<DG1.3.1> Z34.81</DG1.3.1><DG1.3.1>Z34.81</DG1.3.1><DG1.3.1>Z34.81</DG1.3.1><DG1. .~.~<DG1.3.1>Z34.81</DG1.3.1><DG1.3.1>Z34.81</DG1.3.1><DG1.3.1>Z34.81</DG1.3.1>< DG1. Triiodothyronine (T3) Free [Mass/volume] in Serum or Plasma 3.4 pg/ mL 2.0-4.4 [facility] .~.~<DG1.3.1>Z34.81</DG1.3.1><DG1.3.1>Z34.81</DG1.3.1><DG1.3.1>Z34.81</DG1.3.1>< DG1. {SOURCE: R~.~.~<DG1.3.1>Z34.81</DG1.3.1><DG1.3.1>Z34.81</DG1.3.1><DG1.3.1>Z34.81</DG1.3.1 ><DG1. .~.~<DG1.3.1> Z34.81</DG1.3.1><DG1.3.1>Z34.81</DG1.3.1><DG1.3.1>Z34.81</DG1.3.1><DG1. .~.~<DG1.3.1>Z34.81</DG1.3.1><DG1.3.1>Z34.81</DG1.3.1><DG1.3.1>Z34.81</DG1.3.1>< DG1. .~.~<DG1.3.1>Z34.81</DG1.3.1><DG1.3.1> Z34.81</DG1.3.1><DG1.3.1>Z34.81</DG1.3.1><DG1. .~.~<DG1.3.1>Z34.81</DG1.3.1><DG1.3.1>Z34.81</DG1.3.1><DG1.3.1>Z34.81</DG1.3.1>< DG1. .~.~<DG1.3.1>Z34.81</DG1.3.1><DG1.3.1>Z34.81</DG1.3.1><DG1.3.1> Z34.81</DG1.3.1><DG1. .~.~<DG1.3.1>Z34.81</DG1.3.1><DG1.3.1>Z34.81</DG1.3.1><DG1.3.1>Z34.81</DG1.3.1>< DG1. .~.~<DG1.3.1>Z34.81</DG1.3.1><DG1.3.1>Z34.81</DG1.3.1><DG1.3.1>Z34.81</DG1.3.1> <DG1. Is patient fasting? N~.~.~<DG1.3.1>Z34.81</DG1.3.1><DG1.3.1>Z34.81</DG1.3.1><DG1.3.1>Z34.81</DG1 .~.~<DG1.3.1>Z34.81</DG1.3.1><DG1.3.1>Z34.81</DG1.3.1><DG1.3.1>Z34.81</DG1.3.1> <DG1. .~.~<DG1.3.1>Z34.81</DG1.3.1><DG1.3.1>Z34.81</DG1.3.1><DG1.3.1>Z34.81</DG1.3.1>< DG1. Reason for Exam: R~.~.~<DG1.3.1>Z34.81</DG1.3.1><DG1.3.1>Z34.81</DG1.3.1><DG1.3.1>Z34.81</DG1.3. .~.~<DG1.3.1>Z34.81</DG1.3.1><DG1.3.1>Z34.81</DG1.3.1><DG1.3.1>Z34.81</DG1.3.1>< DG1. {SPECIMEN TYPE: R~.~.~<DG1.3.1>Z34.81</DG1.3.1><DG1.3.1>Z34.81</DG1.3.1><DG1.3.1>Z34.81</DG1.3.1 .~.~<DG1.3.1>Z34.81</DG1.3.1><DG1.3.1>Z34.81</DG1.3.1><DG1.3.1>Z34.81</DG1.3.1>< DG1. .~.~<DG1.3.1>Z34.81</DG1.3.1><DG1.3.1>Z34.81</DG1.3.1><DG1.3.1>Z34.81</DG1.3.1> <DG1. .~.~<DG1.3.1>Z34.81</DG1.3.1><DG1.3.1>Z34.81</DG1.3.1><DG1.3.1>Z34.81</DG1.3.1>< DG1. .~.~<DG1.3.1>Z34.81</DG1.3.1><DG1.3.1>Z34.81</DG1.3.1><DG1.3.1>Z34.81</DG1.3.1>< DG1. .~.~<DG1.3.1> Z34.81</DG1.3.1><DG1.3.1>Z34.81</DG1.3.1><DG1.3.1>Z34.81</DG1.3.1><DG1. .~.~<DG1.3.1>Z34.81</DG1.3.1><DG1.3.1>Z34.81</DG1.3.1><DG1.3.1>Z34.81</DG1.3.1>< DG1. Thyroperoxidase Ab [Units/volume] in Serum or Plasma Laborat ory test result 0-34 [facility] ([facility]) .~.~<DG1.3.1>Z34.81</DG1.3.1><DG1.3.1>Z34.81</DG1.3.1><DG1.3.1>Z34.81</DG1.3.1>< DG1. {SOURCE: R~.~.~<DG1.3.1>Z34.81</DG1.3.1><DG1.3.1>Z34.81</DG1.3.1><DG1.3.1>Z34.81</DG1.3.1 ><DG1. .~.~<DG1.3.1> Z34.81</DG1.3.1><DG1.3.1>Z34.81</DG1.3.1><DG1.3.1>Z34.81</DG1.3.1><DG1. .~.~<DG1.3.1>Z34.81</DG1.3.1><DG1.3.1>Z34.81</DG1.3.1><DG1.3.1>Z34.81</DG1.3.1>< DG1. .~.~<DG1.3.1>Z34.81</DG1.3.1><DG1.3.1> Z34.81</DG1.3.1><DG1.3.1>Z34.81</DG1.3.1><DG1. .~.~<DG1.3.1>Z34.81</DG1.3.1><DG1.3.1>Z34.81</DG1.3.1><DG1.3.1>Z34.81</DG1.3.1>< DG1. .~.~<DG1.3.1>Z34.81</DG1.3.1><DG1.3.1>Z34.81</DG1.3.1><DG1.3.1> Z34.81</DG1.3.1><DG1. .~.~<DG1.3.1>Z34.81</DG1.3.1><DG1.3.1>Z34.81</DG1.3.1><DG1.3.1>Z34.81</DG1.3.1>< DG1. .~.~<DG1.3.1>Z34.81</DG1.3.1><DG1.3.1>Z34.81</DG1.3.1><DG1.3.1>Z34.81</DG1.3.1> <DG1. Is patient fasting? N~.~.~<DG1.3.1>Z34.81</DG1.3.1><DG1.3.1>Z34.81</DG1.3.1><DG1.3.1>Z34.81</DG1 .~.~<DG1.3.1>Z34.81</DG1.3.1><DG1.3.1>Z34.81</DG1.3.1><DG1.3.1>Z34.81</DG1.3.1> <DG1. .~.~<DG1.3.1>Z34.81</DG1.3.1><DG1.3.1>Z34.81</DG1.3.1><DG1.3.1>Z34.81</DG1.3.1>< DG1. Reason for Exam: R~.~.~<DG1.3.1>Z34.81</DG1.3.1><DG1.3.1>Z34.81</DG1.3.1><DG1.3.1>Z34.81</DG1.3. .~.~<DG1.3.1>Z34.81</DG1.3.1><DG1.3.1>Z34.81</DG1.3.1><DG1.3.1>Z34.81</DG1.3.1>< DG1. {SPECIMEN TYPE: R~.~.~<DG1.3.1>Z34.81</DG1.3.1><DG1.3.1>Z34.81</DG1.3.1><DG1.3.1>Z34.81</DG1.3.1 .~.~<DG1.3.1>Z34.81</DG1.3.1><DG1.3.1>Z34.81</DG1.3.1><DG1.3.1>Z34.81</DG1.3.1>< DG1. .~.~<DG1.3.1>Z34.81</DG1.3.1><DG1.3.1>Z34.81</DG1.3.1><DG1.3.1>Z34.81</DG1.3.1> <DG1. .~.~<DG1.3.1>Z34.81</DG1.3.1><DG1.3.1>Z34.81</DG1.3.1><DG1.3.1>Z34.81</DG1.3.1>< DG1. .~.~<DG1.3.1>Z34.81</DG1.3.1><DG1.3.1>Z34.81</DG1.3.1><DG1.3.1>Z34.81</DG1.3.1>< DG1. .~.~<DG1.3.1> Z34.81</DG1.3.1><DG1.3.1>Z34.81</DG1.3.1><DG1.3.1>Z34.81</DG1.3.1><DG1. .~.~<DG1.3.1>Z34.81</DG1.3.1><DG1.3.1>Z34.81</DG1.3.1><DG1.3.1>Z34.81</DG1.3.1>< DG1. ID Date Data Source [id number] 03/01/2021 11:44:00 AM EDT [facility] ([facility]) Name Value Range Interpretation Code Description Data Kimberley rce(s) Supporting Document(s) WBC 8.7 10^3/uL 4.2-11.0 [facility] ([facility]) .~.~<DG1.3.1>Z34.81</DG1.3.1><DG1.3.1>Z34.81</DG1.3.1><DG1.3.1>Z34.81</DG1.3.1>< DG1. {SOURCE: R~.~.~<DG1.3.1>Z34.81</DG1.3.1><DG1.3.1>Z34.81</DG1.3.1><DG1.3.1>Z34.81</DG1.3.1 ><DG1. .~.~<DG1.3.1> Z34.81</DG1.3.1><DG1.3.1>Z34.81</DG1.3.1><DG1.3.1>Z34.81</DG1.3.1><DG1. .~.~<DG1.3.1>Z34.81</DG1.3.1><DG1.3.1>Z34.81</DG1.3.1><DG1.3.1>Z34.81</DG1.3.1>< DG1. .~.~<DG1.3.1>Z34.81</DG1.3.1><DG1.3.1> Z34.81</DG1.3.1><DG1.3.1>Z34.81</DG1.3.1><DG1. .~.~<DG1.3.1>Z34.81</DG1.3.1><DG1.3.1>Z34.81</DG1.3.1><DG1.3.1>Z34.81</DG1.3.1>< DG1. .~.~<DG1.3.1>Z34.81</DG1.3.1><DG1.3.1>Z34.81</DG1.3.1><DG1.3.1> Z34.81</DG1.3.1><DG1. .~.~<DG1.3.1>Z34.81</DG1.3.1><DG1.3.1>Z34.81</DG1.3.1><DG1.3.1>Z34.81</DG1.3.1>< DG1. .~.~<DG1.3.1>Z34.81</DG1.3.1><DG1.3.1>Z34.81</DG1.3.1><DG1.3.1>Z34.81</DG1.3.1> <DG1. Is patient fasting? N~.~.~<DG1.3.1>Z34.81</DG1.3.1><DG1.3.1>Z34.81</DG1.3.1><DG1.3.1>Z34.81</DG1 .~.~<DG1.3.1>Z34.81</DG1.3.1><DG1.3.1>Z34.81</DG1.3.1><DG1.3.1>Z34.81</DG1.3.1> <DG1. .~.~<DG1.3.1>Z34.81</DG1.3.1><DG1.3.1>Z34.81</DG1.3.1><DG1.3.1>Z34.81</DG1.3.1>< DG1. Reason for Exam: R~.~.~<DG1.3.1>Z34.81</DG1.3.1><DG1.3.1>Z34.81</DG1.3.1><DG1.3.1>Z34.81</DG1.3. .~.~<DG1.3.1>Z34.81</DG1.3.1><DG1.3.1>Z34.81</DG1.3.1><DG1.3.1>Z34.81</DG1.3.1>< DG1. {SPECIMEN TYPE: R~.~.~<DG1.3.1>Z34.81</DG1.3.1><DG1.3.1>Z34.81</DG1.3.1><DG1.3.1>Z34.81</DG1.3.1 .~.~<DG1.3.1>Z34.81</DG1.3.1><DG1.3.1>Z34.81</DG1.3.1><DG1.3.1>Z34.81</DG1.3.1>< DG1. .~.~<DG1.3.1>Z34.81</DG1.3.1><DG1.3.1>Z34.81</DG1.3.1><DG1.3.1>Z34.81</DG1.3.1> <DG1. .~.~<DG1.3.1>Z34.81</DG1.3.1><DG1.3.1>Z34.81</DG1.3.1><DG1.3.1>Z34.81</DG1.3.1>< DG1. .~.~<DG1.3.1>Z34.81</DG1.3.1><DG1.3.1>Z34.81</DG1.3.1><DG1.3.1>Z34.81</DG1.3.1>< DG1. .~.~<DG1.3.1> Z34.81</DG1.3.1><DG1.3.1>Z34.81</DG1.3.1><DG1.3.1>Z34.81</DG1.3.1><DG1. .~.~<DG1.3.1>Z34.81</DG1.3.1><DG1.3.1>Z34.81</DG1.3.1><DG1.3.1>Z34.81</DG1.3.1>< DG1. CBC W/Automated Diff Laboratory test result [facility] ([facility]) .~.~<DG1.3.1>Z34.81</DG1.3.1><DG1.3.1>Z34.81</DG1.3.1><DG1.3.1>Z34.81</DG1.3.1>< DG1. {SOURCE: R~.~.~<DG1.3.1>Z34.81</DG1.3.1><DG1.3.1>Z34.81</DG1.3.1><DG1.3.1>Z34.81</DG1.3.1 ><DG1. .~.~<DG1.3.1> Z34.81</DG1.3.1><DG1.3.1>Z34.81</DG1.3.1><DG1.3.1>Z34.81</DG1.3.1><DG1. .~.~<DG1.3.1>Z34.81</DG1.3.1><DG1.3.1>Z34.81</DG1.3.1><DG1.3.1>Z34.81</DG1.3.1>< DG1. .~.~<DG1.3.1>Z34.81</DG1.3.1><DG1.3.1> Z34.81</DG1.3.1><DG1.3.1>Z34.81</DG1.3.1><DG1. .~.~<DG1.3.1>Z34.81</DG1.3.1><DG1.3.1>Z34.81</DG1.3.1><DG1.3.1>Z34.81</DG1.3.1>< DG1. .~.~<DG1.3.1>Z34.81</DG1.3.1><DG1.3.1>Z34.81</DG1.3.1><DG1.3.1> Z34.81</DG1.3.1><DG1. .~.~<DG1.3.1>Z34.81</DG1.3.1><DG1.3.1>Z34.81</DG1.3.1><DG1.3.1>Z34.81</DG1.3.1>< DG1. .~.~<DG1.3.1>Z34.81</DG1.3.1><DG1.3.1>Z34.81</DG1.3.1><DG1.3.1>Z34.81</DG1.3.1> <DG1. Is patient fasting? N~.~.~<DG1.3.1>Z34.81</DG1.3.1><DG1.3.1>Z34.81</DG1.3.1><DG1.3.1>Z34.81</DG1 .~.~<DG1.3.1>Z34.81</DG1.3.1><DG1.3.1>Z34.81</DG1.3.1><DG1.3.1>Z34.81</DG1.3.1> <DG1. .~.~<DG1.3.1>Z34.81</DG1.3.1><DG1.3.1>Z34.81</DG1.3.1><DG1.3.1>Z34.81</DG1.3.1>< DG1. Reason for Exam: R~.~.~<DG1.3.1>Z34.81</DG1.3.1><DG1.3.1>Z34.81</DG1.3.1><DG1.3.1>Z34.81</DG1.3. .~.~<DG1.3.1>Z34.81</DG1.3.1><DG1.3.1>Z34.81</DG1.3.1><DG1.3.1>Z34.81</DG1.3.1>< DG1. {SPECIMEN TYPE: R~.~.~<DG1.3.1>Z34.81</DG1.3.1><DG1.3.1>Z34.81</DG1.3.1><DG1.3.1>Z34.81</DG1.3.1 .~.~<DG1.3.1>Z34.81</DG1.3.1><DG1.3.1>Z34.81</DG1.3.1><DG1.3.1>Z34.81</DG1.3.1>< DG1. .~.~<DG1.3.1>Z34.81</DG1.3.1><DG1.3.1>Z34.81</DG1.3.1><DG1.3.1>Z34.81</DG1.3.1> <DG1. .~.~<DG1.3.1>Z34.81</DG1.3.1><DG1.3.1>Z34.81</DG1.3.1><DG1.3.1>Z34.81</DG1.3.1>< DG1. .~.~<DG1.3.1>Z34.81</DG1.3.1><DG1.3.1>Z34.81</DG1.3.1><DG1.3.1>Z34.81</DG1.3.1>< DG1. .~.~<DG1.3.1> Z34.81</DG1.3.1><DG1.3.1>Z34.81</DG1.3.1><DG1.3.1>Z34.81</DG1.3.1><DG1. .~.~<DG1.3.1>Z34.81</DG1.3.1><DG1.3.1>Z34.81</DG1.3.1><DG1.3.1>Z34.81</DG1.3.1>< DG1. Hemoglobin 13.1 g/dL 12.0-16.0 [facility]) .~.~<DG1.3.1>Z34.81</DG1.3.1><DG1.3.1>Z34.81</DG1.3.1><DG1.3.1>Z34.81</DG1.3.1>< DG1. {SOURCE: R~.~.~<DG1.3.1>Z34.81</DG1.3.1><DG1.3.1>Z34.81</DG1.3.1><DG1.3.1>Z34.81</DG1.3.1 ><DG1. .~.~<DG1.3.1> Z34.81</DG1.3.1><DG1.3.1>Z34.81</DG1.3.1><DG1.3.1>Z34.81</DG1.3.1><DG1. .~.~<DG1.3.1>Z34.81</DG1.3.1><DG1.3.1>Z34.81</DG1.3.1><DG1.3.1>Z34.81</DG1.3.1>< DG1. .~.~<DG1.3.1>Z34.81</DG1.3.1><DG1.3.1> Z34.81</DG1.3.1><DG1.3.1>Z34.81</DG1.3.1><DG1. .~.~<DG1.3.1>Z34.81</DG1.3.1><DG1.3.1>Z34.81</DG1.3.1><DG1.3.1>Z34.81</DG1.3.1>< DG1. .~.~<DG1.3.1>Z34.81</DG1.3.1><DG1.3.1>Z34.81</DG1.3.1><DG1.3.1> Z34.81</DG1.3.1><DG1. .~.~<DG1.3.1>Z34.81</DG1.3.1><DG1.3.1>Z34.81</DG1.3.1><DG1.3.1>Z34.81</DG1.3.1>< DG1. .~.~<DG1.3.1>Z34.81</DG1.3.1><DG1.3.1>Z34.81</DG1.3.1><DG1.3.1>Z34.81</DG1.3.1> <DG1. Is patient fasting? N~.~.~<DG1.3.1>Z34.81</DG1.3.1><DG1.3.1>Z34.81</DG1.3.1><DG1.3.1>Z34.81</DG1 .~.~<DG1.3.1>Z34.81</DG1.3.1><DG1.3.1>Z34.81</DG1.3.1><DG1.3.1>Z34.81</DG1.3.1> <DG1. .~.~<DG1.3.1>Z34.81</DG1.3.1><DG1.3.1>Z34.81</DG1.3.1><DG1.3.1>Z34.81</DG1.3.1>< DG1. Reason for Exam: R~.~.~<DG1.3.1>Z34.81</DG1.3.1><DG1.3.1>Z34.81</DG1.3.1><DG1.3.1>Z34.81</DG1.3. .~.~<DG1.3.1>Z34.81</DG1.3.1><DG1.3.1>Z34.81</DG1.3.1><DG1.3.1>Z34.81</DG1.3.1>< DG1. {SPECIMEN TYPE: R~.~.~<DG1.3.1>Z34.81</DG1.3.1><DG1.3.1>Z34.81</DG1.3.1><DG1.3.1>Z34.81</DG1.3.1 .~.~<DG1.3.1>Z34.81</DG1.3.1><DG1.3.1>Z34.81</DG1.3.1><DG1.3.1>Z34.81</DG1.3.1>< DG1. .~.~<DG1.3.1>Z34.81</DG1.3.1><DG1.3.1>Z34.81</DG1.3.1><DG1.3.1>Z34.81</DG1.3.1> <DG1. .~.~<DG1.3.1>Z34.81</DG1.3.1><DG1.3.1>Z34.81</DG1.3.1><DG1.3.1>Z34.81</DG1.3.1>< DG1. .~.~<DG1.3.1>Z34.81</DG1.3.1><DG1.3.1>Z34.81</DG1.3.1><DG1.3.1>Z34.81</DG1.3.1>< DG1. .~.~<DG1.3.1> Z34.81</DG1.3.1><DG1.3.1>Z34.81</DG1.3.1><DG1.3.1>Z34.81</DG1.3.1><DG1. .~.~<DG1.3.1>Z34.81</DG1.3.1><DG1.3.1>Z34.81</DG1.3.1><DG1.3.1>Z34.81</DG1.3.1>< DG1. RBC 4.41 10^6/uL 4.20-5.40 [facility]) .~.~<DG1.3.1>Z34.81</DG1.3.1><DG1.3.1>Z34.81</DG1.3.1><DG1.3.1>Z34.81</DG1.3.1>< DG1. {SOURCE: R~.~.~<DG1.3.1>Z34.81</DG1.3.1><DG1.3.1>Z34.81</DG1.3.1><DG1.3.1>Z34.81</DG1.3.1 ><DG1. .~.~<DG1.3.1> Z34.81</DG1.3.1><DG1.3.1>Z34.81</DG1.3.1><DG1.3.1>Z34.81</DG1.3.1><DG1. .~.~<DG1.3.1>Z34.81</DG1.3.1><DG1.3.1>Z34.81</DG1.3.1><DG1.3.1>Z34.81</DG1.3.1>< DG1. .~.~<DG1.3.1>Z34.81</DG1.3.1><DG1.3.1> Z34.81</DG1.3.1><DG1.3.1>Z34.81</DG1.3.1><DG1. .~.~<DG1.3.1>Z34.81</DG1.3.1><DG1.3.1>Z34.81</DG1.3.1><DG1.3.1>Z34.81</DG1.3.1>< DG1. .~.~<DG1.3.1>Z34.81</DG1.3.1><DG1.3.1>Z34.81</DG1.3.1><DG1.3.1> Z34.81</DG1.3.1><DG1. .~.~<DG1.3.1>Z34.81</DG1.3.1><DG1.3.1>Z34.81</DG1.3.1><DG1.3.1>Z34.81</DG1.3.1>< DG1. .~.~<DG1.3.1>Z34.81</DG1.3.1><DG1.3.1>Z34.81</DG1.3.1><DG1.3.1>Z34.81</DG1.3.1> <DG1. Is patient fasting? N~.~.~<DG1.3.1>Z34.81</DG1.3.1><DG1.3.1>Z34.81</DG1.3.1><DG1.3.1>Z34.81</DG1 .~.~<DG1.3.1>Z34.81</DG1.3.1><DG1.3.1>Z34.81</DG1.3.1><DG1.3.1>Z34.81</DG1.3.1> <DG1. .~.~<DG1.3.1>Z34.81</DG1.3.1><DG1.3.1>Z34.81</DG1.3.1><DG1.3.1>Z34.81</DG1.3.1>< DG1. Reason for Exam: R~.~.~<DG1.3.1>Z34.81</DG1.3.1><DG1.3.1>Z34.81</DG1.3.1><DG1.3.1>Z34.81</DG1.3. .~.~<DG1.3.1>Z34.81</DG1.3.1><DG1.3.1>Z34.81</DG1.3.1><DG1.3.1>Z34.81</DG1.3.1>< DG1. {SPECIMEN TYPE: R~.~.~<DG1.3.1>Z34.81</DG1.3.1><DG1.3.1>Z34.81</DG1.3.1><DG1.3.1>Z34.81</DG1.3.1 .~.~<DG1.3.1>Z34.81</DG1.3.1><DG1.3.1>Z34.81</DG1.3.1><DG1.3.1>Z34.81</DG1.3.1>< DG1. .~.~<DG1.3.1>Z34.81</DG1.3.1><DG1.3.1>Z34.81</DG1.3.1><DG1.3.1>Z34.81</DG1.3.1> <DG1. .~.~<DG1.3.1>Z34.81</DG1.3.1><DG1.3.1>Z34.81</DG1.3.1><DG1.3.1>Z34.81</DG1.3.1>< DG1. .~.~<DG1.3.1>Z34.81</DG1.3.1><DG1.3.1>Z34.81</DG1.3.1><DG1.3.1>Z34.81</DG1.3.1>< DG1. .~.~<DG1.3.1> Z34.81</DG1.3.1><DG1.3.1>Z34.81</DG1.3.1><DG1.3.1>Z34.81</DG1.3.1><DG1. .~.~<DG1.3.1>Z34.81</DG1.3.1><DG1.3.1>Z34.81</DG1.3.1><DG1.3.1>Z34.81</DG1.3.1>< DG1. Hematocrit 38.0 % 37.0-47.0 [facility] .~.~<DG1.3.1>Z34.81</DG1.3.1><DG1.3.1>Z34.81</DG1.3.1><DG1.3.1>Z34.81</DG1.3.1>< DG1. {SOURCE: R~.~.~<DG1.3.1>Z34.81</DG1.3.1><DG1.3.1>Z34.81</DG1.3.1><DG1.3.1>Z34.81</DG1.3.1 ><DG1. .~.~<DG1.3.1> Z34.81</DG1.3.1><DG1.3.1>Z34.81</DG1.3.1><DG1.3.1>Z34.81</DG1.3.1><DG1. .~.~<DG1.3.1>Z34.81</DG1.3.1><DG1.3.1>Z34.81</DG1.3.1><DG1.3.1>Z34.81</DG1.3.1>< DG1. .~.~<DG1.3.1>Z34.81</DG1.3.1><DG1.3.1> Z34.81</DG1.3.1><DG1.3.1>Z34.81</DG1.3.1><DG1. .~.~<DG1.3.1>Z34.81</DG1.3.1><DG1.3.1>Z34.81</DG1.3.1><DG1.3.1>Z34.81</DG1.3.1>< DG1. .~.~<DG1.3.1>Z34.81</DG1.3.1><DG1.3.1>Z34.81</DG1.3.1><DG1.3.1> Z34.81</DG1.3.1><DG1. .~.~<DG1.3.1>Z34.81</DG1.3.1><DG1.3.1>Z34.81</DG1.3.1><DG1.3.1>Z34.81</DG1.3.1>< DG1. .~.~<DG1.3.1>Z34.81</DG1.3.1><DG1.3.1>Z34.81</DG1.3.1><DG1.3.1>Z34.81</DG1.3.1> <DG1. Is patient fasting? N~.~.~<DG1.3.1>Z34.81</DG1.3.1><DG1.3.1>Z34.81</DG1.3.1><DG1.3.1>Z34.81</DG1 .~.~<DG1.3.1>Z34.81</DG1.3.1><DG1.3.1>Z34.81</DG1.3.1><DG1.3.1>Z34.81</DG1.3.1> <DG1. .~.~<DG1.3.1>Z34.81</DG1.3.1><DG1.3.1>Z34.81</DG1.3.1><DG1.3.1>Z34.81</DG1.3.1>< DG1. Reason for Exam: R~.~.~<DG1.3.1>Z34.81</DG1.3.1><DG1.3.1>Z34.81</DG1.3.1><DG1.3.1>Z34.81</DG1.3. .~.~<DG1.3.1>Z34.81</DG1.3.1><DG1.3.1>Z34.81</DG1.3.1><DG1.3.1>Z34.81</DG1.3.1>< DG1. {SPECIMEN TYPE: R~.~.~<DG1.3.1>Z34.81</DG1.3.1><DG1.3.1>Z34.81</DG1.3.1><DG1.3.1>Z34.81</DG1.3.1 .~.~<DG1.3.1>Z34.81</DG1.3.1><DG1.3.1>Z34.81</DG1.3.1><DG1.3.1>Z34.81</DG1.3.1>< DG1. .~.~<DG1.3.1>Z34.81</DG1.3.1><DG1.3.1>Z34.81</DG1.3.1><DG1.3.1>Z34.81</DG1.3.1> <DG1. .~.~<DG1.3.1>Z34.81</DG1.3.1><DG1.3.1>Z34.81</DG1.3.1><DG1.3.1>Z34.81</DG1.3.1>< DG1. .~.~<DG1.3.1>Z34.81</DG1.3.1><DG1.3.1>Z34.81</DG1.3.1><DG1.3.1>Z34.81</DG1.3.1>< DG1. .~.~<DG1.3.1> Z34.81</DG1.3.1><DG1.3.1>Z34.81</DG1.3.1><DG1.3.1>Z34.81</DG1.3.1><DG1. .~.~<DG1.3.1>Z34.81</DG1.3.1><DG1.3.1>Z34.81</DG1.3.1><DG1.3.1>Z34.81</DG1.3.1>< DG1. MCV 86.2 fL 81.0-101 [facility] ([facility] [place]) .~.~<DG1.3.1>Z34.81</DG1.3.1><DG1.3.1>Z34.81</DG1.3.1><DG1.3.1>Z34.81</DG1.3.1>< DG1. {SOURCE: R~.~.~<DG1.3.1>Z34.81</DG1.3.1><DG1.3.1>Z34.81</DG1.3.1><DG1.3.1>Z34.81</DG1.3.1 ><DG1. .~.~<DG1.3.1> Z34.81</DG1.3.1><DG1.3.1>Z34.81</DG1.3.1><DG1.3.1>Z34.81</DG1.3.1><DG1. .~.~<DG1.3.1>Z34.81</DG1.3.1><DG1.3.1>Z34.81</DG1.3.1><DG1.3.1>Z34.81</DG1.3.1>< DG1. .~.~<DG1.3.1>Z34.81</DG1.3.1><DG1.3.1> Z34.81</DG1.3.1><DG1.3.1>Z34.81</DG1.3.1><DG1. .~.~<DG1.3.1>Z34.81</DG1.3.1><DG1.3.1>Z34.81</DG1.3.1><DG1.3.1>Z34.81</DG1.3.1>< DG1. .~.~<DG1.3.1>Z34.81</DG1.3.1><DG1.3.1>Z34.81</DG1.3.1><DG1.3.1> Z34.81</DG1.3.1><DG1. .~.~<DG1.3.1>Z34.81</DG1.3.1><DG1.3.1>Z34.81</DG1.3.1><DG1.3.1>Z34.81</DG1.3.1>< DG1. .~.~<DG1.3.1>Z34.81</DG1.3.1><DG1.3.1>Z34.81</DG1.3.1><DG1.3.1>Z34.81</DG1.3.1> <DG1. Is patient fasting? N~.~.~<DG1.3.1>Z34.81</DG1.3.1><DG1.3.1>Z34.81</DG1.3.1><DG1.3.1>Z34.81</DG1 .~.~<DG1.3.1>Z34.81</DG1.3.1><DG1.3.1>Z34.81</DG1.3.1><DG1.3.1>Z34.81</DG1.3.1> <DG1. .~.~<DG1.3.1>Z34.81</DG1.3.1><DG1.3.1>Z34.81</DG1.3.1><DG1.3.1>Z34.81</DG1.3.1>< DG1. Reason for Exam: R~.~.~<DG1.3.1>Z34.81</DG1.3.1><DG1.3.1>Z34.81</DG1.3.1><DG1.3.1>Z34.81</DG1.3. .~.~<DG1.3.1>Z34.81</DG1.3.1><DG1.3.1>Z34.81</DG1.3.1><DG1.3.1>Z34.81</DG1.3.1>< DG1. {SPECIMEN TYPE: R~.~.~<DG1.3.1>Z34.81</DG1.3.1><DG1.3.1>Z34.81</DG1.3.1><DG1.3.1>Z34.81</DG1.3.1 .~.~<DG1.3.1>Z34.81</DG1.3.1><DG1.3.1>Z34.81</DG1.3.1><DG1.3.1>Z34.81</DG1.3.1>< DG1. .~.~<DG1.3.1>Z34.81</DG1.3.1><DG1.3.1>Z34.81</DG1.3.1><DG1.3.1>Z34.81</DG1.3.1> <DG1. .~.~<DG1.3.1>Z34.81</DG1.3.1><DG1.3.1>Z34.81</DG1.3.1><DG1.3.1>Z34.81</DG1.3.1>< DG1. .~.~<DG1.3.1>Z34.81</DG1.3.1><DG1.3.1>Z34.81</DG1.3.1><DG1.3.1>Z34.81</DG1.3.1>< DG1. .~.~<DG1.3.1> Z34.81</DG1.3.1><DG1.3.1>Z34.81</DG1.3.1><DG1.3.1>Z34.81</DG1.3.1><DG1. .~.~<DG1.3.1>Z34.81</DG1.3.1><DG1.3.1>Z34.81</DG1.3.1><DG1.3.1>Z34.81</DG1.3.1>< DG1. MCH 29.7 pg 27.0-34.0 [facility] ([facility] [place]) .~.~<DG1.3.1>Z34.81</DG1.3.1><DG1.3.1>Z34.81</DG1.3.1><DG1.3.1>Z34.81</DG1.3.1>< DG1. {SOURCE: R~.~.~<DG1.3.1>Z34.81</DG1.3.1><DG1.3.1>Z34.81</DG1.3.1><DG1.3.1>Z34.81</DG1.3.1 ><DG1. .~.~<DG1.3.1> Z34.81</DG1.3.1><DG1.3.1>Z34.81</DG1.3.1><DG1.3.1>Z34.81</DG1.3.1><DG1. .~.~<DG1.3.1>Z34.81</DG1.3.1><DG1.3.1>Z34.81</DG1.3.1><DG1.3.1>Z34.81</DG1.3.1>< DG1. .~.~<DG1.3.1>Z34.81</DG1.3.1><DG1.3.1> Z34.81</DG1.3.1><DG1.3.1>Z34.81</DG1.3.1><DG1. .~.~<DG1.3.1>Z34.81</DG1.3.1><DG1.3.1>Z34.81</DG1.3.1><DG1.3.1>Z34.81</DG1.3.1>< DG1. .~.~<DG1.3.1>Z34.81</DG1.3.1><DG1.3.1>Z34.81</DG1.3.1><DG1.3.1> Z34.81</DG1.3.1><DG1. .~.~<DG1.3.1>Z34.81</DG1.3.1><DG1.3.1>Z34.81</DG1.3.1><DG1.3.1>Z34.81</DG1.3.1>< DG1. .~.~<DG1.3.1>Z34.81</DG1.3.1><DG1.3.1>Z34.81</DG1.3.1><DG1.3.1>Z34.81</DG1.3.1> <DG1. Is patient fasting? N~.~.~<DG1.3.1>Z34.81</DG1.3.1><DG1.3.1>Z34.81</DG1.3.1><DG1.3.1>Z34.81</DG1 .~.~<DG1.3.1>Z34.81</DG1.3.1><DG1.3.1>Z34.81</DG1.3.1><DG1.3.1>Z34.81</DG1.3.1> <DG1. .~.~<DG1.3.1>Z34.81</DG1.3.1><DG1.3.1>Z34.81</DG1.3.1><DG1.3.1>Z34.81</DG1.3.1>< DG1. Reason for Exam: R~.~.~<DG1.3.1>Z34.81</DG1.3.1><DG1.3.1>Z34.81</DG1.3.1><DG1.3.1>Z34.81</DG1.3. .~.~<DG1.3.1>Z34.81</DG1.3.1><DG1.3.1>Z34.81</DG1.3.1><DG1.3.1>Z34.81</DG1.3.1>< DG1. {SPECIMEN TYPE: R~.~.~<DG1.3.1>Z34.81</DG1.3.1><DG1.3.1>Z34.81</DG1.3.1><DG1.3.1>Z34.81</DG1.3.1 .~.~<DG1.3.1>Z34.81</DG1.3.1><DG1.3.1>Z34.81</DG1.3.1><DG1.3.1>Z34.81</DG1.3.1>< DG1. .~.~<DG1.3.1>Z34.81</DG1.3.1><DG1.3.1>Z34.81</DG1.3.1><DG1.3.1>Z34.81</DG1.3.1> <DG1. .~.~<DG1.3.1>Z34.81</DG1.3.1><DG1.3.1>Z34.81</DG1.3.1><DG1.3.1>Z34.81</DG1.3.1>< DG1. .~.~<DG1.3.1>Z34.81</DG1.3.1><DG1.3.1>Z34.81</DG1.3.1><DG1.3.1>Z34.81</DG1.3.1>< DG1. .~.~<DG1.3.1> Z34.81</DG1.3.1><DG1.3.1>Z34.81</DG1.3.1><DG1.3.1>Z34.81</DG1.3.1><DG1. .~.~<DG1.3.1>Z34.81</DG1.3.1><DG1.3.1>Z34.81</DG1.3.1><DG1.3.1>Z34.81</DG1.3.1>< DG1. Platelets 247 10^3/uL 150-450 [facility] ([facility]) .~.~<DG1.3.1>Z34.81</DG1.3.1><DG1.3.1>Z34.81</DG1.3.1><DG1.3.1>Z34.81</DG1.3.1>< DG1. {SOURCE: R~.~.~<DG1.3.1>Z34.81</DG1.3.1><DG1.3.1>Z34.81</DG1.3.1><DG1.3.1>Z34.81</DG1.3.1 ><DG1. .~.~<DG1.3.1> Z34.81</DG1.3.1><DG1.3.1>Z34.81</DG1.3.1><DG1.3.1>Z34.81</DG1.3.1><DG1. .~.~<DG1.3.1>Z34.81</DG1.3.1><DG1.3.1>Z34.81</DG1.3.1><DG1.3.1>Z34.81</DG1.3.1>< DG1. .~.~<DG1.3.1>Z34.81</DG1.3.1><DG1.3.1> Z34.81</DG1.3.1><DG1.3.1>Z34.81</DG1.3.1><DG1. .~.~<DG1.3.1>Z34.81</DG1.3.1><DG1.3.1>Z34.81</DG1.3.1><DG1.3.1>Z34.81</DG1.3.1>< DG1. .~.~<DG1.3.1>Z34.81</DG1.3.1><DG1.3.1>Z34.81</DG1.3.1><DG1.3.1> Z34.81</DG1.3.1><DG1. .~.~<DG1.3.1>Z34.81</DG1.3.1><DG1.3.1>Z34.81</DG1.3.1><DG1.3.1>Z34.81</DG1.3.1>< DG1. .~.~<DG1.3.1>Z34.81</DG1.3.1><DG1.3.1>Z34.81</DG1.3.1><DG1.3.1>Z34.81</DG1.3.1> <DG1. Is patient fasting? N~.~.~<DG1.3.1>Z34.81</DG1.3.1><DG1.3.1>Z34.81</DG1.3.1><DG1.3.1>Z34.81</DG1 .~.~<DG1.3.1>Z34.81</DG1.3.1><DG1.3.1>Z34.81</DG1.3.1><DG1.3.1>Z34.81</DG1.3.1> <DG1. .~.~<DG1.3.1>Z34.81</DG1.3.1><DG1.3.1>Z34.81</DG1.3.1><DG1.3.1>Z34.81</DG1.3.1>< DG1. Reason for Exam: R~.~.~<DG1.3.1>Z34.81</DG1.3.1><DG1.3.1>Z34.81</DG1.3.1><DG1.3.1>Z34.81</DG1.3. .~.~<DG1.3.1>Z34.81</DG1.3.1><DG1.3.1>Z34.81</DG1.3.1><DG1.3.1>Z34.81</DG1.3.1>< DG1. {SPECIMEN TYPE: R~.~.~<DG1.3.1>Z34.81</DG1.3.1><DG1.3.1>Z34.81</DG1.3.1><DG1.3.1>Z34.81</DG1.3.1 .~.~<DG1.3.1>Z34.81</DG1.3.1><DG1.3.1>Z34.81</DG1.3.1><DG1.3.1>Z34.81</DG1.3.1>< DG1. .~.~<DG1.3.1>Z34.81</DG1.3.1><DG1.3.1>Z34.81</DG1.3.1><DG1.3.1>Z34.81</DG1.3.1> <DG1. .~.~<DG1.3.1>Z34.81</DG1.3.1><DG1.3.1>Z34.81</DG1.3.1><DG1.3.1>Z34.81</DG1.3.1>< DG1. .~.~<DG1.3.1>Z34.81</DG1.3.1><DG1.3.1>Z34.81</DG1.3.1><DG1.3.1>Z34.81</DG1.3.1>< DG1. .~.~<DG1.3.1> Z34.81</DG1.3.1><DG1.3.1>Z34.81</DG1.3.1><DG1.3.1>Z34.81</DG1.3.1><DG1. .~.~<DG1.3.1>Z34.81</DG1.3.1><DG1.3.1>Z34.81</DG1.3.1><DG1.3.1>Z34.81</DG1.3.1>< DG1. MCHC 34.5 g/dL 31.0-36.0 [facility] ([facility] [place]) .~.~<DG1.3.1>Z34.81</DG1.3.1><DG1.3.1>Z34.81</DG1.3.1><DG1.3.1>Z34.81</DG1.3.1>< DG1. {SOURCE: R~.~.~<DG1.3.1>Z34.81</DG1.3.1><DG1.3.1>Z34.81</DG1.3.1><DG1.3.1>Z34.81</DG1.3.1 ><DG1. .~.~<DG1.3.1> Z34.81</DG1.3.1><DG1.3.1>Z34.81</DG1.3.1><DG1.3.1>Z34.81</DG1.3.1><DG1. .~.~<DG1.3.1>Z34.81</DG1.3.1><DG1.3.1>Z34.81</DG1.3.1><DG1.3.1>Z34.81</DG1.3.1>< DG1. .~.~<DG1.3.1>Z34.81</DG1.3.1><DG1.3.1> Z34.81</DG1.3.1><DG1.3.1>Z34.81</DG1.3.1><DG1. .~.~<DG1.3.1>Z34.81</DG1.3.1><DG1.3.1>Z34.81</DG1.3.1><DG1.3.1>Z34.81</DG1.3.1>< DG1. .~.~<DG1.3.1>Z34.81</DG1.3.1><DG1.3.1>Z34.81</DG1.3.1><DG1.3.1> Z34.81</DG1.3.1><DG1. .~.~<DG1.3.1>Z34.81</DG1.3.1><DG1.3.1>Z34.81</DG1.3.1><DG1.3.1>Z34.81</DG1.3.1>< DG1. .~.~<DG1.3.1>Z34.81</DG1.3.1><DG1.3.1>Z34.81</DG1.3.1><DG1.3.1>Z34.81</DG1.3.1> <DG1. Is patient fasting? N~.~.~<DG1.3.1>Z34.81</DG1.3.1><DG1.3.1>Z34.81</DG1.3.1><DG1.3.1>Z34.81</DG1 .~.~<DG1.3.1>Z34.81</DG1.3.1><DG1.3.1>Z34.81</DG1.3.1><DG1.3.1>Z34.81</DG1.3.1> <DG1. .~.~<DG1.3.1>Z34.81</DG1.3.1><DG1.3.1>Z34.81</DG1.3.1><DG1.3.1>Z34.81</DG1.3.1>< DG1. Reason for Exam: R~.~.~<DG1.3.1>Z34.81</DG1.3.1><DG1.3.1>Z34.81</DG1.3.1><DG1.3.1>Z34.81</DG1.3. .~.~<DG1.3.1>Z34.81</DG1.3.1><DG1.3.1>Z34.81</DG1.3.1><DG1.3.1>Z34.81</DG1.3.1>< DG1. {SPECIMEN TYPE: R~.~.~<DG1.3.1>Z34.81</DG1.3.1><DG1.3.1>Z34.81</DG1.3.1><DG1.3.1>Z34.81</DG1.3.1 .~.~<DG1.3.1>Z34.81</DG1.3.1><DG1.3.1>Z34.81</DG1.3.1><DG1.3.1>Z34.81</DG1.3.1>< DG1. .~.~<DG1.3.1>Z34.81</DG1.3.1><DG1.3.1>Z34.81</DG1.3.1><DG1.3.1>Z34.81</DG1.3.1> <DG1. .~.~<DG1.3.1>Z34.81</DG1.3.1><DG1.3.1>Z34.81</DG1.3.1><DG1.3.1>Z34.81</DG1.3.1>< DG1. .~.~<DG1.3.1>Z34.81</DG1.3.1><DG1.3.1>Z34.81</DG1.3.1><DG1.3.1>Z34.81</DG1.3.1>< DG1. .~.~<DG1.3.1> Z34.81</DG1.3.1><DG1.3.1>Z34.81</DG1.3.1><DG1.3.1>Z34.81</DG1.3.1><DG1. .~.~<DG1.3.1>Z34.81</DG1.3.1><DG1.3.1>Z34.81</DG1.3.1><DG1.3.1>Z34.81</DG1.3.1>< DG1. RDW 12.2 % 11.5-14.5 [facility] ([facility] [place]) .~.~<DG1.3.1>Z34.81</DG1.3.1><DG1.3.1>Z34.81</DG1.3.1><DG1.3.1>Z34.81</DG1.3.1>< DG1. {SOURCE: R~.~.~<DG1.3.1>Z34.81</DG1.3.1><DG1.3.1>Z34.81</DG1.3.1><DG1.3.1>Z34.81</DG1.3.1 ><DG1. .~.~<DG1.3.1> Z34.81</DG1.3.1><DG1.3.1>Z34.81</DG1.3.1><DG1.3.1>Z34.81</DG1.3.1><DG1. .~.~<DG1.3.1>Z34.81</DG1.3.1><DG1.3.1>Z34.81</DG1.3.1><DG1.3.1>Z34.81</DG1.3.1>< DG1. .~.~<DG1.3.1>Z34.81</DG1.3.1><DG1.3.1> Z34.81</DG1.3.1><DG1.3.1>Z34.81</DG1.3.1><DG1. .~.~<DG1.3.1>Z34.81</DG1.3.1><DG1.3.1>Z34.81</DG1.3.1><DG1.3.1>Z34.81</DG1.3.1>< DG1. .~.~<DG1.3.1>Z34.81</DG1.3.1><DG1.3.1>Z34.81</DG1.3.1><DG1.3.1> Z34.81</DG1.3.1><DG1. .~.~<DG1.3.1>Z34.81</DG1.3.1><DG1.3.1>Z34.81</DG1.3.1><DG1.3.1>Z34.81</DG1.3.1>< DG1. .~.~<DG1.3.1>Z34.81</DG1.3.1><DG1.3.1>Z34.81</DG1.3.1><DG1.3.1>Z34.81</DG1.3.1> <DG1. Is patient fasting? N~.~.~<DG1.3.1>Z34.81</DG1.3.1><DG1.3.1>Z34.81</DG1.3.1><DG1.3.1>Z34.81</DG1 .~.~<DG1.3.1>Z34.81</DG1.3.1><DG1.3.1>Z34.81</DG1.3.1><DG1.3.1>Z34.81</DG1.3.1> <DG1. .~.~<DG1.3.1>Z34.81</DG1.3.1><DG1.3.1>Z34.81</DG1.3.1><DG1.3.1>Z34.81</DG1.3.1>< DG1. Reason for Exam: R~.~.~<DG1.3.1>Z34.81</DG1.3.1><DG1.3.1>Z34.81</DG1.3.1><DG1.3.1>Z34.81</DG1.3. .~.~<DG1.3.1>Z34.81</DG1.3.1><DG1.3.1>Z34.81</DG1.3.1><DG1.3.1>Z34.81</DG1.3.1>< DG1. {SPECIMEN TYPE: R~.~.~<DG1.3.1>Z34.81</DG1.3.1><DG1.3.1>Z34.81</DG1.3.1><DG1.3.1>Z34.81</DG1.3.1 .~.~<DG1.3.1>Z34.81</DG1.3.1><DG1.3.1>Z34.81</DG1.3.1><DG1.3.1>Z34.81</DG1.3.1>< DG1. .~.~<DG1.3.1>Z34.81</DG1.3.1><DG1.3.1>Z34.81</DG1.3.1><DG1.3.1>Z34.81</DG1.3.1> <DG1. .~.~<DG1.3.1>Z34.81</DG1.3.1><DG1.3.1>Z34.81</DG1.3.1><DG1.3.1>Z34.81</DG1.3.1>< DG1. .~.~<DG1.3.1>Z34.81</DG1.3.1><DG1.3.1>Z34.81</DG1.3.1><DG1.3.1>Z34.81</DG1.3.1>< DG1. .~.~<DG1.3.1> Z34.81</DG1.3.1><DG1.3.1>Z34.81</DG1.3.1><DG1.3.1>Z34.81</DG1.3.1><DG1. .~.~<DG1.3.1>Z34.81</DG1.3.1><DG1.3.1>Z34.81</DG1.3.1><DG1.3.1>Z34.81</DG1.3.1>< DG1. Neut 73.5 % 37.0-80.0 [facility] ([facility] [place]) .~.~<DG1.3.1>Z34.81</DG1.3.1><DG1.3.1>Z34.81</DG1.3.1><DG1.3.1>Z34.81</DG1.3.1>< DG1. {SOURCE: R~.~.~<DG1.3.1>Z34.81</DG1.3.1><DG1.3.1>Z34.81</DG1.3.1><DG1.3.1>Z34.81</DG1.3.1 ><DG1. .~.~<DG1.3.1> Z34.81</DG1.3.1><DG1.3.1>Z34.81</DG1.3.1><DG1.3.1>Z34.81</DG1.3.1><DG1. .~.~<DG1.3.1>Z34.81</DG1.3.1><DG1.3.1>Z34.81</DG1.3.1><DG1.3.1>Z34.81</DG1.3.1>< DG1. .~.~<DG1.3.1>Z34.81</DG1.3.1><DG1.3.1> Z34.81</DG1.3.1><DG1.3.1>Z34.81</DG1.3.1><DG1. .~.~<DG1.3.1>Z34.81</DG1.3.1><DG1.3.1>Z34.81</DG1.3.1><DG1.3.1>Z34.81</DG1.3.1>< DG1. .~.~<DG1.3.1>Z34.81</DG1.3.1><DG1.3.1>Z34.81</DG1.3.1><DG1.3.1> Z34.81</DG1.3.1><DG1. .~.~<DG1.3.1>Z34.81</DG1.3.1><DG1.3.1>Z34.81</DG1.3.1><DG1.3.1>Z34.81</DG1.3.1>< DG1. .~.~<DG1.3.1>Z34.81</DG1.3.1><DG1.3.1>Z34.81</DG1.3.1><DG1.3.1>Z34.81</DG1.3.1> <DG1. Is patient fasting? N~.~.~<DG1.3.1>Z34.81</DG1.3.1><DG1.3.1>Z34.81</DG1.3.1><DG1.3.1>Z34.81</DG1 .~.~<DG1.3.1>Z34.81</DG1.3.1><DG1.3.1>Z34.81</DG1.3.1><DG1.3.1>Z34.81</DG1.3.1> <DG1. .~.~<DG1.3.1>Z34.81</DG1.3.1><DG1.3.1>Z34.81</DG1.3.1><DG1.3.1>Z34.81</DG1.3.1>< DG1. Reason for Exam: R~.~.~<DG1.3.1>Z34.81</DG1.3.1><DG1.3.1>Z34.81</DG1.3.1><DG1.3.1>Z34.81</DG1.3. .~.~<DG1.3.1>Z34.81</DG1.3.1><DG1.3.1>Z34.81</DG1.3.1><DG1.3.1>Z34.81</DG1.3.1>< DG1. {SPECIMEN TYPE: R~.~.~<DG1.3.1>Z34.81</DG1.3.1><DG1.3.1>Z34.81</DG1.3.1><DG1.3.1>Z34.81</DG1.3.1 .~.~<DG1.3.1>Z34.81</DG1.3.1><DG1.3.1>Z34.81</DG1.3.1><DG1.3.1>Z34.81</DG1.3.1>< DG1. .~.~<DG1.3.1>Z34.81</DG1.3.1><DG1.3.1>Z34.81</DG1.3.1><DG1.3.1>Z34.81</DG1.3.1> <DG1. .~.~<DG1.3.1>Z34.81</DG1.3.1><DG1.3.1>Z34.81</DG1.3.1><DG1.3.1>Z34.81</DG1.3.1>< DG1. .~.~<DG1.3.1>Z34.81</DG1.3.1><DG1.3.1>Z34.81</DG1.3.1><DG1.3.1>Z34.81</DG1.3.1>< DG1. .~.~<DG1.3.1> Z34.81</DG1.3.1><DG1.3.1>Z34.81</DG1.3.1><DG1.3.1>Z34.81</DG1.3.1><DG1. .~.~<DG1.3.1>Z34.81</DG1.3.1><DG1.3.1>Z34.81</DG1.3.1><DG1.3.1>Z34.81</DG1.3.1>< DG1. MPV 9.5 fL 7.4-10.4 [facility]) .~.~<DG1.3.1>Z34.81</DG1.3.1><DG1.3.1>Z34.81</DG1.3.1><DG1.3.1>Z34.81</DG1.3.1>< DG1. {SOURCE: R~.~.~<DG1.3.1>Z34.81</DG1.3.1><DG1.3.1>Z34.81</DG1.3.1><DG1.3.1>Z34.81</DG1.3.1 ><DG1. .~.~<DG1.3.1> Z34.81</DG1.3.1><DG1.3.1>Z34.81</DG1.3.1><DG1.3.1>Z34.81</DG1.3.1><DG1. .~.~<DG1.3.1>Z34.81</DG1.3.1><DG1.3.1>Z34.81</DG1.3.1><DG1.3.1>Z34.81</DG1.3.1>< DG1. .~.~<DG1.3.1>Z34.81</DG1.3.1><DG1.3.1> Z34.81</DG1.3.1><DG1.3.1>Z34.81</DG1.3.1><DG1. .~.~<DG1.3.1>Z34.81</DG1.3.1><DG1.3.1>Z34.81</DG1.3.1><DG1.3.1>Z34.81</DG1.3.1>< DG1. .~.~<DG1.3.1>Z34.81</DG1.3.1><DG1.3.1>Z34.81</DG1.3.1><DG1.3.1> Z34.81</DG1.3.1><DG1. .~.~<DG1.3.1>Z34.81</DG1.3.1><DG1.3.1>Z34.81</DG1.3.1><DG1.3.1>Z34.81</DG1.3.1>< DG1. .~.~<DG1.3.1>Z34.81</DG1.3.1><DG1.3.1>Z34.81</DG1.3.1><DG1.3.1>Z34.81</DG1.3.1> <DG1. Is patient fasting? N~.~.~<DG1.3.1>Z34.81</DG1.3.1><DG1.3.1>Z34.81</DG1.3.1><DG1.3.1>Z34.81</DG1 .~.~<DG1.3.1>Z34.81</DG1.3.1><DG1.3.1>Z34.81</DG1.3.1><DG1.3.1>Z34.81</DG1.3.1> <DG1. .~.~<DG1.3.1>Z34.81</DG1.3.1><DG1.3.1>Z34.81</DG1.3.1><DG1.3.1>Z34.81</DG1.3.1>< DG1. Reason for Exam: R~.~.~<DG1.3.1>Z34.81</DG1.3.1><DG1.3.1>Z34.81</DG1.3.1><DG1.3.1>Z34.81</DG1.3. .~.~<DG1.3.1>Z34.81</DG1.3.1><DG1.3.1>Z34.81</DG1.3.1><DG1.3.1>Z34.81</DG1.3.1>< DG1. {SPECIMEN TYPE: R~.~.~<DG1.3.1>Z34.81</DG1.3.1><DG1.3.1>Z34.81</DG1.3.1><DG1.3.1>Z34.81</DG1.3.1 .~.~<DG1.3.1>Z34.81</DG1.3.1><DG1.3.1>Z34.81</DG1.3.1><DG1.3.1>Z34.81</DG1.3.1>< DG1. .~.~<DG1.3.1>Z34.81</DG1.3.1><DG1.3.1>Z34.81</DG1.3.1><DG1.3.1>Z34.81</DG1.3.1> <DG1. .~.~<DG1.3.1>Z34.81</DG1.3.1><DG1.3.1>Z34.81</DG1.3.1><DG1.3.1>Z34.81</DG1.3.1>< DG1. .~.~<DG1.3.1>Z34.81</DG1.3.1><DG1.3.1>Z34.81</DG1.3.1><DG1.3.1>Z34.81</DG1.3.1>< DG1. .~.~<DG1.3.1> Z34.81</DG1.3.1><DG1.3.1>Z34.81</DG1.3.1><DG1.3.1>Z34.81</DG1.3.1><DG1. .~.~<DG1.3.1>Z34.81</DG1.3.1><DG1.3.1>Z34.81</DG1.3.1><DG1.3.1>Z34.81</DG1.3.1>< DG1. Eos 0.8 % 0.0-7.0 [facility]) .~.~<DG1.3.1>Z34.81</DG1.3.1><DG1.3.1>Z34.81</DG1.3.1><DG1.3.1>Z34.81</DG1.3.1>< DG1. {SOURCE: R~.~.~<DG1.3.1>Z34.81</DG1.3.1><DG1.3.1>Z34.81</DG1.3.1><DG1.3.1>Z34.81</DG1.3.1 ><DG1. .~.~<DG1.3.1> Z34.81</DG1.3.1><DG1.3.1>Z34.81</DG1.3.1><DG1.3.1>Z34.81</DG1.3.1><DG1. .~.~<DG1.3.1>Z34.81</DG1.3.1><DG1.3.1>Z34.81</DG1.3.1><DG1.3.1>Z34.81</DG1.3.1>< DG1. .~.~<DG1.3.1>Z34.81</DG1.3.1><DG1.3.1> Z34.81</DG1.3.1><DG1.3.1>Z34.81</DG1.3.1><DG1. .~.~<DG1.3.1>Z34.81</DG1.3.1><DG1.3.1>Z34.81</DG1.3.1><DG1.3.1>Z34.81</DG1.3.1>< DG1. .~.~<DG1.3.1>Z34.81</DG1.3.1><DG1.3.1>Z34.81</DG1.3.1><DG1.3.1> Z34.81</DG1.3.1><DG1. .~.~<DG1.3.1>Z34.81</DG1.3.1><DG1.3.1>Z34.81</DG1.3.1><DG1.3.1>Z34.81</DG1.3.1>< DG1. .~.~<DG1.3.1>Z34.81</DG1.3.1><DG1.3.1>Z34.81</DG1.3.1><DG1.3.1>Z34.81</DG1.3.1> <DG1. Is patient fasting? N~.~.~<DG1.3.1>Z34.81</DG1.3.1><DG1.3.1>Z34.81</DG1.3.1><DG1.3.1>Z34.81</DG1 .~.~<DG1.3.1>Z34.81</DG1.3.1><DG1.3.1>Z34.81</DG1.3.1><DG1.3.1>Z34.81</DG1.3.1> <DG1. .~.~<DG1.3.1>Z34.81</DG1.3.1><DG1.3.1>Z34.81</DG1.3.1><DG1.3.1>Z34.81</DG1.3.1>< DG1. Reason for Exam: R~.~.~<DG1.3.1>Z34.81</DG1.3.1><DG1.3.1>Z34.81</DG1.3.1><DG1.3.1>Z34.81</DG1.3. .~.~<DG1.3.1>Z34.81</DG1.3.1><DG1.3.1>Z34.81</DG1.3.1><DG1.3.1>Z34.81</DG1.3.1>< DG1. {SPECIMEN TYPE: R~.~.~<DG1.3.1>Z34.81</DG1.3.1><DG1.3.1>Z34.81</DG1.3.1><DG1.3.1>Z34.81</DG1.3.1 .~.~<DG1.3.1>Z34.81</DG1.3.1><DG1.3.1>Z34.81</DG1.3.1><DG1.3.1>Z34.81</DG1.3.1>< DG1. .~.~<DG1.3.1>Z34.81</DG1.3.1><DG1.3.1>Z34.81</DG1.3.1><DG1.3.1>Z34.81</DG1.3.1> <DG1. .~.~<DG1.3.1>Z34.81</DG1.3.1><DG1.3.1>Z34.81</DG1.3.1><DG1.3.1>Z34.81</DG1.3.1>< DG1. .~.~<DG1.3.1>Z34.81</DG1.3.1><DG1.3.1>Z34.81</DG1.3.1><DG1.3.1>Z34.81</DG1.3.1>< DG1. .~.~<DG1.3.1> Z34.81</DG1.3.1><DG1.3.1>Z34.81</DG1.3.1><DG1.3.1>Z34.81</DG1.3.1><DG1. .~.~<DG1.3.1>Z34.81</DG1.3.1><DG1.3.1>Z34.81</DG1.3.1><DG1.3.1>Z34.81</DG1.3.1>< DG1. Lymph 21.2 % 25.0-40.0 Below low normal [facility] ( [facility]) .~.~<DG1.3.1>Z34.81</DG1.3.1><DG1.3.1>Z34.81</DG1.3.1><DG1.3.1>Z34.81</DG1.3.1>< DG1. {SOURCE: R~.~.~<DG1.3.1>Z34.81</DG1.3.1><DG1.3.1>Z34.81</DG1.3.1><DG1.3.1>Z34.81</DG1.3.1 ><DG1. .~.~<DG1.3.1> Z34.81</DG1.3.1><DG1.3.1>Z34.81</DG1.3.1><DG1.3.1>Z34.81</DG1.3.1><DG1. .~.~<DG1.3.1>Z34.81</DG1.3.1><DG1.3.1>Z34.81</DG1.3.1><DG1.3.1>Z34.81</DG1.3.1>< DG1. .~.~<DG1.3.1>Z34.81</DG1.3.1><DG1.3.1> Z34.81</DG1.3.1><DG1.3.1>Z34.81</DG1.3.1><DG1. .~.~<DG1.3.1>Z34.81</DG1.3.1><DG1.3.1>Z34.81</DG1.3.1><DG1.3.1>Z34.81</DG1.3.1>< DG1. .~.~<DG1.3.1>Z34.81</DG1.3.1><DG1.3.1>Z34.81</DG1.3.1><DG1.3.1> Z34.81</DG1.3.1><DG1. .~.~<DG1.3.1>Z34.81</DG1.3.1><DG1.3.1>Z34.81</DG1.3.1><DG1.3.1>Z34.81</DG1.3.1>< DG1. .~.~<DG1.3.1>Z34.81</DG1.3.1><DG1.3.1>Z34.81</DG1.3.1><DG1.3.1>Z34.81</DG1.3.1> <DG1. Is patient fasting? N~.~.~<DG1.3.1>Z34.81</DG1.3.1><DG1.3.1>Z34.81</DG1.3.1><DG1.3.1>Z34.81</DG1 .~.~<DG1.3.1>Z34.81</DG1.3.1><DG1.3.1>Z34.81</DG1.3.1><DG1.3.1>Z34.81</DG1.3.1> <DG1. .~.~<DG1.3.1>Z34.81</DG1.3.1><DG1.3.1>Z34.81</DG1.3.1><DG1.3.1>Z34.81</DG1.3.1>< DG1. Reason for Exam: R~.~.~<DG1.3.1>Z34.81</DG1.3.1><DG1.3.1>Z34.81</DG1.3.1><DG1.3.1>Z34.81</DG1.3. .~.~<DG1.3.1>Z34.81</DG1.3.1><DG1.3.1>Z34.81</DG1.3.1><DG1.3.1>Z34.81</DG1.3.1>< DG1. {SPECIMEN TYPE: R~.~.~<DG1.3.1>Z34.81</DG1.3.1><DG1.3.1>Z34.81</DG1.3.1><DG1.3.1>Z34.81</DG1.3.1 .~.~<DG1.3.1>Z34.81</DG1.3.1><DG1.3.1>Z34.81</DG1.3.1><DG1.3.1>Z34.81</DG1.3.1>< DG1. .~.~<DG1.3.1>Z34.81</DG1.3.1><DG1.3.1>Z34.81</DG1.3.1><DG1.3.1>Z34.81</DG1.3.1> <DG1. .~.~<DG1.3.1>Z34.81</DG1.3.1><DG1.3.1>Z34.81</DG1.3.1><DG1.3.1>Z34.81</DG1.3.1>< DG1. .~.~<DG1.3.1>Z34.81</DG1.3.1><DG1.3.1>Z34.81</DG1.3.1><DG1.3.1>Z34.81</DG1.3.1>< DG1. .~.~<DG1.3.1> Z34.81</DG1.3.1><DG1.3.1>Z34.81</DG1.3.1><DG1.3.1>Z34.81</DG1.3.1><DG1. .~.~<DG1.3.1>Z34.81</DG1.3.1><DG1.3.1>Z34.81</DG1.3.1><DG1.3.1>Z34.81</DG1.3.1>< DG1. Roberts 4.0 % 3.0-8.0 [facility]) .~.~<DG1.3.1>Z34.81</DG1.3.1><DG1.3.1>Z34.81</DG1.3.1><DG1.3.1>Z34.81</DG1.3.1>< DG1. {SOURCE: R~.~.~<DG1.3.1>Z34.81</DG1.3.1><DG1.3.1>Z34.81</DG1.3.1><DG1.3.1>Z34.81</DG1.3.1 ><DG1. .~.~<DG1.3.1> Z34.81</DG1.3.1><DG1.3.1>Z34.81</DG1.3.1><DG1.3.1>Z34.81</DG1.3.1><DG1. .~.~<DG1.3.1>Z34.81</DG1.3.1><DG1.3.1>Z34.81</DG1.3.1><DG1.3.1>Z34.81</DG1.3.1>< DG1. .~.~<DG1.3.1>Z34.81</DG1.3.1><DG1.3.1> Z34.81</DG1.3.1><DG1.3.1>Z34.81</DG1.3.1><DG1. .~.~<DG1.3.1>Z34.81</DG1.3.1><DG1.3.1>Z34.81</DG1.3.1><DG1.3.1>Z34.81</DG1.3.1>< DG1. .~.~<DG1.3.1>Z34.81</DG1.3.1><DG1.3.1>Z34.81</DG1.3.1><DG1.3.1> Z34.81</DG1.3.1><DG1. .~.~<DG1.3.1>Z34.81</DG1.3.1><DG1.3.1>Z34.81</DG1.3.1><DG1.3.1>Z34.81</DG1.3.1>< DG1. .~.~<DG1.3.1>Z34.81</DG1.3.1><DG1.3.1>Z34.81</DG1.3.1><DG1.3.1>Z34.81</DG1.3.1> <DG1. Is patient fasting? N~.~.~<DG1.3.1>Z34.81</DG1.3.1><DG1.3.1>Z34.81</DG1.3.1><DG1.3.1>Z34.81</DG1 .~.~<DG1.3.1>Z34.81</DG1.3.1><DG1.3.1>Z34.81</DG1.3.1><DG1.3.1>Z34.81</DG1.3.1> <DG1. .~.~<DG1.3.1>Z34.81</DG1.3.1><DG1.3.1>Z34.81</DG1.3.1><DG1.3.1>Z34.81</DG1.3.1>< DG1. Reason for Exam: R~.~.~<DG1.3.1>Z34.81</DG1.3.1><DG1.3.1>Z34.81</DG1.3.1><DG1.3.1>Z34.81</DG1.3. .~.~<DG1.3.1>Z34.81</DG1.3.1><DG1.3.1>Z34.81</DG1.3.1><DG1.3.1>Z34.81</DG1.3.1>< DG1. {SPECIMEN TYPE: R~.~.~<DG1.3.1>Z34.81</DG1.3.1><DG1.3.1>Z34.81</DG1.3.1><DG1.3.1>Z34.81</DG1.3.1 .~.~<DG1.3.1>Z34.81</DG1.3.1><DG1.3.1>Z34.81</DG1.3.1><DG1.3.1>Z34.81</DG1.3.1>< DG1. .~.~<DG1.3.1>Z34.81</DG1.3.1><DG1.3.1>Z34.81</DG1.3.1><DG1.3.1>Z34.81</DG1.3.1> <DG1. .~.~<DG1.3.1>Z34.81</DG1.3.1><DG1.3.1>Z34.81</DG1.3.1><DG1.3.1>Z34.81</DG1.3.1>< DG1. .~.~<DG1.3.1>Z34.81</DG1.3.1><DG1.3.1>Z34.81</DG1.3.1><DG1.3.1>Z34.81</DG1.3.1>< DG1. .~.~<DG1.3.1> Z34.81</DG1.3.1><DG1.3.1>Z34.81</DG1.3.1><DG1.3.1>Z34.81</DG1.3.1><DG1. .~.~<DG1.3.1>Z34.81</DG1.3.1><DG1.3.1>Z34.81</DG1.3.1><DG1.3.1>Z34.81</DG1.3.1>< DG1. %Ig 0.3 % 0.0-0.0 Above high normal [facility] ([facility]) .~.~<DG1.3.1>Z34.81</DG1.3.1><DG1.3.1>Z34.81</DG1.3.1><DG1.3.1>Z34.81</DG1.3.1>< DG1. {SOURCE: R~.~.~<DG1.3.1>Z34.81</DG1.3.1><DG1.3.1>Z34.81</DG1.3.1><DG1.3.1>Z34.81</DG1.3.1 ><DG1. .~.~<DG1.3.1> Z34.81</DG1.3.1><DG1.3.1>Z34.81</DG1.3.1><DG1.3.1>Z34.81</DG1.3.1><DG1. .~.~<DG1.3.1>Z34.81</DG1.3.1><DG1.3.1>Z34.81</DG1.3.1><DG1.3.1>Z34.81</DG1.3.1>< DG1. .~.~<DG1.3.1>Z34.81</DG1.3.1><DG1.3.1> Z34.81</DG1.3.1><DG1.3.1>Z34.81</DG1.3.1><DG1. .~.~<DG1.3.1>Z34.81</DG1.3.1><DG1.3.1>Z34.81</DG1.3.1><DG1.3.1>Z34.81</DG1.3.1>< DG1. .~.~<DG1.3.1>Z34.81</DG1.3.1><DG1.3.1>Z34.81</DG1.3.1><DG1.3.1> Z34.81</DG1.3.1><DG1. .~.~<DG1.3.1>Z34.81</DG1.3.1><DG1.3.1>Z34.81</DG1.3.1><DG1.3.1>Z34.81</DG1.3.1>< DG1. .~.~<DG1.3.1>Z34.81</DG1.3.1><DG1.3.1>Z34.81</DG1.3.1><DG1.3.1>Z34.81</DG1.3.1> <DG1. Is patient fasting? N~.~.~<DG1.3.1>Z34.81</DG1.3.1><DG1.3.1>Z34.81</DG1.3.1><DG1.3.1>Z34.81</DG1 .~.~<DG1.3.1>Z34.81</DG1.3.1><DG1.3.1>Z34.81</DG1.3.1><DG1.3.1>Z34.81</DG1.3.1> <DG1. .~.~<DG1.3.1>Z34.81</DG1.3.1><DG1.3.1>Z34.81</DG1.3.1><DG1.3.1>Z34.81</DG1.3.1>< DG1. Reason for Exam: R~.~.~<DG1.3.1>Z34.81</DG1.3.1><DG1.3.1>Z34.81</DG1.3.1><DG1.3.1>Z34.81</DG1.3. .~.~<DG1.3.1>Z34.81</DG1.3.1><DG1.3.1>Z34.81</DG1.3.1><DG1.3.1>Z34.81</DG1.3.1>< DG1. {SPECIMEN TYPE: R~.~.~<DG1.3.1>Z34.81</DG1.3.1><DG1.3.1>Z34.81</DG1.3.1><DG1.3.1>Z34.81</DG1.3.1 .~.~<DG1.3.1>Z34.81</DG1.3.1><DG1.3.1>Z34.81</DG1.3.1><DG1.3.1>Z34.81</DG1.3.1>< DG1. .~.~<DG1.3.1>Z34.81</DG1.3.1><DG1.3.1>Z34.81</DG1.3.1><DG1.3.1>Z34.81</DG1.3.1> <DG1. .~.~<DG1.3.1>Z34.81</DG1.3.1><DG1.3.1>Z34.81</DG1.3.1><DG1.3.1>Z34.81</DG1.3.1>< DG1. .~.~<DG1.3.1>Z34.81</DG1.3.1><DG1.3.1>Z34.81</DG1.3.1><DG1.3.1>Z34.81</DG1.3.1>< DG1. .~.~<DG1.3.1> Z34.81</DG1.3.1><DG1.3.1>Z34.81</DG1.3.1><DG1.3.1>Z34.81</DG1.3.1><DG1. .~.~<DG1.3.1>Z34.81</DG1.3.1><DG1.3.1>Z34.81</DG1.3.1><DG1.3.1>Z34.81</DG1.3.1>< DG1. Baso 0.2 % 0.0-2.5 [facility] ([facility] [place]) .~.~<DG1.3.1>Z34.81</DG1.3.1><DG1.3.1>Z34.81</DG1.3.1><DG1.3.1>Z34.81</DG1.3.1>< DG1. {SOURCE: R~.~.~<DG1.3.1>Z34.81</DG1.3.1><DG1.3.1>Z34.81</DG1.3.1><DG1.3.1>Z34.81</DG1.3.1 ><DG1. .~.~<DG1.3.1> Z34.81</DG1.3.1><DG1.3.1>Z34.81</DG1.3.1><DG1.3.1>Z34.81</DG1.3.1><DG1. .~.~<DG1.3.1>Z34.81</DG1.3.1><DG1.3.1>Z34.81</DG1.3.1><DG1.3.1>Z34.81</DG1.3.1>< DG1. .~.~<DG1.3.1>Z34.81</DG1.3.1><DG1.3.1> Z34.81</DG1.3.1><DG1.3.1>Z34.81</DG1.3.1><DG1. .~.~<DG1.3.1>Z34.81</DG1.3.1><DG1.3.1>Z34.81</DG1.3.1><DG1.3.1>Z34.81</DG1.3.1>< DG1. .~.~<DG1.3.1>Z34.81</DG1.3.1><DG1.3.1>Z34.81</DG1.3.1><DG1.3.1> Z34.81</DG1.3.1><DG1. .~.~<DG1.3.1>Z34.81</DG1.3.1><DG1.3.1>Z34.81</DG1.3.1><DG1.3.1>Z34.81</DG1.3.1>< DG1. .~.~<DG1.3.1>Z34.81</DG1.3.1><DG1.3.1>Z34.81</DG1.3.1><DG1.3.1>Z34.81</DG1.3.1> <DG1. Is patient fasting? N~.~.~<DG1.3.1>Z34.81</DG1.3.1><DG1.3.1>Z34.81</DG1.3.1><DG1.3.1>Z34.81</DG1 .~.~<DG1.3.1>Z34.81</DG1.3.1><DG1.3.1>Z34.81</DG1.3.1><DG1.3.1>Z34.81</DG1.3.1> <DG1. .~.~<DG1.3.1>Z34.81</DG1.3.1><DG1.3.1>Z34.81</DG1.3.1><DG1.3.1>Z34.81</DG1.3.1>< DG1. Reason for Exam: R~.~.~<DG1.3.1>Z34.81</DG1.3.1><DG1.3.1>Z34.81</DG1.3.1><DG1.3.1>Z34.81</DG1.3. .~.~<DG1.3.1>Z34.81</DG1.3.1><DG1.3.1>Z34.81</DG1.3.1><DG1.3.1>Z34.81</DG1.3.1>< DG1. {SPECIMEN TYPE: R~.~.~<DG1.3.1>Z34.81</DG1.3.1><DG1.3.1>Z34.81</DG1.3.1><DG1.3.1>Z34.81</DG1.3.1 .~.~<DG1.3.1>Z34.81</DG1.3.1><DG1.3.1>Z34.81</DG1.3.1><DG1.3.1>Z34.81</DG1.3.1>< DG1. .~.~<DG1.3.1>Z34.81</DG1.3.1><DG1.3.1>Z34.81</DG1.3.1><DG1.3.1>Z34.81</DG1.3.1> <DG1. .~.~<DG1.3.1>Z34.81</DG1.3.1><DG1.3.1>Z34.81</DG1.3.1><DG1.3.1>Z34.81</DG1.3.1>< DG1. .~.~<DG1.3.1>Z34.81</DG1.3.1><DG1.3.1>Z34.81</DG1.3.1><DG1.3.1>Z34.81</DG1.3.1>< DG1. .~.~<DG1.3.1> Z34.81</DG1.3.1><DG1.3.1>Z34.81</DG1.3.1><DG1.3.1>Z34.81</DG1.3.1><DG1. .~.~<DG1.3.1>Z34.81</DG1.3.1><DG1.3.1>Z34.81</DG1.3.1><DG1.3.1>Z34.81</DG1.3.1>< DG1. %NRBC 0.0 % 0.0-0.0 [facility] [place] .~.~<DG1.3.1>Z34.81</DG1.3.1><DG1.3.1>Z34.81</DG1.3.1><DG1.3.1>Z34.81</DG1.3.1>< DG1. {SOURCE: R~.~.~<DG1.3.1>Z34.81</DG1.3.1><DG1.3.1>Z34.81</DG1.3.1><DG1.3.1>Z34.81</DG1.3.1 ><DG1. .~.~<DG1.3.1> Z34.81</DG1.3.1><DG1.3.1>Z34.81</DG1.3.1><DG1.3.1>Z34.81</DG1.3.1><DG1. .~.~<DG1.3.1>Z34.81</DG1.3.1><DG1.3.1>Z34.81</DG1.3.1><DG1.3.1>Z34.81</DG1.3.1>< DG1. .~.~<DG1.3.1>Z34.81</DG1.3.1><DG1.3.1> Z34.81</DG1.3.1><DG1.3.1>Z34.81</DG1.3.1><DG1. .~.~<DG1.3.1>Z34.81</DG1.3.1><DG1.3.1>Z34.81</DG1.3.1><DG1.3.1>Z34.81</DG1.3.1>< DG1. .~.~<DG1.3.1>Z34.81</DG1.3.1><DG1.3.1>Z34.81</DG1.3.1><DG1.3.1> Z34.81</DG1.3.1><DG1. .~.~<DG1.3.1>Z34.81</DG1.3.1><DG1.3.1>Z34.81</DG1.3.1><DG1.3.1>Z34.81</DG1.3.1>< DG1. .~.~<DG1.3.1>Z34.81</DG1.3.1><DG1.3.1>Z34.81</DG1.3.1><DG1.3.1>Z34.81</DG1.3.1> <DG1. Is patient fasting? N~.~.~<DG1.3.1>Z34.81</DG1.3.1><DG1.3.1>Z34.81</DG1.3.1><DG1.3.1>Z34.81</DG1 .~.~<DG1.3.1>Z34.81</DG1.3.1><DG1.3.1>Z34.81</DG1.3.1><DG1.3.1>Z34.81</DG1.3.1> <DG1. .~.~<DG1.3.1>Z34.81</DG1.3.1><DG1.3.1>Z34.81</DG1.3.1><DG1.3.1>Z34.81</DG1.3.1>< DG1. Reason for Exam: R~.~.~<DG1.3.1>Z34.81</DG1.3.1><DG1.3.1>Z34.81</DG1.3.1><DG1.3.1>Z34.81</DG1.3. .~.~<DG1.3.1>Z34.81</DG1.3.1><DG1.3.1>Z34.81</DG1.3.1><DG1.3.1>Z34.81</DG1.3.1>< DG1. {SPECIMEN TYPE: R~.~.~<DG1.3.1>Z34.81</DG1.3.1><DG1.3.1>Z34.81</DG1.3.1><DG1.3.1>Z34.81</DG1.3.1 .~.~<DG1.3.1>Z34.81</DG1.3.1><DG1.3.1>Z34.81</DG1.3.1><DG1.3.1>Z34.81</DG1.3.1>< DG1. .~.~<DG1.3.1>Z34.81</DG1.3.1><DG1.3.1>Z34.81</DG1.3.1><DG1.3.1>Z34.81</DG1.3.1> <DG1. .~.~<DG1.3.1>Z34.81</DG1.3.1><DG1.3.1>Z34.81</DG1.3.1><DG1.3.1>Z34.81</DG1.3.1>< DG1. .~.~<DG1.3.1>Z34.81</DG1.3.1><DG1.3.1>Z34.81</DG1.3.1><DG1.3.1>Z34.81</DG1.3.1>< DG1. .~.~<DG1.3.1> Z34.81</DG1.3.1><DG1.3.1>Z34.81</DG1.3.1><DG1.3.1>Z34.81</DG1.3.1><DG1. .~.~<DG1.3.1>Z34.81</DG1.3.1><DG1.3.1>Z34.81</DG1.3.1><DG1.3.1>Z34.81</DG1.3.1>< DG1. #Neut 6.35 10^3/uL 2.00-6.90 [facility]) .~.~<DG1.3.1>Z34.81</DG1.3.1><DG1.3.1>Z34.81</DG1.3.1><DG1.3.1>Z34.81</DG1.3.1>< DG1. {SOURCE: R~.~.~<DG1.3.1>Z34.81</DG1.3.1><DG1.3.1>Z34.81</DG1.3.1><DG1.3.1>Z34.81</DG1.3.1 ><DG1. .~.~<DG1.3.1> Z34.81</DG1.3.1><DG1.3.1>Z34.81</DG1.3.1><DG1.3.1>Z34.81</DG1.3.1><DG1. .~.~<DG1.3.1>Z34.81</DG1.3.1><DG1.3.1>Z34.81</DG1.3.1><DG1.3.1>Z34.81</DG1.3.1>< DG1. .~.~<DG1.3.1>Z34.81</DG1.3.1><DG1.3.1> Z34.81</DG1.3.1><DG1.3.1>Z34.81</DG1.3.1><DG1. .~.~<DG1.3.1>Z34.81</DG1.3.1><DG1.3.1>Z34.81</DG1.3.1><DG1.3.1>Z34.81</DG1.3.1>< DG1. .~.~<DG1.3.1>Z34.81</DG1.3.1><DG1.3.1>Z34.81</DG1.3.1><DG1.3.1> Z34.81</DG1.3.1><DG1. .~.~<DG1.3.1>Z34.81</DG1.3.1><DG1.3.1>Z34.81</DG1.3.1><DG1.3.1>Z34.81</DG1.3.1>< DG1. .~.~<DG1.3.1>Z34.81</DG1.3.1><DG1.3.1>Z34.81</DG1.3.1><DG1.3.1>Z34.81</DG1.3.1> <DG1. Is patient fasting? N~.~.~<DG1.3.1>Z34.81</DG1.3.1><DG1.3.1>Z34.81</DG1.3.1><DG1.3.1>Z34.81</DG1 .~.~<DG1.3.1>Z34.81</DG1.3.1><DG1.3.1>Z34.81</DG1.3.1><DG1.3.1>Z34.81</DG1.3.1> <DG1. .~.~<DG1.3.1>Z34.81</DG1.3.1><DG1.3.1>Z34.81</DG1.3.1><DG1.3.1>Z34.81</DG1.3.1>< DG1. Reason for Exam: R~.~.~<DG1.3.1>Z34.81</DG1.3.1><DG1.3.1>Z34.81</DG1.3.1><DG1.3.1>Z34.81</DG1.3. .~.~<DG1.3.1>Z34.81</DG1.3.1><DG1.3.1>Z34.81</DG1.3.1><DG1.3.1>Z34.81</DG1.3.1>< DG1. {SPECIMEN TYPE: R~.~.~<DG1.3.1>Z34.81</DG1.3.1><DG1.3.1>Z34.81</DG1.3.1><DG1.3.1>Z34.81</DG1.3.1 .~.~<DG1.3.1>Z34.81</DG1.3.1><DG1.3.1>Z34.81</DG1.3.1><DG1.3.1>Z34.81</DG1.3.1>< DG1. .~.~<DG1.3.1>Z34.81</DG1.3.1><DG1.3.1>Z34.81</DG1.3.1><DG1.3.1>Z34.81</DG1.3.1> <DG1. .~.~<DG1.3.1>Z34.81</DG1.3.1><DG1.3.1>Z34.81</DG1.3.1><DG1.3.1>Z34.81</DG1.3.1>< DG1. .~.~<DG1.3.1>Z34.81</DG1.3.1><DG1.3.1>Z34.81</DG1.3.1><DG1.3.1>Z34.81</DG1.3.1>< DG1. .~.~<DG1.3.1> Z34.81</DG1.3.1><DG1.3.1>Z34.81</DG1.3.1><DG1.3.1>Z34.81</DG1.3.1><DG1. .~.~<DG1.3.1>Z34.81</DG1.3.1><DG1.3.1>Z34.81</DG1.3.1><DG1.3.1>Z34.81</DG1.3.1>< DG1. #Eos 0.07 10^3/uL 0.00-0.70 [facility]) .~.~<DG1.3.1>Z34.81</DG1.3.1><DG1.3.1>Z34.81</DG1.3.1><DG1.3.1>Z34.81</DG1.3.1>< DG1. {SOURCE: R~.~.~<DG1.3.1>Z34.81</DG1.3.1><DG1.3.1>Z34.81</DG1.3.1><DG1.3.1>Z34.81</DG1.3.1 ><DG1. .~.~<DG1.3.1> Z34.81</DG1.3.1><DG1.3.1>Z34.81</DG1.3.1><DG1.3.1>Z34.81</DG1.3.1><DG1. .~.~<DG1.3.1>Z34.81</DG1.3.1><DG1.3.1>Z34.81</DG1.3.1><DG1.3.1>Z34.81</DG1.3.1>< DG1. .~.~<DG1.3.1>Z34.81</DG1.3.1><DG1.3.1> Z34.81</DG1.3.1><DG1.3.1>Z34.81</DG1.3.1><DG1. .~.~<DG1.3.1>Z34.81</DG1.3.1><DG1.3.1>Z34.81</DG1.3.1><DG1.3.1>Z34.81</DG1.3.1>< DG1. .~.~<DG1.3.1>Z34.81</DG1.3.1><DG1.3.1>Z34.81</DG1.3.1><DG1.3.1> Z34.81</DG1.3.1><DG1. .~.~<DG1.3.1>Z34.81</DG1.3.1><DG1.3.1>Z34.81</DG1.3.1><DG1.3.1>Z34.81</DG1.3.1>< DG1. .~.~<DG1.3.1>Z34.81</DG1.3.1><DG1.3.1>Z34.81</DG1.3.1><DG1.3.1>Z34.81</DG1.3.1> <DG1. Is patient fasting? N~.~.~<DG1.3.1>Z34.81</DG1.3.1><DG1.3.1>Z34.81</DG1.3.1><DG1.3.1>Z34.81</DG1 .~.~<DG1.3.1>Z34.81</DG1.3.1><DG1.3.1>Z34.81</DG1.3.1><DG1.3.1>Z34.81</DG1.3.1> <DG1. .~.~<DG1.3.1>Z34.81</DG1.3.1><DG1.3.1>Z34.81</DG1.3.1><DG1.3.1>Z34.81</DG1.3.1>< DG1. Reason for Exam: R~.~.~<DG1.3.1>Z34.81</DG1.3.1><DG1.3.1>Z34.81</DG1.3.1><DG1.3.1>Z34.81</DG1.3. .~.~<DG1.3.1>Z34.81</DG1.3.1><DG1.3.1>Z34.81</DG1.3.1><DG1.3.1>Z34.81</DG1.3.1>< DG1. {SPECIMEN TYPE: R~.~.~<DG1.3.1>Z34.81</DG1.3.1><DG1.3.1>Z34.81</DG1.3.1><DG1.3.1>Z34.81</DG1.3.1 .~.~<DG1.3.1>Z34.81</DG1.3.1><DG1.3.1>Z34.81</DG1.3.1><DG1.3.1>Z34.81</DG1.3.1>< DG1. .~.~<DG1.3.1>Z34.81</DG1.3.1><DG1.3.1>Z34.81</DG1.3.1><DG1.3.1>Z34.81</DG1.3.1> <DG1. .~.~<DG1.3.1>Z34.81</DG1.3.1><DG1.3.1>Z34.81</DG1.3.1><DG1.3.1>Z34.81</DG1.3.1>< DG1. .~.~<DG1.3.1>Z34.81</DG1.3.1><DG1.3.1>Z34.81</DG1.3.1><DG1.3.1>Z34.81</DG1.3.1>< DG1. .~.~<DG1.3.1> Z34.81</DG1.3.1><DG1.3.1>Z34.81</DG1.3.1><DG1.3.1>Z34.81</DG1.3.1><DG1. .~.~<DG1.3.1>Z34.81</DG1.3.1><DG1.3.1>Z34.81</DG1.3.1><DG1.3.1>Z34.81</DG1.3.1>< DG1. #Roberts 0.35 10^3/uL 0.00-0.90 [facility]) .~.~<DG1.3.1>Z34.81</DG1.3.1><DG1.3.1>Z34.81</DG1.3.1><DG1.3.1>Z34.81</DG1.3.1>< DG1. {SOURCE: R~.~.~<DG1.3.1>Z34.81</DG1.3.1><DG1.3.1>Z34.81</DG1.3.1><DG1.3.1>Z34.81</DG1.3.1 ><DG1. .~.~<DG1.3.1> Z34.81</DG1.3.1><DG1.3.1>Z34.81</DG1.3.1><DG1.3.1>Z34.81</DG1.3.1><DG1. .~.~<DG1.3.1>Z34.81</DG1.3.1><DG1.3.1>Z34.81</DG1.3.1><DG1.3.1>Z34.81</DG1.3.1>< DG1. .~.~<DG1.3.1>Z34.81</DG1.3.1><DG1.3.1> Z34.81</DG1.3.1><DG1.3.1>Z34.81</DG1.3.1><DG1. .~.~<DG1.3.1>Z34.81</DG1.3.1><DG1.3.1>Z34.81</DG1.3.1><DG1.3.1>Z34.81</DG1.3.1>< DG1. .~.~<DG1.3.1>Z34.81</DG1.3.1><DG1.3.1>Z34.81</DG1.3.1><DG1.3.1> Z34.81</DG1.3.1><DG1. .~.~<DG1.3.1>Z34.81</DG1.3.1><DG1.3.1>Z34.81</DG1.3.1><DG1.3.1>Z34.81</DG1.3.1>< DG1. .~.~<DG1.3.1>Z34.81</DG1.3.1><DG1.3.1>Z34.81</DG1.3.1><DG1.3.1>Z34.81</DG1.3.1> <DG1. Is patient fasting? N~.~.~<DG1.3.1>Z34.81</DG1.3.1><DG1.3.1>Z34.81</DG1.3.1><DG1.3.1>Z34.81</DG1 .~.~<DG1.3.1>Z34.81</DG1.3.1><DG1.3.1>Z34.81</DG1.3.1><DG1.3.1>Z34.81</DG1.3.1> <DG1. .~.~<DG1.3.1>Z34.81</DG1.3.1><DG1.3.1>Z34.81</DG1.3.1><DG1.3.1>Z34.81</DG1.3.1>< DG1. Reason for Exam: R~.~.~<DG1.3.1>Z34.81</DG1.3.1><DG1.3.1>Z34.81</DG1.3.1><DG1.3.1>Z34.81</DG1.3. .~.~<DG1.3.1>Z34.81</DG1.3.1><DG1.3.1>Z34.81</DG1.3.1><DG1.3.1>Z34.81</DG1.3.1>< DG1. {SPECIMEN TYPE: R~.~.~<DG1.3.1>Z34.81</DG1.3.1><DG1.3.1>Z34.81</DG1.3.1><DG1.3.1>Z34.81</DG1.3.1 .~.~<DG1.3.1>Z34.81</DG1.3.1><DG1.3.1>Z34.81</DG1.3.1><DG1.3.1>Z34.81</DG1.3.1>< DG1. .~.~<DG1.3.1>Z34.81</DG1.3.1><DG1.3.1>Z34.81</DG1.3.1><DG1.3.1>Z34.81</DG1.3.1> <DG1. .~.~<DG1.3.1>Z34.81</DG1.3.1><DG1.3.1>Z34.81</DG1.3.1><DG1.3.1>Z34.81</DG1.3.1>< DG1. .~.~<DG1.3.1>Z34.81</DG1.3.1><DG1.3.1>Z34.81</DG1.3.1><DG1.3.1>Z34.81</DG1.3.1>< DG1. .~.~<DG1.3.1> Z34.81</DG1.3.1><DG1.3.1>Z34.81</DG1.3.1><DG1.3.1>Z34.81</DG1.3.1><DG1. .~.~<DG1.3.1>Z34.81</DG1.3.1><DG1.3.1>Z34.81</DG1.3.1><DG1.3.1>Z34.81</DG1.3.1>< DG1. #Lymph 1.83 10^3/uL 0.60-3.40 [facility]) .~.~<DG1.3.1>Z34.81</DG1.3.1><DG1.3.1>Z34.81</DG1.3.1><DG1.3.1>Z34.81</DG1.3.1>< DG1. {SOURCE: R~.~.~<DG1.3.1>Z34.81</DG1.3.1><DG1.3.1>Z34.81</DG1.3.1><DG1.3.1>Z34.81</DG1.3.1 ><DG1. .~.~<DG1.3.1> Z34.81</DG1.3.1><DG1.3.1>Z34.81</DG1.3.1><DG1.3.1>Z34.81</DG1.3.1><DG1. .~.~<DG1.3.1>Z34.81</DG1.3.1><DG1.3.1>Z34.81</DG1.3.1><DG1.3.1>Z34.81</DG1.3.1>< DG1. .~.~<DG1.3.1>Z34.81</DG1.3.1><DG1.3.1> Z34.81</DG1.3.1><DG1.3.1>Z34.81</DG1.3.1><DG1. .~.~<DG1.3.1>Z34.81</DG1.3.1><DG1.3.1>Z34.81</DG1.3.1><DG1.3.1>Z34.81</DG1.3.1>< DG1. .~.~<DG1.3.1>Z34.81</DG1.3.1><DG1.3.1>Z34.81</DG1.3.1><DG1.3.1> Z34.81</DG1.3.1><DG1. .~.~<DG1.3.1>Z34.81</DG1.3.1><DG1.3.1>Z34.81</DG1.3.1><DG1.3.1>Z34.81</DG1.3.1>< DG1. .~.~<DG1.3.1>Z34.81</DG1.3.1><DG1.3.1>Z34.81</DG1.3.1><DG1.3.1>Z34.81</DG1.3.1> <DG1. Is patient fasting? N~.~.~<DG1.3.1>Z34.81</DG1.3.1><DG1.3.1>Z34.81</DG1.3.1><DG1.3.1>Z34.81</DG1 .~.~<DG1.3.1>Z34.81</DG1.3.1><DG1.3.1>Z34.81</DG1.3.1><DG1.3.1>Z34.81</DG1.3.1> <DG1. .~.~<DG1.3.1>Z34.81</DG1.3.1><DG1.3.1>Z34.81</DG1.3.1><DG1.3.1>Z34.81</DG1.3.1>< DG1. Reason for Exam: R~.~.~<DG1.3.1>Z34.81</DG1.3.1><DG1.3.1>Z34.81</DG1.3.1><DG1.3.1>Z34.81</DG1.3. .~.~<DG1.3.1>Z34.81</DG1.3.1><DG1.3.1>Z34.81</DG1.3.1><DG1.3.1>Z34.81</DG1.3.1>< DG1. {SPECIMEN TYPE: R~.~.~<DG1.3.1>Z34.81</DG1.3.1><DG1.3.1>Z34.81</DG1.3.1><DG1.3.1>Z34.81</DG1.3.1 .~.~<DG1.3.1>Z34.81</DG1.3.1><DG1.3.1>Z34.81</DG1.3.1><DG1.3.1>Z34.81</DG1.3.1>< DG1. .~.~<DG1.3.1>Z34.81</DG1.3.1><DG1.3.1>Z34.81</DG1.3.1><DG1.3.1>Z34.81</DG1.3.1> <DG1. .~.~<DG1.3.1>Z34.81</DG1.3.1><DG1.3.1>Z34.81</DG1.3.1><DG1.3.1>Z34.81</DG1.3.1>< DG1. .~.~<DG1.3.1>Z34.81</DG1.3.1><DG1.3.1>Z34.81</DG1.3.1><DG1.3.1>Z34.81</DG1.3.1>< DG1. .~.~<DG1.3.1> Z34.81</DG1.3.1><DG1.3.1>Z34.81</DG1.3.1><DG1.3.1>Z34.81</DG1.3.1><DG1. .~.~<DG1.3.1>Z34.81</DG1.3.1><DG1.3.1>Z34.81</DG1.3.1><DG1.3.1>Z34.81</DG1.3.1>< DG1. #Baso 0.02 10^3/uL 0.00-0.20 [facility] ([facility]) .~.~<DG1.3.1>Z34.81</DG1.3.1><DG1.3.1>Z34.81</DG1.3.1><DG1.3.1>Z34.81</DG1.3.1>< DG1. {SOURCE: R~.~.~<DG1.3.1>Z34.81</DG1.3.1><DG1.3.1>Z34.81</DG1.3.1><DG1.3.1>Z34.81</DG1.3.1 ><DG1. .~.~<DG1.3.1> Z34.81</DG1.3.1><DG1.3.1>Z34.81</DG1.3.1><DG1.3.1>Z34.81</DG1.3.1><DG1. .~.~<DG1.3.1>Z34.81</DG1.3.1><DG1.3.1>Z34.81</DG1.3.1><DG1.3.1>Z34.81</DG1.3.1>< DG1. .~.~<DG1.3.1>Z34.81</DG1.3.1><DG1.3.1> Z34.81</DG1.3.1><DG1.3.1>Z34.81</DG1.3.1><DG1. .~.~<DG1.3.1>Z34.81</DG1.3.1><DG1.3.1>Z34.81</DG1.3.1><DG1.3.1>Z34.81</DG1.3.1>< DG1. .~.~<DG1.3.1>Z34.81</DG1.3.1><DG1.3.1>Z34.81</DG1.3.1><DG1.3.1> Z34.81</DG1.3.1><DG1. .~.~<DG1.3.1>Z34.81</DG1.3.1><DG1.3.1>Z34.81</DG1.3.1><DG1.3.1>Z34.81</DG1.3.1>< DG1. .~.~<DG1.3.1>Z34.81</DG1.3.1><DG1.3.1>Z34.81</DG1.3.1><DG1.3.1>Z34.81</DG1.3.1> <DG1. Is patient fasting? N~.~.~<DG1.3.1>Z34.81</DG1.3.1><DG1.3.1>Z34.81</DG1.3.1><DG1.3.1>Z34.81</DG1 .~.~<DG1.3.1>Z34.81</DG1.3.1><DG1.3.1>Z34.81</DG1.3.1><DG1.3.1>Z34.81</DG1.3.1> <DG1. .~.~<DG1.3.1>Z34.81</DG1.3.1><DG1.3.1>Z34.81</DG1.3.1><DG1.3.1>Z34.81</DG1.3.1>< DG1. Reason for Exam: R~.~.~<DG1.3.1>Z34.81</DG1.3.1><DG1.3.1>Z34.81</DG1.3.1><DG1.3.1>Z34.81</DG1.3. .~.~<DG1.3.1>Z34.81</DG1.3.1><DG1.3.1>Z34.81</DG1.3.1><DG1.3.1>Z34.81</DG1.3.1>< DG1. {SPECIMEN TYPE: R~.~.~<DG1.3.1>Z34.81</DG1.3.1><DG1.3.1>Z34.81</DG1.3.1><DG1.3.1>Z34.81</DG1.3.1 .~.~<DG1.3.1>Z34.81</DG1.3.1><DG1.3.1>Z34.81</DG1.3.1><DG1.3.1>Z34.81</DG1.3.1>< DG1. .~.~<DG1.3.1>Z34.81</DG1.3.1><DG1.3.1>Z34.81</DG1.3.1><DG1.3.1>Z34.81</DG1.3.1> <DG1. .~.~<DG1.3.1>Z34.81</DG1.3.1><DG1.3.1>Z34.81</DG1.3.1><DG1.3.1>Z34.81</DG1.3.1>< DG1. .~.~<DG1.3.1>Z34.81</DG1.3.1><DG1.3.1>Z34.81</DG1.3.1><DG1.3.1>Z34.81</DG1.3.1>< DG1. .~.~<DG1.3.1> Z34.81</DG1.3.1><DG1.3.1>Z34.81</DG1.3.1><DG1.3.1>Z34.81</DG1.3.1><DG1. .~.~<DG1.3.1>Z34.81</DG1.3.1><DG1.3.1>Z34.81</DG1.3.1><DG1.3.1>Z34.81</DG1.3.1>< DG1. #Ig 0.03 10^3/uL 0.00-0.10 [facility]) .~.~<DG1.3.1>Z34.81</DG1.3.1><DG1.3.1>Z34.81</DG1.3.1><DG1.3.1>Z34.81</DG1.3.1>< DG1. {SOURCE: R~.~.~<DG1.3.1>Z34.81</DG1.3.1><DG1.3.1>Z34.81</DG1.3.1><DG1.3.1>Z34.81</DG1.3.1 ><DG1. .~.~<DG1.3.1> Z34.81</DG1.3.1><DG1.3.1>Z34.81</DG1.3.1><DG1.3.1>Z34.81</DG1.3.1><DG1. .~.~<DG1.3.1>Z34.81</DG1.3.1><DG1.3.1>Z34.81</DG1.3.1><DG1.3.1>Z34.81</DG1.3.1>< DG1. .~.~<DG1.3.1>Z34.81</DG1.3.1><DG1.3.1> Z34.81</DG1.3.1><DG1.3.1>Z34.81</DG1.3.1><DG1. .~.~<DG1.3.1>Z34.81</DG1.3.1><DG1.3.1>Z34.81</DG1.3.1><DG1.3.1>Z34.81</DG1.3.1>< DG1. .~.~<DG1.3.1>Z34.81</DG1.3.1><DG1.3.1>Z34.81</DG1.3.1><DG1.3.1> Z34.81</DG1.3.1><DG1. .~.~<DG1.3.1>Z34.81</DG1.3.1><DG1.3.1>Z34.81</DG1.3.1><DG1.3.1>Z34.81</DG1.3.1>< DG1. .~.~<DG1.3.1>Z34.81</DG1.3.1><DG1.3.1>Z34.81</DG1.3.1><DG1.3.1>Z34.81</DG1.3.1> <DG1. Is patient fasting? N~.~.~<DG1.3.1>Z34.81</DG1.3.1><DG1.3.1>Z34.81</DG1.3.1><DG1.3.1>Z34.81</DG1 .~.~<DG1.3.1>Z34.81</DG1.3.1><DG1.3.1>Z34.81</DG1.3.1><DG1.3.1>Z34.81</DG1.3.1> <DG1. .~.~<DG1.3.1>Z34.81</DG1.3.1><DG1.3.1>Z34.81</DG1.3.1><DG1.3.1>Z34.81</DG1.3.1>< DG1. Reason for Exam: R~.~.~<DG1.3.1>Z34.81</DG1.3.1><DG1.3.1>Z34.81</DG1.3.1><DG1.3.1>Z34.81</DG1.3. .~.~<DG1.3.1>Z34.81</DG1.3.1><DG1.3.1>Z34.81</DG1.3.1><DG1.3.1>Z34.81</DG1.3.1>< DG1. {SPECIMEN TYPE: R~.~.~<DG1.3.1>Z34.81</DG1.3.1><DG1.3.1>Z34.81</DG1.3.1><DG1.3.1>Z34.81</DG1.3.1 .~.~<DG1.3.1>Z34.81</DG1.3.1><DG1.3.1>Z34.81</DG1.3.1><DG1.3.1>Z34.81</DG1.3.1>< DG1. .~.~<DG1.3.1>Z34.81</DG1.3.1><DG1.3.1>Z34.81</DG1.3.1><DG1.3.1>Z34.81</DG1.3.1> <DG1. .~.~<DG1.3.1>Z34.81</DG1.3.1><DG1.3.1>Z34.81</DG1.3.1><DG1.3.1>Z34.81</DG1.3.1>< DG1. .~.~<DG1.3.1>Z34.81</DG1.3.1><DG1.3.1>Z34.81</DG1.3.1><DG1.3.1>Z34.81</DG1.3.1>< DG1. .~.~<DG1.3.1> Z34.81</DG1.3.1><DG1.3.1>Z34.81</DG1.3.1><DG1.3.1>Z34.81</DG1.3.1><DG1. .~.~<DG1.3.1>Z34.81</DG1.3.1><DG1.3.1>Z34.81</DG1.3.1><DG1.3.1>Z34.81</DG1.3.1>< DG1. Manual Diff Laboratory test result John TAMAYO ([facility]) .~.~<DG1.3.1>Z34.81</DG1.3.1><DG1.3.1>Z34.81</DG1.3.1><DG1.3.1>Z34.81</DG1.3.1>< DG1. {SOURCE: R~.~.~<DG1.3.1>Z34.81</DG1.3.1><DG1.3.1>Z34.81</DG1.3.1><DG1.3.1>Z34.81</DG1.3.1 ><DG1. .~.~<DG1.3.1> Z34.81</DG1.3.1><DG1.3.1>Z34.81</DG1.3.1><DG1.3.1>Z34.81</DG1.3.1><DG1. .~.~<DG1.3.1>Z34.81</DG1.3.1><DG1.3.1>Z34.81</DG1.3.1><DG1.3.1>Z34.81</DG1.3.1>< DG1. .~.~<DG1.3.1>Z34.81</DG1.3.1><DG1.3.1> Z34.81</DG1.3.1><DG1.3.1>Z34.81</DG1.3.1><DG1. .~.~<DG1.3.1>Z34.81</DG1.3.1><DG1.3.1>Z34.81</DG1.3.1><DG1.3.1>Z34.81</DG1.3.1>< DG1. .~.~<DG1.3.1>Z34.81</DG1.3.1><DG1.3.1>Z34.81</DG1.3.1><DG1.3.1> Z34.81</DG1.3.1><DG1. .~.~<DG1.3.1>Z34.81</DG1.3.1><DG1.3.1>Z34.81</DG1.3.1><DG1.3.1>Z34.81</DG1.3.1>< DG1. .~.~<DG1.3.1>Z34.81</DG1.3.1><DG1.3.1>Z34.81</DG1.3.1><DG1.3.1>Z34.81</DG1.3.1> <DG1. Is patient fasting? N~.~.~<DG1.3.1>Z34.81</DG1.3.1><DG1.3.1>Z34.81</DG1.3.1><DG1.3.1>Z34.81</DG1 .~.~<DG1.3.1>Z34.81</DG1.3.1><DG1.3.1>Z34.81</DG1.3.1><DG1.3.1>Z34.81</DG1.3.1> <DG1. .~.~<DG1.3.1>Z34.81</DG1.3.1><DG1.3.1>Z34.81</DG1.3.1><DG1.3.1>Z34.81</DG1.3.1>< DG1. Reason for Exam: R~.~.~<DG1.3.1>Z34.81</DG1.3.1><DG1.3.1>Z34.81</DG1.3.1><DG1.3.1>Z34.81</DG1.3. .~.~<DG1.3.1>Z34.81</DG1.3.1><DG1.3.1>Z34.81</DG1.3.1><DG1.3.1>Z34.81</DG1.3.1>< DG1. {SPECIMEN TYPE: R~.~.~<DG1.3.1>Z34.81</DG1.3.1><DG1.3.1>Z34.81</DG1.3.1><DG1.3.1>Z34.81</DG1.3.1 .~.~<DG1.3.1>Z34.81</DG1.3.1><DG1.3.1>Z34.81</DG1.3.1><DG1.3.1>Z34.81</DG1.3.1>< DG1. .~.~<DG1.3.1>Z34.81</DG1.3.1><DG1.3.1>Z34.81</DG1.3.1><DG1.3.1>Z34.81</DG1.3.1> <DG1. .~.~<DG1.3.1>Z34.81</DG1.3.1><DG1.3.1>Z34.81</DG1.3.1><DG1.3.1>Z34.81</DG1.3.1>< DG1. .~.~<DG1.3.1>Z34.81</DG1.3.1><DG1.3.1>Z34.81</DG1.3.1><DG1.3.1>Z34.81</DG1.3.1>< DG1. .~.~<DG1.3.1> Z34.81</DG1.3.1><DG1.3.1>Z34.81</DG1.3.1><DG1.3.1>Z34.81</DG1.3.1><DG1. .~.~<DG1.3.1>Z34.81</DG1.3.1><DG1.3.1>Z34.81</DG1.3.1><DG1.3.1>Z34.81</DG1.3.1>< DG1. RBC Morph Laboratory test result [facility]) .~.~<DG1.3.1>Z34.81</DG1.3.1><DG1.3.1>Z34.81</DG1.3.1><DG1.3.1>Z34.81</DG1.3.1>< DG1. {SOURCE: R~.~.~<DG1.3.1>Z34.81</DG1.3.1><DG1.3.1>Z34.81</DG1.3.1><DG1.3.1>Z34.81</DG1.3.1 ><DG1. .~.~<DG1.3.1> Z34.81</DG1.3.1><DG1.3.1>Z34.81</DG1.3.1><DG1.3.1>Z34.81</DG1.3.1><DG1. .~.~<DG1.3.1>Z34.81</DG1.3.1><DG1.3.1>Z34.81</DG1.3.1><DG1.3.1>Z34.81</DG1.3.1>< DG1. .~.~<DG1.3.1>Z34.81</DG1.3.1><DG1.3.1> Z34.81</DG1.3.1><DG1.3.1>Z34.81</DG1.3.1><DG1. .~.~<DG1.3.1>Z34.81</DG1.3.1><DG1.3.1>Z34.81</DG1.3.1><DG1.3.1>Z34.81</DG1.3.1>< DG1. .~.~<DG1.3.1>Z34.81</DG1.3.1><DG1.3.1>Z34.81</DG1.3.1><DG1.3.1> Z34.81</DG1.3.1><DG1. .~.~<DG1.3.1>Z34.81</DG1.3.1><DG1.3.1>Z34.81</DG1.3.1><DG1.3.1>Z34.81</DG1.3.1>< DG1. .~.~<DG1.3.1>Z34.81</DG1.3.1><DG1.3.1>Z34.81</DG1.3.1><DG1.3.1>Z34.81</DG1.3.1> <DG1. Is patient fasting? N~.~.~<DG1.3.1>Z34.81</DG1.3.1><DG1.3.1>Z34.81</DG1.3.1><DG1.3.1>Z34.81</DG1 .~.~<DG1.3.1>Z34.81</DG1.3.1><DG1.3.1>Z34.81</DG1.3.1><DG1.3.1>Z34.81</DG1.3.1> <DG1. .~.~<DG1.3.1>Z34.81</DG1.3.1><DG1.3.1>Z34.81</DG1.3.1><DG1.3.1>Z34.81</DG1.3.1>< DG1. Reason for Exam: R~.~.~<DG1.3.1>Z34.81</DG1.3.1><DG1.3.1>Z34.81</DG1.3.1><DG1.3.1>Z34.81</DG1.3. .~.~<DG1.3.1>Z34.81</DG1.3.1><DG1.3.1>Z34.81</DG1.3.1><DG1.3.1>Z34.81</DG1.3.1>< DG1. {SPECIMEN TYPE: R~.~.~<DG1.3.1>Z34.81</DG1.3.1><DG1.3.1>Z34.81</DG1.3.1><DG1.3.1>Z34.81</DG1.3.1 .~.~<DG1.3.1>Z34.81</DG1.3.1><DG1.3.1>Z34.81</DG1.3.1><DG1.3.1>Z34.81</DG1.3.1>< DG1. .~.~<DG1.3.1>Z34.81</DG1.3.1><DG1.3.1>Z34.81</DG1.3.1><DG1.3.1>Z34.81</DG1.3.1> <DG1. .~.~<DG1.3.1>Z34.81</DG1.3.1><DG1.3.1>Z34.81</DG1.3.1><DG1.3.1>Z34.81</DG1.3.1>< DG1. .~.~<DG1.3.1>Z34.81</DG1.3.1><DG1.3.1>Z34.81</DG1.3.1><DG1.3.1>Z34.81</DG1.3.1>< DG1. .~.~<DG1.3.1> Z34.81</DG1.3.1><DG1.3.1>Z34.81</DG1.3.1><DG1.3.1>Z34.81</DG1.3.1><DG1. .~.~<DG1.3.1>Z34.81</DG1.3.1><DG1.3.1>Z34.81</DG1.3.1><DG1.3.1>Z34.81</DG1.3.1>< DG1. #NRBC 0.00 10^3/uL 0.00-0.00 [facility] ([facility]) .~.~<DG1.3.1>Z34.81</DG1.3.1><DG1.3.1>Z34.81</DG1.3.1><DG1.3.1>Z34.81</DG1.3.1>< DG1. {SOURCE: R~.~.~<DG1.3.1>Z34.81</DG1.3.1><DG1.3.1>Z34.81</DG1.3.1><DG1.3.1>Z34.81</DG1.3.1 ><DG1. .~.~<DG1.3.1> Z34.81</DG1.3.1><DG1.3.1>Z34.81</DG1.3.1><DG1.3.1>Z34.81</DG1.3.1><DG1. .~.~<DG1.3.1>Z34.81</DG1.3.1><DG1.3.1>Z34.81</DG1.3.1><DG1.3.1>Z34.81</DG1.3.1>< DG1. .~.~<DG1.3.1>Z34.81</DG1.3.1><DG1.3.1> Z34.81</DG1.3.1><DG1.3.1>Z34.81</DG1.3.1><DG1. .~.~<DG1.3.1>Z34.81</DG1.3.1><DG1.3.1>Z34.81</DG1.3.1><DG1.3.1>Z34.81</DG1.3.1>< DG1. .~.~<DG1.3.1>Z34.81</DG1.3.1><DG1.3.1>Z34.81</DG1.3.1><DG1.3.1> Z34.81</DG1.3.1><DG1. .~.~<DG1.3.1>Z34.81</DG1.3.1><DG1.3.1>Z34.81</DG1.3.1><DG1.3.1>Z34.81</DG1.3.1>< DG1. .~.~<DG1.3.1>Z34.81</DG1.3.1><DG1.3.1>Z34.81</DG1.3.1><DG1.3.1>Z34.81</DG1.3.1> <DG1. Is patient fasting? N~.~.~<DG1.3.1>Z34.81</DG1.3.1><DG1.3.1>Z34.81</DG1.3.1><DG1.3.1>Z34.81</DG1 .~.~<DG1.3.1>Z34.81</DG1.3.1><DG1.3.1>Z34.81</DG1.3.1><DG1.3.1>Z34.81</DG1.3.1> <DG1. .~.~<DG1.3.1>Z34.81</DG1.3.1><DG1.3.1>Z34.81</DG1.3.1><DG1.3.1>Z34.81</DG1.3.1>< DG1. Reason for Exam: R~.~.~<DG1.3.1>Z34.81</DG1.3.1><DG1.3.1>Z34.81</DG1.3.1><DG1.3.1>Z34.81</DG1.3. .~.~<DG1.3.1>Z34.81</DG1.3.1><DG1.3.1>Z34.81</DG1.3.1><DG1.3.1>Z34.81</DG1.3.1>< DG1. {SPECIMEN TYPE: R~.~.~<DG1.3.1>Z34.81</DG1.3.1><DG1.3.1>Z34.81</DG1.3.1><DG1.3.1>Z34.81</DG1.3.1 .~.~<DG1.3.1>Z34.81</DG1.3.1><DG1.3.1>Z34.81</DG1.3.1><DG1.3.1>Z34.81</DG1.3.1>< DG1. .~.~<DG1.3.1>Z34.81</DG1.3.1><DG1.3.1>Z34.81</DG1.3.1><DG1.3.1>Z34.81</DG1.3.1> <DG1. .~.~<DG1.3.1>Z34.81</DG1.3.1><DG1.3.1>Z34.81</DG1.3.1><DG1.3.1>Z34.81</DG1.3.1>< DG1. .~.~<DG1.3.1>Z34.81</DG1.3.1><DG1.3.1>Z34.81</DG1.3.1><DG1.3.1>Z34.81</DG1.3.1>< DG1. .~.~<DG1.3.1> Z34.81</DG1.3.1><DG1.3.1>Z34.81</DG1.3.1><DG1.3.1>Z34.81</DG1.3.1><DG1. .~.~<DG1.3.1>Z34.81</DG1.3.1><DG1.3.1>Z34.81</DG1.3.1><DG1.3.1>Z34.81</DG1.3.1>< DG1. ID Date Data Source [id number] 03/01/2021 11:44:00 AM EDT [facility] ([facility]) Name Value Range Interpretation Code Description Data Kimberley rce(s) Supporting Document(s) Urinalysis Laboratory test result [facility] ([facility]) .~.~<DG1.3.1>Z34.81</DG1.3.1><DG1.3.1>Z34.81</DG1.3.1><DG1.3.1>Z34.81</DG1.3.1>< DG1. {SOURCE: R~.~.~<DG1.3.1>Z34.81</DG1.3.1><DG1.3.1>Z34.81</DG1.3.1><DG1.3.1>Z34.81</DG1.3.1 ><DG1. .~.~<DG1.3.1> Z34.81</DG1.3.1><DG1.3.1>Z34.81</DG1.3.1><DG1.3.1>Z34.81</DG1.3.1><DG1. .~.~<DG1.3.1>Z34.81</DG1.3.1><DG1.3.1>Z34.81</DG1.3.1><DG1.3.1>Z34.81</DG1.3.1>< DG1. .~.~<DG1.3.1>Z34.81</DG1.3.1><DG1.3.1> Z34.81</DG1.3.1><DG1.3.1>Z34.81</DG1.3.1><DG1. .~.~<DG1.3.1>Z34.81</DG1.3.1><DG1.3.1>Z34.81</DG1.3.1><DG1.3.1>Z34.81</DG1.3.1>< DG1. .~.~<DG1.3.1>Z34.81</DG1.3.1><DG1.3.1>Z34.81</DG1.3.1><DG1.3.1> Z34.81</DG1.3.1><DG1. .~.~<DG1.3.1>Z34.81</DG1.3.1><DG1.3.1>Z34.81</DG1.3.1><DG1.3.1>Z34.81</DG1.3.1>< DG1. .~.~<DG1.3.1>Z34.81</DG1.3.1><DG1.3.1>Z34.81</DG1.3.1><DG1.3.1>Z34.81</DG1.3.1> <DG1. Is patient fasting? N~.~.~<DG1.3.1>Z34.81</DG1.3.1><DG1.3.1>Z34.81</DG1.3.1><DG1.3.1>Z34.81</DG1 .~.~<DG1.3.1>Z34.81</DG1.3.1><DG1.3.1>Z34.81</DG1.3.1><DG1.3.1>Z34.81</DG1.3.1> <DG1. .~.~<DG1.3.1>Z34.81</DG1.3.1><DG1.3.1>Z34.81</DG1.3.1><DG1.3.1>Z34.81</DG1.3.1>< DG1. Reason for Exam: R~.~.~<DG1.3.1>Z34.81</DG1.3.1><DG1.3.1>Z34.81</DG1.3.1><DG1.3.1>Z34.81</DG1.3. .~.~<DG1.3.1>Z34.81</DG1.3.1><DG1.3.1>Z34.81</DG1.3.1><DG1.3.1>Z34.81</DG1.3.1>< DG1. {SPECIMEN TYPE: R~.~.~<DG1.3.1>Z34.81</DG1.3.1><DG1.3.1>Z34.81</DG1.3.1><DG1.3.1>Z34.81</DG1.3.1 .~.~<DG1.3.1>Z34.81</DG1.3.1><DG1.3.1>Z34.81</DG1.3.1><DG1.3.1>Z34.81</DG1.3.1>< DG1. .~.~<DG1.3.1>Z34.81</DG1.3.1><DG1.3.1>Z34.81</DG1.3.1><DG1.3.1>Z34.81</DG1.3.1> <DG1. .~.~<DG1.3.1>Z34.81</DG1.3.1><DG1.3.1>Z34.81</DG1.3.1><DG1.3.1>Z34.81</DG1.3.1>< DG1. .~.~<DG1.3.1>Z34.81</DG1.3.1><DG1.3.1>Z34.81</DG1.3.1><DG1.3.1>Z34.81</DG1.3.1>< DG1. .~.~<DG1.3.1> Z34.81</DG1.3.1><DG1.3.1>Z34.81</DG1.3.1><DG1.3.1>Z34.81</DG1.3.1><DG1. .~.~<DG1.3.1>Z34.81</DG1.3.1><DG1.3.1>Z34.81</DG1.3.1><DG1.3.1>Z34.81</DG1.3.1>< DG1. Source Laboratory test result [facility] ([facility]) .~.~<DG1.3.1>Z34.81</DG1.3.1><DG1.3.1>Z34.81</DG1.3.1><DG1.3.1>Z34.81</DG1.3.1>< DG1. {SOURCE: R~.~.~<DG1.3.1>Z34.81</DG1.3.1><DG1.3.1>Z34.81</DG1.3.1><DG1.3.1>Z34.81</DG1.3.1 ><DG1. .~.~<DG1.3.1> Z34.81</DG1.3.1><DG1.3.1>Z34.81</DG1.3.1><DG1.3.1>Z34.81</DG1.3.1><DG1. .~.~<DG1.3.1>Z34.81</DG1.3.1><DG1.3.1>Z34.81</DG1.3.1><DG1.3.1>Z34.81</DG1.3.1>< DG1. .~.~<DG1.3.1>Z34.81</DG1.3.1><DG1.3.1> Z34.81</DG1.3.1><DG1.3.1>Z34.81</DG1.3.1><DG1. .~.~<DG1.3.1>Z34.81</DG1.3.1><DG1.3.1>Z34.81</DG1.3.1><DG1.3.1>Z34.81</DG1.3.1>< DG1. .~.~<DG1.3.1>Z34.81</DG1.3.1><DG1.3.1>Z34.81</DG1.3.1><DG1.3.1> Z34.81</DG1.3.1><DG1. .~.~<DG1.3.1>Z34.81</DG1.3.1><DG1.3.1>Z34.81</DG1.3.1><DG1.3.1>Z34.81</DG1.3.1>< DG1. .~.~<DG1.3.1>Z34.81</DG1.3.1><DG1.3.1>Z34.81</DG1.3.1><DG1.3.1>Z34.81</DG1.3.1> <DG1. Is patient fasting? N~.~.~<DG1.3.1>Z34.81</DG1.3.1><DG1.3.1>Z34.81</DG1.3.1><DG1.3.1>Z34.81</DG1 .~.~<DG1.3.1>Z34.81</DG1.3.1><DG1.3.1>Z34.81</DG1.3.1><DG1.3.1>Z34.81</DG1.3.1> <DG1. .~.~<DG1.3.1>Z34.81</DG1.3.1><DG1.3.1>Z34.81</DG1.3.1><DG1.3.1>Z34.81</DG1.3.1>< DG1. Reason for Exam: R~.~.~<DG1.3.1>Z34.81</DG1.3.1><DG1.3.1>Z34.81</DG1.3.1><DG1.3.1>Z34.81</DG1.3. .~.~<DG1.3.1>Z34.81</DG1.3.1><DG1.3.1>Z34.81</DG1.3.1><DG1.3.1>Z34.81</DG1.3.1>< DG1. {SPECIMEN TYPE: R~.~.~<DG1.3.1>Z34.81</DG1.3.1><DG1.3.1>Z34.81</DG1.3.1><DG1.3.1>Z34.81</DG1.3.1 .~.~<DG1.3.1>Z34.81</DG1.3.1><DG1.3.1>Z34.81</DG1.3.1><DG1.3.1>Z34.81</DG1.3.1>< DG1. .~.~<DG1.3.1>Z34.81</DG1.3.1><DG1.3.1>Z34.81</DG1.3.1><DG1.3.1>Z34.81</DG1.3.1> <DG1. .~.~<DG1.3.1>Z34.81</DG1.3.1><DG1.3.1>Z34.81</DG1.3.1><DG1.3.1>Z34.81</DG1.3.1>< DG1. .~.~<DG1.3.1>Z34.81</DG1.3.1><DG1.3.1>Z34.81</DG1.3.1><DG1.3.1>Z34.81</DG1.3.1>< DG1. .~.~<DG1.3.1> Z34.81</DG1.3.1><DG1.3.1>Z34.81</DG1.3.1><DG1.3.1>Z34.81</DG1.3.1><DG1. .~.~<DG1.3.1>Z34.81</DG1.3.1><DG1.3.1>Z34.81</DG1.3.1><DG1.3.1>Z34.81</DG1.3.1>< DG1. Color Laboratory test result [facility] ([facility]) .~.~<DG1.3.1>Z34.81</DG1.3.1><DG1.3.1>Z34.81</DG1.3.1><DG1.3.1>Z34.81</DG1.3.1>< DG1. {SOURCE: R~.~.~<DG1.3.1>Z34.81</DG1.3.1><DG1.3.1>Z34.81</DG1.3.1><DG1.3.1>Z34.81</DG1.3.1 ><DG1. .~.~<DG1.3.1> Z34.81</DG1.3.1><DG1.3.1>Z34.81</DG1.3.1><DG1.3.1>Z34.81</DG1.3.1><DG1. .~.~<DG1.3.1>Z34.81</DG1.3.1><DG1.3.1>Z34.81</DG1.3.1><DG1.3.1>Z34.81</DG1.3.1>< DG1. .~.~<DG1.3.1>Z34.81</DG1.3.1><DG1.3.1> Z34.81</DG1.3.1><DG1.3.1>Z34.81</DG1.3.1><DG1. .~.~<DG1.3.1>Z34.81</DG1.3.1><DG1.3.1>Z34.81</DG1.3.1><DG1.3.1>Z34.81</DG1.3.1>< DG1. .~.~<DG1.3.1>Z34.81</DG1.3.1><DG1.3.1>Z34.81</DG1.3.1><DG1.3.1> Z34.81</DG1.3.1><DG1. .~.~<DG1.3.1>Z34.81</DG1.3.1><DG1.3.1>Z34.81</DG1.3.1><DG1.3.1>Z34.81</DG1.3.1>< DG1. .~.~<DG1.3.1>Z34.81</DG1.3.1><DG1.3.1>Z34.81</DG1.3.1><DG1.3.1>Z34.81</DG1.3.1> <DG1. Is patient fasting? N~.~.~<DG1.3.1>Z34.81</DG1.3.1><DG1.3.1>Z34.81</DG1.3.1><DG1.3.1>Z34.81</DG1 .~.~<DG1.3.1>Z34.81</DG1.3.1><DG1.3.1>Z34.81</DG1.3.1><DG1.3.1>Z34.81</DG1.3.1> <DG1. .~.~<DG1.3.1>Z34.81</DG1.3.1><DG1.3.1>Z34.81</DG1.3.1><DG1.3.1>Z34.81</DG1.3.1>< DG1. Reason for Exam: R~.~.~<DG1.3.1>Z34.81</DG1.3.1><DG1.3.1>Z34.81</DG1.3.1><DG1.3.1>Z34.81</DG1.3. .~.~<DG1.3.1>Z34.81</DG1.3.1><DG1.3.1>Z34.81</DG1.3.1><DG1.3.1>Z34.81</DG1.3.1>< DG1. {SPECIMEN TYPE: R~.~.~<DG1.3.1>Z34.81</DG1.3.1><DG1.3.1>Z34.81</DG1.3.1><DG1.3.1>Z34.81</DG1.3.1 .~.~<DG1.3.1>Z34.81</DG1.3.1><DG1.3.1>Z34.81</DG1.3.1><DG1.3.1>Z34.81</DG1.3.1>< DG1. .~.~<DG1.3.1>Z34.81</DG1.3.1><DG1.3.1>Z34.81</DG1.3.1><DG1.3.1>Z34.81</DG1.3.1> <DG1. .~.~<DG1.3.1>Z34.81</DG1.3.1><DG1.3.1>Z34.81</DG1.3.1><DG1.3.1>Z34.81</DG1.3.1>< DG1. .~.~<DG1.3.1>Z34.81</DG1.3.1><DG1.3.1>Z34.81</DG1.3.1><DG1.3.1>Z34.81</DG1.3.1>< DG1. .~.~<DG1.3.1> Z34.81</DG1.3.1><DG1.3.1>Z34.81</DG1.3.1><DG1.3.1>Z34.81</DG1.3.1><DG1. .~.~<DG1.3.1>Z34.81</DG1.3.1><DG1.3.1>Z34.81</DG1.3.1><DG1.3.1>Z34.81</DG1.3.1>< DG1. Spec [place] 1.025 1.001-1.030 [facility]) .~.~<DG1.3.1>Z34.81</DG1.3.1><DG1.3.1>Z34.81</DG1.3.1><DG1.3.1>Z34.81</DG1.3.1>< DG1. {SOURCE: R~.~.~<DG1.3.1>Z34.81</DG1.3.1><DG1.3.1>Z34.81</DG1.3.1><DG1.3.1>Z34.81</DG1.3.1 ><DG1. .~.~<DG1.3.1> Z34.81</DG1.3.1><DG1.3.1>Z34.81</DG1.3.1><DG1.3.1>Z34.81</DG1.3.1><DG1. .~.~<DG1.3.1>Z34.81</DG1.3.1><DG1.3.1>Z34.81</DG1.3.1><DG1.3.1>Z34.81</DG1.3.1>< DG1. .~.~<DG1.3.1>Z34.81</DG1.3.1><DG1.3.1> Z34.81</DG1.3.1><DG1.3.1>Z34.81</DG1.3.1><DG1. .~.~<DG1.3.1>Z34.81</DG1.3.1><DG1.3.1>Z34.81</DG1.3.1><DG1.3.1>Z34.81</DG1.3.1>< DG1. .~.~<DG1.3.1>Z34.81</DG1.3.1><DG1.3.1>Z34.81</DG1.3.1><DG1.3.1> Z34.81</DG1.3.1><DG1. .~.~<DG1.3.1>Z34.81</DG1.3.1><DG1.3.1>Z34.81</DG1.3.1><DG1.3.1>Z34.81</DG1.3.1>< DG1. .~.~<DG1.3.1>Z34.81</DG1.3.1><DG1.3.1>Z34.81</DG1.3.1><DG1.3.1>Z34.81</DG1.3.1> <DG1. Is patient fasting? N~.~.~<DG1.3.1>Z34.81</DG1.3.1><DG1.3.1>Z34.81</DG1.3.1><DG1.3.1>Z34.81</DG1 .~.~<DG1.3.1>Z34.81</DG1.3.1><DG1.3.1>Z34.81</DG1.3.1><DG1.3.1>Z34.81</DG1.3.1> <DG1. .~.~<DG1.3.1>Z34.81</DG1.3.1><DG1.3.1>Z34.81</DG1.3.1><DG1.3.1>Z34.81</DG1.3.1>< DG1. Reason for Exam: R~.~.~<DG1.3.1>Z34.81</DG1.3.1><DG1.3.1>Z34.81</DG1.3.1><DG1.3.1>Z34.81</DG1.3. .~.~<DG1.3.1>Z34.81</DG1.3.1><DG1.3.1>Z34.81</DG1.3.1><DG1.3.1>Z34.81</DG1.3.1>< DG1. {SPECIMEN TYPE: R~.~.~<DG1.3.1>Z34.81</DG1.3.1><DG1.3.1>Z34.81</DG1.3.1><DG1.3.1>Z34.81</DG1.3.1 .~.~<DG1.3.1>Z34.81</DG1.3.1><DG1.3.1>Z34.81</DG1.3.1><DG1.3.1>Z34.81</DG1.3.1>< DG1. .~.~<DG1.3.1>Z34.81</DG1.3.1><DG1.3.1>Z34.81</DG1.3.1><DG1.3.1>Z34.81</DG1.3.1> <DG1. .~.~<DG1.3.1>Z34.81</DG1.3.1><DG1.3.1>Z34.81</DG1.3.1><DG1.3.1>Z34.81</DG1.3.1>< DG1. .~.~<DG1.3.1>Z34.81</DG1.3.1><DG1.3.1>Z34.81</DG1.3.1><DG1.3.1>Z34.81</DG1.3.1>< DG1. .~.~<DG1.3.1> Z34.81</DG1.3.1><DG1.3.1>Z34.81</DG1.3.1><DG1.3.1>Z34.81</DG1.3.1><DG1. .~.~<DG1.3.1>Z34.81</DG1.3.1><DG1.3.1>Z34.81</DG1.3.1><DG1.3.1>Z34.81</DG1.3.1>< DG1. Clarity Laboratory test result [facility] ([facility]) .~.~<DG1.3.1>Z34.81</DG1.3.1><DG1.3.1>Z34.81</DG1.3.1><DG1.3.1>Z34.81</DG1.3.1>< DG1. {SOURCE: R~.~.~<DG1.3.1>Z34.81</DG1.3.1><DG1.3.1>Z34.81</DG1.3.1><DG1.3.1>Z34.81</DG1.3.1 ><DG1. .~.~<DG1.3.1> Z34.81</DG1.3.1><DG1.3.1>Z34.81</DG1.3.1><DG1.3.1>Z34.81</DG1.3.1><DG1. .~.~<DG1.3.1>Z34.81</DG1.3.1><DG1.3.1>Z34.81</DG1.3.1><DG1.3.1>Z34.81</DG1.3.1>< DG1. .~.~<DG1.3.1>Z34.81</DG1.3.1><DG1.3.1> Z34.81</DG1.3.1><DG1.3.1>Z34.81</DG1.3.1><DG1. .~.~<DG1.3.1>Z34.81</DG1.3.1><DG1.3.1>Z34.81</DG1.3.1><DG1.3.1>Z34.81</DG1.3.1>< DG1. .~.~<DG1.3.1>Z34.81</DG1.3.1><DG1.3.1>Z34.81</DG1.3.1><DG1.3.1> Z34.81</DG1.3.1><DG1. .~.~<DG1.3.1>Z34.81</DG1.3.1><DG1.3.1>Z34.81</DG1.3.1><DG1.3.1>Z34.81</DG1.3.1>< DG1. .~.~<DG1.3.1>Z34.81</DG1.3.1><DG1.3.1>Z34.81</DG1.3.1><DG1.3.1>Z34.81</DG1.3.1> <DG1. Is patient fasting? N~.~.~<DG1.3.1>Z34.81</DG1.3.1><DG1.3.1>Z34.81</DG1.3.1><DG1.3.1>Z34.81</DG1 .~.~<DG1.3.1>Z34.81</DG1.3.1><DG1.3.1>Z34.81</DG1.3.1><DG1.3.1>Z34.81</DG1.3.1> <DG1. .~.~<DG1.3.1>Z34.81</DG1.3.1><DG1.3.1>Z34.81</DG1.3.1><DG1.3.1>Z34.81</DG1.3.1>< DG1. Reason for Exam: R~.~.~<DG1.3.1>Z34.81</DG1.3.1><DG1.3.1>Z34.81</DG1.3.1><DG1.3.1>Z34.81</DG1.3. .~.~<DG1.3.1>Z34.81</DG1.3.1><DG1.3.1>Z34.81</DG1.3.1><DG1.3.1>Z34.81</DG1.3.1>< DG1. {SPECIMEN TYPE: R~.~.~<DG1.3.1>Z34.81</DG1.3.1><DG1.3.1>Z34.81</DG1.3.1><DG1.3.1>Z34.81</DG1.3.1 .~.~<DG1.3.1>Z34.81</DG1.3.1><DG1.3.1>Z34.81</DG1.3.1><DG1.3.1>Z34.81</DG1.3.1>< DG1. .~.~<DG1.3.1>Z34.81</DG1.3.1><DG1.3.1>Z34.81</DG1.3.1><DG1.3.1>Z34.81</DG1.3.1> <DG1. .~.~<DG1.3.1>Z34.81</DG1.3.1><DG1.3.1>Z34.81</DG1.3.1><DG1.3.1>Z34.81</DG1.3.1>< DG1. .~.~<DG1.3.1>Z34.81</DG1.3.1><DG1.3.1>Z34.81</DG1.3.1><DG1.3.1>Z34.81</DG1.3.1>< DG1. .~.~<DG1.3.1> Z34.81</DG1.3.1><DG1.3.1>Z34.81</DG1.3.1><DG1.3.1>Z34.81</DG1.3.1><DG1. .~.~<DG1.3.1>Z34.81</DG1.3.1><DG1.3.1>Z34.81</DG1.3.1><DG1.3.1>Z34.81</DG1.3.1>< DG1. Bilirubin Laboratory test result [facility] ([facility]) .~.~<DG1.3.1>Z34.81</DG1.3.1><DG1.3.1>Z34.81</DG1.3.1><DG1.3.1>Z34.81</DG1.3.1>< DG1. {SOURCE: R~.~.~<DG1.3.1>Z34.81</DG1.3.1><DG1.3.1>Z34.81</DG1.3.1><DG1.3.1>Z34.81</DG1.3.1 ><DG1. .~.~<DG1.3.1> Z34.81</DG1.3.1><DG1.3.1>Z34.81</DG1.3.1><DG1.3.1>Z34.81</DG1.3.1><DG1. .~.~<DG1.3.1>Z34.81</DG1.3.1><DG1.3.1>Z34.81</DG1.3.1><DG1.3.1>Z34.81</DG1.3.1>< DG1. .~.~<DG1.3.1>Z34.81</DG1.3.1><DG1.3.1> Z34.81</DG1.3.1><DG1.3.1>Z34.81</DG1.3.1><DG1. .~.~<DG1.3.1>Z34.81</DG1.3.1><DG1.3.1>Z34.81</DG1.3.1><DG1.3.1>Z34.81</DG1.3.1>< DG1. .~.~<DG1.3.1>Z34.81</DG1.3.1><DG1.3.1>Z34.81</DG1.3.1><DG1.3.1> Z34.81</DG1.3.1><DG1. .~.~<DG1.3.1>Z34.81</DG1.3.1><DG1.3.1>Z34.81</DG1.3.1><DG1.3.1>Z34.81</DG1.3.1>< DG1. .~.~<DG1.3.1>Z34.81</DG1.3.1><DG1.3.1>Z34.81</DG1.3.1><DG1.3.1>Z34.81</DG1.3.1> <DG1. Is patient fasting? N~.~.~<DG1.3.1>Z34.81</DG1.3.1><DG1.3.1>Z34.81</DG1.3.1><DG1.3.1>Z34.81</DG1 .~.~<DG1.3.1>Z34.81</DG1.3.1><DG1.3.1>Z34.81</DG1.3.1><DG1.3.1>Z34.81</DG1.3.1> <DG1. .~.~<DG1.3.1>Z34.81</DG1.3.1><DG1.3.1>Z34.81</DG1.3.1><DG1.3.1>Z34.81</DG1.3.1>< DG1. Reason for Exam: R~.~.~<DG1.3.1>Z34.81</DG1.3.1><DG1.3.1>Z34.81</DG1.3.1><DG1.3.1>Z34.81</DG1.3. .~.~<DG1.3.1>Z34.81</DG1.3.1><DG1.3.1>Z34.81</DG1.3.1><DG1.3.1>Z34.81</DG1.3.1>< DG1. {SPECIMEN TYPE: R~.~.~<DG1.3.1>Z34.81</DG1.3.1><DG1.3.1>Z34.81</DG1.3.1><DG1.3.1>Z34.81</DG1.3.1 .~.~<DG1.3.1>Z34.81</DG1.3.1><DG1.3.1>Z34.81</DG1.3.1><DG1.3.1>Z34.81</DG1.3.1>< DG1. .~.~<DG1.3.1>Z34.81</DG1.3.1><DG1.3.1>Z34.81</DG1.3.1><DG1.3.1>Z34.81</DG1.3.1> <DG1. .~.~<DG1.3.1>Z34.81</DG1.3.1><DG1.3.1>Z34.81</DG1.3.1><DG1.3.1>Z34.81</DG1.3.1>< DG1. .~.~<DG1.3.1>Z34.81</DG1.3.1><DG1.3.1>Z34.81</DG1.3.1><DG1.3.1>Z34.81</DG1.3.1>< DG1. .~.~<DG1.3.1> Z34.81</DG1.3.1><DG1.3.1>Z34.81</DG1.3.1><DG1.3.1>Z34.81</DG1.3.1><DG1. .~.~<DG1.3.1>Z34.81</DG1.3.1><DG1.3.1>Z34.81</DG1.3.1><DG1.3.1>Z34.81</DG1.3.1>< DG1. pH 6 5-9 [facility] ([facility] [place]) .~.~<DG1.3.1>Z34.81</DG1.3.1><DG1.3.1>Z34.81</DG1.3.1><DG1.3.1>Z34.81</DG1.3.1>< DG1. {SOURCE: R~.~.~<DG1.3.1>Z34.81</DG1.3.1><DG1.3.1>Z34.81</DG1.3.1><DG1.3.1>Z34.81</DG1.3.1 ><DG1. .~.~<DG1.3.1> Z34.81</DG1.3.1><DG1.3.1>Z34.81</DG1.3.1><DG1.3.1>Z34.81</DG1.3.1><DG1. .~.~<DG1.3.1>Z34.81</DG1.3.1><DG1.3.1>Z34.81</DG1.3.1><DG1.3.1>Z34.81</DG1.3.1>< DG1. .~.~<DG1.3.1>Z34.81</DG1.3.1><DG1.3.1> Z34.81</DG1.3.1><DG1.3.1>Z34.81</DG1.3.1><DG1. .~.~<DG1.3.1>Z34.81</DG1.3.1><DG1.3.1>Z34.81</DG1.3.1><DG1.3.1>Z34.81</DG1.3.1>< DG1. .~.~<DG1.3.1>Z34.81</DG1.3.1><DG1.3.1>Z34.81</DG1.3.1><DG1.3.1> Z34.81</DG1.3.1><DG1. .~.~<DG1.3.1>Z34.81</DG1.3.1><DG1.3.1>Z34.81</DG1.3.1><DG1.3.1>Z34.81</DG1.3.1>< DG1. .~.~<DG1.3.1>Z34.81</DG1.3.1><DG1.3.1>Z34.81</DG1.3.1><DG1.3.1>Z34.81</DG1.3.1> <DG1. Is patient fasting? N~.~.~<DG1.3.1>Z34.81</DG1.3.1><DG1.3.1>Z34.81</DG1.3.1><DG1.3.1>Z34.81</DG1 .~.~<DG1.3.1>Z34.81</DG1.3.1><DG1.3.1>Z34.81</DG1.3.1><DG1.3.1>Z34.81</DG1.3.1> <DG1. .~.~<DG1.3.1>Z34.81</DG1.3.1><DG1.3.1>Z34.81</DG1.3.1><DG1.3.1>Z34.81</DG1.3.1>< DG1. Reason for Exam: R~.~.~<DG1.3.1>Z34.81</DG1.3.1><DG1.3.1>Z34.81</DG1.3.1><DG1.3.1>Z34.81</DG1.3. .~.~<DG1.3.1>Z34.81</DG1.3.1><DG1.3.1>Z34.81</DG1.3.1><DG1.3.1>Z34.81</DG1.3.1>< DG1. {SPECIMEN TYPE: R~.~.~<DG1.3.1>Z34.81</DG1.3.1><DG1.3.1>Z34.81</DG1.3.1><DG1.3.1>Z34.81</DG1.3.1 .~.~<DG1.3.1>Z34.81</DG1.3.1><DG1.3.1>Z34.81</DG1.3.1><DG1.3.1>Z34.81</DG1.3.1>< DG1. .~.~<DG1.3.1>Z34.81</DG1.3.1><DG1.3.1>Z34.81</DG1.3.1><DG1.3.1>Z34.81</DG1.3.1> <DG1. .~.~<DG1.3.1>Z34.81</DG1.3.1><DG1.3.1>Z34.81</DG1.3.1><DG1.3.1>Z34.81</DG1.3.1>< DG1. .~.~<DG1.3.1>Z34.81</DG1.3.1><DG1.3.1>Z34.81</DG1.3.1><DG1.3.1>Z34.81</DG1.3.1>< DG1. .~.~<DG1.3.1> Z34.81</DG1.3.1><DG1.3.1>Z34.81</DG1.3.1><DG1.3.1>Z34.81</DG1.3.1><DG1. .~.~<DG1.3.1>Z34.81</DG1.3.1><DG1.3.1>Z34.81</DG1.3.1><DG1.3.1>Z34.81</DG1.3.1>< DG1. Glucose Laboratory test result [facility] ([facility]) .~.~<DG1.3.1>Z34.81</DG1.3.1><DG1.3.1>Z34.81</DG1.3.1><DG1.3.1>Z34.81</DG1.3.1>< DG1. {SOURCE: R~.~.~<DG1.3.1>Z34.81</DG1.3.1><DG1.3.1>Z34.81</DG1.3.1><DG1.3.1>Z34.81</DG1.3.1 ><DG1. .~.~<DG1.3.1> Z34.81</DG1.3.1><DG1.3.1>Z34.81</DG1.3.1><DG1.3.1>Z34.81</DG1.3.1><DG1. .~.~<DG1.3.1>Z34.81</DG1.3.1><DG1.3.1>Z34.81</DG1.3.1><DG1.3.1>Z34.81</DG1.3.1>< DG1. .~.~<DG1.3.1>Z34.81</DG1.3.1><DG1.3.1> Z34.81</DG1.3.1><DG1.3.1>Z34.81</DG1.3.1><DG1. .~.~<DG1.3.1>Z34.81</DG1.3.1><DG1.3.1>Z34.81</DG1.3.1><DG1.3.1>Z34.81</DG1.3.1>< DG1. .~.~<DG1.3.1>Z34.81</DG1.3.1><DG1.3.1>Z34.81</DG1.3.1><DG1.3.1> Z34.81</DG1.3.1><DG1. .~.~<DG1.3.1>Z34.81</DG1.3.1><DG1.3.1>Z34.81</DG1.3.1><DG1.3.1>Z34.81</DG1.3.1>< DG1. .~.~<DG1.3.1>Z34.81</DG1.3.1><DG1.3.1>Z34.81</DG1.3.1><DG1.3.1>Z34.81</DG1.3.1> <DG1. Is patient fasting? N~.~.~<DG1.3.1>Z34.81</DG1.3.1><DG1.3.1>Z34.81</DG1.3.1><DG1.3.1>Z34.81</DG1 .~.~<DG1.3.1>Z34.81</DG1.3.1><DG1.3.1>Z34.81</DG1.3.1><DG1.3.1>Z34.81</DG1.3.1> <DG1. .~.~<DG1.3.1>Z34.81</DG1.3.1><DG1.3.1>Z34.81</DG1.3.1><DG1.3.1>Z34.81</DG1.3.1>< DG1. Reason for Exam: R~.~.~<DG1.3.1>Z34.81</DG1.3.1><DG1.3.1>Z34.81</DG1.3.1><DG1.3.1>Z34.81</DG1.3. .~.~<DG1.3.1>Z34.81</DG1.3.1><DG1.3.1>Z34.81</DG1.3.1><DG1.3.1>Z34.81</DG1.3.1>< DG1. {SPECIMEN TYPE: R~.~.~<DG1.3.1>Z34.81</DG1.3.1><DG1.3.1>Z34.81</DG1.3.1><DG1.3.1>Z34.81</DG1.3.1 .~.~<DG1.3.1>Z34.81</DG1.3.1><DG1.3.1>Z34.81</DG1.3.1><DG1.3.1>Z34.81</DG1.3.1>< DG1. .~.~<DG1.3.1>Z34.81</DG1.3.1><DG1.3.1>Z34.81</DG1.3.1><DG1.3.1>Z34.81</DG1.3.1> <DG1. .~.~<DG1.3.1>Z34.81</DG1.3.1><DG1.3.1>Z34.81</DG1.3.1><DG1.3.1>Z34.81</DG1.3.1>< DG1. .~.~<DG1.3.1>Z34.81</DG1.3.1><DG1.3.1>Z34.81</DG1.3.1><DG1.3.1>Z34.81</DG1.3.1>< DG1. .~.~<DG1.3.1> Z34.81</DG1.3.1><DG1.3.1>Z34.81</DG1.3.1><DG1.3.1>Z34.81</DG1.3.1><DG1. .~.~<DG1.3.1>Z34.81</DG1.3.1><DG1.3.1>Z34.81</DG1.3.1><DG1.3.1>Z34.81</DG1.3.1>< DG1. Protein [address] [facility] ([facility], [place]) .~.~<DG1.3.1>Z34.81</DG1.3.1><DG1.3.1>Z34.81</DG1.3.1><DG1.3.1>Z34.81</DG1.3.1>< DG1. {SOURCE: R~.~.~<DG1.3.1>Z34.81</DG1.3.1><DG1.3.1>Z34.81</DG1.3.1><DG1.3.1>Z34.81</DG1.3.1 ><DG1. .~.~<DG1.3.1> Z34.81</DG1.3.1><DG1.3.1>Z34.81</DG1.3.1><DG1.3.1>Z34.81</DG1.3.1><DG1. .~.~<DG1.3.1>Z34.81</DG1.3.1><DG1.3.1>Z34.81</DG1.3.1><DG1.3.1>Z34.81</DG1.3.1>< DG1. .~.~<DG1.3.1>Z34.81</DG1.3.1><DG1.3.1> Z34.81</DG1.3.1><DG1.3.1>Z34.81</DG1.3.1><DG1. .~.~<DG1.3.1>Z34.81</DG1.3.1><DG1.3.1>Z34.81</DG1.3.1><DG1.3.1>Z34.81</DG1.3.1>< DG1. .~.~<DG1.3.1>Z34.81</DG1.3.1><DG1.3.1>Z34.81</DG1.3.1><DG1.3.1> Z34.81</DG1.3.1><DG1. .~.~<DG1.3.1>Z34.81</DG1.3.1><DG1.3.1>Z34.81</DG1.3.1><DG1.3.1>Z34.81</DG1.3.1>< DG1. .~.~<DG1.3.1>Z34.81</DG1.3.1><DG1.3.1>Z34.81</DG1.3.1><DG1.3.1>Z34.81</DG1.3.1> <DG1. Is patient fasting? N~.~.~<DG1.3.1>Z34.81</DG1.3.1><DG1.3.1>Z34.81</DG1.3.1><DG1.3.1>Z34.81</DG1 .~.~<DG1.3.1>Z34.81</DG1.3.1><DG1.3.1>Z34.81</DG1.3.1><DG1.3.1>Z34.81</DG1.3.1> <DG1. .~.~<DG1.3.1>Z34.81</DG1.3.1><DG1.3.1>Z34.81</DG1.3.1><DG1.3.1>Z34.81</DG1.3.1>< DG1. Reason for Exam: R~.~.~<DG1.3.1>Z34.81</DG1.3.1><DG1.3.1>Z34.81</DG1.3.1><DG1.3.1>Z34.81</DG1.3. .~.~<DG1.3.1>Z34.81</DG1.3.1><DG1.3.1>Z34.81</DG1.3.1><DG1.3.1>Z34.81</DG1.3.1>< DG1. {SPECIMEN TYPE: R~.~.~<DG1.3.1>Z34.81</DG1.3.1><DG1.3.1>Z34.81</DG1.3.1><DG1.3.1>Z34.81</DG1.3.1 .~.~<DG1.3.1>Z34.81</DG1.3.1><DG1.3.1>Z34.81</DG1.3.1><DG1.3.1>Z34.81</DG1.3.1>< DG1. .~.~<DG1.3.1>Z34.81</DG1.3.1><DG1.3.1>Z34.81</DG1.3.1><DG1.3.1>Z34.81</DG1.3.1> <DG1. .~.~<DG1.3.1>Z34.81</DG1.3.1><DG1.3.1>Z34.81</DG1.3.1><DG1.3.1>Z34.81</DG1.3.1>< DG1. .~.~<DG1.3.1>Z34.81</DG1.3.1><DG1.3.1>Z34.81</DG1.3.1><DG1.3.1>Z34.81</DG1.3.1>< DG1. .~.~<DG1.3.1> Z34.81</DG1.3.1><DG1.3.1>Z34.81</DG1.3.1><DG1.3.1>Z34.81</DG1.3.1><DG1. .~.~<DG1.3.1>Z34.81</DG1.3.1><DG1.3.1>Z34.81</DG1.3.1><DG1.3.1>Z34.81</DG1.3.1>< DG1. Ketone Laboratory test result [facility] ([facility]) .~.~<DG1.3.1>Z34.81</DG1.3.1><DG1.3.1>Z34.81</DG1.3.1><DG1.3.1>Z34.81</DG1.3.1>< DG1. {SOURCE: R~.~.~<DG1.3.1>Z34.81</DG1.3.1><DG1.3.1>Z34.81</DG1.3.1><DG1.3.1>Z34.81</DG1.3.1 ><DG1. .~.~<DG1.3.1> Z34.81</DG1.3.1><DG1.3.1>Z34.81</DG1.3.1><DG1.3.1>Z34.81</DG1.3.1><DG1. .~.~<DG1.3.1>Z34.81</DG1.3.1><DG1.3.1>Z34.81</DG1.3.1><DG1.3.1>Z34.81</DG1.3.1>< DG1. .~.~<DG1.3.1>Z34.81</DG1.3.1><DG1.3.1> Z34.81</DG1.3.1><DG1.3.1>Z34.81</DG1.3.1><DG1. .~.~<DG1.3.1>Z34.81</DG1.3.1><DG1.3.1>Z34.81</DG1.3.1><DG1.3.1>Z34.81</DG1.3.1>< DG1. .~.~<DG1.3.1>Z34.81</DG1.3.1><DG1.3.1>Z34.81</DG1.3.1><DG1.3.1> Z34.81</DG1.3.1><DG1. .~.~<DG1.3.1>Z34.81</DG1.3.1><DG1.3.1>Z34.81</DG1.3.1><DG1.3.1>Z34.81</DG1.3.1>< DG1. .~.~<DG1.3.1>Z34.81</DG1.3.1><DG1.3.1>Z34.81</DG1.3.1><DG1.3.1>Z34.81</DG1.3.1> <DG1. Is patient fasting? N~.~.~<DG1.3.1>Z34.81</DG1.3.1><DG1.3.1>Z34.81</DG1.3.1><DG1.3.1>Z34.81</DG1 .~.~<DG1.3.1>Z34.81</DG1.3.1><DG1.3.1>Z34.81</DG1.3.1><DG1.3.1>Z34.81</DG1.3.1> <DG1. .~.~<DG1.3.1>Z34.81</DG1.3.1><DG1.3.1>Z34.81</DG1.3.1><DG1.3.1>Z34.81</DG1.3.1>< DG1. Reason for Exam: R~.~.~<DG1.3.1>Z34.81</DG1.3.1><DG1.3.1>Z34.81</DG1.3.1><DG1.3.1>Z34.81</DG1.3. .~.~<DG1.3.1>Z34.81</DG1.3.1><DG1.3.1>Z34.81</DG1.3.1><DG1.3.1>Z34.81</DG1.3.1>< DG1. {SPECIMEN TYPE: R~.~.~<DG1.3.1>Z34.81</DG1.3.1><DG1.3.1>Z34.81</DG1.3.1><DG1.3.1>Z34.81</DG1.3.1 .~.~<DG1.3.1>Z34.81</DG1.3.1><DG1.3.1>Z34.81</DG1.3.1><DG1.3.1>Z34.81</DG1.3.1>< DG1. .~.~<DG1.3.1>Z34.81</DG1.3.1><DG1.3.1>Z34.81</DG1.3.1><DG1.3.1>Z34.81</DG1.3.1> <DG1. .~.~<DG1.3.1>Z34.81</DG1.3.1><DG1.3.1>Z34.81</DG1.3.1><DG1.3.1>Z34.81</DG1.3.1>< DG1. .~.~<DG1.3.1>Z34.81</DG1.3.1><DG1.3.1>Z34.81</DG1.3.1><DG1.3.1>Z34.81</DG1.3.1>< DG1. .~.~<DG1.3.1> Z34.81</DG1.3.1><DG1.3.1>Z34.81</DG1.3.1><DG1.3.1>Z34.81</DG1.3.1><DG1. .~.~<DG1.3.1>Z34.81</DG1.3.1><DG1.3.1>Z34.81</DG1.3.1><DG1.3.1>Z34.81</DG1.3.1>< DG1. Leuk Est 100 Abnormal (applies to non-numeric res ults) [facility] ([facility]) .~.~<DG1.3.1>Z34.81</DG1.3.1><DG1.3.1>Z34.81</DG1.3.1><DG1.3.1>Z34.81</DG1.3.1>< DG1. {SOURCE: R~.~.~<DG1.3.1>Z34.81</DG1.3.1><DG1.3.1>Z34.81</DG1.3.1><DG1.3.1>Z34.81</DG1.3.1 ><DG1. .~.~<DG1.3.1> Z34.81</DG1.3.1><DG1.3.1>Z34.81</DG1.3.1><DG1.3.1>Z34.81</DG1.3.1><DG1. .~.~<DG1.3.1>Z34.81</DG1.3.1><DG1.3.1>Z34.81</DG1.3.1><DG1.3.1>Z34.81</DG1.3.1>< DG1. .~.~<DG1.3.1>Z34.81</DG1.3.1><DG1.3.1> Z34.81</DG1.3.1><DG1.3.1>Z34.81</DG1.3.1><DG1. .~.~<DG1.3.1>Z34.81</DG1.3.1><DG1.3.1>Z34.81</DG1.3.1><DG1.3.1>Z34.81</DG1.3.1>< DG1. .~.~<DG1.3.1>Z34.81</DG1.3.1><DG1.3.1>Z34.81</DG1.3.1><DG1.3.1> Z34.81</DG1.3.1><DG1. .~.~<DG1.3.1>Z34.81</DG1.3.1><DG1.3.1>Z34.81</DG1.3.1><DG1.3.1>Z34.81</DG1.3.1>< DG1. .~.~<DG1.3.1>Z34.81</DG1.3.1><DG1.3.1>Z34.81</DG1.3.1><DG1.3.1>Z34.81</DG1.3.1> <DG1. Is patient fasting? N~.~.~<DG1.3.1>Z34.81</DG1.3.1><DG1.3.1>Z34.81</DG1.3.1><DG1.3.1>Z34.81</DG1 .~.~<DG1.3.1>Z34.81</DG1.3.1><DG1.3.1>Z34.81</DG1.3.1><DG1.3.1>Z34.81</DG1.3.1> <DG1. .~.~<DG1.3.1>Z34.81</DG1.3.1><DG1.3.1>Z34.81</DG1.3.1><DG1.3.1>Z34.81</DG1.3.1>< DG1. Reason for Exam: R~.~.~<DG1.3.1>Z34.81</DG1.3.1><DG1.3.1>Z34.81</DG1.3.1><DG1.3.1>Z34.81</DG1.3. .~.~<DG1.3.1>Z34.81</DG1.3.1><DG1.3.1>Z34.81</DG1.3.1><DG1.3.1>Z34.81</DG1.3.1>< DG1. {SPECIMEN TYPE: R~.~.~<DG1.3.1>Z34.81</DG1.3.1><DG1.3.1>Z34.81</DG1.3.1><DG1.3.1>Z34.81</DG1.3.1 .~.~<DG1.3.1>Z34.81</DG1.3.1><DG1.3.1>Z34.81</DG1.3.1><DG1.3.1>Z34.81</DG1.3.1>< DG1. .~.~<DG1.3.1>Z34.81</DG1.3.1><DG1.3.1>Z34.81</DG1.3.1><DG1.3.1>Z34.81</DG1.3.1> <DG1. .~.~<DG1.3.1>Z34.81</DG1.3.1><DG1.3.1>Z34.81</DG1.3.1><DG1.3.1>Z34.81</DG1.3.1>< DG1. .~.~<DG1.3.1>Z34.81</DG1.3.1><DG1.3.1>Z34.81</DG1.3.1><DG1.3.1>Z34.81</DG1.3.1>< DG1. .~.~<DG1.3.1> Z34.81</DG1.3.1><DG1.3.1>Z34.81</DG1.3.1><DG1.3.1>Z34.81</DG1.3.1><DG1. .~.~<DG1.3.1>Z34.81</DG1.3.1><DG1.3.1>Z34.81</DG1.3.1><DG1.3.1>Z34.81</DG1.3.1>< DG1. Nitrite Laboratory test result [facility] ([facility]) .~.~<DG1.3.1>Z34.81</DG1.3.1><DG1.3.1>Z34.81</DG1.3.1><DG1.3.1>Z34.81</DG1.3.1>< DG1. {SOURCE: R~.~.~<DG1.3.1>Z34.81</DG1.3.1><DG1.3.1>Z34.81</DG1.3.1><DG1.3.1>Z34.81</DG1.3.1 ><DG1. .~.~<DG1.3.1> Z34.81</DG1.3.1><DG1.3.1>Z34.81</DG1.3.1><DG1.3.1>Z34.81</DG1.3.1><DG1. .~.~<DG1.3.1>Z34.81</DG1.3.1><DG1.3.1>Z34.81</DG1.3.1><DG1.3.1>Z34.81</DG1.3.1>< DG1. .~.~<DG1.3.1>Z34.81</DG1.3.1><DG1.3.1> Z34.81</DG1.3.1><DG1.3.1>Z34.81</DG1.3.1><DG1. .~.~<DG1.3.1>Z34.81</DG1.3.1><DG1.3.1>Z34.81</DG1.3.1><DG1.3.1>Z34.81</DG1.3.1>< DG1. .~.~<DG1.3.1>Z34.81</DG1.3.1><DG1.3.1>Z34.81</DG1.3.1><DG1.3.1> Z34.81</DG1.3.1><DG1. .~.~<DG1.3.1>Z34.81</DG1.3.1><DG1.3.1>Z34.81</DG1.3.1><DG1.3.1>Z34.81</DG1.3.1>< DG1. .~.~<DG1.3.1>Z34.81</DG1.3.1><DG1.3.1>Z34.81</DG1.3.1><DG1.3.1>Z34.81</DG1.3.1> <DG1. Is patient fasting? N~.~.~<DG1.3.1>Z34.81</DG1.3.1><DG1.3.1>Z34.81</DG1.3.1><DG1.3.1>Z34.81</DG1 .~.~<DG1.3.1>Z34.81</DG1.3.1><DG1.3.1>Z34.81</DG1.3.1><DG1.3.1>Z34.81</DG1.3.1> <DG1. .~.~<DG1.3.1>Z34.81</DG1.3.1><DG1.3.1>Z34.81</DG1.3.1><DG1.3.1>Z34.81</DG1.3.1>< DG1. Reason for Exam: R~.~.~<DG1.3.1>Z34.81</DG1.3.1><DG1.3.1>Z34.81</DG1.3.1><DG1.3.1>Z34.81</DG1.3. .~.~<DG1.3.1>Z34.81</DG1.3.1><DG1.3.1>Z34.81</DG1.3.1><DG1.3.1>Z34.81</DG1.3.1>< DG1. {SPECIMEN TYPE: R~.~.~<DG1.3.1>Z34.81</DG1.3.1><DG1.3.1>Z34.81</DG1.3.1><DG1.3.1>Z34.81</DG1.3.1 .~.~<DG1.3.1>Z34.81</DG1.3.1><DG1.3.1>Z34.81</DG1.3.1><DG1.3.1>Z34.81</DG1.3.1>< DG1. .~.~<DG1.3.1>Z34.81</DG1.3.1><DG1.3.1>Z34.81</DG1.3.1><DG1.3.1>Z34.81</DG1.3.1> <DG1. .~.~<DG1.3.1>Z34.81</DG1.3.1><DG1.3.1>Z34.81</DG1.3.1><DG1.3.1>Z34.81</DG1.3.1>< DG1. .~.~<DG1.3.1>Z34.81</DG1.3.1><DG1.3.1>Z34.81</DG1.3.1><DG1.3.1>Z34.81</DG1.3.1>< DG1. .~.~<DG1.3.1> Z34.81</DG1.3.1><DG1.3.1>Z34.81</DG1.3.1><DG1.3.1>Z34.81</DG1.3.1><DG1. .~.~<DG1.3.1>Z34.81</DG1.3.1><DG1.3.1>Z34.81</DG1.3.1><DG1.3.1>Z34.81</DG1.3.1>< DG1. Blood 150 Abnormal (applies to non-numeric res ults) [facility] ([facility]) .~.~<DG1.3.1>Z34.81</DG1.3.1><DG1.3.1>Z34.81</DG1.3.1><DG1.3.1>Z34.81</DG1.3.1>< DG1. {SOURCE: R~.~.~<DG1.3.1>Z34.81</DG1.3.1><DG1.3.1>Z34.81</DG1.3.1><DG1.3.1>Z34.81</DG1.3.1 ><DG1. .~.~<DG1.3.1> Z34.81</DG1.3.1><DG1.3.1>Z34.81</DG1.3.1><DG1.3.1>Z34.81</DG1.3.1><DG1. .~.~<DG1.3.1>Z34.81</DG1.3.1><DG1.3.1>Z34.81</DG1.3.1><DG1.3.1>Z34.81</DG1.3.1>< DG1. .~.~<DG1.3.1>Z34.81</DG1.3.1><DG1.3.1> Z34.81</DG1.3.1><DG1.3.1>Z34.81</DG1.3.1><DG1. .~.~<DG1.3.1>Z34.81</DG1.3.1><DG1.3.1>Z34.81</DG1.3.1><DG1.3.1>Z34.81</DG1.3.1>< DG1. .~.~<DG1.3.1>Z34.81</DG1.3.1><DG1.3.1>Z34.81</DG1.3.1><DG1.3.1> Z34.81</DG1.3.1><DG1. .~.~<DG1.3.1>Z34.81</DG1.3.1><DG1.3.1>Z34.81</DG1.3.1><DG1.3.1>Z34.81</DG1.3.1>< DG1. .~.~<DG1.3.1>Z34.81</DG1.3.1><DG1.3.1>Z34.81</DG1.3.1><DG1.3.1>Z34.81</DG1.3.1> <DG1. Is patient fasting? N~.~.~<DG1.3.1>Z34.81</DG1.3.1><DG1.3.1>Z34.81</DG1.3.1><DG1.3.1>Z34.81</DG1 .~.~<DG1.3.1>Z34.81</DG1.3.1><DG1.3.1>Z34.81</DG1.3.1><DG1.3.1>Z34.81</DG1.3.1> <DG1. .~.~<DG1.3.1>Z34.81</DG1.3.1><DG1.3.1>Z34.81</DG1.3.1><DG1.3.1>Z34.81</DG1.3.1>< DG1. Reason for Exam: R~.~.~<DG1.3.1>Z34.81</DG1.3.1><DG1.3.1>Z34.81</DG1.3.1><DG1.3.1>Z34.81</DG1.3. .~.~<DG1.3.1>Z34.81</DG1.3.1><DG1.3.1>Z34.81</DG1.3.1><DG1.3.1>Z34.81</DG1.3.1>< DG1. {SPECIMEN TYPE: R~.~.~<DG1.3.1>Z34.81</DG1.3.1><DG1.3.1>Z34.81</DG1.3.1><DG1.3.1>Z34.81</DG1.3.1 .~.~<DG1.3.1>Z34.81</DG1.3.1><DG1.3.1>Z34.81</DG1.3.1><DG1.3.1>Z34.81</DG1.3.1>< DG1. .~.~<DG1.3.1>Z34.81</DG1.3.1><DG1.3.1>Z34.81</DG1.3.1><DG1.3.1>Z34.81</DG1.3.1> <DG1. .~.~<DG1.3.1>Z34.81</DG1.3.1><DG1.3.1>Z34.81</DG1.3.1><DG1.3.1>Z34.81</DG1.3.1>< DG1. .~.~<DG1.3.1>Z34.81</DG1.3.1><DG1.3.1>Z34.81</DG1.3.1><DG1.3.1>Z34.81</DG1.3.1>< DG1. .~.~<DG1.3.1> Z34.81</DG1.3.1><DG1.3.1>Z34.81</DG1.3.1><DG1.3.1>Z34.81</DG1.3.1><DG1. .~.~<DG1.3.1>Z34.81</DG1.3.1><DG1.3.1>Z34.81</DG1.3.1><DG1.3.1>Z34.81</DG1.3.1>< DG1. Urobilinogen Laboratory test result [facility] ([facility]) .~.~<DG1.3.1>Z34.81</DG1.3.1><DG1.3.1>Z34.81</DG1.3.1><DG1.3.1>Z34.81</DG1.3.1>< DG1. {SOURCE: R~.~.~<DG1.3.1>Z34.81</DG1.3.1><DG1.3.1>Z34.81</DG1.3.1><DG1.3.1>Z34.81</DG1.3.1 ><DG1. .~.~<DG1.3.1> Z34.81</DG1.3.1><DG1.3.1>Z34.81</DG1.3.1><DG1.3.1>Z34.81</DG1.3.1><DG1. .~.~<DG1.3.1>Z34.81</DG1.3.1><DG1.3.1>Z34.81</DG1.3.1><DG1.3.1>Z34.81</DG1.3.1>< DG1. .~.~<DG1.3.1>Z34.81</DG1.3.1><DG1.3.1> Z34.81</DG1.3.1><DG1.3.1>Z34.81</DG1.3.1><DG1. .~.~<DG1.3.1>Z34.81</DG1.3.1><DG1.3.1>Z34.81</DG1.3.1><DG1.3.1>Z34.81</DG1.3.1>< DG1. .~.~<DG1.3.1>Z34.81</DG1.3.1><DG1.3.1>Z34.81</DG1.3.1><DG1.3.1> Z34.81</DG1.3.1><DG1. .~.~<DG1.3.1>Z34.81</DG1.3.1><DG1.3.1>Z34.81</DG1.3.1><DG1.3.1>Z34.81</DG1.3.1>< DG1. .~.~<DG1.3.1>Z34.81</DG1.3.1><DG1.3.1>Z34.81</DG1.3.1><DG1.3.1>Z34.81</DG1.3.1> <DG1. Is patient fasting? N~.~.~<DG1.3.1>Z34.81</DG1.3.1><DG1.3.1>Z34.81</DG1.3.1><DG1.3.1>Z34.81</DG1 .~.~<DG1.3.1>Z34.81</DG1.3.1><DG1.3.1>Z34.81</DG1.3.1><DG1.3.1>Z34.81</DG1.3.1> <DG1. .~.~<DG1.3.1>Z34.81</DG1.3.1><DG1.3.1>Z34.81</DG1.3.1><DG1.3.1>Z34.81</DG1.3.1>< DG1. Reason for Exam: R~.~.~<DG1.3.1>Z34.81</DG1.3.1><DG1.3.1>Z34.81</DG1.3.1><DG1.3.1>Z34.81</DG1.3. .~.~<DG1.3.1>Z34.81</DG1.3.1><DG1.3.1>Z34.81</DG1.3.1><DG1.3.1>Z34.81</DG1.3.1>< DG1. {SPECIMEN TYPE: R~.~.~<DG1.3.1>Z34.81</DG1.3.1><DG1.3.1>Z34.81</DG1.3.1><DG1.3.1>Z34.81</DG1.3.1 .~.~<DG1.3.1>Z34.81</DG1.3.1><DG1.3.1>Z34.81</DG1.3.1><DG1.3.1>Z34.81</DG1.3.1>< DG1. .~.~<DG1.3.1>Z34.81</DG1.3.1><DG1.3.1>Z34.81</DG1.3.1><DG1.3.1>Z34.81</DG1.3.1> <DG1. .~.~<DG1.3.1>Z34.81</DG1.3.1><DG1.3.1>Z34.81</DG1.3.1><DG1.3.1>Z34.81</DG1.3.1>< DG1. .~.~<DG1.3.1>Z34.81</DG1.3.1><DG1.3.1>Z34.81</DG1.3.1><DG1.3.1>Z34.81</DG1.3.1>< DG1. .~.~<DG1.3.1> Z34.81</DG1.3.1><DG1.3.1>Z34.81</DG1.3.1><DG1.3.1>Z34.81</DG1.3.1><DG1. .~.~<DG1.3.1>Z34.81</DG1.3.1><DG1.3.1>Z34.81</DG1.3.1><DG1.3.1>Z34.81</DG1.3.1>< DG1. Microscopic Laboratory test result [facility] ([facility]) .~.~<DG1.3.1>Z34.81</DG1.3.1><DG1.3.1>Z34.81</DG1.3.1><DG1.3.1>Z34.81</DG1.3.1>< DG1. {SOURCE: R~.~.~<DG1.3.1>Z34.81</DG1.3.1><DG1.3.1>Z34.81</DG1.3.1><DG1.3.1>Z34.81</DG1.3.1 ><DG1. .~.~<DG1.3.1> Z34.81</DG1.3.1><DG1.3.1>Z34.81</DG1.3.1><DG1.3.1>Z34.81</DG1.3.1><DG1. .~.~<DG1.3.1>Z34.81</DG1.3.1><DG1.3.1>Z34.81</DG1.3.1><DG1.3.1>Z34.81</DG1.3.1>< DG1. .~.~<DG1.3.1>Z34.81</DG1.3.1><DG1.3.1> Z34.81</DG1.3.1><DG1.3.1>Z34.81</DG1.3.1><DG1. .~.~<DG1.3.1>Z34.81</DG1.3.1><DG1.3.1>Z34.81</DG1.3.1><DG1.3.1>Z34.81</DG1.3.1>< DG1. .~.~<DG1.3.1>Z34.81</DG1.3.1><DG1.3.1>Z34.81</DG1.3.1><DG1.3.1> Z34.81</DG1.3.1><DG1. .~.~<DG1.3.1>Z34.81</DG1.3.1><DG1.3.1>Z34.81</DG1.3.1><DG1.3.1>Z34.81</DG1.3.1>< DG1. .~.~<DG1.3.1>Z34.81</DG1.3.1><DG1.3.1>Z34.81</DG1.3.1><DG1.3.1>Z34.81</DG1.3.1> <DG1. Is patient fasting? N~.~.~<DG1.3.1>Z34.81</DG1.3.1><DG1.3.1>Z34.81</DG1.3.1><DG1.3.1>Z34.81</DG1 .~.~<DG1.3.1>Z34.81</DG1.3.1><DG1.3.1>Z34.81</DG1.3.1><DG1.3.1>Z34.81</DG1.3.1> <DG1. .~.~<DG1.3.1>Z34.81</DG1.3.1><DG1.3.1>Z34.81</DG1.3.1><DG1.3.1>Z34.81</DG1.3.1>< DG1. Reason for Exam: R~.~.~<DG1.3.1>Z34.81</DG1.3.1><DG1.3.1>Z34.81</DG1.3.1><DG1.3.1>Z34.81</DG1.3. .~.~<DG1.3.1>Z34.81</DG1.3.1><DG1.3.1>Z34.81</DG1.3.1><DG1.3.1>Z34.81</DG1.3.1>< DG1. {SPECIMEN TYPE: R~.~.~<DG1.3.1>Z34.81</DG1.3.1><DG1.3.1>Z34.81</DG1.3.1><DG1.3.1>Z34.81</DG1.3.1 .~.~<DG1.3.1>Z34.81</DG1.3.1><DG1.3.1>Z34.81</DG1.3.1><DG1.3.1>Z34.81</DG1.3.1>< DG1. .~.~<DG1.3.1>Z34.81</DG1.3.1><DG1.3.1>Z34.81</DG1.3.1><DG1.3.1>Z34.81</DG1.3.1> <DG1. .~.~<DG1.3.1>Z34.81</DG1.3.1><DG1.3.1>Z34.81</DG1.3.1><DG1.3.1>Z34.81</DG1.3.1>< DG1. .~.~<DG1.3.1>Z34.81</DG1.3.1><DG1.3.1>Z34.81</DG1.3.1><DG1.3.1>Z34.81</DG1.3.1>< DG1. .~.~<DG1.3.1> Z34.81</DG1.3.1><DG1.3.1>Z34.81</DG1.3.1><DG1.3.1>Z34.81</DG1.3.1><DG1. .~.~<DG1.3.1>Z34.81</DG1.3.1><DG1.3.1>Z34.81</DG1.3.1><DG1.3.1>Z34.81</DG1.3.1>< DG1. Epithelial Laboratory test result Abnormal (applies to non -numeric results) [facility]) .~.~<DG1.3.1>Z34.81</DG1.3.1><DG1.3.1>Z34.81</DG1.3.1><DG1.3.1>Z34.81</DG1.3.1>< DG1. {SOURCE: R~.~.~<DG1.3.1>Z34.81</DG1.3.1><DG1.3.1>Z34.81</DG1.3.1><DG1.3.1>Z34.81</DG1.3.1 ><DG1. .~.~<DG1.3.1> Z34.81</DG1.3.1><DG1.3.1>Z34.81</DG1.3.1><DG1.3.1>Z34.81</DG1.3.1><DG1. .~.~<DG1.3.1>Z34.81</DG1.3.1><DG1.3.1>Z34.81</DG1.3.1><DG1.3.1>Z34.81</DG1.3.1>< DG1. .~.~<DG1.3.1>Z34.81</DG1.3.1><DG1.3.1> Z34.81</DG1.3.1><DG1.3.1>Z34.81</DG1.3.1><DG1. .~.~<DG1.3.1>Z34.81</DG1.3.1><DG1.3.1>Z34.81</DG1.3.1><DG1.3.1>Z34.81</DG1.3.1>< DG1. .~.~<DG1.3.1>Z34.81</DG1.3.1><DG1.3.1>Z34.81</DG1.3.1><DG1.3.1> Z34.81</DG1.3.1><DG1. .~.~<DG1.3.1>Z34.81</DG1.3.1><DG1.3.1>Z34.81</DG1.3.1><DG1.3.1>Z34.81</DG1.3.1>< DG1. .~.~<DG1.3.1>Z34.81</DG1.3.1><DG1.3.1>Z34.81</DG1.3.1><DG1.3.1>Z34.81</DG1.3.1> <DG1. Is patient fasting? N~.~.~<DG1.3.1>Z34.81</DG1.3.1><DG1.3.1>Z34.81</DG1.3.1><DG1.3.1>Z34.81</DG1 .~.~<DG1.3.1>Z34.81</DG1.3.1><DG1.3.1>Z34.81</DG1.3.1><DG1.3.1>Z34.81</DG1.3.1> <DG1. .~.~<DG1.3.1>Z34.81</DG1.3.1><DG1.3.1>Z34.81</DG1.3.1><DG1.3.1>Z34.81</DG1.3.1>< DG1. Reason for Exam: R~.~.~<DG1.3.1>Z34.81</DG1.3.1><DG1.3.1>Z34.81</DG1.3.1><DG1.3.1>Z34.81</DG1.3. .~.~<DG1.3.1>Z34.81</DG1.3.1><DG1.3.1>Z34.81</DG1.3.1><DG1.3.1>Z34.81</DG1.3.1>< DG1. {SPECIMEN TYPE: R~.~.~<DG1.3.1>Z34.81</DG1.3.1><DG1.3.1>Z34.81</DG1.3.1><DG1.3.1>Z34.81</DG1.3.1 .~.~<DG1.3.1>Z34.81</DG1.3.1><DG1.3.1>Z34.81</DG1.3.1><DG1.3.1>Z34.81</DG1.3.1>< DG1. .~.~<DG1.3.1>Z34.81</DG1.3.1><DG1.3.1>Z34.81</DG1.3.1><DG1.3.1>Z34.81</DG1.3.1> <DG1. .~.~<DG1.3.1>Z34.81</DG1.3.1><DG1.3.1>Z34.81</DG1.3.1><DG1.3.1>Z34.81</DG1.3.1>< DG1. .~.~<DG1.3.1>Z34.81</DG1.3.1><DG1.3.1>Z34.81</DG1.3.1><DG1.3.1>Z34.81</DG1.3.1>< DG1. .~.~<DG1.3.1> Z34.81</DG1.3.1><DG1.3.1>Z34.81</DG1.3.1><DG1.3.1>Z34.81</DG1.3.1><DG1. .~.~<DG1.3.1>Z34.81</DG1.3.1><DG1.3.1>Z34.81</DG1.3.1><DG1.3.1>Z34.81</DG1.3.1>< DG1. WBC Laboratory test result [facility]) .~.~<DG1.3.1>Z34.81</DG1.3.1><DG1.3.1>Z34.81</DG1.3.1><DG1.3.1>Z34.81</DG1.3.1>< DG1. {SOURCE: R~.~.~<DG1.3.1>Z34.81</DG1.3.1><DG1.3.1>Z34.81</DG1.3.1><DG1.3.1>Z34.81</DG1.3.1 ><DG1. .~.~<DG1.3.1> Z34.81</DG1.3.1><DG1.3.1>Z34.81</DG1.3.1><DG1.3.1>Z34.81</DG1.3.1><DG1. .~.~<DG1.3.1>Z34.81</DG1.3.1><DG1.3.1>Z34.81</DG1.3.1><DG1.3.1>Z34.81</DG1.3.1>< DG1. .~.~<DG1.3.1>Z34.81</DG1.3.1><DG1.3.1> Z34.81</DG1.3.1><DG1.3.1>Z34.81</DG1.3.1><DG1. .~.~<DG1.3.1>Z34.81</DG1.3.1><DG1.3.1>Z34.81</DG1.3.1><DG1.3.1>Z34.81</DG1.3.1>< DG1. .~.~<DG1.3.1>Z34.81</DG1.3.1><DG1.3.1>Z34.81</DG1.3.1><DG1.3.1> Z34.81</DG1.3.1><DG1. .~.~<DG1.3.1>Z34.81</DG1.3.1><DG1.3.1>Z34.81</DG1.3.1><DG1.3.1>Z34.81</DG1.3.1>< DG1. .~.~<DG1.3.1>Z34.81</DG1.3.1><DG1.3.1>Z34.81</DG1.3.1><DG1.3.1>Z34.81</DG1.3.1> <DG1. Is patient fasting? N~.~.~<DG1.3.1>Z34.81</DG1.3.1><DG1.3.1>Z34.81</DG1.3.1><DG1.3.1>Z34.81</DG1 .~.~<DG1.3.1>Z34.81</DG1.3.1><DG1.3.1>Z34.81</DG1.3.1><DG1.3.1>Z34.81</DG1.3.1> <DG1. .~.~<DG1.3.1>Z34.81</DG1.3.1><DG1.3.1>Z34.81</DG1.3.1><DG1.3.1>Z34.81</DG1.3.1>< DG1. Reason for Exam: R~.~.~<DG1.3.1>Z34.81</DG1.3.1><DG1.3.1>Z34.81</DG1.3.1><DG1.3.1>Z34.81</DG1.3. .~.~<DG1.3.1>Z34.81</DG1.3.1><DG1.3.1>Z34.81</DG1.3.1><DG1.3.1>Z34.81</DG1.3.1>< DG1. {SPECIMEN TYPE: R~.~.~<DG1.3.1>Z34.81</DG1.3.1><DG1.3.1>Z34.81</DG1.3.1><DG1.3.1>Z34.81</DG1.3.1 .~.~<DG1.3.1>Z34.81</DG1.3.1><DG1.3.1>Z34.81</DG1.3.1><DG1.3.1>Z34.81</DG1.3.1>< DG1. .~.~<DG1.3.1>Z34.81</DG1.3.1><DG1.3.1>Z34.81</DG1.3.1><DG1.3.1>Z34.81</DG1.3.1> <DG1. .~.~<DG1.3.1>Z34.81</DG1.3.1><DG1.3.1>Z34.81</DG1.3.1><DG1.3.1>Z34.81</DG1.3.1>< DG1. .~.~<DG1.3.1>Z34.81</DG1.3.1><DG1.3.1>Z34.81</DG1.3.1><DG1.3.1>Z34.81</DG1.3.1>< DG1. .~.~<DG1.3.1> Z34.81</DG1.3.1><DG1.3.1>Z34.81</DG1.3.1><DG1.3.1>Z34.81</DG1.3.1><DG1. .~.~<DG1.3.1>Z34.81</DG1.3.1><DG1.3.1>Z34.81</DG1.3.1><DG1.3.1>Z34.81</DG1.3.1>< DG1. Bacteria Laboratory test result [facility] ([facility]) .~.~<DG1.3.1>Z34.81</DG1.3.1><DG1.3.1>Z34.81</DG1.3.1><DG1.3.1>Z34.81</DG1.3.1>< DG1. {SOURCE: R~.~.~<DG1.3.1>Z34.81</DG1.3.1><DG1.3.1>Z34.81</DG1.3.1><DG1.3.1>Z34.81</DG1.3.1 ><DG1. .~.~<DG1.3.1> Z34.81</DG1.3.1><DG1.3.1>Z34.81</DG1.3.1><DG1.3.1>Z34.81</DG1.3.1><DG1. .~.~<DG1.3.1>Z34.81</DG1.3.1><DG1.3.1>Z34.81</DG1.3.1><DG1.3.1>Z34.81</DG1.3.1>< DG1. .~.~<DG1.3.1>Z34.81</DG1.3.1><DG1.3.1> Z34.81</DG1.3.1><DG1.3.1>Z34.81</DG1.3.1><DG1. .~.~<DG1.3.1>Z34.81</DG1.3.1><DG1.3.1>Z34.81</DG1.3.1><DG1.3.1>Z34.81</DG1.3.1>< DG1. .~.~<DG1.3.1>Z34.81</DG1.3.1><DG1.3.1>Z34.81</DG1.3.1><DG1.3.1> Z34.81</DG1.3.1><DG1. .~.~<DG1.3.1>Z34.81</DG1.3.1><DG1.3.1>Z34.81</DG1.3.1><DG1.3.1>Z34.81</DG1.3.1>< DG1. .~.~<DG1.3.1>Z34.81</DG1.3.1><DG1.3.1>Z34.81</DG1.3.1><DG1.3.1>Z34.81</DG1.3.1> <DG1. Is patient fasting? N~.~.~<DG1.3.1>Z34.81</DG1.3.1><DG1.3.1>Z34.81</DG1.3.1><DG1.3.1>Z34.81</DG1 .~.~<DG1.3.1>Z34.81</DG1.3.1><DG1.3.1>Z34.81</DG1.3.1><DG1.3.1>Z34.81</DG1.3.1> <DG1. .~.~<DG1.3.1>Z34.81</DG1.3.1><DG1.3.1>Z34.81</DG1.3.1><DG1.3.1>Z34.81</DG1.3.1>< DG1. Reason for Exam: R~.~.~<DG1.3.1>Z34.81</DG1.3.1><DG1.3.1>Z34.81</DG1.3.1><DG1.3.1>Z34.81</DG1.3. .~.~<DG1.3.1>Z34.81</DG1.3.1><DG1.3.1>Z34.81</DG1.3.1><DG1.3.1>Z34.81</DG1.3.1>< DG1. {SPECIMEN TYPE: R~.~.~<DG1.3.1>Z34.81</DG1.3.1><DG1.3.1>Z34.81</DG1.3.1><DG1.3.1>Z34.81</DG1.3.1 .~.~<DG1.3.1>Z34.81</DG1.3.1><DG1.3.1>Z34.81</DG1.3.1><DG1.3.1>Z34.81</DG1.3.1>< DG1. .~.~<DG1.3.1>Z34.81</DG1.3.1><DG1.3.1>Z34.81</DG1.3.1><DG1.3.1>Z34.81</DG1.3.1> <DG1. .~.~<DG1.3.1>Z34.81</DG1.3.1><DG1.3.1>Z34.81</DG1.3.1><DG1.3.1>Z34.81</DG1.3.1>< DG1. .~.~<DG1.3.1>Z34.81</DG1.3.1><DG1.3.1>Z34.81</DG1.3.1><DG1.3.1>Z34.81</DG1.3.1>< DG1. .~.~<DG1.3.1> Z34.81</DG1.3.1><DG1.3.1>Z34.81</DG1.3.1><DG1.3.1>Z34.81</DG1.3.1><DG1. .~.~<DG1.3.1>Z34.81</DG1.3.1><DG1.3.1>Z34.81</DG1.3.1><DG1.3.1>Z34.81</DG1.3.1>< DG1. ID Date Data Source [id number] 03/01/2021 11:44:00 AM EDT [facility] ([facility]) Name Value Range Interpretation Code Description Data Kimberley rce(s) Supporting Document(s) Culture Urine Laboratory test result [facility] ([facility]) .~.~<DG1.3.1>Z34.81</DG1.3.1><DG1.3.1>Z34.81</DG1.3.1><DG1.3.1>Z34.81</DG1.3.1>< DG1. {SOURCE: R~.~.~<DG1.3.1>Z34.81</DG1.3.1><DG1.3.1>Z34.81</DG1.3.1><DG1.3.1>Z34.81</DG1.3.1 ><DG1. .~.~<DG1.3.1> Z34.81</DG1.3.1><DG1.3.1>Z34.81</DG1.3.1><DG1.3.1>Z34.81</DG1.3.1><DG1. .~.~<DG1.3.1>Z34.81</DG1.3.1><DG1.3.1>Z34.81</DG1.3.1><DG1.3.1>Z34.81</DG1.3.1>< DG1. .~.~<DG1.3.1>Z34.81</DG1.3.1><DG1.3.1> Z34.81</DG1.3.1><DG1.3.1>Z34.81</DG1.3.1><DG1. .~.~<DG1.3.1>Z34.81</DG1.3.1><DG1.3.1>Z34.81</DG1.3.1><DG1.3.1>Z34.81</DG1.3.1>< DG1. .~.~<DG1.3.1>Z34.81</DG1.3.1><DG1.3.1>Z34.81</DG1.3.1><DG1.3.1> Z34.81</DG1.3.1><DG1. .~.~<DG1.3.1>Z34.81</DG1.3.1><DG1.3.1>Z34.81</DG1.3.1><DG1.3.1>Z34.81</DG1.3.1>< DG1. .~.~<DG1.3.1>Z34.81</DG1.3.1><DG1.3.1>Z34.81</DG1.3.1><DG1.3.1>Z34.81</DG1.3.1> <DG1. Is patient fasting? N~.~.~<DG1.3.1>Z34.81</DG1.3.1><DG1.3.1>Z34.81</DG1.3.1><DG1.3.1>Z34.81</DG1 .~.~<DG1.3.1>Z34.81</DG1.3.1><DG1.3.1>Z34.81</DG1.3.1><DG1.3.1>Z34.81</DG1.3.1> <DG1. .~.~<DG1.3.1>Z34.81</DG1.3.1><DG1.3.1>Z34.81</DG1.3.1><DG1.3.1>Z34.81</DG1.3.1>< DG1. Reason for Exam: R~.~.~<DG1.3.1>Z34.81</DG1.3.1><DG1.3.1>Z34.81</DG1.3.1><DG1.3.1>Z34.81</DG1.3. .~.~<DG1.3.1>Z34.81</DG1.3.1><DG1.3.1>Z34.81</DG1.3.1><DG1.3.1>Z34.81</DG1.3.1>< DG1. {SPECIMEN TYPE: R~.~.~<DG1.3.1>Z34.81</DG1.3.1><DG1.3.1>Z34.81</DG1.3.1><DG1.3.1>Z34.81</DG1.3.1 .~.~<DG1.3.1>Z34.81</DG1.3.1><DG1.3.1>Z34.81</DG1.3.1><DG1.3.1>Z34.81</DG1.3.1>< DG1. .~.~<DG1.3.1>Z34.81</DG1.3.1><DG1.3.1>Z34.81</DG1.3.1><DG1.3.1>Z34.81</DG1.3.1> <DG1. .~.~<DG1.3.1>Z34.81</DG1.3.1><DG1.3.1>Z34.81</DG1.3.1><DG1.3.1>Z34.81</DG1.3.1>< DG1. .~.~<DG1.3.1>Z34.81</DG1.3.1><DG1.3.1>Z34.81</DG1.3.1><DG1.3.1>Z34.81</DG1.3.1>< DG1. .~.~<DG1.3.1> Z34.81</DG1.3.1><DG1.3.1>Z34.81</DG1.3.1><DG1.3.1>Z34.81</DG1.3.1><DG1. .~.~<DG1.3.1>Z34.81</DG1.3.1><DG1.3.1>Z34.81</DG1.3.1><DG1.3.1>Z34.81</DG1.3.1>< DG1. ID Date Data Source [id number] 03/01/2021 11:44:00 AM EDT [facility] ([facility]) Name Value Range Interpretation Code Description Data Kimberley rce(s) Supporting Document(s) HIV Screen 4[employer]Generation wRfx Laboratory test result [facility] ([facility]) .~.~<DG1.3.1>Z34.81</DG1.3.1><DG1.3.1>Z34.81</DG1.3.1><DG1.3.1>Z34.81</DG1.3.1>< DG1. {SOURCE: R~.~.~<DG1.3.1>Z34.81</DG1.3.1><DG1.3.1>Z34.81</DG1.3.1><DG1.3.1>Z34.81</DG1.3.1 ><DG1. .~.~<DG1.3.1> Z34.81</DG1.3.1><DG1.3.1>Z34.81</DG1.3.1><DG1.3.1>Z34.81</DG1.3.1><DG1. .~.~<DG1.3.1>Z34.81</DG1.3.1><DG1.3.1>Z34.81</DG1.3.1><DG1.3.1>Z34.81</DG1.3.1>< DG1. .~.~<DG1.3.1>Z34.81</DG1.3.1><DG1.3.1> Z34.81</DG1.3.1><DG1.3.1>Z34.81</DG1.3.1><DG1. .~.~<DG1.3.1>Z34.81</DG1.3.1><DG1.3.1>Z34.81</DG1.3.1><DG1.3.1>Z34.81</DG1.3.1>< DG1. .~.~<DG1.3.1>Z34.81</DG1.3.1><DG1.3.1>Z34.81</DG1.3.1><DG1.3.1> Z34.81</DG1.3.1><DG1. .~.~<DG1.3.1>Z34.81</DG1.3.1><DG1.3.1>Z34.81</DG1.3.1><DG1.3.1>Z34.81</DG1.3.1>< DG1. .~.~<DG1.3.1>Z34.81</DG1.3.1><DG1.3.1>Z34.81</DG1.3.1><DG1.3.1>Z34.81</DG1.3.1> <DG1. Is patient fasting? N~.~.~<DG1.3.1>Z34.81</DG1.3.1><DG1.3.1>Z34.81</DG1.3.1><DG1.3.1>Z34.81</DG1 .~.~<DG1.3.1>Z34.81</DG1.3.1><DG1.3.1>Z34.81</DG1.3.1><DG1.3.1>Z34.81</DG1.3.1> <DG1. .~.~<DG1.3.1>Z34.81</DG1.3.1><DG1.3.1>Z34.81</DG1.3.1><DG1.3.1>Z34.81</DG1.3.1>< DG1. Reason for Exam: R~.~.~<DG1.3.1>Z34.81</DG1.3.1><DG1.3.1>Z34.81</DG1.3.1><DG1.3.1>Z34.81</DG1.3. .~.~<DG1.3.1>Z34.81</DG1.3.1><DG1.3.1>Z34.81</DG1.3.1><DG1.3.1>Z34.81</DG1.3.1>< DG1. {SPECIMEN TYPE: R~.~.~<DG1.3.1>Z34.81</DG1.3.1><DG1.3.1>Z34.81</DG1.3.1><DG1.3.1>Z34.81</DG1.3.1 .~.~<DG1.3.1>Z34.81</DG1.3.1><DG1.3.1>Z34.81</DG1.3.1><DG1.3.1>Z34.81</DG1.3.1>< DG1. .~.~<DG1.3.1>Z34.81</DG1.3.1><DG1.3.1>Z34.81</DG1.3.1><DG1.3.1>Z34.81</DG1.3.1> <DG1. .~.~<DG1.3.1>Z34.81</DG1.3.1><DG1.3.1>Z34.81</DG1.3.1><DG1.3.1>Z34.81</DG1.3.1>< DG1. .~.~<DG1.3.1>Z34.81</DG1.3.1><DG1.3.1>Z34.81</DG1.3.1><DG1.3.1>Z34.81</DG1.3.1>< DG1. .~.~<DG1.3.1> Z34.81</DG1.3.1><DG1.3.1>Z34.81</DG1.3.1><DG1.3.1>Z34.81</DG1.3.1><DG1. .~.~<DG1.3.1>Z34.81</DG1.3.1><DG1.3.1>Z34.81</DG1.3.1><DG1.3.1>Z34.81</DG1.3.1>< DG1. ID Date Data Source [id number] 03/01/2021 11:44:00 AM EDT [facility] ([facility]) Name Value Range Interpretation Code Description Data Kimberley rce(s) Supporting Document(s) [employer] Laboratory test result [facility] ([facility]) .~.~<DG1.3.1>Z34.81</DG1.3.1><DG1.3.1>Z34.81</DG1.3.1><DG1.3.1>Z34.81</DG1.3.1>< DG1. {SOURCE: R~.~.~<DG1.3.1>Z34.81</DG1.3.1><DG1.3.1>Z34.81</DG1.3.1><DG1.3.1>Z34.81</DG1.3.1 ><DG1. .~.~<DG1.3.1> Z34.81</DG1.3.1><DG1.3.1>Z34.81</DG1.3.1><DG1.3.1>Z34.81</DG1.3.1><DG1. .~.~<DG1.3.1>Z34.81</DG1.3.1><DG1.3.1>Z34.81</DG1.3.1><DG1.3.1>Z34.81</DG1.3.1>< DG1. .~.~<DG1.3.1>Z34.81</DG1.3.1><DG1.3.1> Z34.81</DG1.3.1><DG1.3.1>Z34.81</DG1.3.1><DG1. .~.~<DG1.3.1>Z34.81</DG1.3.1><DG1.3.1>Z34.81</DG1.3.1><DG1.3.1>Z34.81</DG1.3.1>< DG1. .~.~<DG1.3.1>Z34.81</DG1.3.1><DG1.3.1>Z34.81</DG1.3.1><DG1.3.1> Z34.81</DG1.3.1><DG1. .~.~<DG1.3.1>Z34.81</DG1.3.1><DG1.3.1>Z34.81</DG1.3.1><DG1.3.1>Z34.81</DG1.3.1>< DG1. .~.~<DG1.3.1>Z34.81</DG1.3.1><DG1.3.1>Z34.81</DG1.3.1><DG1.3.1>Z34.81</DG1.3.1> <DG1. Is patient fasting? N~.~.~<DG1.3.1>Z34.81</DG1.3.1><DG1.3.1>Z34.81</DG1.3.1><DG1.3.1>Z34.81</DG1 .~.~<DG1.3.1>Z34.81</DG1.3.1><DG1.3.1>Z34.81</DG1.3.1><DG1.3.1>Z34.81</DG1.3.1> <DG1. .~.~<DG1.3.1>Z34.81</DG1.3.1><DG1.3.1>Z34.81</DG1.3.1><DG1.3.1>Z34.81</DG1.3.1>< DG1. Reason for Exam: R~.~.~<DG1.3.1>Z34.81</DG1.3.1><DG1.3.1>Z34.81</DG1.3.1><DG1.3.1>Z34.81</DG1.3. .~.~<DG1.3.1>Z34.81</DG1.3.1><DG1.3.1>Z34.81</DG1.3.1><DG1.3.1>Z34.81</DG1.3.1>< DG1. {SPECIMEN TYPE: R~.~.~<DG1.3.1>Z34.81</DG1.3.1><DG1.3.1>Z34.81</DG1.3.1><DG1.3.1>Z34.81</DG1.3.1 .~.~<DG1.3.1>Z34.81</DG1.3.1><DG1.3.1>Z34.81</DG1.3.1><DG1.3.1>Z34.81</DG1.3.1>< DG1. .~.~<DG1.3.1>Z34.81</DG1.3.1><DG1.3.1>Z34.81</DG1.3.1><DG1.3.1>Z34.81</DG1.3.1> <DG1. .~.~<DG1.3.1>Z34.81</DG1.3.1><DG1.3.1>Z34.81</DG1.3.1><DG1.3.1>Z34.81</DG1.3.1>< DG1. .~.~<DG1.3.1>Z34.81</DG1.3.1><DG1.3.1>Z34.81</DG1.3.1><DG1.3.1>Z34.81</DG1.3.1>< DG1. .~.~<DG1.3.1> Z34.81</DG1.3.1><DG1.3.1>Z34.81</DG1.3.1><DG1.3.1>Z34.81</DG1.3.1><DG1. .~.~<DG1.3.1>Z34.81</DG1.3.1><DG1.3.1>Z34.81</DG1.3.1><DG1.3.1>Z34.81</DG1.3.1>< DG1. Potassium 3.9 meq/L 3.6-5.0 [facility] ([facility] [place]) .~.~<DG1.3.1>Z34.81</DG1.3.1><DG1.3.1>Z34.81</DG1.3.1><DG1.3.1>Z34.81</DG1.3.1>< DG1. {SOURCE: R~.~.~<DG1.3.1>Z34.81</DG1.3.1><DG1.3.1>Z34.81</DG1.3.1><DG1.3.1>Z34.81</DG1.3.1 ><DG1. .~.~<DG1.3.1> Z34.81</DG1.3.1><DG1.3.1>Z34.81</DG1.3.1><DG1.3.1>Z34.81</DG1.3.1><DG1. .~.~<DG1.3.1>Z34.81</DG1.3.1><DG1.3.1>Z34.81</DG1.3.1><DG1.3.1>Z34.81</DG1.3.1>< DG1. .~.~<DG1.3.1>Z34.81</DG1.3.1><DG1.3.1> Z34.81</DG1.3.1><DG1.3.1>Z34.81</DG1.3.1><DG1. .~.~<DG1.3.1>Z34.81</DG1.3.1><DG1.3.1>Z34.81</DG1.3.1><DG1.3.1>Z34.81</DG1.3.1>< DG1. .~.~<DG1.3.1>Z34.81</DG1.3.1><DG1.3.1>Z34.81</DG1.3.1><DG1.3.1> Z34.81</DG1.3.1><DG1. .~.~<DG1.3.1>Z34.81</DG1.3.1><DG1.3.1>Z34.81</DG1.3.1><DG1.3.1>Z34.81</DG1.3.1>< DG1. .~.~<DG1.3.1>Z34.81</DG1.3.1><DG1.3.1>Z34.81</DG1.3.1><DG1.3.1>Z34.81</DG1.3.1> <DG1. Is patient fasting? N~.~.~<DG1.3.1>Z34.81</DG1.3.1><DG1.3.1>Z34.81</DG1.3.1><DG1.3.1>Z34.81</DG1 .~.~<DG1.3.1>Z34.81</DG1.3.1><DG1.3.1>Z34.81</DG1.3.1><DG1.3.1>Z34.81</DG1.3.1> <DG1. .~.~<DG1.3.1>Z34.81</DG1.3.1><DG1.3.1>Z34.81</DG1.3.1><DG1.3.1>Z34.81</DG1.3.1>< DG1. Reason for Exam: R~.~.~<DG1.3.1>Z34.81</DG1.3.1><DG1.3.1>Z34.81</DG1.3.1><DG1.3.1>Z34.81</DG1.3. .~.~<DG1.3.1>Z34.81</DG1.3.1><DG1.3.1>Z34.81</DG1.3.1><DG1.3.1>Z34.81</DG1.3.1>< DG1. {SPECIMEN TYPE: R~.~.~<DG1.3.1>Z34.81</DG1.3.1><DG1.3.1>Z34.81</DG1.3.1><DG1.3.1>Z34.81</DG1.3.1 .~.~<DG1.3.1>Z34.81</DG1.3.1><DG1.3.1>Z34.81</DG1.3.1><DG1.3.1>Z34.81</DG1.3.1>< DG1. .~.~<DG1.3.1>Z34.81</DG1.3.1><DG1.3.1>Z34.81</DG1.3.1><DG1.3.1>Z34.81</DG1.3.1> <DG1. .~.~<DG1.3.1>Z34.81</DG1.3.1><DG1.3.1>Z34.81</DG1.3.1><DG1.3.1>Z34.81</DG1.3.1>< DG1. .~.~<DG1.3.1>Z34.81</DG1.3.1><DG1.3.1>Z34.81</DG1.3.1><DG1.3.1>Z34.81</DG1.3.1>< DG1. .~.~<DG1.3.1> Z34.81</DG1.3.1><DG1.3.1>Z34.81</DG1.3.1><DG1.3.1>Z34.81</DG1.3.1><DG1. .~.~<DG1.3.1>Z34.81</DG1.3.1><DG1.3.1>Z34.81</DG1.3.1><DG1.3.1>Z34.81</DG1.3.1>< DG1. Sodium 138 meq/L 134-153 [facility] ([facility] [place]) .~.~<DG1.3.1>Z34.81</DG1.3.1><DG1.3.1>Z34.81</DG1.3.1><DG1.3.1>Z34.81</DG1.3.1>< DG1. {SOURCE: R~.~.~<DG1.3.1>Z34.81</DG1.3.1><DG1.3.1>Z34.81</DG1.3.1><DG1.3.1>Z34.81</DG1.3.1 ><DG1. .~.~<DG1.3.1> Z34.81</DG1.3.1><DG1.3.1>Z34.81</DG1.3.1><DG1.3.1>Z34.81</DG1.3.1><DG1. .~.~<DG1.3.1>Z34.81</DG1.3.1><DG1.3.1>Z34.81</DG1.3.1><DG1.3.1>Z34.81</DG1.3.1>< DG1. .~.~<DG1.3.1>Z34.81</DG1.3.1><DG1.3.1> Z34.81</DG1.3.1><DG1.3.1>Z34.81</DG1.3.1><DG1. .~.~<DG1.3.1>Z34.81</DG1.3.1><DG1.3.1>Z34.81</DG1.3.1><DG1.3.1>Z34.81</DG1.3.1>< DG1. .~.~<DG1.3.1>Z34.81</DG1.3.1><DG1.3.1>Z34.81</DG1.3.1><DG1.3.1> Z34.81</DG1.3.1><DG1. .~.~<DG1.3.1>Z34.81</DG1.3.1><DG1.3.1>Z34.81</DG1.3.1><DG1.3.1>Z34.81</DG1.3.1>< DG1. .~.~<DG1.3.1>Z34.81</DG1.3.1><DG1.3.1>Z34.81</DG1.3.1><DG1.3.1>Z34.81</DG1.3.1> <DG1. Is patient fasting? N~.~.~<DG1.3.1>Z34.81</DG1.3.1><DG1.3.1>Z34.81</DG1.3.1><DG1.3.1>Z34.81</DG1 .~.~<DG1.3.1>Z34.81</DG1.3.1><DG1.3.1>Z34.81</DG1.3.1><DG1.3.1>Z34.81</DG1.3.1> <DG1. .~.~<DG1.3.1>Z34.81</DG1.3.1><DG1.3.1>Z34.81</DG1.3.1><DG1.3.1>Z34.81</DG1.3.1>< DG1. Reason for Exam: R~.~.~<DG1.3.1>Z34.81</DG1.3.1><DG1.3.1>Z34.81</DG1.3.1><DG1.3.1>Z34.81</DG1.3. .~.~<DG1.3.1>Z34.81</DG1.3.1><DG1.3.1>Z34.81</DG1.3.1><DG1.3.1>Z34.81</DG1.3.1>< DG1. {SPECIMEN TYPE: R~.~.~<DG1.3.1>Z34.81</DG1.3.1><DG1.3.1>Z34.81</DG1.3.1><DG1.3.1>Z34.81</DG1.3.1 .~.~<DG1.3.1>Z34.81</DG1.3.1><DG1.3.1>Z34.81</DG1.3.1><DG1.3.1>Z34.81</DG1.3.1>< DG1. .~.~<DG1.3.1>Z34.81</DG1.3.1><DG1.3.1>Z34.81</DG1.3.1><DG1.3.1>Z34.81</DG1.3.1> <DG1. .~.~<DG1.3.1>Z34.81</DG1.3.1><DG1.3.1>Z34.81</DG1.3.1><DG1.3.1>Z34.81</DG1.3.1>< DG1. .~.~<DG1.3.1>Z34.81</DG1.3.1><DG1.3.1>Z34.81</DG1.3.1><DG1.3.1>Z34.81</DG1.3.1>< DG1. .~.~<DG1.3.1> Z34.81</DG1.3.1><DG1.3.1>Z34.81</DG1.3.1><DG1.3.1>Z34.81</DG1.3.1><DG1. .~.~<DG1.3.1>Z34.81</DG1.3.1><DG1.3.1>Z34.81</DG1.3.1><DG1.3.1>Z34.81</DG1.3.1>< DG1. Co2 24 meq/L 22-30 [facility] ([facility] [place]) .~.~<DG1.3.1>Z34.81</DG1.3.1><DG1.3.1>Z34.81</DG1.3.1><DG1.3.1>Z34.81</DG1.3.1>< DG1. {SOURCE: R~.~.~<DG1.3.1>Z34.81</DG1.3.1><DG1.3.1>Z34.81</DG1.3.1><DG1.3.1>Z34.81</DG1.3.1 ><DG1. .~.~<DG1.3.1> Z34.81</DG1.3.1><DG1.3.1>Z34.81</DG1.3.1><DG1.3.1>Z34.81</DG1.3.1><DG1. .~.~<DG1.3.1>Z34.81</DG1.3.1><DG1.3.1>Z34.81</DG1.3.1><DG1.3.1>Z34.81</DG1.3.1>< DG1. .~.~<DG1.3.1>Z34.81</DG1.3.1><DG1.3.1> Z34.81</DG1.3.1><DG1.3.1>Z34.81</DG1.3.1><DG1. .~.~<DG1.3.1>Z34.81</DG1.3.1><DG1.3.1>Z34.81</DG1.3.1><DG1.3.1>Z34.81</DG1.3.1>< DG1. .~.~<DG1.3.1>Z34.81</DG1.3.1><DG1.3.1>Z34.81</DG1.3.1><DG1.3.1> Z34.81</DG1.3.1><DG1. .~.~<DG1.3.1>Z34.81</DG1.3.1><DG1.3.1>Z34.81</DG1.3.1><DG1.3.1>Z34.81</DG1.3.1>< DG1. .~.~<DG1.3.1>Z34.81</DG1.3.1><DG1.3.1>Z34.81</DG1.3.1><DG1.3.1>Z34.81</DG1.3.1> <DG1. Is patient fasting? N~.~.~<DG1.3.1>Z34.81</DG1.3.1><DG1.3.1>Z34.81</DG1.3.1><DG1.3.1>Z34.81</DG1 .~.~<DG1.3.1>Z34.81</DG1.3.1><DG1.3.1>Z34.81</DG1.3.1><DG1.3.1>Z34.81</DG1.3.1> <DG1. .~.~<DG1.3.1>Z34.81</DG1.3.1><DG1.3.1>Z34.81</DG1.3.1><DG1.3.1>Z34.81</DG1.3.1>< DG1. Reason for Exam: R~.~.~<DG1.3.1>Z34.81</DG1.3.1><DG1.3.1>Z34.81</DG1.3.1><DG1.3.1>Z34.81</DG1.3. .~.~<DG1.3.1>Z34.81</DG1.3.1><DG1.3.1>Z34.81</DG1.3.1><DG1.3.1>Z34.81</DG1.3.1>< DG1. {SPECIMEN TYPE: R~.~.~<DG1.3.1>Z34.81</DG1.3.1><DG1.3.1>Z34.81</DG1.3.1><DG1.3.1>Z34.81</DG1.3.1 .~.~<DG1.3.1>Z34.81</DG1.3.1><DG1.3.1>Z34.81</DG1.3.1><DG1.3.1>Z34.81</DG1.3.1>< DG1. .~.~<DG1.3.1>Z34.81</DG1.3.1><DG1.3.1>Z34.81</DG1.3.1><DG1.3.1>Z34.81</DG1.3.1> <DG1. .~.~<DG1.3.1>Z34.81</DG1.3.1><DG1.3.1>Z34.81</DG1.3.1><DG1.3.1>Z34.81</DG1.3.1>< DG1. .~.~<DG1.3.1>Z34.81</DG1.3.1><DG1.3.1>Z34.81</DG1.3.1><DG1.3.1>Z34.81</DG1.3.1>< DG1. .~.~<DG1.3.1> Z34.81</DG1.3.1><DG1.3.1>Z34.81</DG1.3.1><DG1.3.1>Z34.81</DG1.3.1><DG1. .~.~<DG1.3.1>Z34.81</DG1.3.1><DG1.3.1>Z34.81</DG1.3.1><DG1.3.1>Z34.81</DG1.3.1>< DG1. Chloride 105 meq/L 98-107 [facility] ([facility] [place]) .~.~<DG1.3.1>Z34.81</DG1.3.1><DG1.3.1>Z34.81</DG1.3.1><DG1.3.1>Z34.81</DG1.3.1>< DG1. {SOURCE: R~.~.~<DG1.3.1>Z34.81</DG1.3.1><DG1.3.1>Z34.81</DG1.3.1><DG1.3.1>Z34.81</DG1.3.1 ><DG1. .~.~<DG1.3.1> Z34.81</DG1.3.1><DG1.3.1>Z34.81</DG1.3.1><DG1.3.1>Z34.81</DG1.3.1><DG1. .~.~<DG1.3.1>Z34.81</DG1.3.1><DG1.3.1>Z34.81</DG1.3.1><DG1.3.1>Z34.81</DG1.3.1>< DG1. .~.~<DG1.3.1>Z34.81</DG1.3.1><DG1.3.1> Z34.81</DG1.3.1><DG1.3.1>Z34.81</DG1.3.1><DG1. .~.~<DG1.3.1>Z34.81</DG1.3.1><DG1.3.1>Z34.81</DG1.3.1><DG1.3.1>Z34.81</DG1.3.1>< DG1. .~.~<DG1.3.1>Z34.81</DG1.3.1><DG1.3.1>Z34.81</DG1.3.1><DG1.3.1> Z34.81</DG1.3.1><DG1. .~.~<DG1.3.1>Z34.81</DG1.3.1><DG1.3.1>Z34.81</DG1.3.1><DG1.3.1>Z34.81</DG1.3.1>< DG1. .~.~<DG1.3.1>Z34.81</DG1.3.1><DG1.3.1>Z34.81</DG1.3.1><DG1.3.1>Z34.81</DG1.3.1> <DG1. Is patient fasting? N~.~.~<DG1.3.1>Z34.81</DG1.3.1><DG1.3.1>Z34.81</DG1.3.1><DG1.3.1>Z34.81</DG1 .~.~<DG1.3.1>Z34.81</DG1.3.1><DG1.3.1>Z34.81</DG1.3.1><DG1.3.1>Z34.81</DG1.3.1> <DG1. .~.~<DG1.3.1>Z34.81</DG1.3.1><DG1.3.1>Z34.81</DG1.3.1><DG1.3.1>Z34.81</DG1.3.1>< DG1. Reason for Exam: R~.~.~<DG1.3.1>Z34.81</DG1.3.1><DG1.3.1>Z34.81</DG1.3.1><DG1.3.1>Z34.81</DG1.3. .~.~<DG1.3.1>Z34.81</DG1.3.1><DG1.3.1>Z34.81</DG1.3.1><DG1.3.1>Z34.81</DG1.3.1>< DG1. {SPECIMEN TYPE: R~.~.~<DG1.3.1>Z34.81</DG1.3.1><DG1.3.1>Z34.81</DG1.3.1><DG1.3.1>Z34.81</DG1.3.1 .~.~<DG1.3.1>Z34.81</DG1.3.1><DG1.3.1>Z34.81</DG1.3.1><DG1.3.1>Z34.81</DG1.3.1>< DG1. .~.~<DG1.3.1>Z34.81</DG1.3.1><DG1.3.1>Z34.81</DG1.3.1><DG1.3.1>Z34.81</DG1.3.1> <DG1. .~.~<DG1.3.1>Z34.81</DG1.3.1><DG1.3.1>Z34.81</DG1.3.1><DG1.3.1>Z34.81</DG1.3.1>< DG1. .~.~<DG1.3.1>Z34.81</DG1.3.1><DG1.3.1>Z34.81</DG1.3.1><DG1.3.1>Z34.81</DG1.3.1>< DG1. .~.~<DG1.3.1> Z34.81</DG1.3.1><DG1.3.1>Z34.81</DG1.3.1><DG1.3.1>Z34.81</DG1.3.1><DG1. .~.~<DG1.3.1>Z34.81</DG1.3.1><DG1.3.1>Z34.81</DG1.3.1><DG1.3.1>Z34.81</DG1.3.1>< DG1. Glucose 103 mg/dL 70-99 Above high normal [facility] ([facility]) .~.~<DG1.3.1>Z34.81</DG1.3.1><DG1.3.1>Z34.81</DG1.3.1><DG1.3.1>Z34.81</DG1.3.1>< DG1. {SOURCE: R~.~.~<DG1.3.1>Z34.81</DG1.3.1><DG1.3.1>Z34.81</DG1.3.1><DG1.3.1>Z34.81</DG1.3.1 ><DG1. .~.~<DG1.3.1> Z34.81</DG1.3.1><DG1.3.1>Z34.81</DG1.3.1><DG1.3.1>Z34.81</DG1.3.1><DG1. .~.~<DG1.3.1>Z34.81</DG1.3.1><DG1.3.1>Z34.81</DG1.3.1><DG1.3.1>Z34.81</DG1.3.1>< DG1. .~.~<DG1.3.1>Z34.81</DG1.3.1><DG1.3.1> Z34.81</DG1.3.1><DG1.3.1>Z34.81</DG1.3.1><DG1. .~.~<DG1.3.1>Z34.81</DG1.3.1><DG1.3.1>Z34.81</DG1.3.1><DG1.3.1>Z34.81</DG1.3.1>< DG1. .~.~<DG1.3.1>Z34.81</DG1.3.1><DG1.3.1>Z34.81</DG1.3.1><DG1.3.1> Z34.81</DG1.3.1><DG1. .~.~<DG1.3.1>Z34.81</DG1.3.1><DG1.3.1>Z34.81</DG1.3.1><DG1.3.1>Z34.81</DG1.3.1>< DG1. .~.~<DG1.3.1>Z34.81</DG1.3.1><DG1.3.1>Z34.81</DG1.3.1><DG1.3.1>Z34.81</DG1.3.1> <DG1. Is patient fasting? N~.~.~<DG1.3.1>Z34.81</DG1.3.1><DG1.3.1>Z34.81</DG1.3.1><DG1.3.1>Z34.81</DG1 .~.~<DG1.3.1>Z34.81</DG1.3.1><DG1.3.1>Z34.81</DG1.3.1><DG1.3.1>Z34.81</DG1.3.1> <DG1. .~.~<DG1.3.1>Z34.81</DG1.3.1><DG1.3.1>Z34.81</DG1.3.1><DG1.3.1>Z34.81</DG1.3.1>< DG1. Reason for Exam: R~.~.~<DG1.3.1>Z34.81</DG1.3.1><DG1.3.1>Z34.81</DG1.3.1><DG1.3.1>Z34.81</DG1.3. .~.~<DG1.3.1>Z34.81</DG1.3.1><DG1.3.1>Z34.81</DG1.3.1><DG1.3.1>Z34.81</DG1.3.1>< DG1. {SPECIMEN TYPE: R~.~.~<DG1.3.1>Z34.81</DG1.3.1><DG1.3.1>Z34.81</DG1.3.1><DG1.3.1>Z34.81</DG1.3.1 .~.~<DG1.3.1>Z34.81</DG1.3.1><DG1.3.1>Z34.81</DG1.3.1><DG1.3.1>Z34.81</DG1.3.1>< DG1. .~.~<DG1.3.1>Z34.81</DG1.3.1><DG1.3.1>Z34.81</DG1.3.1><DG1.3.1>Z34.81</DG1.3.1> <DG1. .~.~<DG1.3.1>Z34.81</DG1.3.1><DG1.3.1>Z34.81</DG1.3.1><DG1.3.1>Z34.81</DG1.3.1>< DG1. .~.~<DG1.3.1>Z34.81</DG1.3.1><DG1.3.1>Z34.81</DG1.3.1><DG1.3.1>Z34.81</DG1.3.1>< DG1. .~.~<DG1.3.1> Z34.81</DG1.3.1><DG1.3.1>Z34.81</DG1.3.1><DG1.3.1>Z34.81</DG1.3.1><DG1. .~.~<DG1.3.1>Z34.81</DG1.3.1><DG1.3.1>Z34.81</DG1.3.1><DG1.3.1>Z34.81</DG1.3.1>< DG1. BUN 11 mg/dL 7-21 [facility] [place] .~.~<DG1.3.1>Z34.81</DG1.3.1><DG1.3.1>Z34.81</DG1.3.1><DG1.3.1>Z34.81</DG1.3.1>< DG1. {SOURCE: R~.~.~<DG1.3.1>Z34.81</DG1.3.1><DG1.3.1>Z34.81</DG1.3.1><DG1.3.1>Z34.81</DG1.3.1 ><DG1. .~.~<DG1.3.1> Z34.81</DG1.3.1><DG1.3.1>Z34.81</DG1.3.1><DG1.3.1>Z34.81</DG1.3.1><DG1. .~.~<DG1.3.1>Z34.81</DG1.3.1><DG1.3.1>Z34.81</DG1.3.1><DG1.3.1>Z34.81</DG1.3.1>< DG1. .~.~<DG1.3.1>Z34.81</DG1.3.1><DG1.3.1> Z34.81</DG1.3.1><DG1.3.1>Z34.81</DG1.3.1><DG1. .~.~<DG1.3.1>Z34.81</DG1.3.1><DG1.3.1>Z34.81</DG1.3.1><DG1.3.1>Z34.81</DG1.3.1>< DG1. .~.~<DG1.3.1>Z34.81</DG1.3.1><DG1.3.1>Z34.81</DG1.3.1><DG1.3.1> Z34.81</DG1.3.1><DG1. .~.~<DG1.3.1>Z34.81</DG1.3.1><DG1.3.1>Z34.81</DG1.3.1><DG1.3.1>Z34.81</DG1.3.1>< DG1. .~.~<DG1.3.1>Z34.81</DG1.3.1><DG1.3.1>Z34.81</DG1.3.1><DG1.3.1>Z34.81</DG1.3.1> <DG1. Is patient fasting? N~.~.~<DG1.3.1>Z34.81</DG1.3.1><DG1.3.1>Z34.81</DG1.3.1><DG1.3.1>Z34.81</DG1 .~.~<DG1.3.1>Z34.81</DG1.3.1><DG1.3.1>Z34.81</DG1.3.1><DG1.3.1>Z34.81</DG1.3.1> <DG1. .~.~<DG1.3.1>Z34.81</DG1.3.1><DG1.3.1>Z34.81</DG1.3.1><DG1.3.1>Z34.81</DG1.3.1>< DG1. Reason for Exam: R~.~.~<DG1.3.1>Z34.81</DG1.3.1><DG1.3.1>Z34.81</DG1.3.1><DG1.3.1>Z34.81</DG1.3. .~.~<DG1.3.1>Z34.81</DG1.3.1><DG1.3.1>Z34.81</DG1.3.1><DG1.3.1>Z34.81</DG1.3.1>< DG1. {SPECIMEN TYPE: R~.~.~<DG1.3.1>Z34.81</DG1.3.1><DG1.3.1>Z34.81</DG1.3.1><DG1.3.1>Z34.81</DG1.3.1 .~.~<DG1.3.1>Z34.81</DG1.3.1><DG1.3.1>Z34.81</DG1.3.1><DG1.3.1>Z34.81</DG1.3.1>< DG1. .~.~<DG1.3.1>Z34.81</DG1.3.1><DG1.3.1>Z34.81</DG1.3.1><DG1.3.1>Z34.81</DG1.3.1> <DG1. .~.~<DG1.3.1>Z34.81</DG1.3.1><DG1.3.1>Z34.81</DG1.3.1><DG1.3.1>Z34.81</DG1.3.1>< DG1. .~.~<DG1.3.1>Z34.81</DG1.3.1><DG1.3.1>Z34.81</DG1.3.1><DG1.3.1>Z34.81</DG1.3.1>< DG1. .~.~<DG1.3.1> Z34.81</DG1.3.1><DG1.3.1>Z34.81</DG1.3.1><DG1.3.1>Z34.81</DG1.3.1><DG1. .~.~<DG1.3.1>Z34.81</DG1.3.1><DG1.3.1>Z34.81</DG1.3.1><DG1.3.1>Z34.81</DG1.3.1>< DG1. BUN/Creat 16 06-27 [facility] ([facility] [place]) .~.~<DG1.3.1>Z34.81</DG1.3.1><DG1.3.1>Z34.81</DG1.3.1><DG1.3.1>Z34.81</DG1.3.1>< DG1. {SOURCE: R~.~.~<DG1.3.1>Z34.81</DG1.3.1><DG1.3.1>Z34.81</DG1.3.1><DG1.3.1>Z34.81</DG1.3.1 ><DG1. .~.~<DG1.3.1> Z34.81</DG1.3.1><DG1.3.1>Z34.81</DG1.3.1><DG1.3.1>Z34.81</DG1.3.1><DG1. .~.~<DG1.3.1>Z34.81</DG1.3.1><DG1.3.1>Z34.81</DG1.3.1><DG1.3.1>Z34.81</DG1.3.1>< DG1. .~.~<DG1.3.1>Z34.81</DG1.3.1><DG1.3.1> Z34.81</DG1.3.1><DG1.3.1>Z34.81</DG1.3.1><DG1. .~.~<DG1.3.1>Z34.81</DG1.3.1><DG1.3.1>Z34.81</DG1.3.1><DG1.3.1>Z34.81</DG1.3.1>< DG1. .~.~<DG1.3.1>Z34.81</DG1.3.1><DG1.3.1>Z34.81</DG1.3.1><DG1.3.1> Z34.81</DG1.3.1><DG1. .~.~<DG1.3.1>Z34.81</DG1.3.1><DG1.3.1>Z34.81</DG1.3.1><DG1.3.1>Z34.81</DG1.3.1>< DG1. .~.~<DG1.3.1>Z34.81</DG1.3.1><DG1.3.1>Z34.81</DG1.3.1><DG1.3.1>Z34.81</DG1.3.1> <DG1. Is patient fasting? N~.~.~<DG1.3.1>Z34.81</DG1.3.1><DG1.3.1>Z34.81</DG1.3.1><DG1.3.1>Z34.81</DG1 .~.~<DG1.3.1>Z34.81</DG1.3.1><DG1.3.1>Z34.81</DG1.3.1><DG1.3.1>Z34.81</DG1.3.1> <DG1. .~.~<DG1.3.1>Z34.81</DG1.3.1><DG1.3.1>Z34.81</DG1.3.1><DG1.3.1>Z34.81</DG1.3.1>< DG1. Reason for Exam: R~.~.~<DG1.3.1>Z34.81</DG1.3.1><DG1.3.1>Z34.81</DG1.3.1><DG1.3.1>Z34.81</DG1.3. .~.~<DG1.3.1>Z34.81</DG1.3.1><DG1.3.1>Z34.81</DG1.3.1><DG1.3.1>Z34.81</DG1.3.1>< DG1. {SPECIMEN TYPE: R~.~.~<DG1.3.1>Z34.81</DG1.3.1><DG1.3.1>Z34.81</DG1.3.1><DG1.3.1>Z34.81</DG1.3.1 .~.~<DG1.3.1>Z34.81</DG1.3.1><DG1.3.1>Z34.81</DG1.3.1><DG1.3.1>Z34.81</DG1.3.1>< DG1. .~.~<DG1.3.1>Z34.81</DG1.3.1><DG1.3.1>Z34.81</DG1.3.1><DG1.3.1>Z34.81</DG1.3.1> <DG1. .~.~<DG1.3.1>Z34.81</DG1.3.1><DG1.3.1>Z34.81</DG1.3.1><DG1.3.1>Z34.81</DG1.3.1>< DG1. .~.~<DG1.3.1>Z34.81</DG1.3.1><DG1.3.1>Z34.81</DG1.3.1><DG1.3.1>Z34.81</DG1.3.1>< DG1. .~.~<DG1.3.1> Z34.81</DG1.3.1><DG1.3.1>Z34.81</DG1.3.1><DG1.3.1>Z34.81</DG1.3.1><DG1. .~.~<DG1.3.1>Z34.81</DG1.3.1><DG1.3.1>Z34.81</DG1.3.1><DG1.3.1>Z34.81</DG1.3.1>< DG1. Creatinine 0.7 mg/dL 0.7-1.5 [facility]) .~.~<DG1.3.1>Z34.81</DG1.3.1><DG1.3.1>Z34.81</DG1.3.1><DG1.3.1>Z34.81</DG1.3.1>< DG1. {SOURCE: R~.~.~<DG1.3.1>Z34.81</DG1.3.1><DG1.3.1>Z34.81</DG1.3.1><DG1.3.1>Z34.81</DG1.3.1 ><DG1. .~.~<DG1.3.1> Z34.81</DG1.3.1><DG1.3.1>Z34.81</DG1.3.1><DG1.3.1>Z34.81</DG1.3.1><DG1. .~.~<DG1.3.1>Z34.81</DG1.3.1><DG1.3.1>Z34.81</DG1.3.1><DG1.3.1>Z34.81</DG1.3.1>< DG1. .~.~<DG1.3.1>Z34.81</DG1.3.1><DG1.3.1> Z34.81</DG1.3.1><DG1.3.1>Z34.81</DG1.3.1><DG1. .~.~<DG1.3.1>Z34.81</DG1.3.1><DG1.3.1>Z34.81</DG1.3.1><DG1.3.1>Z34.81</DG1.3.1>< DG1. .~.~<DG1.3.1>Z34.81</DG1.3.1><DG1.3.1>Z34.81</DG1.3.1><DG1.3.1> Z34.81</DG1.3.1><DG1. .~.~<DG1.3.1>Z34.81</DG1.3.1><DG1.3.1>Z34.81</DG1.3.1><DG1.3.1>Z34.81</DG1.3.1>< DG1. .~.~<DG1.3.1>Z34.81</DG1.3.1><DG1.3.1>Z34.81</DG1.3.1><DG1.3.1>Z34.81</DG1.3.1> <DG1. Is patient fasting? N~.~.~<DG1.3.1>Z34.81</DG1.3.1><DG1.3.1>Z34.81</DG1.3.1><DG1.3.1>Z34.81</DG1 .~.~<DG1.3.1>Z34.81</DG1.3.1><DG1.3.1>Z34.81</DG1.3.1><DG1.3.1>Z34.81</DG1.3.1> <DG1. .~.~<DG1.3.1>Z34.81</DG1.3.1><DG1.3.1>Z34.81</DG1.3.1><DG1.3.1>Z34.81</DG1.3.1>< DG1. Reason for Exam: R~.~.~<DG1.3.1>Z34.81</DG1.3.1><DG1.3.1>Z34.81</DG1.3.1><DG1.3.1>Z34.81</DG1.3. .~.~<DG1.3.1>Z34.81</DG1.3.1><DG1.3.1>Z34.81</DG1.3.1><DG1.3.1>Z34.81</DG1.3.1>< DG1. {SPECIMEN TYPE: R~.~.~<DG1.3.1>Z34.81</DG1.3.1><DG1.3.1>Z34.81</DG1.3.1><DG1.3.1>Z34.81</DG1.3.1 .~.~<DG1.3.1>Z34.81</DG1.3.1><DG1.3.1>Z34.81</DG1.3.1><DG1.3.1>Z34.81</DG1.3.1>< DG1. .~.~<DG1.3.1>Z34.81</DG1.3.1><DG1.3.1>Z34.81</DG1.3.1><DG1.3.1>Z34.81</DG1.3.1> <DG1. .~.~<DG1.3.1>Z34.81</DG1.3.1><DG1.3.1>Z34.81</DG1.3.1><DG1.3.1>Z34.81</DG1.3.1>< DG1. .~.~<DG1.3.1>Z34.81</DG1.3.1><DG1.3.1>Z34.81</DG1.3.1><DG1.3.1>Z34.81</DG1.3.1>< DG1. .~.~<DG1.3.1> Z34.81</DG1.3.1><DG1.3.1>Z34.81</DG1.3.1><DG1.3.1>Z34.81</DG1.3.1><DG1. .~.~<DG1.3.1>Z34.81</DG1.3.1><DG1.3.1>Z34.81</DG1.3.1><DG1.3.1>Z34.81</DG1.3.1>< DG1. Total Protein 6.6 g/dL 6.3-8.2 [facility] ([facility]) .~.~<DG1.3.1>Z34.81</DG1.3.1><DG1.3.1>Z34.81</DG1.3.1><DG1.3.1>Z34.81</DG1.3.1>< DG1. {SOURCE: R~.~.~<DG1.3.1>Z34.81</DG1.3.1><DG1.3.1>Z34.81</DG1.3.1><DG1.3.1>Z34.81</DG1.3.1 ><DG1. .~.~<DG1.3.1> Z34.81</DG1.3.1><DG1.3.1>Z34.81</DG1.3.1><DG1.3.1>Z34.81</DG1.3.1><DG1. .~.~<DG1.3.1>Z34.81</DG1.3.1><DG1.3.1>Z34.81</DG1.3.1><DG1.3.1>Z34.81</DG1.3.1>< DG1. .~.~<DG1.3.1>Z34.81</DG1.3.1><DG1.3.1> Z34.81</DG1.3.1><DG1.3.1>Z34.81</DG1.3.1><DG1. .~.~<DG1.3.1>Z34.81</DG1.3.1><DG1.3.1>Z34.81</DG1.3.1><DG1.3.1>Z34.81</DG1.3.1>< DG1. .~.~<DG1.3.1>Z34.81</DG1.3.1><DG1.3.1>Z34.81</DG1.3.1><DG1.3.1> Z34.81</DG1.3.1><DG1. .~.~<DG1.3.1>Z34.81</DG1.3.1><DG1.3.1>Z34.81</DG1.3.1><DG1.3.1>Z34.81</DG1.3.1>< DG1. .~.~<DG1.3.1>Z34.81</DG1.3.1><DG1.3.1>Z34.81</DG1.3.1><DG1.3.1>Z34.81</DG1.3.1> <DG1. Is patient fasting? N~.~.~<DG1.3.1>Z34.81</DG1.3.1><DG1.3.1>Z34.81</DG1.3.1><DG1.3.1>Z34.81</DG1 .~.~<DG1.3.1>Z34.81</DG1.3.1><DG1.3.1>Z34.81</DG1.3.1><DG1.3.1>Z34.81</DG1.3.1> <DG1. .~.~<DG1.3.1>Z34.81</DG1.3.1><DG1.3.1>Z34.81</DG1.3.1><DG1.3.1>Z34.81</DG1.3.1>< DG1. Reason for Exam: R~.~.~<DG1.3.1>Z34.81</DG1.3.1><DG1.3.1>Z34.81</DG1.3.1><DG1.3.1>Z34.81</DG1.3. .~.~<DG1.3.1>Z34.81</DG1.3.1><DG1.3.1>Z34.81</DG1.3.1><DG1.3.1>Z34.81</DG1.3.1>< DG1. {SPECIMEN TYPE: R~.~.~<DG1.3.1>Z34.81</DG1.3.1><DG1.3.1>Z34.81</DG1.3.1><DG1.3.1>Z34.81</DG1.3.1 .~.~<DG1.3.1>Z34.81</DG1.3.1><DG1.3.1>Z34.81</DG1.3.1><DG1.3.1>Z34.81</DG1.3.1>< DG1. .~.~<DG1.3.1>Z34.81</DG1.3.1><DG1.3.1>Z34.81</DG1.3.1><DG1.3.1>Z34.81</DG1.3.1> <DG1. .~.~<DG1.3.1>Z34.81</DG1.3.1><DG1.3.1>Z34.81</DG1.3.1><DG1.3.1>Z34.81</DG1.3.1>< DG1. .~.~<DG1.3.1>Z34.81</DG1.3.1><DG1.3.1>Z34.81</DG1.3.1><DG1.3.1>Z34.81</DG1.3.1>< DG1. .~.~<DG1.3.1> Z34.81</DG1.3.1><DG1.3.1>Z34.81</DG1.3.1><DG1.3.1>Z34.81</DG1.3.1><DG1. .~.~<DG1.3.1>Z34.81</DG1.3.1><DG1.3.1>Z34.81</DG1.3.1><DG1.3.1>Z34.81</DG1.3.1>< DG1. Globulin 2.8 GM/DL 2.4-3.2 [facility] ([facility] [place]) .~.~<DG1.3.1>Z34.81</DG1.3.1><DG1.3.1>Z34.81</DG1.3.1><DG1.3.1>Z34.81</DG1.3.1>< DG1. {SOURCE: R~.~.~<DG1.3.1>Z34.81</DG1.3.1><DG1.3.1>Z34.81</DG1.3.1><DG1.3.1>Z34.81</DG1.3.1 ><DG1. .~.~<DG1.3.1> Z34.81</DG1.3.1><DG1.3.1>Z34.81</DG1.3.1><DG1.3.1>Z34.81</DG1.3.1><DG1. .~.~<DG1.3.1>Z34.81</DG1.3.1><DG1.3.1>Z34.81</DG1.3.1><DG1.3.1>Z34.81</DG1.3.1>< DG1. .~.~<DG1.3.1>Z34.81</DG1.3.1><DG1.3.1> Z34.81</DG1.3.1><DG1.3.1>Z34.81</DG1.3.1><DG1. .~.~<DG1.3.1>Z34.81</DG1.3.1><DG1.3.1>Z34.81</DG1.3.1><DG1.3.1>Z34.81</DG1.3.1>< DG1. .~.~<DG1.3.1>Z34.81</DG1.3.1><DG1.3.1>Z34.81</DG1.3.1><DG1.3.1> Z34.81</DG1.3.1><DG1. .~.~<DG1.3.1>Z34.81</DG1.3.1><DG1.3.1>Z34.81</DG1.3.1><DG1.3.1>Z34.81</DG1.3.1>< DG1. .~.~<DG1.3.1>Z34.81</DG1.3.1><DG1.3.1>Z34.81</DG1.3.1><DG1.3.1>Z34.81</DG1.3.1> <DG1. Is patient fasting? N~.~.~<DG1.3.1>Z34.81</DG1.3.1><DG1.3.1>Z34.81</DG1.3.1><DG1.3.1>Z34.81</DG1 .~.~<DG1.3.1>Z34.81</DG1.3.1><DG1.3.1>Z34.81</DG1.3.1><DG1.3.1>Z34.81</DG1.3.1> <DG1. .~.~<DG1.3.1>Z34.81</DG1.3.1><DG1.3.1>Z34.81</DG1.3.1><DG1.3.1>Z34.81</DG1.3.1>< DG1. Reason for Exam: R~.~.~<DG1.3.1>Z34.81</DG1.3.1><DG1.3.1>Z34.81</DG1.3.1><DG1.3.1>Z34.81</DG1.3. .~.~<DG1.3.1>Z34.81</DG1.3.1><DG1.3.1>Z34.81</DG1.3.1><DG1.3.1>Z34.81</DG1.3.1>< DG1. {SPECIMEN TYPE: R~.~.~<DG1.3.1>Z34.81</DG1.3.1><DG1.3.1>Z34.81</DG1.3.1><DG1.3.1>Z34.81</DG1.3.1 .~.~<DG1.3.1>Z34.81</DG1.3.1><DG1.3.1>Z34.81</DG1.3.1><DG1.3.1>Z34.81</DG1.3.1>< DG1. .~.~<DG1.3.1>Z34.81</DG1.3.1><DG1.3.1>Z34.81</DG1.3.1><DG1.3.1>Z34.81</DG1.3.1> <DG1. .~.~<DG1.3.1>Z34.81</DG1.3.1><DG1.3.1>Z34.81</DG1.3.1><DG1.3.1>Z34.81</DG1.3.1>< DG1. .~.~<DG1.3.1>Z34.81</DG1.3.1><DG1.3.1>Z34.81</DG1.3.1><DG1.3.1>Z34.81</DG1.3.1>< DG1. .~.~<DG1.3.1> Z34.81</DG1.3.1><DG1.3.1>Z34.81</DG1.3.1><DG1.3.1>Z34.81</DG1.3.1><DG1. .~.~<DG1.3.1>Z34.81</DG1.3.1><DG1.3.1>Z34.81</DG1.3.1><DG1.3.1>Z34.81</DG1.3.1>< DG1. Albumin 3.8 g/dL 3.9-5.0 Below low normal [facility] ( [facility]) .~.~<DG1.3.1>Z34.81</DG1.3.1><DG1.3.1>Z34.81</DG1.3.1><DG1.3.1>Z34.81</DG1.3.1>< DG1. {SOURCE: R~.~.~<DG1.3.1>Z34.81</DG1.3.1><DG1.3.1>Z34.81</DG1.3.1><DG1.3.1>Z34.81</DG1.3.1 ><DG1. .~.~<DG1.3.1> Z34.81</DG1.3.1><DG1.3.1>Z34.81</DG1.3.1><DG1.3.1>Z34.81</DG1.3.1><DG1. .~.~<DG1.3.1>Z34.81</DG1.3.1><DG1.3.1>Z34.81</DG1.3.1><DG1.3.1>Z34.81</DG1.3.1>< DG1. .~.~<DG1.3.1>Z34.81</DG1.3.1><DG1.3.1> Z34.81</DG1.3.1><DG1.3.1>Z34.81</DG1.3.1><DG1. .~.~<DG1.3.1>Z34.81</DG1.3.1><DG1.3.1>Z34.81</DG1.3.1><DG1.3.1>Z34.81</DG1.3.1>< DG1. .~.~<DG1.3.1>Z34.81</DG1.3.1><DG1.3.1>Z34.81</DG1.3.1><DG1.3.1> Z34.81</DG1.3.1><DG1. .~.~<DG1.3.1>Z34.81</DG1.3.1><DG1.3.1>Z34.81</DG1.3.1><DG1.3.1>Z34.81</DG1.3.1>< DG1. .~.~<DG1.3.1>Z34.81</DG1.3.1><DG1.3.1>Z34.81</DG1.3.1><DG1.3.1>Z34.81</DG1.3.1> <DG1. Is patient fasting? N~.~.~<DG1.3.1>Z34.81</DG1.3.1><DG1.3.1>Z34.81</DG1.3.1><DG1.3.1>Z34.81</DG1 .~.~<DG1.3.1>Z34.81</DG1.3.1><DG1.3.1>Z34.81</DG1.3.1><DG1.3.1>Z34.81</DG1.3.1> <DG1. .~.~<DG1.3.1>Z34.81</DG1.3.1><DG1.3.1>Z34.81</DG1.3.1><DG1.3.1>Z34.81</DG1.3.1>< DG1. Reason for Exam: R~.~.~<DG1.3.1>Z34.81</DG1.3.1><DG1.3.1>Z34.81</DG1.3.1><DG1.3.1>Z34.81</DG1.3. .~.~<DG1.3.1>Z34.81</DG1.3.1><DG1.3.1>Z34.81</DG1.3.1><DG1.3.1>Z34.81</DG1.3.1>< DG1. {SPECIMEN TYPE: R~.~.~<DG1.3.1>Z34.81</DG1.3.1><DG1.3.1>Z34.81</DG1.3.1><DG1.3.1>Z34.81</DG1.3.1 .~.~<DG1.3.1>Z34.81</DG1.3.1><DG1.3.1>Z34.81</DG1.3.1><DG1.3.1>Z34.81</DG1.3.1>< DG1. .~.~<DG1.3.1>Z34.81</DG1.3.1><DG1.3.1>Z34.81</DG1.3.1><DG1.3.1>Z34.81</DG1.3.1> <DG1. .~.~<DG1.3.1>Z34.81</DG1.3.1><DG1.3.1>Z34.81</DG1.3.1><DG1.3.1>Z34.81</DG1.3.1>< DG1. .~.~<DG1.3.1>Z34.81</DG1.3.1><DG1.3.1>Z34.81</DG1.3.1><DG1.3.1>Z34.81</DG1.3.1>< DG1. .~.~<DG1.3.1> Z34.81</DG1.3.1><DG1.3.1>Z34.81</DG1.3.1><DG1.3.1>Z34.81</DG1.3.1><DG1. .~.~<DG1.3.1>Z34.81</DG1.3.1><DG1.3.1>Z34.81</DG1.3.1><DG1.3.1>Z34.81</DG1.3.1>< DG1. A/G Ratio 1.4 0.8-2.0 [facility] ([facility] [place]) .~.~<DG1.3.1>Z34.81</DG1.3.1><DG1.3.1>Z34.81</DG1.3.1><DG1.3.1>Z34.81</DG1.3.1>< DG1. {SOURCE: R~.~.~<DG1.3.1>Z34.81</DG1.3.1><DG1.3.1>Z34.81</DG1.3.1><DG1.3.1>Z34.81</DG1.3.1 ><DG1. .~.~<DG1.3.1> Z34.81</DG1.3.1><DG1.3.1>Z34.81</DG1.3.1><DG1.3.1>Z34.81</DG1.3.1><DG1. .~.~<DG1.3.1>Z34.81</DG1.3.1><DG1.3.1>Z34.81</DG1.3.1><DG1.3.1>Z34.81</DG1.3.1>< DG1. .~.~<DG1.3.1>Z34.81</DG1.3.1><DG1.3.1> Z34.81</DG1.3.1><DG1.3.1>Z34.81</DG1.3.1><DG1. .~.~<DG1.3.1>Z34.81</DG1.3.1><DG1.3.1>Z34.81</DG1.3.1><DG1.3.1>Z34.81</DG1.3.1>< DG1. .~.~<DG1.3.1>Z34.81</DG1.3.1><DG1.3.1>Z34.81</DG1.3.1><DG1.3.1> Z34.81</DG1.3.1><DG1. .~.~<DG1.3.1>Z34.81</DG1.3.1><DG1.3.1>Z34.81</DG1.3.1><DG1.3.1>Z34.81</DG1.3.1>< DG1. .~.~<DG1.3.1>Z34.81</DG1.3.1><DG1.3.1>Z34.81</DG1.3.1><DG1.3.1>Z34.81</DG1.3.1> <DG1. Is patient fasting? N~.~.~<DG1.3.1>Z34.81</DG1.3.1><DG1.3.1>Z34.81</DG1.3.1><DG1.3.1>Z34.81</DG1 .~.~<DG1.3.1>Z34.81</DG1.3.1><DG1.3.1>Z34.81</DG1.3.1><DG1.3.1>Z34.81</DG1.3.1> <DG1. .~.~<DG1.3.1>Z34.81</DG1.3.1><DG1.3.1>Z34.81</DG1.3.1><DG1.3.1>Z34.81</DG1.3.1>< DG1. Reason for Exam: R~.~.~<DG1.3.1>Z34.81</DG1.3.1><DG1.3.1>Z34.81</DG1.3.1><DG1.3.1>Z34.81</DG1.3. .~.~<DG1.3.1>Z34.81</DG1.3.1><DG1.3.1>Z34.81</DG1.3.1><DG1.3.1>Z34.81</DG1.3.1>< DG1. {SPECIMEN TYPE: R~.~.~<DG1.3.1>Z34.81</DG1.3.1><DG1.3.1>Z34.81</DG1.3.1><DG1.3.1>Z34.81</DG1.3.1 .~.~<DG1.3.1>Z34.81</DG1.3.1><DG1.3.1>Z34.81</DG1.3.1><DG1.3.1>Z34.81</DG1.3.1>< DG1. .~.~<DG1.3.1>Z34.81</DG1.3.1><DG1.3.1>Z34.81</DG1.3.1><DG1.3.1>Z34.81</DG1.3.1> <DG1. .~.~<DG1.3.1>Z34.81</DG1.3.1><DG1.3.1>Z34.81</DG1.3.1><DG1.3.1>Z34.81</DG1.3.1>< DG1. .~.~<DG1.3.1>Z34.81</DG1.3.1><DG1.3.1>Z34.81</DG1.3.1><DG1.3.1>Z34.81</DG1.3.1>< DG1. .~.~<DG1.3.1> Z34.81</DG1.3.1><DG1.3.1>Z34.81</DG1.3.1><DG1.3.1>Z34.81</DG1.3.1><DG1. .~.~<DG1.3.1>Z34.81</DG1.3.1><DG1.3.1>Z34.81</DG1.3.1><DG1.3.1>Z34.81</DG1.3.1>< DG1. Calcium 9.4 mg/dL 8.4-10.2 [facility] ([facility] [place]) .~.~<DG1.3.1>Z34.81</DG1.3.1><DG1.3.1>Z34.81</DG1.3.1><DG1.3.1>Z34.81</DG1.3.1>< DG1. {SOURCE: R~.~.~<DG1.3.1>Z34.81</DG1.3.1><DG1.3.1>Z34.81</DG1.3.1><DG1.3.1>Z34.81</DG1.3.1 ><DG1. .~.~<DG1.3.1> Z34.81</DG1.3.1><DG1.3.1>Z34.81</DG1.3.1><DG1.3.1>Z34.81</DG1.3.1><DG1. .~.~<DG1.3.1>Z34.81</DG1.3.1><DG1.3.1>Z34.81</DG1.3.1><DG1.3.1>Z34.81</DG1.3.1>< DG1. .~.~<DG1.3.1>Z34.81</DG1.3.1><DG1.3.1> Z34.81</DG1.3.1><DG1.3.1>Z34.81</DG1.3.1><DG1. .~.~<DG1.3.1>Z34.81</DG1.3.1><DG1.3.1>Z34.81</DG1.3.1><DG1.3.1>Z34.81</DG1.3.1>< DG1. .~.~<DG1.3.1>Z34.81</DG1.3.1><DG1.3.1>Z34.81</DG1.3.1><DG1.3.1> Z34.81</DG1.3.1><DG1. .~.~<DG1.3.1>Z34.81</DG1.3.1><DG1.3.1>Z34.81</DG1.3.1><DG1.3.1>Z34.81</DG1.3.1>< DG1. .~.~<DG1.3.1>Z34.81</DG1.3.1><DG1.3.1>Z34.81</DG1.3.1><DG1.3.1>Z34.81</DG1.3.1> <DG1. Is patient fasting? N~.~.~<DG1.3.1>Z34.81</DG1.3.1><DG1.3.1>Z34.81</DG1.3.1><DG1.3.1>Z34.81</DG1 .~.~<DG1.3.1>Z34.81</DG1.3.1><DG1.3.1>Z34.81</DG1.3.1><DG1.3.1>Z34.81</DG1.3.1> <DG1. .~.~<DG1.3.1>Z34.81</DG1.3.1><DG1.3.1>Z34.81</DG1.3.1><DG1.3.1>Z34.81</DG1.3.1>< DG1. Reason for Exam: R~.~.~<DG1.3.1>Z34.81</DG1.3.1><DG1.3.1>Z34.81</DG1.3.1><DG1.3.1>Z34.81</DG1.3. .~.~<DG1.3.1>Z34.81</DG1.3.1><DG1.3.1>Z34.81</DG1.3.1><DG1.3.1>Z34.81</DG1.3.1>< DG1. {SPECIMEN TYPE: R~.~.~<DG1.3.1>Z34.81</DG1.3.1><DG1.3.1>Z34.81</DG1.3.1><DG1.3.1>Z34.81</DG1.3.1 .~.~<DG1.3.1>Z34.81</DG1.3.1><DG1.3.1>Z34.81</DG1.3.1><DG1.3.1>Z34.81</DG1.3.1>< DG1. .~.~<DG1.3.1>Z34.81</DG1.3.1><DG1.3.1>Z34.81</DG1.3.1><DG1.3.1>Z34.81</DG1.3.1> <DG1. .~.~<DG1.3.1>Z34.81</DG1.3.1><DG1.3.1>Z34.81</DG1.3.1><DG1.3.1>Z34.81</DG1.3.1>< DG1. .~.~<DG1.3.1>Z34.81</DG1.3.1><DG1.3.1>Z34.81</DG1.3.1><DG1.3.1>Z34.81</DG1.3.1>< DG1. .~.~<DG1.3.1> Z34.81</DG1.3.1><DG1.3.1>Z34.81</DG1.3.1><DG1.3.1>Z34.81</DG1.3.1><DG1. .~.~<DG1.3.1>Z34.81</DG1.3.1><DG1.3.1>Z34.81</DG1.3.1><DG1.3.1>Z34.81</DG1.3.1>< DG1. Alkaline Phos 40 U/L 38-126 [facility] ([facility]) .~.~<DG1.3.1>Z34.81</DG1.3.1><DG1.3.1>Z34.81</DG1.3.1><DG1.3.1>Z34.81</DG1.3.1>< DG1. {SOURCE: R~.~.~<DG1.3.1>Z34.81</DG1.3.1><DG1.3.1>Z34.81</DG1.3.1><DG1.3.1>Z34.81</DG1.3.1 ><DG1. .~.~<DG1.3.1> Z34.81</DG1.3.1><DG1.3.1>Z34.81</DG1.3.1><DG1.3.1>Z34.81</DG1.3.1><DG1. .~.~<DG1.3.1>Z34.81</DG1.3.1><DG1.3.1>Z34.81</DG1.3.1><DG1.3.1>Z34.81</DG1.3.1>< DG1. .~.~<DG1.3.1>Z34.81</DG1.3.1><DG1.3.1> Z34.81</DG1.3.1><DG1.3.1>Z34.81</DG1.3.1><DG1. .~.~<DG1.3.1>Z34.81</DG1.3.1><DG1.3.1>Z34.81</DG1.3.1><DG1.3.1>Z34.81</DG1.3.1>< DG1. .~.~<DG1.3.1>Z34.81</DG1.3.1><DG1.3.1>Z34.81</DG1.3.1><DG1.3.1> Z34.81</DG1.3.1><DG1. .~.~<DG1.3.1>Z34.81</DG1.3.1><DG1.3.1>Z34.81</DG1.3.1><DG1.3.1>Z34.81</DG1.3.1>< DG1. .~.~<DG1.3.1>Z34.81</DG1.3.1><DG1.3.1>Z34.81</DG1.3.1><DG1.3.1>Z34.81</DG1.3.1> <DG1. Is patient fasting? N~.~.~<DG1.3.1>Z34.81</DG1.3.1><DG1.3.1>Z34.81</DG1.3.1><DG1.3.1>Z34.81</DG1 .~.~<DG1.3.1>Z34.81</DG1.3.1><DG1.3.1>Z34.81</DG1.3.1><DG1.3.1>Z34.81</DG1.3.1> <DG1. .~.~<DG1.3.1>Z34.81</DG1.3.1><DG1.3.1>Z34.81</DG1.3.1><DG1.3.1>Z34.81</DG1.3.1>< DG1. Reason for Exam: R~.~.~<DG1.3.1>Z34.81</DG1.3.1><DG1.3.1>Z34.81</DG1.3.1><DG1.3.1>Z34.81</DG1.3. .~.~<DG1.3.1>Z34.81</DG1.3.1><DG1.3.1>Z34.81</DG1.3.1><DG1.3.1>Z34.81</DG1.3.1>< DG1. {SPECIMEN TYPE: R~.~.~<DG1.3.1>Z34.81</DG1.3.1><DG1.3.1>Z34.81</DG1.3.1><DG1.3.1>Z34.81</DG1.3.1 .~.~<DG1.3.1>Z34.81</DG1.3.1><DG1.3.1>Z34.81</DG1.3.1><DG1.3.1>Z34.81</DG1.3.1>< DG1. .~.~<DG1.3.1>Z34.81</DG1.3.1><DG1.3.1>Z34.81</DG1.3.1><DG1.3.1>Z34.81</DG1.3.1> <DG1. .~.~<DG1.3.1>Z34.81</DG1.3.1><DG1.3.1>Z34.81</DG1.3.1><DG1.3.1>Z34.81</DG1.3.1>< DG1. .~.~<DG1.3.1>Z34.81</DG1.3.1><DG1.3.1>Z34.81</DG1.3.1><DG1.3.1>Z34.81</DG1.3.1>< DG1. .~.~<DG1.3.1> Z34.81</DG1.3.1><DG1.3.1>Z34.81</DG1.3.1><DG1.3.1>Z34.81</DG1.3.1><DG1. .~.~<DG1.3.1>Z34.81</DG1.3.1><DG1.3.1>Z34.81</DG1.3.1><DG1.3.1>Z34.81</DG1.3.1>< DG1. Total Bili Laboratory test result 0.2-1.3 [place] ([facility]) .~.~<DG1.3.1>Z34.81</DG1.3.1><DG1.3.1>Z34.81</DG1.3.1><DG1.3.1>Z34.81</DG1.3.1>< DG1. {SOURCE: R~.~.~<DG1.3.1>Z34.81</DG1.3.1><DG1.3.1>Z34.81</DG1.3.1><DG1.3.1>Z34.81</DG1.3.1 ><DG1. .~.~<DG1.3.1> Z34.81</DG1.3.1><DG1.3.1>Z34.81</DG1.3.1><DG1.3.1>Z34.81</DG1.3.1><DG1. .~.~<DG1.3.1>Z34.81</DG1.3.1><DG1.3.1>Z34.81</DG1.3.1><DG1.3.1>Z34.81</DG1.3.1>< DG1. .~.~<DG1.3.1>Z34.81</DG1.3.1><DG1.3.1> Z34.81</DG1.3.1><DG1.3.1>Z34.81</DG1.3.1><DG1. .~.~<DG1.3.1>Z34.81</DG1.3.1><DG1.3.1>Z34.81</DG1.3.1><DG1.3.1>Z34.81</DG1.3.1>< DG1. .~.~<DG1.3.1>Z34.81</DG1.3.1><DG1.3.1>Z34.81</DG1.3.1><DG1.3.1> Z34.81</DG1.3.1><DG1. .~.~<DG1.3.1>Z34.81</DG1.3.1><DG1.3.1>Z34.81</DG1.3.1><DG1.3.1>Z34.81</DG1.3.1>< DG1. .~.~<DG1.3.1>Z34.81</DG1.3.1><DG1.3.1>Z34.81</DG1.3.1><DG1.3.1>Z34.81</DG1.3.1> <DG1. Is patient fasting? N~.~.~<DG1.3.1>Z34.81</DG1.3.1><DG1.3.1>Z34.81</DG1.3.1><DG1.3.1>Z34.81</DG1 .~.~<DG1.3.1>Z34.81</DG1.3.1><DG1.3.1>Z34.81</DG1.3.1><DG1.3.1>Z34.81</DG1.3.1> <DG1. .~.~<DG1.3.1>Z34.81</DG1.3.1><DG1.3.1>Z34.81</DG1.3.1><DG1.3.1>Z34.81</DG1.3.1>< DG1. Reason for Exam: R~.~.~<DG1.3.1>Z34.81</DG1.3.1><DG1.3.1>Z34.81</DG1.3.1><DG1.3.1>Z34.81</DG1.3. .~.~<DG1.3.1>Z34.81</DG1.3.1><DG1.3.1>Z34.81</DG1.3.1><DG1.3.1>Z34.81</DG1.3.1>< DG1. {SPECIMEN TYPE: R~.~.~<DG1.3.1>Z34.81</DG1.3.1><DG1.3.1>Z34.81</DG1.3.1><DG1.3.1>Z34.81</DG1.3.1 .~.~<DG1.3.1>Z34.81</DG1.3.1><DG1.3.1>Z34.81</DG1.3.1><DG1.3.1>Z34.81</DG1.3.1>< DG1. .~.~<DG1.3.1>Z34.81</DG1.3.1><DG1.3.1>Z34.81</DG1.3.1><DG1.3.1>Z34.81</DG1.3.1> <DG1. .~.~<DG1.3.1>Z34.81</DG1.3.1><DG1.3.1>Z34.81</DG1.3.1><DG1.3.1>Z34.81</DG1.3.1>< DG1. .~.~<DG1.3.1>Z34.81</DG1.3.1><DG1.3.1>Z34.81</DG1.3.1><DG1.3.1>Z34.81</DG1.3.1>< DG1. .~.~<DG1.3.1> Z34.81</DG1.3.1><DG1.3.1>Z34.81</DG1.3.1><DG1.3.1>Z34.81</DG1.3.1><DG1. .~.~<DG1.3.1>Z34.81</DG1.3.1><DG1.3.1>Z34.81</DG1.3.1><DG1.3.1>Z34.81</DG1.3.1>< DG1. SGPT/Alt 8 U[facility]L 7[facility] [place] .~.~<DG1.3.1>Z34.81</DG1.3.1><DG1.3.1>Z34.81</DG1.3.1><DG1.3.1>Z34.81</DG1.3.1>< DG1. {SOURCE: R~.~.~<DG1.3.1>Z34.81</DG1.3.1><DG1.3.1>Z34.81</DG1.3.1><DG1.3.1>Z34.81</DG1.3.1 ><DG1. .~.~<DG1.3.1> Z34.81</DG1.3.1><DG1.3.1>Z34.81</DG1.3.1><DG1.3.1>Z34.81</DG1.3.1><DG1. .~.~<DG1.3.1>Z34.81</DG1.3.1><DG1.3.1>Z34.81</DG1.3.1><DG1.3.1>Z34.81</DG1.3.1>< DG1. .~.~<DG1.3.1>Z34.81</DG1.3.1><DG1.3.1> Z34.81</DG1.3.1><DG1.3.1>Z34.81</DG1.3.1><DG1. .~.~<DG1.3.1>Z34.81</DG1.3.1><DG1.3.1>Z34.81</DG1.3.1><DG1.3.1>Z34.81</DG1.3.1>< DG1. .~.~<DG1.3.1>Z34.81</DG1.3.1><DG1.3.1>Z34.81</DG1.3.1><DG1.3.1> Z34.81</DG1.3.1><DG1. .~.~<DG1.3.1>Z34.81</DG1.3.1><DG1.3.1>Z34.81</DG1.3.1><DG1.3.1>Z34.81</DG1.3.1>< DG1. .~.~<DG1.3.1>Z34.81</DG1.3.1><DG1.3.1>Z34.81</DG1.3.1><DG1.3.1>Z34.81</DG1.3.1> <DG1. Is patient fasting? N~.~.~<DG1.3.1>Z34.81</DG1.3.1><DG1.3.1>Z34.81</DG1.3.1><DG1.3.1>Z34.81</DG1 .~.~<DG1.3.1>Z34.81</DG1.3.1><DG1.3.1>Z34.81</DG1.3.1><DG1.3.1>Z34.81</DG1.3.1> <DG1. .~.~<DG1.3.1>Z34.81</DG1.3.1><DG1.3.1>Z34.81</DG1.3.1><DG1.3.1>Z34.81</DG1.3.1>< DG1. Reason for Exam: R~.~.~<DG1.3.1>Z34.81</DG1.3.1><DG1.3.1>Z34.81</DG1.3.1><DG1.3.1>Z34.81</DG1.3. .~.~<DG1.3.1>Z34.81</DG1.3.1><DG1.3.1>Z34.81</DG1.3.1><DG1.3.1>Z34.81</DG1.3.1>< DG1. {SPECIMEN TYPE: R~.~.~<DG1.3.1>Z34.81</DG1.3.1><DG1.3.1>Z34.81</DG1.3.1><DG1.3.1>Z34.81</DG1.3.1 .~.~<DG1.3.1>Z34.81</DG1.3.1><DG1.3.1>Z34.81</DG1.3.1><DG1.3.1>Z34.81</DG1.3.1>< DG1. .~.~<DG1.3.1>Z34.81</DG1.3.1><DG1.3.1>Z34.81</DG1.3.1><DG1.3.1>Z34.81</DG1.3.1> <DG1. .~.~<DG1.3.1>Z34.81</DG1.3.1><DG1.3.1>Z34.81</DG1.3.1><DG1.3.1>Z34.81</DG1.3.1>< DG1. .~.~<DG1.3.1>Z34.81</DG1.3.1><DG1.3.1>Z34.81</DG1.3.1><DG1.3.1>Z34.81</DG1.3.1>< DG1. .~.~<DG1.3.1> Z34.81</DG1.3.1><DG1.3.1>Z34.81</DG1.3.1><DG1.3.1>Z34.81</DG1.3.1><DG1. .~.~<DG1.3.1>Z34.81</DG1.3.1><DG1.3.1>Z34.81</DG1.3.1><DG1.3.1>Z34.81</DG1.3.1>< DG1. Sgot/Ast 9 U/L 5-40 [facility] ([facility] [place]) .~.~<DG1.3.1>Z34.81</DG1.3.1><DG1.3.1>Z34.81</DG1.3.1><DG1.3.1>Z34.81</DG1.3.1>< DG1. {SOURCE: R~.~.~<DG1.3.1>Z34.81</DG1.3.1><DG1.3.1>Z34.81</DG1.3.1><DG1.3.1>Z34.81</DG1.3.1 ><DG1. .~.~<DG1.3.1> Z34.81</DG1.3.1><DG1.3.1>Z34.81</DG1.3.1><DG1.3.1>Z34.81</DG1.3.1><DG1. .~.~<DG1.3.1>Z34.81</DG1.3.1><DG1.3.1>Z34.81</DG1.3.1><DG1.3.1>Z34.81</DG1.3.1>< DG1. .~.~<DG1.3.1>Z34.81</DG1.3.1><DG1.3.1> Z34.81</DG1.3.1><DG1.3.1>Z34.81</DG1.3.1><DG1. .~.~<DG1.3.1>Z34.81</DG1.3.1><DG1.3.1>Z34.81</DG1.3.1><DG1.3.1>Z34.81</DG1.3.1>< DG1. .~.~<DG1.3.1>Z34.81</DG1.3.1><DG1.3.1>Z34.81</DG1.3.1><DG1.3.1> Z34.81</DG1.3.1><DG1. .~.~<DG1.3.1>Z34.81</DG1.3.1><DG1.3.1>Z34.81</DG1.3.1><DG1.3.1>Z34.81</DG1.3.1>< DG1. .~.~<DG1.3.1>Z34.81</DG1.3.1><DG1.3.1>Z34.81</DG1.3.1><DG1.3.1>Z34.81</DG1.3.1> <DG1. Is patient fasting? N~.~.~<DG1.3.1>Z34.81</DG1.3.1><DG1.3.1>Z34.81</DG1.3.1><DG1.3.1>Z34.81</DG1 .~.~<DG1.3.1>Z34.81</DG1.3.1><DG1.3.1>Z34.81</DG1.3.1><DG1.3.1>Z34.81</DG1.3.1> <DG1. .~.~<DG1.3.1>Z34.81</DG1.3.1><DG1.3.1>Z34.81</DG1.3.1><DG1.3.1>Z34.81</DG1.3.1>< DG1. Reason for Exam: R~.~.~<DG1.3.1>Z34.81</DG1.3.1><DG1.3.1>Z34.81</DG1.3.1><DG1.3.1>Z34.81</DG1.3. .~.~<DG1.3.1>Z34.81</DG1.3.1><DG1.3.1>Z34.81</DG1.3.1><DG1.3.1>Z34.81</DG1.3.1>< DG1. {SPECIMEN TYPE: R~.~.~<DG1.3.1>Z34.81</DG1.3.1><DG1.3.1>Z34.81</DG1.3.1><DG1.3.1>Z34.81</DG1.3.1 .~.~<DG1.3.1>Z34.81</DG1.3.1><DG1.3.1>Z34.81</DG1.3.1><DG1.3.1>Z34.81</DG1.3.1>< DG1. .~.~<DG1.3.1>Z34.81</DG1.3.1><DG1.3.1>Z34.81</DG1.3.1><DG1.3.1>Z34.81</DG1.3.1> <DG1. .~.~<DG1.3.1>Z34.81</DG1.3.1><DG1.3.1>Z34.81</DG1.3.1><DG1.3.1>Z34.81</DG1.3.1>< DG1. .~.~<DG1.3.1>Z34.81</DG1.3.1><DG1.3.1>Z34.81</DG1.3.1><DG1.3.1>Z34.81</DG1.3.1>< DG1. .~.~<DG1.3.1> Z34.81</DG1.3.1><DG1.3.1>Z34.81</DG1.3.1><DG1.3.1>Z34.81</DG1.3.1><DG1. .~.~<DG1.3.1>Z34.81</DG1.3.1><DG1.3.1>Z34.81</DG1.3.1><DG1.3.1>Z34.81</DG1.3.1>< DG1. Anion Gap 9.0 [facility] .~.~<DG1.3.1>Z34.81</DG1.3.1><DG1.3.1>Z34.81</DG1.3.1><DG1.3.1>Z34.81</DG1.3.1>< DG1. {SOURCE: R~.~.~<DG1.3.1>Z34.81</DG1.3.1><DG1.3.1>Z34.81</DG1.3.1><DG1.3.1>Z34.81</DG1.3.1 ><DG1. .~.~<DG1.3.1> Z34.81</DG1.3.1><DG1.3.1>Z34.81</DG1.3.1><DG1.3.1>Z34.81</DG1.3.1><DG1. .~.~<DG1.3.1>Z34.81</DG1.3.1><DG1.3.1>Z34.81</DG1.3.1><DG1.3.1>Z34.81</DG1.3.1>< DG1. .~.~<DG1.3.1>Z34.81</DG1.3.1><DG1.3.1> Z34.81</DG1.3.1><DG1.3.1>Z34.81</DG1.3.1><DG1. .~.~<DG1.3.1>Z34.81</DG1.3.1><DG1.3.1>Z34.81</DG1.3.1><DG1.3.1>Z34.81</DG1.3.1>< DG1. .~.~<DG1.3.1>Z34.81</DG1.3.1><DG1.3.1>Z34.81</DG1.3.1><DG1.3.1> Z34.81</DG1.3.1><DG1. .~.~<DG1.3.1>Z34.81</DG1.3.1><DG1.3.1>Z34.81</DG1.3.1><DG1.3.1>Z34.81</DG1.3.1>< DG1. .~.~<DG1.3.1>Z34.81</DG1.3.1><DG1.3.1>Z34.81</DG1.3.1><DG1.3.1>Z34.81</DG1.3.1> <DG1. Is patient fasting? N~.~.~<DG1.3.1>Z34.81</DG1.3.1><DG1.3.1>Z34.81</DG1.3.1><DG1.3.1>Z34.81</DG1 .~.~<DG1.3.1>Z34.81</DG1.3.1><DG1.3.1>Z34.81</DG1.3.1><DG1.3.1>Z34.81</DG1.3.1> <DG1. .~.~<DG1.3.1>Z34.81</DG1.3.1><DG1.3.1>Z34.81</DG1.3.1><DG1.3.1>Z34.81</DG1.3.1>< DG1. Reason for Exam: R~.~.~<DG1.3.1>Z34.81</DG1.3.1><DG1.3.1>Z34.81</DG1.3.1><DG1.3.1>Z34.81</DG1.3. .~.~<DG1.3.1>Z34.81</DG1.3.1><DG1.3.1>Z34.81</DG1.3.1><DG1.3.1>Z34.81</DG1.3.1>< DG1. {SPECIMEN TYPE: R~.~.~<DG1.3.1>Z34.81</DG1.3.1><DG1.3.1>Z34.81</DG1.3.1><DG1.3.1>Z34.81</DG1.3.1 .~.~<DG1.3.1>Z34.81</DG1.3.1><DG1.3.1>Z34.81</DG1.3.1><DG1.3.1>Z34.81</DG1.3.1>< DG1. .~.~<DG1.3.1>Z34.81</DG1.3.1><DG1.3.1>Z34.81</DG1.3.1><DG1.3.1>Z34.81</DG1.3.1> <DG1. .~.~<DG1.3.1>Z34.81</DG1.3.1><DG1.3.1>Z34.81</DG1.3.1><DG1.3.1>Z34.81</DG1.3.1>< DG1. .~.~<DG1.3.1>Z34.81</DG1.3.1><DG1.3.1>Z34.81</DG1.3.1><DG1.3.1>Z34.81</DG1.3.1>< DG1. .~.~<DG1.3.1> Z34.81</DG1.3.1><DG1.3.1>Z34.81</DG1.3.1><DG1.3.1>Z34.81</DG1.3.1><DG1. .~.~<DG1.3.1>Z34.81</DG1.3.1><DG1.3.1>Z34.81</DG1.3.1><DG1.3.1>Z34.81</DG1.3.1>< DG1. Non-Aa GFR Laboratory test result [facility] ([facility]) .~.~<DG1.3.1>Z34.81</DG1.3.1><DG1.3.1>Z34.81</DG1.3.1><DG1.3.1>Z34.81</DG1.3.1>< DG1. {SOURCE: R~.~.~<DG1.3.1>Z34.81</DG1.3.1><DG1.3.1>Z34.81</DG1.3.1><DG1.3.1>Z34.81</DG1.3.1 ><DG1. .~.~<DG1.3.1> Z34.81</DG1.3.1><DG1.3.1>Z34.81</DG1.3.1><DG1.3.1>Z34.81</DG1.3.1><DG1. .~.~<DG1.3.1>Z34.81</DG1.3.1><DG1.3.1>Z34.81</DG1.3.1><DG1.3.1>Z34.81</DG1.3.1>< DG1. .~.~<DG1.3.1>Z34.81</DG1.3.1><DG1.3.1> Z34.81</DG1.3.1><DG1.3.1>Z34.81</DG1.3.1><DG1. .~.~<DG1.3.1>Z34.81</DG1.3.1><DG1.3.1>Z34.81</DG1.3.1><DG1.3.1>Z34.81</DG1.3.1>< DG1. .~.~<DG1.3.1>Z34.81</DG1.3.1><DG1.3.1>Z34.81</DG1.3.1><DG1.3.1> Z34.81</DG1.3.1><DG1. .~.~<DG1.3.1>Z34.81</DG1.3.1><DG1.3.1>Z34.81</DG1.3.1><DG1.3.1>Z34.81</DG1.3.1>< DG1. .~.~<DG1.3.1>Z34.81</DG1.3.1><DG1.3.1>Z34.81</DG1.3.1><DG1.3.1>Z34.81</DG1.3.1> <DG1. Is patient fasting? N~.~.~<DG1.3.1>Z34.81</DG1.3.1><DG1.3.1>Z34.81</DG1.3.1><DG1.3.1>Z34.81</DG1 .~.~<DG1.3.1>Z34.81</DG1.3.1><DG1.3.1>Z34.81</DG1.3.1><DG1.3.1>Z34.81</DG1.3.1> <DG1. .~.~<DG1.3.1>Z34.81</DG1.3.1><DG1.3.1>Z34.81</DG1.3.1><DG1.3.1>Z34.81</DG1.3.1>< DG1. Reason for Exam: R~.~.~<DG1.3.1>Z34.81</DG1.3.1><DG1.3.1>Z34.81</DG1.3.1><DG1.3.1>Z34.81</DG1.3. .~.~<DG1.3.1>Z34.81</DG1.3.1><DG1.3.1>Z34.81</DG1.3.1><DG1.3.1>Z34.81</DG1.3.1>< DG1. {SPECIMEN TYPE: R~.~.~<DG1.3.1>Z34.81</DG1.3.1><DG1.3.1>Z34.81</DG1.3.1><DG1.3.1>Z34.81</DG1.3.1 .~.~<DG1.3.1>Z34.81</DG1.3.1><DG1.3.1>Z34.81</DG1.3.1><DG1.3.1>Z34.81</DG1.3.1>< DG1. .~.~<DG1.3.1>Z34.81</DG1.3.1><DG1.3.1>Z34.81</DG1.3.1><DG1.3.1>Z34.81</DG1.3.1> <DG1. .~.~<DG1.3.1>Z34.81</DG1.3.1><DG1.3.1>Z34.81</DG1.3.1><DG1.3.1>Z34.81</DG1.3.1>< DG1. .~.~<DG1.3.1>Z34.81</DG1.3.1><DG1.3.1>Z34.81</DG1.3.1><DG1.3.1>Z34.81</DG1.3.1>< DG1. .~.~<DG1.3.1> Z34.81</DG1.3.1><DG1.3.1>Z34.81</DG1.3.1><DG1.3.1>Z34.81</DG1.3.1><DG1. .~.~<DG1.3.1>Z34.81</DG1.3.1><DG1.3.1>Z34.81</DG1.3.1><DG1.3.1>Z34.81</DG1.3.1>< DG1. Age 31 [facility] [place] .~.~<DG1.3.1>Z34.81</DG1.3.1><DG1.3.1>Z34.81</DG1.3.1><DG1.3.1>Z34.81</DG1.3.1>< DG1. {SOURCE: R~.~.~<DG1.3.1>Z34.81</DG1.3.1><DG1.3.1>Z34.81</DG1.3.1><DG1.3.1>Z34.81</DG1.3.1 ><DG1. .~.~<DG1.3.1> Z34.81</DG1.3.1><DG1.3.1>Z34.81</DG1.3.1><DG1.3.1>Z34.81</DG1.3.1><DG1. .~.~<DG1.3.1>Z34.81</DG1.3.1><DG1.3.1>Z34.81</DG1.3.1><DG1.3.1>Z34.81</DG1.3.1>< DG1. .~.~<DG1.3.1>Z34.81</DG1.3.1><DG1.3.1> Z34.81</DG1.3.1><DG1.3.1>Z34.81</DG1.3.1><DG1. .~.~<DG1.3.1>Z34.81</DG1.3.1><DG1.3.1>Z34.81</DG1.3.1><DG1.3.1>Z34.81</DG1.3.1>< DG1. .~.~<DG1.3.1>Z34.81</DG1.3.1><DG1.3.1>Z34.81</DG1.3.1><DG1.3.1> Z34.81</DG1.3.1><DG1. .~.~<DG1.3.1>Z34.81</DG1.3.1><DG1.3.1>Z34.81</DG1.3.1><DG1.3.1>Z34.81</DG1.3.1>< DG1. .~.~<DG1.3.1>Z34.81</DG1.3.1><DG1.3.1>Z34.81</DG1.3.1><DG1.3.1>Z34.81</DG1.3.1> <DG1. Is patient fasting? N~.~.~<DG1.3.1>Z34.81</DG1.3.1><DG1.3.1>Z34.81</DG1.3.1><DG1.3.1>Z34.81</DG1 .~.~<DG1.3.1>Z34.81</DG1.3.1><DG1.3.1>Z34.81</DG1.3.1><DG1.3.1>Z34.81</DG1.3.1> <DG1. .~.~<DG1.3.1>Z34.81</DG1.3.1><DG1.3.1>Z34.81</DG1.3.1><DG1.3.1>Z34.81</DG1.3.1>< DG1. Reason for Exam: R~.~.~<DG1.3.1>Z34.81</DG1.3.1><DG1.3.1>Z34.81</DG1.3.1><DG1.3.1>Z34.81</DG1.3. .~.~<DG1.3.1>Z34.81</DG1.3.1><DG1.3.1>Z34.81</DG1.3.1><DG1.3.1>Z34.81</DG1.3.1>< DG1. {SPECIMEN TYPE: R~.~.~<DG1.3.1>Z34.81</DG1.3.1><DG1.3.1>Z34.81</DG1.3.1><DG1.3.1>Z34.81</DG1.3.1 .~.~<DG1.3.1>Z34.81</DG1.3.1><DG1.3.1>Z34.81</DG1.3.1><DG1.3.1>Z34.81</DG1.3.1>< DG1. .~.~<DG1.3.1>Z34.81</DG1.3.1><DG1.3.1>Z34.81</DG1.3.1><DG1.3.1>Z34.81</DG1.3.1> <DG1. .~.~<DG1.3.1>Z34.81</DG1.3.1><DG1.3.1>Z34.81</DG1.3.1><DG1.3.1>Z34.81</DG1.3.1>< DG1. .~.~<DG1.3.1>Z34.81</DG1.3.1><DG1.3.1>Z34.81</DG1.3.1><DG1.3.1>Z34.81</DG1.3.1>< DG1. .~.~<DG1.3.1> Z34.81</DG1.3.1><DG1.3.1>Z34.81</DG1.3.1><DG1.3.1>Z34.81</DG1.3.1><DG1. .~.~<DG1.3.1>Z34.81</DG1.3.1><DG1.3.1>Z34.81</DG1.3.1><DG1.3.1>Z34.81</DG1.3.1>< DG1. Afr Alfa [facility] .~.~<DG1.3.1>Z34.81</DG1.3.1><DG1.3.1>Z34.81</DG1.3.1><DG1.3.1>Z34.81</DG1.3.1>< DG1. {SOURCE: R~.~.~<DG1.3.1>Z34.81</DG1.3.1><DG1.3.1>Z34.81</DG1.3.1><DG1.3.1>Z34.81</DG1.3.1 ><DG1. .~.~<DG1.3.1> Z34.81</DG1.3.1><DG1.3.1>Z34.81</DG1.3.1><DG1.3.1>Z34.81</DG1.3.1><DG1. .~.~<DG1.3.1>Z34.81</DG1.3.1><DG1.3.1>Z34.81</DG1.3.1><DG1.3.1>Z34.81</DG1.3.1>< DG1. .~.~<DG1.3.1>Z34.81</DG1.3.1><DG1.3.1> Z34.81</DG1.3.1><DG1.3.1>Z34.81</DG1.3.1><DG1. .~.~<DG1.3.1>Z34.81</DG1.3.1><DG1.3.1>Z34.81</DG1.3.1><DG1.3.1>Z34.81</DG1.3.1>< DG1. .~.~<DG1.3.1>Z34.81</DG1.3.1><DG1.3.1>Z34.81</DG1.3.1><DG1.3.1> Z34.81</DG1.3.1><DG1. .~.~<DG1.3.1>Z34.81</DG1.3.1><DG1.3.1>Z34.81</DG1.3.1><DG1.3.1>Z34.81</DG1.3.1>< DG1. .~.~<DG1.3.1>Z34.81</DG1.3.1><DG1.3.1>Z34.81</DG1.3.1><DG1.3.1>Z34.81</DG1.3.1> <DG1. Is patient fasting? N~.~.~<DG1.3.1>Z34.81</DG1.3.1><DG1.3.1>Z34.81</DG1.3.1><DG1.3.1>Z34.81</DG1 .~.~<DG1.3.1>Z34.81</DG1.3.1><DG1.3.1>Z34.81</DG1.3.1><DG1.3.1>Z34.81</DG1.3.1> <DG1. .~.~<DG1.3.1>Z34.81</DG1.3.1><DG1.3.1>Z34.81</DG1.3.1><DG1.3.1>Z34.81</DG1.3.1>< DG1. Reason for Exam: R~.~.~<DG1.3.1>Z34.81</DG1.3.1><DG1.3.1>Z34.81</DG1.3.1><DG1.3.1>Z34.81</DG1.3. .~.~<DG1.3.1>Z34.81</DG1.3.1><DG1.3.1>Z34.81</DG1.3.1><DG1.3.1>Z34.81</DG1.3.1>< DG1. {SPECIMEN TYPE: R~.~.~<DG1.3.1>Z34.81</DG1.3.1><DG1.3.1>Z34.81</DG1.3.1><DG1.3.1>Z34.81</DG1.3.1 .~.~<DG1.3.1>Z34.81</DG1.3.1><DG1.3.1>Z34.81</DG1.3.1><DG1.3.1>Z34.81</DG1.3.1>< DG1. .~.~<DG1.3.1>Z34.81</DG1.3.1><DG1.3.1>Z34.81</DG1.3.1><DG1.3.1>Z34.81</DG1.3.1> <DG1. .~.~<DG1.3.1>Z34.81</DG1.3.1><DG1.3.1>Z34.81</DG1.3.1><DG1.3.1>Z34.81</DG1.3.1>< DG1. .~.~<DG1.3.1>Z34.81</DG1.3.1><DG1.3.1>Z34.81</DG1.3.1><DG1.3.1>Z34.81</DG1.3.1>< DG1. .~.~<DG1.3.1> Z34.81</DG1.3.1><DG1.3.1>Z34.81</DG1.3.1><DG1.3.1>Z34.81</DG1.3.1><DG1. .~.~<DG1.3.1>Z34.81</DG1.3.1><DG1.3.1>Z34.81</DG1.3.1><DG1.3.1>Z34.81</DG1.3.1>< DG1. ID Date Data Source [id number] 03/01/2021 11:44:00 AM EDT [facility] ([facility]) Name Value Range Interpretation Code Description Data Kimberley rce(s) Supporting Document(s) Calcitriol [Mass/volume] in Serum or Plasma 116.0 pg/mL 19.9 -79.3 Above high normal [facility] ([facility]) .~.~<DG1.3.1>Z34.81</DG1.3.1><DG1.3.1>Z34.81</DG1.3.1><DG1.3.1>Z34.81</DG1.3.1>< DG1. {SOURCE: R~.~.~<DG1.3.1>Z34.81</DG1.3.1><DG1.3.1>Z34.81</DG1.3.1><DG1.3.1>Z34.81</DG1.3.1 ><DG1. .~.~<DG1.3.1> Z34.81</DG1.3.1><DG1.3.1>Z34.81</DG1.3.1><DG1.3.1>Z34.81</DG1.3.1><DG1. .~.~<DG1.3.1>Z34.81</DG1.3.1><DG1.3.1>Z34.81</DG1.3.1><DG1.3.1>Z34.81</DG1.3.1>< DG1. .~.~<DG1.3.1>Z34.81</DG1.3.1><DG1.3.1> Z34.81</DG1.3.1><DG1.3.1>Z34.81</DG1.3.1><DG1. .~.~<DG1.3.1>Z34.81</DG1.3.1><DG1.3.1>Z34.81</DG1.3.1><DG1.3.1>Z34.81</DG1.3.1>< DG1. .~.~<DG1.3.1>Z34.81</DG1.3.1><DG1.3.1>Z34.81</DG1.3.1><DG1.3.1> Z34.81</DG1.3.1><DG1. .~.~<DG1.3.1>Z34.81</DG1.3.1><DG1.3.1>Z34.81</DG1.3.1><DG1.3.1>Z34.81</DG1.3.1>< DG1. .~.~<DG1.3.1>Z34.81</DG1.3.1><DG1.3.1>Z34.81</DG1.3.1><DG1.3.1>Z34.81</DG1.3.1> <DG1. Is patient fasting? N~.~.~<DG1.3.1>Z34.81</DG1.3.1><DG1.3.1>Z34.81</DG1.3.1><DG1.3.1>Z34.81</DG1 .~.~<DG1.3.1>Z34.81</DG1.3.1><DG1.3.1>Z34.81</DG1.3.1><DG1.3.1>Z34.81</DG1.3.1> <DG1. .~.~<DG1.3.1>Z34.81</DG1.3.1><DG1.3.1>Z34.81</DG1.3.1><DG1.3.1>Z34.81</DG1.3.1>< DG1. Reason for Exam: R~.~.~<DG1.3.1>Z34.81</DG1.3.1><DG1.3.1>Z34.81</DG1.3.1><DG1.3.1>Z34.81</DG1.3. .~.~<DG1.3.1>Z34.81</DG1.3.1><DG1.3.1>Z34.81</DG1.3.1><DG1.3.1>Z34.81</DG1.3.1>< DG1. {SPECIMEN TYPE: R~.~.~<DG1.3.1>Z34.81</DG1.3.1><DG1.3.1>Z34.81</DG1.3.1><DG1.3.1>Z34.81</DG1.3.1 .~.~<DG1.3.1>Z34.81</DG1.3.1><DG1.3.1>Z34.81</DG1.3.1><DG1.3.1>Z34.81</DG1.3.1>< DG1. .~.~<DG1.3.1>Z34.81</DG1.3.1><DG1.3.1>Z34.81</DG1.3.1><DG1.3.1>Z34.81</DG1.3.1> <DG1. .~.~<DG1.3.1>Z34.81</DG1.3.1><DG1.3.1>Z34.81</DG1.3.1><DG1.3.1>Z34.81</DG1.3.1>< DG1. .~.~<DG1.3.1>Z34.81</DG1.3.1><DG1.3.1>Z34.81</DG1.3.1><DG1.3.1>Z34.81</DG1.3.1>< DG1. .~.~<DG1.3.1> Z34.81</DG1.3.1><DG1.3.1>Z34.81</DG1.3.1><DG1.3.1>Z34.81</DG1.3.1><DG1. .~.~<DG1.3.1>Z34.81</DG1.3.1><DG1.3.1>Z34.81</DG1.3.1><DG1.3.1>Z34.81</DG1.3.1>< DG1. ID Date Data Source [id number] 03/01/2021 11:44:00 AM EDT [facility] ([facility]) Name Value Range Interpretation Code Description Data Kimberley rce(s) Supporting Document(s) [employer] Laboratory test result [facility] ([facility]) .~.~<DG1.3.1>Z34.81</DG1.3.1><DG1.3.1>Z34.81</DG1.3.1><DG1.3.1>Z34.81</DG1.3.1>< DG1. {SOURCE: R~.~.~<DG1.3.1>Z34.81</DG1.3.1><DG1.3.1>Z34.81</DG1.3.1><DG1.3.1>Z34.81</DG1.3.1 ><DG1. .~.~<DG1.3.1> Z34.81</DG1.3.1><DG1.3.1>Z34.81</DG1.3.1><DG1.3.1>Z34.81</DG1.3.1><DG1. .~.~<DG1.3.1>Z34.81</DG1.3.1><DG1.3.1>Z34.81</DG1.3.1><DG1.3.1>Z34.81</DG1.3.1>< DG1. .~.~<DG1.3.1>Z34.81</DG1.3.1><DG1.3.1> Z34.81</DG1.3.1><DG1.3.1>Z34.81</DG1.3.1><DG1. .~.~<DG1.3.1>Z34.81</DG1.3.1><DG1.3.1>Z34.81</DG1.3.1><DG1.3.1>Z34.81</DG1.3.1>< DG1. .~.~<DG1.3.1>Z34.81</DG1.3.1><DG1.3.1>Z34.81</DG1.3.1><DG1.3.1> Z34.81</DG1.3.1><DG1. .~.~<DG1.3.1>Z34.81</DG1.3.1><DG1.3.1>Z34.81</DG1.3.1><DG1.3.1>Z34.81</DG1.3.1>< DG1. .~.~<DG1.3.1>Z34.81</DG1.3.1><DG1.3.1>Z34.81</DG1.3.1><DG1.3.1>Z34.81</DG1.3.1> <DG1. Is patient fasting? N~.~.~<DG1.3.1>Z34.81</DG1.3.1><DG1.3.1>Z34.81</DG1.3.1><DG1.3.1>Z34.81</DG1 .~.~<DG1.3.1>Z34.81</DG1.3.1><DG1.3.1>Z34.81</DG1.3.1><DG1.3.1>Z34.81</DG1.3.1> <DG1. .~.~<DG1.3.1>Z34.81</DG1.3.1><DG1.3.1>Z34.81</DG1.3.1><DG1.3.1>Z34.81</DG1.3.1>< DG1. Reason for Exam: R~.~.~<DG1.3.1>Z34.81</DG1.3.1><DG1.3.1>Z34.81</DG1.3.1><DG1.3.1>Z34.81</DG1.3. .~.~<DG1.3.1>Z34.81</DG1.3.1><DG1.3.1>Z34.81</DG1.3.1><DG1.3.1>Z34.81</DG1.3.1>< DG1. {SPECIMEN TYPE: R~.~.~<DG1.3.1>Z34.81</DG1.3.1><DG1.3.1>Z34.81</DG1.3.1><DG1.3.1>Z34.81</DG1.3.1 .~.~<DG1.3.1>Z34.81</DG1.3.1><DG1.3.1>Z34.81</DG1.3.1><DG1.3.1>Z34.81</DG1.3.1>< DG1. .~.~<DG1.3.1>Z34.81</DG1.3.1><DG1.3.1>Z34.81</DG1.3.1><DG1.3.1>Z34.81</DG1.3.1> <DG1. .~.~<DG1.3.1>Z34.81</DG1.3.1><DG1.3.1>Z34.81</DG1.3.1><DG1.3.1>Z34.81</DG1.3.1>< DG1. .~.~<DG1.3.1>Z34.81</DG1.3.1><DG1.3.1>Z34.81</DG1.3.1><DG1.3.1>Z34.81</DG1.3.1>< DG1. .~.~<DG1.3.1> Z34.81</DG1.3.1><DG1.3.1>Z34.81</DG1.3.1><DG1.3.1>Z34.81</DG1.3.1><DG1. .~.~<DG1.3.1>Z34.81</DG1.3.1><DG1.3.1>Z34.81</DG1.3.1><DG1.3.1>Z34.81</DG1.3.1>< DG1. RH Type Laboratory test result [facility] ([facility]) .~.~<DG1.3.1>Z34.81</DG1.3.1><DG1.3.1>Z34.81</DG1.3.1><DG1.3.1>Z34.81</DG1.3.1>< DG1. {SOURCE: R~.~.~<DG1.3.1>Z34.81</DG1.3.1><DG1.3.1>Z34.81</DG1.3.1><DG1.3.1>Z34.81</DG1.3.1 ><DG1. .~.~<DG1.3.1> Z34.81</DG1.3.1><DG1.3.1>Z34.81</DG1.3.1><DG1.3.1>Z34.81</DG1.3.1><DG1. .~.~<DG1.3.1>Z34.81</DG1.3.1><DG1.3.1>Z34.81</DG1.3.1><DG1.3.1>Z34.81</DG1.3.1>< DG1. .~.~<DG1.3.1>Z34.81</DG1.3.1><DG1.3.1> Z34.81</DG1.3.1><DG1.3.1>Z34.81</DG1.3.1><DG1. .~.~<DG1.3.1>Z34.81</DG1.3.1><DG1.3.1>Z34.81</DG1.3.1><DG1.3.1>Z34.81</DG1.3.1>< DG1. .~.~<DG1.3.1>Z34.81</DG1.3.1><DG1.3.1>Z34.81</DG1.3.1><DG1.3.1> Z34.81</DG1.3.1><DG1. .~.~<DG1.3.1>Z34.81</DG1.3.1><DG1.3.1>Z34.81</DG1.3.1><DG1.3.1>Z34.81</DG1.3.1>< DG1. .~.~<DG1.3.1>Z34.81</DG1.3.1><DG1.3.1>Z34.81</DG1.3.1><DG1.3.1>Z34.81</DG1.3.1> <DG1. Is patient fasting? N~.~.~<DG1.3.1>Z34.81</DG1.3.1><DG1.3.1>Z34.81</DG1.3.1><DG1.3.1>Z34.81</DG1 .~.~<DG1.3.1>Z34.81</DG1.3.1><DG1.3.1>Z34.81</DG1.3.1><DG1.3.1>Z34.81</DG1.3.1> <DG1. .~.~<DG1.3.1>Z34.81</DG1.3.1><DG1.3.1>Z34.81</DG1.3.1><DG1.3.1>Z34.81</DG1.3.1>< DG1. Reason for Exam: R~.~.~<DG1.3.1>Z34.81</DG1.3.1><DG1.3.1>Z34.81</DG1.3.1><DG1.3.1>Z34.81</DG1.3. .~.~<DG1.3.1>Z34.81</DG1.3.1><DG1.3.1>Z34.81</DG1.3.1><DG1.3.1>Z34.81</DG1.3.1>< DG1. {SPECIMEN TYPE: R~.~.~<DG1.3.1>Z34.81</DG1.3.1><DG1.3.1>Z34.81</DG1.3.1><DG1.3.1>Z34.81</DG1.3.1 .~.~<DG1.3.1>Z34.81</DG1.3.1><DG1.3.1>Z34.81</DG1.3.1><DG1.3.1>Z34.81</DG1.3.1>< DG1. .~.~<DG1.3.1>Z34.81</DG1.3.1><DG1.3.1>Z34.81</DG1.3.1><DG1.3.1>Z34.81</DG1.3.1> <DG1. .~.~<DG1.3.1>Z34.81</DG1.3.1><DG1.3.1>Z34.81</DG1.3.1><DG1.3.1>Z34.81</DG1.3.1>< DG1. .~.~<DG1.3.1>Z34.81</DG1.3.1><DG1.3.1>Z34.81</DG1.3.1><DG1.3.1>Z34.81</DG1.3.1>< DG1. .~.~<DG1.3.1> Z34.81</DG1.3.1><DG1.3.1>Z34.81</DG1.3.1><DG1.3.1>Z34.81</DG1.3.1><DG1. .~.~<DG1.3.1>Z34.81</DG1.3.1><DG1.3.1>Z34.81</DG1.3.1><DG1.3.1>Z34.81</DG1.3.1>< DG1. AB Screen Laboratory test result [facility] (St. [facility]) .~.~<DG1.3.1>Z34.81</DG1.3.1><DG1.3.1>Z34.81</DG1.3.1><DG1.3.1>Z34.81</DG1.3.1>< DG1. {SOURCE: R~.~.~<DG1.3.1>Z34.81</DG1.3.1><DG1.3.1>Z34.81</DG1.3.1><DG1.3.1>Z34.81</DG1.3.1 ><DG1. .~.~<DG1.3.1> Z34.81</DG1.3.1><DG1.3.1>Z34.81</DG1.3.1><DG1.3.1>Z34.81</DG1.3.1><DG1. .~.~<DG1.3.1>Z34.81</DG1.3.1><DG1.3.1>Z34.81</DG1.3.1><DG1.3.1>Z34.81</DG1.3.1>< DG1. .~.~<DG1.3.1>Z34.81</DG1.3.1><DG1.3.1> Z34.81</DG1.3.1><DG1.3.1>Z34.81</DG1.3.1><DG1. .~.~<DG1.3.1>Z34.81</DG1.3.1><DG1.3.1>Z34.81</DG1.3.1><DG1.3.1>Z34.81</DG1.3.1>< DG1. .~.~<DG1.3.1>Z34.81</DG1.3.1><DG1.3.1>Z34.81</DG1.3.1><DG1.3.1> Z34.81</DG1.3.1><DG1. .~.~<DG1.3.1>Z34.81</DG1.3.1><DG1.3.1>Z34.81</DG1.3.1><DG1.3.1>Z34.81</DG1.3.1>< DG1. .~.~<DG1.3.1>Z34.81</DG1.3.1><DG1.3.1>Z34.81</DG1.3.1><DG1.3.1>Z34.81</DG1.3.1> <DG1. Is patient fasting? N~.~.~<DG1.3.1>Z34.81</DG1.3.1><DG1.3.1>Z34.81</DG1.3.1><DG1.3.1>Z34.81</DG1 .~.~<DG1.3.1>Z34.81</DG1.3.1><DG1.3.1>Z34.81</DG1.3.1><DG1.3.1>Z34.81</DG1.3.1> <DG1. .~.~<DG1.3.1>Z34.81</DG1.3.1><DG1.3.1>Z34.81</DG1.3.1><DG1.3.1>Z34.81</DG1.3.1>< DG1. Reason for Exam: R~.~.~<DG1.3.1>Z34.81</DG1.3.1><DG1.3.1>Z34.81</DG1.3.1><DG1.3.1>Z34.81</DG1.3. .~.~<DG1.3.1>Z34.81</DG1.3.1><DG1.3.1>Z34.81</DG1.3.1><DG1.3.1>Z34.81</DG1.3.1>< DG1. {SPECIMEN TYPE: R~.~.~<DG1.3.1>Z34.81</DG1.3.1><DG1.3.1>Z34.81</DG1.3.1><DG1.3.1>Z34.81</DG1.3.1 .~.~<DG1.3.1>Z34.81</DG1.3.1><DG1.3.1>Z34.81</DG1.3.1><DG1.3.1>Z34.81</DG1.3.1>< DG1. .~.~<DG1.3.1>Z34.81</DG1.3.1><DG1.3.1>Z34.81</DG1.3.1><DG1.3.1>Z34.81</DG1.3.1> <DG1. .~.~<DG1.3.1>Z34.81</DG1.3.1><DG1.3.1>Z34.81</DG1.3.1><DG1.3.1>Z34.81</DG1.3.1>< DG1. .~.~<DG1.3.1>Z34.81</DG1.3.1><DG1.3.1>Z34.81</DG1.3.1><DG1.3.1>Z34.81</DG1.3.1>< DG1. .~.~<DG1.3.1> Z34.81</DG1.3.1><DG1.3.1>Z34.81</DG1.3.1><DG1.3.1>Z34.81</DG1.3.1><DG1. .~.~<DG1.3.1>Z34.81</DG1.3.1><DG1.3.1>Z34.81</DG1.3.1><DG1.3.1>Z34.81</DG1.3.1>< DG1. ID Date Data Source [id number] 03/05/2021 01:15:00 PM EDT [facility] Name Value Range Interpretation Code Description Data Kimberley rce(s) Supporting Document(s) Triiodothyronine (T3) Free [Mass/volume] in Serum or Plasma 3.4 pg/ mL 2.0-4.4 [facility] ID Date Data Source [id number] 03/05/2021 01:15:00 PM EDT [facility] Value Range Interpretation Code Description Data Kimberley rce(s) Supporting Document(s) Thyroperoxidase Ab [Units/volume] in Serum or Plasma <9 IU/mL 0-34 [facility] ID Date Data Source [id number] 03/05/2021 01:15:00 PM EDT [facility] Value Range Interpretation Code Description Data Kimberley rce(s) Supporting Document(s) HIV 1+2 Ab+HIV1 p24 Ag [Presence] in Serum or Plasma b y Immunoassay Non Reactive Non Reactive [facility] ID Date Data Source [id number] 03/05/2021 01:15:00 PM EDT [facility] Value Range Interpretation Code Description Data Kimberley rce(s) Supporting Document(s) 1,25-Dihydroxyvitamin D [Mass/volume] in Serum or Plasma 116.0 p g/mL 19.9-79.3 H [facility] ID Date Data Source [id number] 03/05/2021 11:54:00 AM EDT [facility] Name Value Range Interpretation Code Description Data Kimberley rce(s) Supporting Document(s) CULTURE URINE [facility] _CULTURE URINE_$$[id number]$$[id number]$$087254$$977733$$228061$$291492$$064148$$245247$$463177$$ 807184$$664426$$659778$$883383$$094185$$192747$$085733$$237784$$707544$$092374$$ 903631$$754230$$988923$$248978$$381170$$623857$$991519$$143773 -- Continued on next page --Patient: ESTEFANY Mims Order: [id number] Page 2Culture: CULTURE URINE Status: Final ====$$[id number]$$[id number] DATE/TIME: 03/05/2021 10:07Culture: CULTURE URINE Status: FinalUrine Culture,Comprehensive: V8Xndmt urogenital flora10,000-25,000 colony forming units per mLP1 Test performed by: [facility] #: [id number] [address] [place] [address] [id number] [facility] [id number] Director : Zaki Taylor MD NPI #:Professor Of Poultry Science : 03/05/21.1157.XMT.SENT REF ID Date Data Source [id number] 03/04/2021 09:03:00 AM EDT [facility] Value Range Interpretation Code Description Data Kimberley rce(s) Supporting Document(s) Calcidiol [Moles/volume] in Serum or Plasma 28 NG/ML [facility] VITAMIN-D(2 5HYDROXY) Deficiency: <=20 ng/ml Insufficiency: 21-29 ng/ml Preferred level: => 30 ng/ml ID Date Data Source [id number] 03/01/2021 06:10:00 PM EDT [facility] Name Value Range Interpretation Code Description Data Kimberley rce(s) Supporting Document(s) Treponema pallidum Ab [Presence] in Serum NON-REACTIVE NORMAL:NON MALATHI CTIVE [facility] ID Date Data Source [id number] 03/01/2021 03:55:00 PM EDT [facility] Name Value Range Interpretation Code Description Data Kimberley rce(s) Supporting Document(s) Hepatitis B virus surface Ab [Units/volume] in Serum o r Plasma by Immunoassay NONREACTIVE NORMAL:NON REACTIVE [facility] l ID Date Data Source [id number] 03/01/2021 03:54:00 PM EDT [facility] Name Value Range Interpretation Code Description Data Kimberley rce(s) Supporting Document(s) ABO group [Type] in Blood A [facility] Rh [Type] in Blood POSITIVE [facility] AB SCREEN NEGATIVE NORMAL: NEGATIVE [facility] { ABO/RH REENTER A POSITIVE{ AB SCREEN RE-ENTER NEGATIVE ID Date Data Source [id number] 03/01/2021 03:54:00 PM EDT [facility] Name Value Range Interpretation Code Description Data Kimberley rce(s) Supporting Document(s) COMPREHENSIVE METABOLIC PANEL [facility] COMPREHENSIVE METABOLIC PANEL Sodium [Moles/volume] in Serum or Plasma 138 mEq/L 134 - 153 [facility] Potassium [Moles/volume] in Serum or Plasma 3.9 mEq/L 3.6 - 5.0 [facility] Chloride [Moles/volume] in Serum or Plasma 105 mEq/L 98 - 107 [facility] Carbon dioxide, total [Moles/volume] in Serum or Plasma 24 MEQ/L 22 - 30 [facility] Glucose [Mass/volume] in Serum or Plasma 103 MG/DL 70 - 99 H [facility] BUN 11 MG/DL 7 - 21 [facility] Creatinine [Mass/volume] in Serum or Plasma 0.7 MG/DL 0.7 - 1.5 [facility] BUN/CREAT 16 8 - 27 [facility] Protein [Mass/volume] in Serum or Plasma 6.6 G/DL 6.3 - 8.2 [facility] Albumin [Mass/volume] in Serum or Plasma 3.8 G/DL 3.9 - 5.0 L [facility] Globulin [Mass/volume] in Serum by calculation 2.8 GM/DL 2.4 - 3.2 [facility] A/G RATIO 1.4 0.8 - 2.0 [facility] Calcium [Mass/volume] in Serum or Plasma 9.4 MG/DL 8.4 - 10.2 [facility] Bilirubin.total [Mass/volume] in Serum or Plasma <0.7 MG/DL 0.2 - 1.3 [facility] Alkaline phosphatase [Enzymatic activity/volume] in Serum or Plasma 40 U/L 38 - 126 [facility] Aspartate aminotransferase [Enzymatic activity/volume] in Se rum or Plasma 9 U/L 5 - 40 [facility] Alanine aminotransferase [Enzymatic activity/volume] in Seru m or Plasma 8 U/L 7 - 56 [facility] Anion gap 3 in Serum or Plasma 9.0 mmol/L 8.0 - 16.0 [facility] AGE 31 yrs [facility] al NON-AA GFR >60 mL/min [facility] ital AFR AMER GFR >60 mL/min [facility] Male GFR In terprentation 20-49 yrs >60 mL/min Normal 50-59 yrs >56 mL/min Normal 60-69 yrs >49 mL/min Normal 70-79yrs >42 mL/min Normal 80 and above >35 mL/min Normal Female GFR Interpretation 20-39 yrs >60 mL/min Normal 40-49 yrs >58 mL/min Normal 50-59 yrs >51 mL/min Normal 60-69 yrs >45 mL/min Normal 70-79 yrs >39 mL/min Normal 80 and above >32 mL/min Normal ID Date Data Source [id number] 03/01/2021 03:53:00 PM EDT [facility] Name Value Range Interpretation Code Description Data Kimberley rce(s) Supporting Document(s) Thyroxine (T4) [Mass/volume] in Serum or Plasma 10.5 UG/DL 4.5 - 12.5 [facility] ID Date Data Source [id number] 03/01/2021 03:53:00 PM EDT [facility] Name Value Range Interpretation Code Description Data Kimberley rce(s) Supporting Document(s) Thyrotropin [Units/volume] in Serum or Plasma by Detec tion limit <= 0.05 mIU/L 1.29 uIU/mL 0.47 - 5.01 [facility] ID Date Data Source [id number] 03/01/2021 03:53:00 PM EDT [facility] Name Value Range Interpretation Code Description Data Kimberley rce(s) Supporting Document(s) Thyroxine (T4) free index in Serum or Plasma by calculation 1.17 NG/DL 0.93 - 1.70 [facility] ID Date Data Source [id number] 03/01/2021 03:53:00 PM EDT [facility] Name Value Range Interpretation Code Description Data Kimberley rce(s) Supporting Document(s) Rubella virus IgG Ab [Units/volume] in Serum 66.860 IU/ml [facility] REACTI VE \\BLDo\\Rubella Immunity Interpretation\\BLDx\\ Non-reactive: <10 IU/mL Reactive: greater than or equal to 10 IU/mL A reactive result is presumptive evidence of immunity to Rubella, except when acute infection is suspected. ID Date Data Source [id number] 03/01/2021 02:32:00 PM EDT [facility] Name Value Range Interpretation Code Description Data Kimberley rce(s) Supporting Document(s) URINALYSIS [facility] URINALYSIS SOURCE R [facility] COLOR yellow NORMAL: Yellow [facility] CLARITY clear NORMAL: Clear [facility] Specific gravity of Urine by Test strip 1.025 1.001 - 1.030 [facility] pH 6 5 - 9 [facility] al Glucose [Mass/volume] in Urine by Test strip NORM NORMAL: Negat carlitos [facility] Bilirubin.total [Presence] in Urine by Test strip NEG NORMAL: Negative [facility] Ketones [Presence] in Urine by Test strip NEG NORMAL: Negative [facility] Protein [Mass/volume] in Urine by Test strip 15 NORMAL: Negat carlitos [facility] Nitrite [Presence] in Urine by Test strip NEG NORMAL: Negative [facility] BLOOD 150 NORMAL: Negative [facility] Leukocyte esterase [Presence] in Urine by Test strip 100 VIDA L: Negative [facility] Urobilinogen [Mass/volume] in Urine by Test strip NOR less kayla n 1.0 mg/dL [facility] MICROSCOPIC See Below [facility] ital WBC 1 - 3 NORMAL: NONE SEEN [facility] EPITHELIAL MODERATE NORMAL: NONE SEEN [facility] Bacteria [Presence] in Urine sediment by Light microscopy 1+ SMALL NORMAL: NONE SEEN [facility] ID Date Data Source [id number] 03/01/2021 12:04:00 PM EDT [facility] Name Value Range Interpretation Code Description Data Kimberley rce(s) Supporting Document(s) CBC W/AUTOMATED DIFF [facility] COMPLETE BLOOD COUNT Leukocytes [#/volume] in Blood by Automated count 8.7 10^3/uL 4.2 - 1 1.0 [facility] Erythrocytes [#/volume] in Blood by Automated count 4.41 10^6/uL 4. 20 - 5.40 [facility] Hemoglobin [Mass/volume] in Blood 13.1 g/dL 12.0 - 16.0 [facility] Hematocrit [Volume Fraction] of Blood by Automated count 38.0 % 3 7.0 - 47.0 [facility] Erythrocyte mean corpuscular volume [Entitic volume] by Auto mated count 86.2 fL 81.0 - 101 [facility] Erythrocyte mean corpuscular hemoglobin [Entitic mass] by Automated count 29.7 pg 27.0 - 34.0 [facility] Erythrocyte mean corpuscular hemoglobin concentration [Mass/volume] by Automated count 34.5 g/dL 31.0 - 36.0 [facility] Erythrocyte distribution width [Ratio] by Automated count 12.2 % 11.5 - 14.5 [facility] Platelets [#/volume] in Blood by Automated count 247 10^3/uL 150 - 45 0 [facility] Platelet mean volume [Entitic volume] in Blood by Automated count 9.5 fL 7.4 - 10.4 [facility] Neutrophils/100 leukocytes in Blood by Automated count 73.5 % 37. 0 - 80.0 [facility] Lymphocytes/100 leukocytes in Blood by Manual count 21.2 % 25.0 - 40.0 L [facility] Monocytes/100 leukocytes in Blood by Automated count 4.0 % 3.0 - 8.0 [facility] Eosinophils/100 leukocytes in Blood by Automated count 0.8 % 0.0 - 7.0 [facility] Basophils/100 leukocytes in Blood by Automated count 0.2 % 0.0 - 2.5 [facility] %IG 0.3 % 0.0 - 0.0 [facility] %[facility] 0.0 % 0.0 - 0.0 [facility] al Neutrophils [#/volume] in Blood by Automated count 6.35 10^3/uL 2.00 - 6.90 [facility] Lymphocytes [#/volume] in Blood by Automated count 1.83 10^3/uL 0.60 - 3.40 [facility] Monocytes [#/volume] in Blood by Automated count 0.35 10^3/uL 0.00 - 0.90 [facility] Eosinophils [#/volume] in Blood by Automated count 0.07 10^3/uL 0.00 - 0.70 [facility] Basophils [#/volume] in Blood by Automated count 0.02 10^3/uL 0.00 - 0.20 [facility] #IG 0.03 10^3/uL 0.00 - 0.10 [facility] ospital #NRBC 0.00 10^3/uL 0.00 - 0.00 [facility] MANUAL DIFF NOT INDICATED [facility] RBC MORPH NOT INDICATED [facility] spital ID Date Data Source [id number] 02/28/2021 02:22:00 PM EDT [facility] ([facility]) Name Value Range Interpretation Code Description Data Kimberley rce(s) Supporting Document(s) Z#Other Observations Laboratory test result [facility] ([facility]) ID Date Data Source [id number] 02/28/2021 02:10:00 PM EDT [facility] ([facility]) Name Value Range Interpretation Code Description Data Kimberley rce(s) Supporting Document(s) Source: Laboratory test result [facility] ([facility]) {SOURCE: Genital Trich vag by Jerilyn Laboratory test result [facility] ([facility]) {SOURCE: Genital Chlamydia by Jerilyn Laboratory test result [facility] ([facility]) {SOURCE: Genital Gonococcus by Jerilyn Laboratory test result [facility] ([facility]) {SOURCE: Genital ID Date Data Source [id number] 02/28/2021 02:10:00 PM EDT [facility] ([facility]) Name Value Range Interpretation Code Description Data Kimberley rce(s) Supporting Document(s) Cytology report of Cervical or vaginal smear or scrapi ng Cyto stain.thin prep Laboratory test result [facility] ([facility]) ID Date Data Source [id number] 03/03/2021 10:07:00 AM EDT [facility] Name Value Range Interpretation Code Description Data Kimberley rce(s) Supporting Document(s) SOURCE: Genital [facility] Chlamydia trachomatis rRNA [Presence] in Unspecified specimen by Probe and target amplification method Negative Negative [facility] Neisseria gonorrhoeae rRNA [Presence] in Unspecified specimen by Probe and target amplification method Negative Negative [facility] Trichomonas vaginalis DNA [Presence] in Unspecified specimen by Probe and target amplification method Negative Negative [facility] ID Date Data Source [id number] 02/03/2021 09:50:00 AM EDT [facility] [address] [place] [address] PHONE: [phone] FAX: [phone] Name .................. : ESTEFANY Mims Acct Number.................. : [id number] ROOM. ................. : TR-04 Number ................... : [id number] Stay type ............. : E/R Discharge Date......... ... : 01/31/21 Admit Date ......... : 01/31/21 Admit Phys .................... : COONEYNORM Date of ....... : 1990 Family Phys ................... : NO PCP Phone .................. : [phone] Age ................................ : 30 Film# .................. .:[id number] Sex ................................. : F Unsigned transcriptions are preliminary reports and do not represent a medical or legal document [place] [id number] COMPLETE:01/31/21 14:00 KNB 7734 Reason for Exam: vaginal bleeding TRANSVAGINAL OB ULTRASOUND: INDICATION: Vaginal bleeding. COMPARISON: Correlation is made with an earlier transabdominal OB ultrasound. FINDINGS: Transvaginal imaging was performed. Within the endometrial cavity, there is a gestational sac that contains a yolk sac. No pole is identified. No areas of hemorrhage are identified. The gestational sac measures 0.9 cm x 1.4 cm x 1.6 cm for a mean sac diameter of 1.33 cm which corresponds to an EGA of 6 weeks 1 day with an EDC of 09/25/21. The yolk sac measures 0.4 cm. The left ovary measures 2 cm x 1.4 cm x 1.8 cm. There are normal-appearing small follicles in the left ovary without suspicious lesion. Normal arterial blood flow is seen at the right ovary without torsion. The right ovary is not seen. IMPRESSION: Intrauterine gestational sac containing a yolk sac. No pole identified. Sonographic EGA of 6 weeks 1 day by mean sac diameter. No areas of hemorrhage identified. Suggest correlation with serial beta hCG levels and follow up ultrasound to ensure that a pole develops and to exclude ectopic or spontaneous . Electronically Reviewed and Signed By Robert Bai MD , 02/03/21 09:50, TDS Transcribe Initials: DZ , Transcribe Date: 02/01/21 00:49, Dictation Date: Copy for: EMERGENCY DEPT via modem Copy for: 710 MED REC DISCHARGED Page 1 of 1 Name Value Range Interpretation Code Description Data Kimberley rce(s) Supporting Document(s) ID Date Data Source [id number] 02/03/2021 09:50:00 AM EDT [facility] [address] [place] [address] PHONE: [phone] FAX: [phone] Name .................. : ESTEFANY STANTON Felicita Acct Number.................. : [id number] ROOM. ................. : TR-04 MR Number ................... : [id number] Stay type ............. : E/R Discharge Date......... ... : 01/31/21 Admit Date ......... : 01/31/21 Admit Phys .................... : COONEYNORM Date of ....... : 1990 Family Phys ................... : NO PCP Phone .................. : [phone] Age ................................ : 30 Film# .................. .:[id number] Sex ................................. : F Unsigned transcriptions are preliminary reports and do not represent a medical or legal document OB 1ST TRI UP TO 14 WEEKS [id number] COMPLETE:01/31/21 14:00 KNB 7727 Reason(s): 5 weeks vag bleeding TRANSABDOMINAL OB ULTRASOUND: The patient's last menstrual period is not provided/unknown. TECHNIQUE: Transabdominal imaging of the pelvis was performed. FINDINGS: Within the endometrial cavity, there is a gestational sac present. It contains a yolk sac. No pole is identified. The yolk sac is about 0.4 cm. The gestational sac measures about 1.4 cm x 1.1 cm x 1 cm for a mean sac diameter of 1.2 cm, corresponding to an EGA of 5 weeks 6 days with an EDC of 09/27/21. No areas of hemorrhage are identified. No free fluid is seen. The uterus measures 10.6 cm x 5.5 cm x 5.6 cm. No focal uterine lesion is identified. The ovaries are not seen. IMPRESSION: Intrauterine gestational sac present containing a yolk sac. No pole identified. Sonographic EGA of 5 weeks 6 days by mean sac diameter. No subchorionic hemorrhage identified. Suggest correlation with serial beta hCG levels and follow up ultrasound to ensure that a pole develops and to exclude ectopic or spontaneous . Electronically Reviewed and Signed By Robert Bai MD , 02/03/21 09:50, TDS Transcribe Initials: TRA , Transcribe Date: 02/01/21 00:18, Dictation Date: Copy for: EMERGENCY DEPT via modem Copy for: 710 MED REC DISCHARGED Page 1 of 1 Name Value Range Interpretation Code Description Data Kimberley rce(s) Supporting Document(s) ID Date Data Source [id number] 01/31/2021 12:20:00 PM EDT [facility] 1 OrderSheet [facility] Emergency Department [address] [place] [address] Phone #: ext- [phone] 01/31/2021 12:08 Patient: MAXIMINO ALLISON Sex: F : 1990 Age: 30yWEIGHT:79.3 kg (S) HEIGHT:61 inches (S) BMI:33.0ALLERGIES: NoneCHIEF COMPLAINT: vag bleedingDIAGNOSIS: Threatened abortionLAB ORDERSOrder Description Priority Entered Acknowledged InitialedCBC w Diff STAT 12:21 01/31/2021 12:24 Poonam Andrew Norma MD; R.N.CMP STAT 12:21 01/31/2021 12:24 Poonam Andrew Norma MD; R.N.HCG Serum Quant STAT 12:21 01/31/2021 12:24 Poonam Andrew Norma MD; R.N.Urinalysis (Clean STAT 12:21 01/31/2021 12:22 Hussain Andrew) Vida Denis MD; R.N.Type Rh STAT 13:53 01/31/2021 14:06 Vida Flores MD; practical nursing instructor, [employer] [facility] [id number] STUDY ORDERSOrder Description Priority Entered Acknowledged InitialedUS OB 1ST TRI UP STAT 12:21 01/31/2021 Ack'd: 12:35 13:30 [facility] Vida Denis MD; [place] practical nursing instructor, practical nursing instructor, [employer] [facility](Oxygen?(No)) [employer] [facility] Tech1 Tech1(IV?(No)) Reason for Study: 5 weeks vag bleedingMEDICATION/IV/DRIP/FLUID ORDERSOrder Description Priority Entered Acknowledged InitialedGENERAL ORDERSOrder Description Priority Entered Acknowledged Initialed[Electronically signed by Poonam Andrew R.N. (15:35 01/31/2021)][Electronically signed by Vida Denis MD (04:09 02/01/2021)][Electronically locked by Poonam Andrew R.N. (15:35 01/31/2021)] Name Value Range Interpretation Code Description Data [facility]) Supporting Document(s) ID Date Data Source [id number] 01/31/2021 12:20:00 PM EDT [facility] 1 Medication Reconciliation Report [facility] Emergency Department [address] [place] [address] Phone #: ext- [phone] 01/31/2021 12:08 Patient: MAXIMINO ALLISON Sex: F : 1990 Age: 30yWeight: 79.3 kgHeight/Length: 61 in.BMI: 33.0ALLERGIES: NoneThe patient's Home Medications are listed below:CONTINUE TAKING THE FOLLOWING MEDICATIONS: Estradiol Oral Indometrin vaginally Formula Oral Progesterone Intramuscular Synthroid Oral (25 mcg), dailyThe source(s) of the original Home Medication information:Not obtained.The following Medications were given to the patient in the Emergency Department:None.The following Medications were prescribed to the patient:None. Name Value Range Interpretation Code Description Data [facility]) Supporting Document(s) ID Date Data Source [id number] 01/31/2021 12:20:00 PM EDT [facility] 1 Medication Administration Record [facility] Emergency Department [address] [place] [address] Phone #: ext- [phone] 01/31/2021 12:08 Patient: MAXIMINO ALLISON Sex: F : 1990 Age: 30yWeight: 79.3 kgHeight/Length: 61 inBMI: 33ALLERGIES: NoneDate/Time Medication Administered Medication Ordered Name Value Range Interpretation Code Description Data Kimberley rce(s) Supporting Document(s) ID Date Data Source [id number] 01/31/2021 12:20:00 PM EDT [facility] 1 General Instructions [facility] Emergency Department [address] [place] [address] Phone #: ext- [phone] 01/31/2021 12:08 Patient: MAXIMINO ALLISON Sex: F : 1990 Age: 30yINSTRUCTIONSNo strenuous activity.(Pelvic rest as instructed. return if worse or any new symptoms. Please follow up with your OB doctor.Keep your scheduled appt with ob next week.).Warnings: Further evaluation is necessary.GENERAL WARNINGS: Return or contact your physician immediately if your condition worsens orchanges unexpectedly, if not improving as expected, or if other problems arise.Your Current Medications: Your current home medications have been reviewed.CONTINUE TAKING THE FOLLOWING MEDICATIONS:Estradiol Oral.Indometrin vaginally*. Formula Oral.Progesterone Intramuscular.Synthroid Oral : Tablet 25 mcg, daily.Understanding of the discharge instructions verbalized by patient. ADDITIONAL INFORMATIONPossible Miscarriage (Threatened )You may be having a miscarriage.Common signs of a miscarriage are pain and bleeding. A small amount of bleeding can be normalduring the first 3 months of . Often the pain and bleeding stop, and you have a normalpregnancy and baby. But heavy bleeding or severe cramping can be an early sign of miscarriage. Amiscarriage means an unexpected loss of your .At this time, your healthcare provider doesn't know whether you will have a miscarriage, or if thingswill clear up and your will continue normally. This can be emotionally difficult. There is littlethat can be done to change the way you feel. But understand that miscarriages are common.About 1 or 2 out of every [address]. Some even end before you know you are. This happens for a number of reasons, and usually the cause is never known. It's important 2 General Instructions [facility] Emergency Department [address] [place] [address] Phone #: ext- [phone] 01/31/2021 12:08 Patient: MAXIMINO ALLISON Sex: F : 1990 Age: 30yyou know that it is not your fault. It didn't happen because you did anything wrong.Having sex or exercising does not cause a miscarriage. These activities are usually safe unless youhave pain or bleeding or your healthcare provider tells you to stop. Even minor falls won't cause amiscarriage. Miscarriages happen because things were not developing as they were supposed to. Nomedicine can prevent a miscarriage.Again, understand that things are uncertain right now. You may still have some bleeding. This may belight spotting or like a period, and you may pass some tissue. You may have some cramping. This iswhy follow-up care is important.Home careTo improve the chance of keeping your , you should take these steps: Rest in bed until the pain and bleeding stop. Don't have sex until your healthcare provider says it's OK. Use sanitary napkins instead of tampons. Don't douche. Don't take aspirin, ibuprofen, or naproxen. Don't have alcoholic or caffeinated beverages or smoke.Follow-up careMake an appointment with your healthcare provider within the next week, or as directed.If you had an ultrasound, a radiologist will review it. You will be told of any new findings that mayaffect your care.Call [phone] if you have: Severe pain and very heavy bleeding Severe lightheadedness, passing out, or fainting Rapid heart rate Trouble breathing Confusion or trouble waking up 3 General Instructions [facility] Emergency Department [address] [place] [address] Phone #: ext- [phone] 01/31/2021 12:08 Patient: MAXIMINO ALLISON Sex: F : 1990 Age: 30yWhen to seek medical adviceCall your healthcare provider right away if any of these occur: Vaginal bleeding or pain that lasts for more than 3 days Heavy bleeding. This means soaking 1 new pad an hour over 3 hours. Fever of 100.4F (38C) or higher, or as directed by your healthcare provider Pain in your lower belly (abdomen) that gets worse Weakness or dizziness Passage of anything that resembles tissue. This would be pink or grayish membrane or solid material. Save the tissue in a clean container and bring it to your provider. [employer]. [address] [place] [address]. All rights reserved. This in formation is not intended as asubstitute for professional medical care. Always follow your healthcare professional's instructions. You have been given the following additional information: Possible Miscarriage (Threatened ) No strenuous activity.(Electronically signed by Vida Denis MD 02/01/2021 04:09) Name Value Range Interpretation Code Description Data Kimberley rce(s) Supporting Document(s) ID Date Data Source [id number] 01/31/2021 12:20:00 PM EDT [facility] 1 Clinical Report - Nurses [facility] Emergency Department [address] [place] [address] Phone #: ovu- [phone] 01/31/2021 12:08 Patient: MAXIMINO ALLISON Sex: F : 1990 Age: 30yTRIAGEArrived by private vehicle. Historian: patient. Accompanied by family. ( 5 weeks and startedblewednesday had an ultrasound saw gestational sac but could not see ovaries, bleeding stoppedyesterday and started today with cramping and she states that she felt that she passed something,progesterone is very low , was told to come here by fertility clinica).Acuity: LEVEL 3.Chief Complaint: VAGINAL BLEEDING.Alert. No acute distress.Onset. 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 SEPSIS SCREEN NEGATIVE. No suspected or confirmedsigns of infection present. --12:19 01/31/21 Poonam Andrew R.N.12:10 01/31/21. BP: 156/75. MAP: 102. HR: 102. RR: 18. O2 saturation: 100%. Temp: 97.7 F. Pain levelnow: 11/10. --12:19 01/31/21 Poonam Andrew R.N.( clarification started to bleed after ultrasound on wednesday). --12:21 01/31/21 Poonam Andrew R.N.Weight: 79.3 kg stated. Height/Length: 61 inches Per Patient. BMI: 33. --12:09 01/31/21 Poonam Andrew R.N.MedicationsProgesterone Intramuscular. --12:15 01/31/21 Poonam Andrew R.N. Estradiol Oral. --12:15 01/31/21 Poonam Andrew R.N. Indometrin vaginally. --12:15 01/31/21 Poonam Andrew R.N. Synthroid Oral (Tablet 25 mcg), daily. --12:16 01/31/21 Poonam Andrew R.N. Formula Oral. --12:16 01/31/21 Poonam Andrew R.N.AllergiesNone. --12:15 01/31/21 Poonam Andrew R.N.PROBLEMS:Miscarriage (disorder).Hypothyroidism. --12:17 01/31/21 Poonam Andrew R.N.ADDITIONAL SURGERIES: 2 Clinical Report - Nurses [facility] Emergency Department [address] [place] [address] Phone #: ext- [phone] 01/31/2021 12:08 Patient: MAXIMINO ALLISON Sex: F : 1990 Age: 30y Dilatation Curettage. Tubal Ligation. --12:17 01/31/21 Poonam Andrew R.N. History PAST MEDICAL HX: Immunizations: up-to-date. Last normal menstrual period- Dec. OB history: G 5; P 1; Ab 3. SOCIAL HX: The patient was offered HIV testing but declined and hepatitis C testing but declined. The patient has not traveled outside the [place] Infectious disease exposure: No infectious disease exposure. Patient is not a known carrier of tuberculosis, hepatitis, HIV, MRSA or VRE. Patient is not a known carrier of CRE. SELF HARM ASSESSMENT: Self harm assessment was performed. The patient answered "no" to the question(s) "Have you recently felt down, depressed, or hopeless?", "Do you have thoughts of harming or killing yourself?", "Do you have a plan for harming or killing yourself?", "Have you recently had thoughts about harming or killing others?", "Do you have any dangerous items in your possession?", "Have you noticed less interest or pleasure in doing things?", "Are you here because you tried to hurt yourself?" and "Have you ever tried to hurt yourself before today?". ABUSE ASSESSMENT: Abuse assessment. Abuse denied. No suspicion of abuse. No report of abuse. NUTRITIONAL RISK ASSESSMENT: The nutritional risk assessment revealed no deficiencies. FUNCTIONAL ASSESSMENT: Functional assessment: no impairments noted. LEARNING NEEDS ASSESSMENT: The learning needs assessment revealed no barriers. FALL RISK ASSESSMENT: Fall risk assessment completed. No risk factors identified. SKIN INTEGRITY ASSESSMENT: Skin integrity risk assessment completed. No skin integrity risk identified. --12:19 4/2/21 Poonam Andrew R.N. SOCIAL HX: Never smoker. No alcohol use or drug use. She was offered HIV testing but declined and hepatitis C testing but declined. She has not traveled outside the [place] Infectious disease exposure: No infectious disease exposure. Patient is not a known carrier of tuberculosis, hepatitis, HIV, MRSA or VRE. Patient is not a known carrier of CRE. ABUSE ASSESSMENT: Abuse assessment. Abuse denied. No suspicion of abuse. No report of abuse. --12:01/31/21 Poonam Andrew R.N. Interventions Identification band on patient. To treatment room. --12:01/31/21 Poonam Andrew R.N.PHYSICAL ASSESSMENTGENERAL / NEURO / PSYCH: Alert. Oriented X 4. 3 Clinical Report - Nurses [facility] Emergency Department [address] [place] [address] Phone #: ext- [phone] 01/31/2021 12:08 Patient: MAXIMINO ALLISON Sex: F : 1990 Age: 30y HEENT: Mucous membranes are pink. RESPIRATORY: Respirations not labored. Breath sounds within normal limits. CVS: Normal heart rate and rhythm. Capillary refill less than 2 seconds. GI / : Abdomen soft. Abdominal tenderness in the lower abdomen. Bowel sounds within normal limits. Vaginal bleeding present. EXTREMITIES: No lower extremity edema. SKIN: Skin is warm and dry. --12:01/31/21 Poonam Andrew R.N.NURSING PROGRESS NOTESPatient gowned. Reassurance given. Two patient identifiers checked. Call light placed in reach. Siderails up x 2. Bed placed in lowest position. Brakes of bed on. Patient ready for evaluation. --12: Poonam Andrew R.N. Patient ID band checked for patient name and birthdate: patient confirmed. Instructions provided to collect clean catch urine and patient verbalized understanding. Clean catch urine collected; sample sent to lab for urinalysis. Specimen labeled in the presence of the patient. --12:22 01/31/21 Poonam Andrew R.N. ( waiting to go to ultrasound, resting quietly at present). --13:07 01/31/21 Poonam Andrew R.N. Patient transported to sonogram by wheelchair with mask and radiology clerk. --13:29 01/31/21 [facility], ER Tech Patient returned from sonogram by wheelchair with tech. --13:54 01/31/21 Poonam Andrew R.N. 14:06 01/31/21. BP: 120/73. MAP: 88. HR: 88. RR: 17. O2 saturation: 99%. --14:06 01/31/21 [facility], ER [facility] ( md at bedside). --15:01 01/31/21 Poonam Andrew R.N. late entry - 14:05 01/31/21. ( waiting on result). --15:01 01/31/21 Poonam Andrew R.N.DISPOSITION / DISCHARGE 15:31 01/31/21. BP: 133/87. MAP: 102. HR: 88. RR: 16. O2 saturation: 99%. Temp: 98.4 F. Pain level now 2/10. --15:05 01/31/21 [facility], [place], ER Tech1 15:05 01/31/21. BP: 133/87. HR: 88. RR: 16. O2 saturation: 99%. Temp: 98.4 F. Pain level now 2/10. --15:05 01/31/21 [facility], Cl[place], ER Tech1 Correction. --15:32 01/31/21 [facility], [place], ER [employer] Condition at departure: unchanged. No learning barriers present. Discharge instructions provided and reviewed with the patient. Patient verbalized understanding. Written instructions provided in Iranian. The patient was discharged home and unaccompanied at time of discharge. She left via private vehicle. Patient driving. --15:35 01/31/21 Poonam Andrew R.N. 4 Clinical Report - Nurses [facility] Emergency Department [address] [place] [address] Phone #: ext- [phone] 01/31/2021 12:08 Patient: MAXIMINO ALLISON Sex: F : 1990 Age: 30y Departure time: 15:35 01/31/2021. --15:35 01/31/21 Poonam Andrew R.N.Locked/Released at 01/31/2021 15:35 by Poonam Andrew R.N. Name Value Range Interpretation Code Description Data Kimberley rce(s) Supporting Document(s) ID Date Data Source [id number] 01/31/2021 12:20:00 PM EDT [facility] 1 Clinical Report - Physicians/Mid Levels [facility] Emergency Department [address] [place] [address] Phone #: ext- [phone] 01/31/2021 12:08 Patient: MAXIMINO ALLISON Sex: F : 1990 Age: 30y Arrived- By private vehicle. Historian- patient. Disposition decision: 15:29 01/31/2021.HISTORY OF PRESENT ILLNESS Chief Complaint: VAGINAL BLEEDING. This started 3 days. She has had mild vaginal bleeding. Is still present. No complaint of leakage of fluid or vaginal discharge. (Arrived by private vehicle. Historian: patient. Accompanied by family. ( 5 weeks and started bleeding wednesday had an ultrasound saw gestational sac but could not see ovaries, bleeding stopped yesterday and started today with cramping and she states that she felt that she passed something, progesterone is very low , was told to come here by fertility clinica).). Similar symptoms previously. Recent medical care: The patient was seen recently by a health care provider.REVIEW OF SYSTEMSNo nausea, vomiting, diarrhea, black stools or bloody stools. No headache , double vision or vision,fainting episodes or fever. No eye discomfort, eye discharge, sore throat or throat or cough. No difficultybreathing, chest pain or pain, skin rash or chills. No joint pain or pain, chills, fever or ear pain. No runnynose, cough, abdominal pain, diarrhea or nausea. No vomiting, urinary frequency, hematuria, back painor headache. No seizure, easy bruising or difficulty with urination. The patient has had abnormalbleeding.PAST HISTORYSee nurses notes. Problems: Depression. OB History. Hypothyroidism. Additional Surgeries: Dilatation Curettage. Tubal Ligation. Medications: Formula Oral. Synthroid Oral (Tablet 25 mcg), daily. Indometrin vaginally. Estradiol Oral. 2 Clinical Report - Physicians/Mid Levels [facility] Emergency Department [address] [place] [address] Phone #: ext- [phone] 01/31/2021 12:08 Patient: MAXIMINO ALLISON Sex: F : 1990 Age: 30y Progesterone Intramuscular. Allergies: None.SOCIAL HISTORYNo drug use.ADDITIONAL NOTESThe nursing notes have been reviewed.PHYSICAL EXAMVital Signs: 01/31/2021 15:31 BP: 133/87. MAP: 102. HR: 88. RR: 16. O2 saturation: 99%. Temp: 98.4 F.01/31/2021 14:06 BP: 120/73. MAP: 88. HR: 88. RR: 17. O2 saturation: 99%.01/31/2021 12:10 BP: 156/75. MAP: 102. HR: 102. RR: 18. O2 saturation: 100%. Temp: 97.7 F. Pain levelnow: 11/10. Have been reviewed and appear to be correct. Blood pressure normal. Mean arterialpressure- high. Heart rate normal. Respiratory rate normal. Temperature normal. Oxygen saturationnormal.Appearance: Alert. Oriented X3. No acute distress.HEENT: Normal external inspection.ENT: Pharynx normal.Neck: Neck supple.CVS: Heart sounds normal.Respiratory: No respiratory distress. Painless inspiration. Breath sounds normal. Chest nontender.Abdomen: Soft and nontender. Bowel sounds normal.Back: Normal external inspection.Skin: Skin warm and dry. Normal skin color. Normal skin turgor.Extremities: Extremities nontender. No pathologic edema.Neuro: Oriented X 3. Mood/affect normal. No motor deficit. No sensory deficit.LABS, X- RAYS, AND EKGLaboratory Tests: Type Rh: (STEVEN: 01/31/2021 12:28) ( [facility] 01/31/2021 14:41) Final results Test Result Flag Units (Reference) ABO GROUP A RH TYPE POSITIVE { ABO/RH REENTER A POSITIVE US OB TRANSVAGINAL [place]: (STEVEN: 01/31/2021 13:41) ( MsgRcvd 01/31/2021 14:00) In Progress US OB TRANSVAGINAL [place] Reason for Exam: vaginal bleeding TRANSPORTATION: AMB IV? N O2? N STATUS: ISOLATION N CBC w Diff: (STEVEN: 01/31/2021 12:28) ( [facility] 01/31/2021 12:43) Final results 3 Clinical Report - Physicians/Mid Levels [facility] Emergency Department [address] [place] [address] Phone #: ext- [phone] 01/31/2021 12:08 Patient: MAXIMINO ALLISON Sex: F : 1990 Age: 30y Test Result Flag Units (Reference) CBC W/AUTOMATED DIFF COMPLETE BLOOD COUNT WBC 10.1 10/uL (4.2 - 11.0) RBC 4.70 10 /uL (4.20 - 5.40) HEMOGLOBIN 14.0 g/dL (12.0 - 16.0) HEMATOCRIT 40.5 % (37.0 - 47.0) MCV 86.2 fL (81.0 - 101) MCH 29.8 pg (27.0 - 34.0) MCHC 34.6 g/dL (31.0 - 36.0) RDW 11.9 % (11.5 - 14.5) PLATELETS 285 10/uL (150 - 450) MPV 9.0 fL (7.4 - 10.4) NEUT 62.8 % (37.0 - 80.0) LYMPH 29.4 % (25.0 - 40.0) MONO 6.0 % (3.0 - 8.0) EOS 1.2 % (0.0 - 7.0) BASO 0.3 % (0.0 - 2.5) %IG 0.3 H % (0.0 - 0.0) %NRBC 0.0 % (0.0 - 0.0) #NEUT 6.34 10/uL (2.00 - 6.90) #LYMPH 2.96 10/uL (0.60 - 3.40) #MONO 0.60 10/uL (0.00 - 0.90) #EOS 0.12 10/uL (0.00 - 0.70) #BASO 0.03 10/uL (0.00 - 0.20) #IG 0.03 10/uL (0.00 - 0.10) #NRBC 0.00 10/uL (0.00 - 0.00) MANUAL DIFF NOT INDICATED RBC MORPH NOT INDICATEDCMP: (STEVEN: 01/31/2021 12:28) ( MsgRcvd 01/31/2021 13:06) Final results Test Result Flag Units (Reference) COMPREHENSIVE METABOLIC PANEL COMPREHENSIVE METABOLIC PANEL SODIUM 135 mEq/L (134 - 153) POTASSIUM 3.8 mEq/L (3.6 - 5.0) CHLORIDE 101 mEq/L (98 - 107) CO2 27 MEQ/L (22 - 30) GLUCOSE 80 MG/DL (70 - 99) BUN 10 MG/DL (7 - 21) CREATININE 0.7 MG/DL (0.7 - 1.5) BUN/CREAT 14 (8 - 27) TOTAL PROTEIN 6.7 G/DL (6.3 - 8.2) ALBUMIN 4.1 G/DL (3.9 - 5.0) GLOBULIN 2.6 GM/DL (2.4 - 3.2) A/G RATIO 1.6 (0.8 - 2.0) CALCIUM 9.2 MG/DL (8.4 - 10.2) TOTAL BILI <0.7 MG/DL (0.2 - 1.3) ALKALINE PHOS 45 U/L (38 - 126) SGOT/AST 10 U/L (5 - 40) SGPT/ALT 13 U/L (7 - 56) ANION GAP 7.0 L mmol/L (8.0 - 16.0) AGE 30 yrs NON-AA GFR >60 mL/min AFR AMER GFR >60 mL/min Male GFR Interprentation 20-49 yrs >60 mL/min Bldebh93-23 yrs >56 mL/min Normal 60-69 yrs >49 mL/min Normal 70- 79yrs>42 mL/min Normal 80 and above >35 mL/min Normal Female GFRInterpretation 20-39 yrs >60 mL/min Normal 40-49 yrs >58 mL/min 4 Clinical Report - Physicians/Mid Levels [facility] Emergency Department [address] [place] [address] Phone #: ext- [phone] 01/31/2021 12:08 Patient: MAXIMINO ALLISON Sex: F : 1990 Age: 30y Normal 50-59 yrs >51 mL/min Normal 60-69 yrs >45 mL/min Normal 70-79 yrs >39 mL/min Normal 80 and above >32 mL/min Normal Beta-HCG, Quant Serum: (STEVEN: 01/31/2021 12:28) ( [facility] 01/31/2021 13:16) Final results Test Result Flag Units (Reference) HCG QUANT 08002.0 mIU/mL Interpretation: Less than 5 mU/mL: Negative 6-10 mU/mL: Borderline (suggest repeat in 48 hours) >10: Positive Approx HCG range (mU/mL) Weeks post LMP 5.4-708 mU/mL 3-4 Weeks 217-63575 mU/mL 5-6 Weeks 4059-149584 mU/mL 7-8 Weeks 97841-381720 mU/mL 9-10 Weeks 13300-74939 mU/mL 12-14 Weeks 52744-51352 mU/mL 15-16 Weeks 8240-74092 mU/mL 17-18 Weeks Urinalysis: (STEEVN: 01/31/2021 12:20) ( [facility] 01/31/2021 12:49) Final results Test Result Flag Units (Reference) URINALYSIS URINALYSIS SOURCE R COLOR yellow (NORMAL: Yello CLARITY clear (NORMAL: Clear SPEC GRAVITY 1.020 (1.001 - 1.030 pH 6.5 (5 - 9) GLUCOSE NORM (NORMAL: Negat BILIRUBIN NEG (NORMAL: Negat KETONE NEG (NORMAL: Negat PROTEIN 30 (NORMAL: Negat NITRITE NEG (NORMAL: Negat BLOOD 250 A (NORMAL: Negat LEUK EST NEG (NORMAL: Negat UROBILINOGEN NOR (less than 1.0 MICROSCOPIC See Below WBC 1 - 3 (NORMAL: NONE RBC 30 - 40 A (NORMAL: NONE EPITHELIAL MODERATE A (NORMAL: NONE BACTERIA Trace (NORMAL: NONE US OB 1ST TRI UP TO 14 WEEKS: (STEVEN: 01/31/2021 12:21) ( [facility] 01/31/2021 14:00) In Progress OB 1ST TRI UP TO 14 WEEKS Reason(s): 5 weeks vag bleeding TRANSPORTATION: IV? IV?(No) O2? Oxygen?(No) Meli.PROGRESS AND PROCEDURESCourse of Care: pt is a 30 year old female presents for evaluation of her vaginal bleeding. she has alradybeen seen for this this past week. on exam, her abdomen is benign. her us shows a 6 week gestationalsac. her quant is approx 20K. Shei s A+. her labs are grossly nl. ua shows no evidence of infection.will discharge. pt states she has a f/u this coming week in [place]. Dr. Moran has arranged this for her whileshe is on vacation. pt encouraged to f/u with ob or to return if worse or any new s ymptoms. pt voicedunderstanding of instructions. pt also instructed on pelvic rest. 5 Clinical Report - Physicians/Mid Levels [facility] Emergency Department [address] [place] [address] Phone #: ext- [phone] 01/31/2021 12:08 Patient: MAXIMINO ALLISON Sex: F : 1990 Age: 30y Patient/family counseled. Disposition: Discharged. Condition: good and stable.CLINICAL IMPRESSION Possible threatened ; positive test in emergency department.INSTRUCTIONS No strenuous activity. (Pelvic rest as instructed. return if worse or any new symptoms. Please follow up with your OB doctor. Keep your scheduled appt with ob next week.). Warnings: Further evaluation is necessary. GENERAL WARNINGS: Return or contact your physician immediately if your condition worsens or changes unexpectedly, if not improving as expected, or if other problems arise. Your Current Medications: Your current home medications have been reviewed. CONTINUE TAKING THE FOLLOWING MEDICATIONS: Estradiol Oral. Indometrin vaginally*. Formula Oral. Progesterone Intramuscular. Synthroid Oral : Tablet 25 mcg, daily. Understanding of the discharge instructions verbalized by patient.(Electronically signed by Vida Denis MD 02/01/2021 04:09) Name Value Range Interpretation Code Description Data Kimberley rce(s) Supporting Document(s) ID Date Data Source [id number] 01/31/2021 02:40:00 PM EDT [facility] Name Value Range Interpretation Code Description Data Kimberley rce(s) Supporting Document(s) ABO group [Type] in Blood A [employer] Rh [Type] in Blood POSITIVE [facility] { ABO/RH REENTER A POSITIVE ID Date Data Source [id number] 01/31/2021 01:16:00 PM EDT [facility] Name Value Range Interpretation Code Description Data Kimberley rce(s) Supporting Document(s) Choriogonadotropin.intact [Units/volume] in Serum or Plasma 41196.0 mIU/mL [facility] Interpr etation: Less than 5 mU/mL: Negative 6-10 mU/mL: Borderline (suggest repeat in 48 hours) >10: Positive Approx HCG range (mU/mL) Weeks post LMP 5.4-708 mU/mL 3-4 Weeks 217-35398 mU/mL 5-6 Weeks 4059-461307 mU/mL 7-8 Weeks 82656-224744 mU/mL 9-10 Weeks 21875-61588 mU/mL 12-14 Weeks 89033-78330 mU/mL 15-16 Weeks 8240- 42163 mU/mL 17-18 Weeks ID Date Data Source [id number] 01/31/2021 01:06:00 PM EDT [facility] Name Value Range Interpretation Code Description Data Kimberley rce(s) Supporting Document(s) COMPREHENSIVE METABOLIC PANEL [facility] COMPREHENSIVE METABOLIC PANEL Sodium [Moles/volume] in Serum or Plasma 135 mEq/L 134 - 153 [facility] Potassium [Moles/volume] in Serum or Plasma 3.8 mEq/L 3.6 - 5.0 [facility] Chloride [Moles/volume] in Serum or Plasma 101 mEq/L 98 - 107 [facility] Carbon dioxide, total [Moles/volume] in Serum or Plasma 27 MEQ/L 22 - 30 [facility] Glucose [Mass/volume] in Serum or Plasma 80 MG/DL 70 - 99 [facility] BUN 10 [facility]DL 7 - [facility] Creat[facility] [Mass/volume] in Serum or Plasma 0.7 MG/DL 0.7 - 1.5 [facility] BUN/CREAT 14 8 - 27 [facility] Protein [Mass/volume] in Serum or Plasma 6.7 G/DL 6.3 - 8.2 [facility] Albumin [Mass/volume] in Serum or Plasma 4.1 G/DL 3.9 - 5.0 [facility] Globulin [Mass/volume] in Serum by calculation 2.6 GM/DL 2.4 - 3.2 [facility] A/G RATIO 1.6 0.8 - 2.0 [facility] Calcium [Mass/volume] in Serum or Plasma 9.2 MG/DL 8.4 - 10.2 [facility] Bilirubin.total [Mass/volume] in Serum or Plasma <0.7 MG/DL 0.2 - 1.3 [facility] Alkaline phosphatase [Enzymatic activity/volume] in Serum or Plasma 45 U/L 38 - 126 [facility] Aspartate aminotransferase [Enzymatic activity/volume] in Serum or Plasma 10 U/L 5 - 40 [facility] Alanine aminotransferase [Enzymatic activity/volume] in Seru m or Plasma 13 U/L 7 - 56 [facility] Anion gap 3 in Serum or Plasma 7.0 mmol/L 8.0 - 16.0 L [facility] AGE 30 yrs [facility] al NON-AA GFR >60 mL/min [facility] ital AFR AMER GFR >60 mL/min [facility] Ho spital Male GFR In terprentation 20-49 yrs >60 mL/min Normal 50-59 yrs >56 mL/min Normal 60-69 yrs >49 mL/min Normal 70-79yrs >42 mL/min Normal 80 and above >35 mL/min Normal Female GFR Interpretation 20-39 yrs >60 mL/min Normal 40-49 yrs >58 mL/min Normal 50-59 yrs >51 mL/min Normal 60-69 yrs >45 mL/min Normal 70-79 yrs >39 mL/min Normal 80 and above >32 mL/min Normal ID Date Data Source [id number] 01/31/2021 12:43:00 PM EDT [facility] Name Value Range Interpretation Code Description Data Kimberley rce(s) Supporting Document(s) CBC W/AUTOMATED DIFF [facility] COMPLETE BLOOD COUNT Leukocytes [#/volume] in Blood by Automated count 10.1 10^3/uL 4.2 - 11.0 [facility] Erythrocytes [#/volume] in Blood by Automated count 4.70 10^6/uL 4. 20 - 5.40 [facility] Hemoglobin [Mass/volume] in Blood 14.0 g/dL 12.0 - 16.0 [facility] Hematocrit [Volume Fraction] of Blood by Automated count 40.5 % 3 7.0 - 47.0 [facility] Erythrocyte mean corpuscular volume [Entitic volume] by Auto mated count 86.2 fL 81.0 - 101 [facility] Erythrocyte mean corpuscular hemoglobin [Entitic mass] by Automated count 29.8 pg 27.0 - 34.0 [facility] Erythrocyte mean corpuscular hemoglobin concentration [Mass/volume] by Automated count 34.6 g/dL 31.0 - 36.0 [facility] Erythrocyte distribution width [Ratio] by Automated count 11.9 % 11.5 - 14.5 [facility] Platelets [#/volume] in Blood by Automated count 285 10^3/uL 150 - 45 0 [facility] Platelet mean volume [Entitic volume] in Blood by Automated count 9.0 fL 7.4 - 10.4 [facility] [facility] Neutrophils/100 leukocytes in Blood by Automated count 62.8 % 37. 0 - 80.0 [facility] Lymphocytes/100 leukocytes in Blood by Manual count 29.4 % 25.0 - 40.0 [facility] Monocytes/100 leukocytes in Blood by Automated count 6.0 % 3.0 - 8.0 [facility] Eosinophils/100 leukocytes in Blood by Automated count 1.2 % 0.0 - 7.0 [facility] Basophils/100 leukocytes in Blood by Automated count 0.3 % 0.0 - 2.5 [facility] %IG 0.3 % 0.0 - 0.0 [facility] % 0.0 - 0.0 [facility] al Neutrophils [#/volume] in Blood by Automated count 6.34 10^3/uL 2.00 - 6.90 [facility] Lymphocytes [#/volume] in Blood by Automated count 2.96 10^3/uL 0.60 - 3.40 [facility] Monocytes [#/volume] in Blood by Automated count 0.60 10^3/uL 0.00 - 0.90 [facility] Eosinophils [#/volume] in Blood by Automated count 0.12 10^3/uL 0.00 - 0.70 [facility] Basophils [#/volume] in Blood by Automated count 0.03 10^3/uL 0.00 - 0.20 [facility] #IG 0.03 10^3/uL 0.00 - 0.10 [facility] H ospital #NRBC 0.00 10^3/uL 0.00 - 0.00 [facility] ospital MANUAL DIFF NOT INDICATED [facility] RBC MORPH NOT INDICATED [facility] Ho spital ID Date Data Source [id number] 01/31/2021 12:48:00 PM EDT [facility] Name Value Range Interpretation Code Description Data Kimberley rce(s) Supporting Document(s) [facility] COLOR yellow NORMAL: Yellow [facility] ospital CLARITY clear NORMAL: Clear [facility] Ho spital Specific gravity of Urine by Test strip 1.020 1.001 - 1.030 [facility] pH 6.5 5 - 9 [facility] al Glucose [Mass/volume] in Urine by Test strip [facility] Bil[facility].total [Presence] in Urine by Test strip NEG NORMAL: Negative [facility] Ketones [Presence] in Urine by Test strip NEG NORMAL: Negative [facility] Protein [Mass/volume] in Urine by Test strip 30 [facility] Nitrite [Presence] in Urine by Test strip NEG NORMAL: Negative [facility] BLOOD 250 NORMAL: Negative [facility] Leukocyte esterase [Presence] in Urine by Test strip NEG VIDA L: Negative [facility] Urobilinogen [Mass/volume] in Urine by Test strip NOR less kayla n 1.0 mg/dL [facility] MICROSCOPIC See Below [facility] ital WBC 1 - 3 NORMAL: NONE SEEN [facility] Erythrocytes [#/volume] in Urine by Test strip 30 - 40 NORMAL: NON E SEEN A [facility] EPITHELIAL MODERATE NORMAL: NONE SEEN A [facility] Bacteria [Presence] in Urine sediment by Light microscopy Tr patsy NORMAL: NONE SEEN [facility] ID Date Data Source [id number] 11/11/2020 12:30:00 PM EST [facility] Name Value Range Interpretation Code Description Data Kimberley rce(s) Supporting Document(s) SARS coronavirus 2 RNA Not Detected [facility] [place] This lab was ordered by CNRad[facility] Andrade nter and reported by [facility]. ID Date Data Source [id number] 10/03/2020 12:00:00 AM EST [facility] Name Value Range Interpretation Code Description Data Kimberley rce(s) Supporting Document(s) SARS coronavirus 2 Ag [facility] This lab was ordered by [facility] and reported by [facility]. Procedure Social History No Information Vital Signs ID Date Data Source UNK Name Value Range Interpretation Code Description Data Source(s) Systolic blood pressure 102 mm[Hg] 102 mm[Hg] M [facility] ([facility]) Diastolic blood pressure 70 mm[Hg] 70 [facility] Heart rate 104 /min 104 /min [facility] ([facility]) Body temperature 98.6 [degF] 98.6 [degF] [facility] ([facility]) Respiratory rate 16 /min 16 /min [facility] ( [facility]) Oxygen saturation in Arterial blood by Pulse oximetry 96 % 96 % [facility] ([facility]) Body weight 185.25 [lb_av] 185.25 [lb_av] [facility] ([facility]) Body weight 84.029 kg 84.029 kg [facility] ([facility]) Body height 61 [in_i] 61 [in_i] [facility] ([facility]) 5'1" Body mass index (BMI) [Ratio] 35.0 kg/m2 35.0 k g/m2 [facility] ([facility]) Body surface area Derived from formula 1.83 m2 1.83 m2 [facility] ([facility]) Heart rate 111 /min 111 /min [facility] ([facility]) Oxygen saturation in Arterial blood by Pulse oximetry 97 % 97 % [facility] Body weight 187.38 [lb_av] 187.38 [lb_av] [facility] ([facility]) Body weight 84.993 kg 84.993 kg [facility] Body height 61 [in_i] 61 [in_i] [facility] ([facility]) 5'1" Systolic blood pressure 116 mm[Hg] 116 mm[Hg] [facility] ([facility]) Diastolic blood pressure 80 mm[Hg] 80 mm[Hg] [facility] ([facility]) Body mass index (BMI) [Ratio] 35.4 kg/m2 35.4 k g/m2 [facility] ([facility]) Body surface area Derived from formula 1.84 m2 1.84 m2 [facility] ([facility]) Systolic blood pressure 116 mm[Hg] 116 mm[Hg] [facility] Oxygen saturation in Arterial blood by [facility]ulse oximetry 98 % 98 % [facility] Body weight 187.00 [lb_av] 187.00 [lb_av] [facility] ([facility]) Body mass index (BMI) [Ratio] 35.3 kg/m2 35.3 k g/m2 [facility] ([facility]) Body surface area Derived from formula 1.84 m2 1.84 m2 [facility] ([facility]) Diastolic blood pressure 72 mm[Hg] 72 mm[Hg] [facility] ([facility]) Heart rate 103 /min 103 /min [facility] ([facility]) Body weight 84.823 kg 84.823 kg [facility] ([facility]) Body height 61 [in_i] 61 [in_i] [facility] 5'1" Systolic blood pressure 120 mm[Hg] 120 mm[Hg] [facility] ([facility]) Diastolic blood pressure 76 mm[Hg] 76 mm[Hg] [facility] Heart rate 100 /min 100 /min [facility] ([facility]) Oxygen saturation in Arterial blood by Pulse oximetry 100 % 100 % [facility] ([facility]) Body weight 186.38 [lb_av] 186.38 [lb_av] [facility] ([facility]) Body weight 84.540 kg 84.540 kg [facility] ([facility]) Body height 61 [in_i] 61 [in_i] [facility] ([facility]) 5'1" Body mass index (BMI) [Ratio] 35.2 kg/m2 35.2 k g/m2 [facility] ([facility]) Body surface area Derived from formula 1.83 m2 1.83 m2 [facility] ([facility]) Systolic blood pressure 104 mm[Hg] 104 mm[Hg] [facility] ([facility]) Diastolic blood pressure 60 mm[Hg] 60 mm[Hg] [facility] ([facility]) Heart rate 100 /min 100 /min [facility] ([facility]) Body temperature 97.1 [degF] 97.1 [degF] [facility] ([facility]) Body weight 184.00 [lb_av] 184.00 [lb_av] [facility] ([facility]) Body weight 83.462 kg 83.462 kg [facility] ([facility]) Body height 61 [in_i] 61 [in_i] [facility] ([facility]) 5'1" Body mass index (BMI) [Ratio] 34.8 kg/m2 34.8 k g/m2 [facility] ([facility]) Body surface area Derived from formula 1.82 m2 1.82 m2 [facility] ([facility]) Systolic blood pressure 124 mm[Hg] 124 mm[Hg] [facility] ([facility]) Diastolic blood pressure 86 mm[Hg] 86 mm[Hg] [facility] ([facility]) Heart rate 103 /min 103 /min [facility] ([facility]) Body temperature 98.4 [degF] 98.4 [degF] [facility] ([facility]) Body surface area Derived from formula 1.83 m2 1.83 m2 [facility] ([facility]) Body weight 84.370 kg 84.370 kg [facility] ([facility]) Body weight 186.00 [lb_av] 186.00 [lb_av] [facility] ([facility]) Body height 61 [in_i] 61 [in_i] [facility] ([facility]) 5'1" Body mass index (BMI) [Ratio] 35.1 kg/m2 35.1 k g/m2 [facility] ([facility]) Body height 61 [in_i] 61 [in_i] [facility] ([facility]) 5'1" Systolic blood pressure 116 mm[Hg] 116 mm[Hg] [facility] ([facility]) Diastolic blood pressure 66 mm[Hg] 66 mm[Hg] [facility] ([facility]) Body weight 184.25 [lb_av] 184.25 [lb_av] [facility] ([facility]) Body temperature 98.2 [degF] 98.2 [degF] [facility] ([facility]) Respiratory rate 18 /min 18 /min [facility] ( [facility]) Oxygen saturation in Arterial blood by Pulse oximetry 96 % 96 % [facility] ([facility]) Body weight 83.576 kg 83.576 kg [facility] ([facility]) Body mass index (BMI) [Ratio] 34.8 kg/m2 34.8 k g/m2 [facility] ([facility]) Body surface area [facility]ived from formula 1.82 m2 1.82 [facility]2 [facility] Heart rate 86 /min 86 /min [facility] ([facility]) Body weight 185.38 [lb_av] 185.38 [lb_av] [facility] ([facility]) Body weight 84.086 kg 84.086 kg [facility] ([facility]) Body height 61 [in_i] 61 [in_i] [facility] ([facility]) 5'1" Body mass index (BMI) [Ratio] 35.0 kg/m2 35.0 k g/m2 [facility] ([facility]) Body surface area Derived from formula 1.83 m2 1.83 m2 [facility] ([facility]) Systolic blood pressure 122 mm[Hg] 122 mm[Hg] [facility] ([facility]) Diastolic blood pressure 78 mm[Hg] 78 mm[Hg] [facility] ([facility]) Heart rate 104 /min 104 /min [facility] Body temperature 97.3 [degF] 97.3 [degF] [facility] ([facility]) Respiratory rate 16 /min 16 /min [facility] ( [facility]) Oxygen saturation in Arterial blood by Pulse oximetry 96 % 96 % [facility] ([facility]) Systolic blood pressure 122 mm[Hg] 122 mm[Hg] [facility] ([facility]) Diastolic blood pressure 68 mm[Hg] 68 mm[Hg] [facility] ([facility]) Heart rate 96 /min 96 /min [facility] ([facility]) Body temperature 98.8 [degF] 98.8 [degF] [facility] ([facility]) Body weight 186.00 [lb_av] 186.00 [lb_av] [facility] ([facility]) Body weight 84.370 kg 84.370 kg [facility] ([facility]) Body height 61 [in_i] 61 [in_i] [facility] ([facility]) 5'1" Body mass index (BMI) [Ratio] 35.1 kg/m2 35.1 k g/m2 [facility] ([facility]) Body surface area Derived from formula 1.83 m2 1.83 m2 [facility] ([facility]) Systolic blood pressure 120 mm[Hg] 120 mm[Hg] [facility] ([facility]) Diastolic blood pressure 60 mm[Hg] 60 mm[Hg] [facility] ([facility]) Heart rate 100 /min 100 /min [facility] ([facility]) Body temperature 97.8 [degF] 97.8 [degF] [facility] ([facility]) Body weight 184.00 [lb_av] 184.00 [lb_av] [facility] ([facility]) Body weight 83.462 kg 83.462 kg [facility] ([facility]) Body height 61 [in_i] 61 [in_i] [facility] ([facility]) 5'1" Body mass index (BMI) [Ratio] 34.8 kg/m2 34.8 k g/m2 [facility] ([facility]) Body surface area Derived from formula 1.82 m2 1.82 m2 [facility] Systolic blood pressure 122 mm[Hg] 122 mm[Hg] [facility] ([facility]) Diastolic blood pressure 64 mm[Hg] 64 mm[Hg] [facility] ([facility]) Heart rate 90 /min 90 /min [facility] ([facility]) Body temperature 98.0 [degF] 98.0 [degF] [facility] ([facility]) Body weight 185.00 [lb_av] 185.00 [lb_av] [facility] ([facility]) Body weight 83.916 kg 83.916 kg [facility] ([facility]) Body height 61 [in_i] 61 [in_i] [facility] ([facility]) 5'1" Body mass index (BMI) [Ratio] 35.0 kg/m2 35.0 k g/m2 [facility] ([facility]) Body surface area Derived from formula 1.83 m2 1.83 m2 [facility] ([facility]) Systolic blood pressure 102 mm[Hg] 102 mm[Hg] [facility] ([facility]) Diastolic blood pressure 70 mm[Hg] 70 mm[Hg] [facility] ([facility]) Heart rate 100 /min 100 /min [facility] ([facility]) Body temperature 98.2 [degF] 98.2 [degF] [facility] ([facility]) Respiratory rate 16 /min 16 /min [facility] ( [facility]) Oxygen saturation in Arterial blood by Pulse oximetry 97 % 97 % [facility] ([facility]) Body weight 182.25 [lb_av] 182.25 [lb_av] [facility] ([facility]) Body weight 82.669 kg 82.669 kg [facility] ([facility]) Body height 61 [in_i] 61 [in_i] [facility] ([facility]) 5'1" Body mass index (BMI) [Ratio] 34.4 kg/m2 34.4 k g/m2 [facility] ([facility]) Body surface area Derived from formula 1.82 m2 1.82 m2 [facility] ([facility]) Body mass index (BMI) [Ratio] 34.4 kg/m2 34.4 k g/m2 [facility] ([facility]) Body surface area Derived from formula 1.81 m2 1.81 m2 [facility] ([facility]) Systolic blood pressure 122 mm[Hg] 122 mm[Hg] [facility] ([facility]) Diastolic blood pressure 68 mm[Hg] 68 mm[Hg] [facility] ([facility]) Heart rate 96 /min 96 /min [facility] ([facility]) Body temperature 98.7 [degF] 98.7 [degF] [facility] ([facility]) Body weight 182.00 [lb_av] 182.00 [lb_av] [facility] ([facility]) Body weight 82.555 kg 82.555 kg [facility] ([facility]) Body height 61 [in_i] 61 [in_i] [facility] ([facility]) 5'1" Body weight 83.462 kg 83.462 kg [facility] ([facility]) Body height 61 [in_i] 61 [in_i] [facility] ([facility]) 5'1" Body mass index (BMI) [Ratio] 34.8 kg/m2 34.8 k g/m2 [facility] ([facility]) Body surface area Derived from formula 1.82 m2 1.82 m2 [facility] ([facility]) Systolic blood pressure 116 mm[Hg] 116 mm[Hg] [facility] ([facility]) Diastolic blood pressure 70 mm[Hg] 70 mm[Hg] [facility] ([facility]) Body temperature 96.1 [degF] 96.1 [degF] [facility] ([facility]) Body weight 184.00 [lb_av] 184.00 [lb_av] [facility] ([facility]) Body mass index (BMI) [Ratio] 33.8 kg/m2 33.8 k g/m2 [facility] ([facility]) Body surface area Derived from formula 1.80 m2 1.80 m2 [facility] ([facility]) Systolic blood pressure 122 mm[Hg] 122 mm[Hg] [facility] ([facility]) Diastolic blood pressure 64 mm[Hg] 64 mm[Hg] [facility] ([facility]) Heart rate 102 /min 102 /min [facility] ([facility]) Body temperature 97.7 [degF] 97.7 [degF] [facility] ([facility]) Body weight 179.00 [lb_av] 179.00 [lb_av] [facility] ([facility]) Body weight 81.194 kg 81.194 kg [facility] ([facility]) Body height 61 [in_i] 61 [in_i] [facility] ([facility]) 5'1" Body height 61 [in_i] 61 [in_i] [facility] ([facility]) 5'1" Body mass index (BMI) [Ratio] 33.8 kg/m2 33.8 k g/m2 [facility] ([facility]) Body surface area Derived from formula 1.80 m2 1.80 m2 [facility] ([facility]) Systolic blood pressure 126 mm[Hg] 126 mm[Hg] [facility] ([facility]) Diastolic blood pressure 60 mm[Hg] 60 mm[Hg] [facility] ([facility]) Heart rate 78 /min 78 /min [facility] ([facility]) Body temperature 96.8 [degF] 96.8 [degF] [facility] ([facility]) Body weight 179.00 [lb_av] 179.00 [lb_av] [facility] ([facility]) Body weight 81.194 kg 81.194 kg [facility] ([facility]) Systolic blood pressure 110 mm[Hg] 110 mm[Hg] [facility] ([facility]) Diastolic blood pressure 65 mm[Hg] 65 mm[Hg] [facility] ([facility]) Heart rate 90 /min 90 /min [facility] ([facility]) Body weight 180.00 [lb_av] 180.00 [lb_av] [facility] ([facility]) Body weight 81.648 kg 81.648 kg [facility] ([facility]) Body height 61 [in_i] 61 [in_i] [facility] ([facility]) 5'1" Body mass index (BMI) [Ratio] 34.0 kg/m2 34.0 k g/m2 [facility] ([facility]) Body surface area Derived from formula 1.81 m2 1.81 m2 [facility] ([facility]) Systolic blood pressure 118 mm[Hg] 118 mm[Hg] [facility] ([facility]) Diastolic blood pressure 64 mm[Hg] 64 mm[Hg] [facility] ([facility]) Heart rate 80 /min 80 /min [facility] ([facility]) Body temperature 97.8 [degF] 97.8 [degF] [facility] ([facility]) Body weight 179.00 [lb_av] 179.00 [lb_av] [facility] ([facility]) Body weight 81.194 kg 81.194 kg [facility] ([facility]) Body height 61 [in_i] 61 [in_i] [facility] ([facility]) 5'1" Body mass index (BMI) [Ratio] 33.8 kg/m2 33.8 k g/m2 [facility] ([facility]) Body surface area Derived from formula 1.80 m2 1.80 m2 [facility] ([facility]) Diastolic blood pressure 64 mm[Hg] 64 mm[Hg] [facility] ([facility]) Systolic blood pressure 114 mm[Hg] 114 mm[Hg] [facility] ([facility]) Heart rate 60 /min 60 /min [facility] ([facility]) Body weight 176.00 [lb_av] 176.00 [lb_av] [facility] ([facility]) Body weight 79.834 kg 79.834 kg [facility] ([facility]) Body height 61 [in_i] 61 [in_i] [facility] ([facility]) 5'1" Body mass index (BMI) [Ratio] 33.3 kg/m2 33.3 k g/m2 [facility] ([facility]) Body surface area Derived from formula 1.79 m2 1.79 m2 [facility] ([facility]) Systolic blood pressure 110 mm[Hg] 110 mm[Hg] [facility] ([facility]) Diastolic blood pressure 65 mm[Hg] 65 mm[Hg] [facility] ([facility]) Heart rate 80 /min 80 /min [facility] ([facility]) Body weight 176.00 [lb_av] 176.00 [lb_av] [facility] ([facility]) Body weight 79.834 kg 79.834 kg [facility] ([facility]) Body height 61 [in_i] 61 [in_i] [facility] ([facility]) 5'1" Body mass index (BMI) [Ratio] 33.3 kg/m2 33.3 k g/m2 [facility] ([facility]) Body surface area Derived from formula 1.79 m2 1.79 m2 [facility] ([facility]) ID Date Data Source [id number] 08/23/2021 12:24:46 AM EDT [facility] Name Value Range Interpretation Code Description Data Source(s) WEIGHT RECORDED 185.00 pounds 185.00 pounds [facility] Height 61 Inches 061 Inches [facility] ID Date Data Source [id number] 08/21/2021 09:45:34 PM EDT [facility] Name Value Range Interpretation Code Description Data Source(s) WEIGHT RECORDED 187.00 pounds 187.00 pounds [facility] Height 61 Inches 061 Inches [facility] ID Date Data Source [id number] 08/21/2021 09:46:01 PM EDT [facility] Name Value Range Interpretation Code Description Data Source(s) WEIGHT RECORDED 186.00 pounds 186.00 pounds [facility] Height 61 Inches 061 Inches [facility] ID Date Data Source [id number] 08/21/2021 09:45:59 PM EDT [facility] Name Value Range Interpretation Code Description Data Source(s) WEIGHT RECORDED 186.00 pounds 186.00 pounds [facility] Height 61 Inches 061 Inches [facility]
[2021-08-23 22:13] VITALS: BP 105/63
--- NOTE | 2021-08-23 22:31 | IPNPDOC ---
Obstetrical Progress Note Date of Service Aug 23, 2021 Subjective Pt is starting to feel more uncomfortable and more pressure. She is having nausea/vomiting and acid reflux. Objective Vital Signs Date Time Temp Pulse Resp B/P (MAP) Pulse Ox O2 Delivery O2 Flow Rate FiO2 08/23/21 21:11 98.2 105 16 124/70 (88) 08/23/21 19:14 97 Room Air Assessment Heart Rate (FHR): 160 Variability: Moderate Accelerations: None Decelerations: None Heart Rate Tracing: Category I Tocometer Contractions: Yes Frequency: irregular Sterile Vaginal Examination Dilation: 5 cm Effacement (%): 80% Station: -2 Cervical Consistency: Soft Cervical Position: Middle Postion/Presentation: Cephalic presentation Assessment and Plan Age: 31 : 5 Term: 1 Pre-term: 2 Abortions: 1 Livin Status: Reassuring Group B Streptococcus: Negative Anticipate: Vaginal Delivery Additional Comments Pt has made mild cervical change. Diagnosis of PTL confirmed. Pt has already received rescue course of beta (08/21-08/22). No role for tocolysis at this time. She is GBS neg. Greater than 32wks, no role for neuroprotection at this time. Will continue with expectant management. Epidural PRN. JOSSELYN LOCKETT MD Aug 23, 2021 22:31
[2021-08-23 23:04] VITALS: BP 144/63
[2021-08-23] MEDS ORDERED: HOME MED LIST COMPLETE! XX SCH (23:30)
[2021-08-24] VITALS (50 sets, daily range): BP systolic 99–156; BP diastolic 53–91
[2021-08-24] MEDS ORDERED: hydrOXYzine 50 MG TAB PO ONE (00:50)
[2021-08-24] MEDS: LR 1,000 ML IV SCH ×4 (02:45→22:55)
[2021-08-24] MEDS ORDERED: FENTANYL 2MCG/ML ROPIVACAINE 0.2% IN 0.9% NACL 100ML IVBAG As Ordered ONE (02:52)
[2021-08-24] MEDS: FENTANYL/ROPIVACAINE/NACL BAG 100 ML EPIDURAL SCH ×2 (03:47→12:52)
[2021-08-24] MEDS ORDERED: NALOXONE INJ 0.4MG/1ML VIAL (J2310 PER 1MG) IV PRN (04:40)
[2021-08-24] MEDS ORDERED: diphenhydrAMINE 50MG/ML VIAL (J1200) IV PRN (04:40)
[2021-08-24] MEDS ORDERED: EPIDURAL/PCA KEYS XX PRN (04:40)
[2021-08-24] MEDS ORDERED: ONDANSETRON 4MG/2ML VIAL IV PRN (04:40)
[2021-08-24] MEDS ORDERED: EPIDURAL COMMENT XX SCH (04:40)
[2021-08-24] MEDS ORDERED: REFRIGERATOR IV KEYS XX PRN (04:40)
[2021-08-24] MEDS ORDERED: LACTATED RINGER'S 1000 ML IV PRN (04:40)
[2021-08-24] MEDS ORDERED: ePHEDrine SULFATE 25 MG/5 ML(5MG/ML) SYRINGE IV PRN (04:40)
--- NOTE | 2021-08-24 10:34 | IPNPDOC ---
Obstetrical Progress Note Date of Service Aug 24, 2021 Subjective Comfortable w/ epidural Objective Vital Signs Date Time Temp Pulse Resp B/P (MAP) Pulse Ox O2 Delivery O2 Flow Rate FiO2 08/24/21 08:05 94 119/55 (76) 08/24/21 07:35 16 08/24/21 07:30 97.6 08/24/21 04:28 97 08/23/21 19:14 Room Air Assessment Heart Rate (FHR): 130 Variability: Moderate Accelerations: Positive Decelerations: None Heart Rate Tracing: Category I Tocometer Contractions: Yes Frequency: irregular Sterile Vaginal Examination Dilation: 6 cm Effacement (%): 90% Station: -1 Cervical Consistency: Soft Cervical Position: Middle Assessment and Plan Age: 31 : 5 Term: 1 Pre-term: 2 Abortions: 1 Livin Status: Reassuring Group B Streptococcus: Negative Anticipate: Vaginal Delivery JOSSELYN LOCKETT MD Aug 24, 2021 10:34
[2021-08-24] MEDS ORDERED: FAMOTIDINE 20 MG TAB PO ONE (19:15)
[2021-08-25] VITALS (49 sets, daily range): BP systolic 106–141; BP diastolic 55–90
[2021-08-25] MEDS: LR 1,000 ML IV SCH ×2 (06:12→13:59)
[2021-08-25] MEDS ORDERED: OXYTOCIN DRIP 30 UNITS in IV 1 EA IV SCH (07:45)
[2021-08-25] MEDS: FENTANYL/ROPIVACAINE/NACL BAG 100 ML EPIDURAL SCH (09:01)
--- NOTE | 2021-08-25 17:55 | IPNPDOC ---
Obstetrical Progress Note Date of Service Aug 25, 2021 Subjective Patient reports increased pressure. Objective Vital Signs Date Time Temp Pulse Resp B/P (MAP) Pulse Ox O2 Delivery O2 Flow Rate FiO2 08/25/21 13:58 98 18 126/85 (99) 08/25/21 10:39 98.6 08/24/21 19:05 98 Room Air Assessment Heart Rate (FHR): 125 Variability: Moderate Accelerations: Positive Decelerations: Early Heart Rate Tracing: Category I Tocometer Contractions: Yes Frequency: regular Sterile Vaginal Examination Dilation: 7 cm Effacement (%): 90% Station: -2 Cervical Consistency: Soft Cervical Position: Anterior Postion/Presentation: Cephalic presentation Assessment and Plan Age: 31 : 5 Term: 1 Pre-term: 2 Abortions: 1 Livin EGA at Admission: 35 Weeks & Days 35.3 Status: Reassuring Group B Streptococcus: Negative Anticipate: Vaginal Delivery Additional Comments AROM to a large amount of clear fluid after consent including R/B/A was reviewed. IV Pitocin is at 16 mu/min. CECELIA DENNIS CNM Aug 25, 2021 17:55
[2021-08-25] MEDS ORDERED: IBUPROFEN 600MG TAB PO PRN (19:00)
[2021-08-25] MEDS ORDERED: ACETAMINOPHEN TAB 650MG DOSE (2X325MG) PO PRN (19:00)
[2021-08-25] MEDS ORDERED: RHOGAM 300 MCG (1500 IU) INJ (J2790) IM SCH (19:00)
[2021-08-25] MEDS ORDERED: ANUSOL HC CREAM 30GM TOP PRN (19:00)
[2021-08-25] MEDS ORDERED: DIBUCAINE 1% OINTMENT 30GM TOP PRN (19:00)
[2021-08-25] MEDS ORDERED: METHYLERGONOVINE MALEATE 0.2 MG TAB PO PRN (19:00)
[2021-08-25] MEDS ORDERED: MEASLES,MUMPS,RUBELLA VACCINE INJ (MMR-II) (90707) SC SCH (19:00)
[2021-08-25] MEDS ORDERED: MOM 30ML SUSPENSION UDC PO PRN (19:00)
[2021-08-25] MEDS ORDERED: DOCUSATE SODIUM 100MG CAPSULE PO PRN (19:00)
--- NOTE | 2021-08-25 19:15 | DNPDOC ---
[facility] Delivery Note Delivery Note DATE OF DELIVERY: 08/25/2021 PREDELIVERY DIAGNOSIS: 35-3/7 weeks' gestation and labor POST DELIVERY DIAGNOSIS: Delivered. PROCEDURE: Spontaneous vaginal delivery. MEASURING MACHINE OPERATOR: Cecelia Bourne CNM and MANUEL Aguilar ANESTHESIA: epidural. ESTIMATED BLOOD LOSS: 450 mL. FINDINGS: 5 pound 11 ounce 2590 gram male , Score 8/9, marginal cord insertion, calcified placenta, right compound hand, delivery DELIVERY SUMMARY: Patient is a 31-year-old 5 now para 1314 who was admitted to labor and delivery in active labor with cervical changes from 3 to 6cm. She received an epidural for pain management. Her labor was augmented at 1738 with AROM and IV Pitocin. She was fully at [address] Monroy (neonatology) was notified of impending delivery . She pushed to a living male at 1826 in the JORGE position with a right compound hand, with restitution to ROT. Anterior shoulder was delivered with gentle downward traction and the corpus followed. Three vessel cord was clamped and the cord was cut by the father of the baby. The placenta was delivered at 1833 via Pope with intact membranes. Hemostasis was achieved with IV Pitocin, IM Methergine, and fundal massage. The cervix, vagina, and perineum was inspected and a first degree perineal laceration, repaired with 3.0 vicryl for hemostasis. Mom and dad named the baby John. Counts of instruments and sponges are correct. John is transitioning in the NICU due to gestation per Dr Monroy. Mom plans to breastfeed and is in stable condition. CECELIA BOURNE CNM Aug 25, 2021 19:14
[2021-08-25] MEDS: IBUPROFEN 800 MG TAB PO PRN (20:35)
[2021-08-26] MEDS: ACETAMINOPHEN 500 MG TAB PO PRN ×2 (02:41→08:31)
[2021-08-26 06:05] VITALS: BP 110/64
[2021-08-26] MEDS: PRENATAL VITAMINS CHEWABLE TABLET PO SCH (08:30)
--- NOTE | 2021-08-26 14:23 | IPNPDOC ---
Progress Note Date of Service: Aug 26, 2021 Day#: 1 Progress Note SUBJECT: Status post . She has been ambulating, voiding spontaneously with out issue and tolerating regular diet. Lochia decreasing/minimal. Pain is well- controlled. Denies headache, visual changes, right upper quadrant pain, shortness breath or chest pain. OBJECTIVE: VITAL SIGNS: Within normal limits, afebrile. Alert and oriented times three. Abdomen: Fundus firm at U-2. Soft, NTTP. ASSESSMENT: Status post uncomplicated spontaneous vaginal delivery. Vitals within normal limits, afebrile, hemodynamically stable with no evidence of infection. PLAN: Discharge to home tomorrow Tylenol and Motrin for pain. Routine instructions/precautions reviewed. Routine PP visit in 6 weeks in clinic. VS, I&O, 24H, Fishbone Vital Signs/I&O Vital Signs Date Time Temp Pulse Resp B/P (MAP) Pulse Ox O2 Delivery O2 Flow Rate FiO2 08/26/21 06:05 97.2 69 16 110/64 (79) 96 Room Air I&O- Last 24 Hours up to 6 AM 08/26/21 06:00 Intake Total 2475.5 ml Output Total 1425 ml Balance 1050.5 ml NARINDER NEVILLE DO Aug 26, 2021 14:23
[2021-08-26 18:00] VITALS: BP 119/63
[2021-08-26] MEDS: IBUPROFEN 800 MG TAB PO PRN (21:01)
[2021-08-27] MEDS: ACETAMINOPHEN 500 MG TAB PO PRN (05:47)
[2021-08-27 06:17] VITALS: BP 119/66
[2021-08-27] MEDS: PRENATAL VITAMINS CHEWABLE TABLET PO SCH (09:44)
== END 2021-08-27 12:35 | disposition home or self-care (01) | DRG 807 ==
LOC: M LDO 18:55 → M LDI 21:31 → M OBS 08-25 20:51
PROVIDERS: ADMIT Obstetrics & Gynecology; ATTEND Obstetrics & Gynecology
PROC: 10E0XZZ Delivery of Products of Conception, External Approach (ICD-10-PCS; principal; 2021-08-25)
PROC: 10907ZC Drainage of Amniotic Fluid, Therapeutic from Products of Conception, Via Natural or Artificial Opening (ICD-10-PCS; 2021-08-25)
PROC: 0HQ9XZZ Repair Perineum Skin, External Approach (ICD-10-PCS; 2021-08-25)
DX: O60.14X0 Preterm labor third trimester with preterm delivery third trimester, not applicable or unspecified (principal); Z37.0 Single live birth; Z3A.35 35 weeks gestation of pregnancy; O64.5XX0 Obstructed labor due to compound presentation, not applicable or unspecified; O43.893 Other placental disorders, third trimester; O70.0 First degree perineal laceration during delivery